=== PATIENT | female | born 1985 | race Caucasian/White ===

== ENCOUNTER 2022-01-09 19:43 | Emergency (ER) | payer BC, SELFPAY ==
[2022-01-09 19:49] VITALS: BP 102/48; PULSE 64; RESP 18; TEMP 36.2; O2SAT 98; BMI 24.9
--- OUTSIDE RECORDS SUMMARY | 2022-01-09 20:48 | XMS_ITS | Clinical Summary ---
:1985 Author Organization [employer] [place] [address] Care Team Providers Name Role Phone Malka Arizmendi DO Primary Care Provider Allergies Active Allergy Reactions Severity Noted Date Comments Lorazepam Mental Status Change 01/18/2014 Cephalexin Hives 03/14/2017 Clonazepam Mental Status Change 01/18/2014 Metoclopramide Agitation, Anxiety, Mental Status Change 03/31/2019 Medications Medication Sig Dispensed Refills Start End Status Date Date EPINEPHrine Inject 0.3 mg 2 Each 0 03/18/19 Acti ve (EPIPEN) 0.3 mg/0.3 intramuscular one 18 mL time if needed injectionIndication for Allergic s: Allergic Reaction for up reaction, to 1 dose. subsequent encounter multivitamin (MVI) Take 1 tablet by 90 tablet 3 07/27/19 Active tablet mouth once daily. 19 diazePAM (VALIUM) 2 1 tab oral twice 4 tablet 0 01/13/20 Active mg daily as needed 19 tabletIndications: agitation Restlessness and agitation methylphenidate HCl TK 1 T PO QAM 0 03/11/19 Active (RITALIN SR) 20 mg 20 Sustained-Release tablet Diaper,Brief, For home use. 1 box 06/06/19 Ac tive Adult,DisposableInd 20 ications: Mixed stress and urge urinary incontinence medication order Medical marijuana 0 07/25/19 Active composer 22 estradioL (ESTRACE) Take 1 Tablet 90 tablet. 3 07/25/19 Active 0.5 mg (0.5 mg) by mouth 22 tabletIndications: once daily. Surgical menopause fluticasone (50 mcg Inhale 2 Sprays 16 mL 3 08/29/19 Active per actuation) into affected 22 nasal solution nostril(s) once (FLONASE)Indication daily. s: Rhinitis, unspecified type diclofenac topical Apply 2-4 g 350 g 1 09/26/19 Active (VOLTAREN) 1 % topically to 22 gelIndications: affected area(s) Back pain, 4 times daily. unspecified back location, unspecified back pain laterality, unspecified chronicity, DDD (degenerative disc disease), thoracolumbar, Fibromyalgia methocarbamoL Take 1-2 Tablets 30 Tablet 0 12/17/19 Active (ROBAXIN) 500 mg (500-1,000 mg) by 22 tabletIndications: mouth three times Muscle spasm daily. As needed muscle spasm methocarbamoL Daily as needed 0 Discontinued (ROBAXIN) 500 mg 022 (Re order tablet (E-cancel not sent)) pregabalin (LYRICA) Take 1 Capsule 60 Capsule 1 09/03/1911/25 Discontinued 150 mg (150 mg) by mouth 22 022 (* Med capsuleIndications: in the morning complete/Regime Fibromyalgia and 1 Capsule n (150 mg) in the comp lete/Level evening. of care miguel) Active Problems Problem Noted Date Multiple lung nodules on CT 07/24/2021 Overview: 06/2021: Two stable 4mm noncalcified pulm onary nodules in RUL. IF high risk (patient smokes) <6mm, optional CT at 12months. 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, now when laying of left side she has heart contractions) 11/04/2021 Travel 10/31/2021 Travel 10/17/2021 Ancillary Procedure 10/17/2021 Ancillary Procedure 10/17/2021 Office Visit Malka Arizmendi Knee Pa in/problem (Right DO knee cap pain, 2 years getting worse); Derm Problem (Bump o n right hip, 1 year) 10/17/2021 Travel from Last 3 Months Immunizations Name Administration Dates Next Due Tdap 10/22/2017, 03/04/2014 Family History Medical History Relation Name Comments Diabetes Father 'not take insuli n right.' Heart Disease Father stents placed in 60's Hypertension Father Other Mother endometriosis Cancer Paternal Grandmother uterine Cancer-ovarian Paternal Grandmother Cancer-breast No Family History Relation Name Status Comments Brother 1 Alive Brother 2 Alive Brother 3 Alive Father Alive Mother Alive Paternal Grandmother Social History Tobacco Use Types Packs/Day Years Used Date Current Every Day Smoker 1 0 Smokeless Tobacco: Never Used Tobacco Cessation: Ready to Quit: Yes; C ounseling Given: Yes Alcohol Use Standard Drinks/Week Comments No 0 (1 standard drink = 0.6 oz pure alcoho l) Sex Assigned at Date Recorded Female 08/15/2019 11:26 AM CDT COVID-19 Exposure Response Date Recorded In the last 10 days, have you been in contact No / Unsure 12/21/2021 10:04 AM CDT with someone who was confirmed or suspected to have Coronavirus/COVID-19? Obstetrics History Para Term AB IAB SAB Ectopic Multiple Living Live Births 2 2 1 1 0 0 0 0 2 2 Date Outcome GA Total Labor/2nd/3rd Weight Sex Delivery Anes PTL Akua A 1 A5 Name Clin Labor Term Danyell ng Danyell ng Last Filed Vital Signs Vital Sign Reading Time Taken Comments Blood Pressure 110/68 11/04/2021 11:15 AM CDT Pulse 76 11/04/2021 11:15 AM CDT Temperature 36.9 ??C (98.5 ??F) 09/25/2021 8:16 AM CDT Respiratory Rate 18 12/27/2019 11:39 AM NEWS PRODUCER Oxygen Saturation 99% 10/17/2021 10:55 AM CDT Inhaled Oxygen Concentration - - Weight 83.3 kg (183 lb 11.2 11/04/2021 11:15 AM with sa ndals oz) CDT Height 180 cm (5' 10.87) 01/30/2020 10:32 AM NEWS PRODUCER Body Mass Index 25.72 01/30/2020 10:32 AM NEWS PRODUCER Plan of Treatment Upcoming Encounters Date Type Specialty Care Team Description 01/13/2022 Office Visit Malka Arizmendi, DO [address] [facility] [address] [place], [place] [address] (Wo rk) 01/27/2022 Office Visit [facility], [facility] [employer] Health Maintenance Due Date Last Done Comments COVID-19 vaccine series (#1) 1983 Pneumococcal series for age 19-64 1989 (1 - PCV) HIV for age 15-65 1998 Hepatitis C screening for age 0103/24/2001 18-79 BMI (ht and wt on same day) for 01/29/2021 01/30/2020, 02/0 07/2019, age 18+ 01/18/2019, Additional history exists Influenza for age 9-49 10/24/2021 Depression screening for age 12+ 08/28/2022 08/28/2021, 03/2021, 07/24/2021, Additional history exists Tetanus booster 10/23/2027 10/22/2017, 03/04/2014, 09/23/2009 (Completed outside of [facility]) Tdap Completed 10/22/2017, 03/04/2014 Medical Devices Implanted Type Area Biometrics Technician Device Shelf Model / Identifier Expiration Serial / Date Lot Guide Nerve [id number] Repair Device - [id number] Right: Int egra 01/22/2018 [id number] / Implanted: Qty: 1 on 01/19/2018 by Clint Montalvo MD at [facility] [place] Wendy / [id number] Procedures Procedure Name Priority Date/Time Associated Diagnosis Comme nts XR KNEE 3 VIEWS Routine 10/17/2021 12:16 PM Pain of right Resu lts for this RIGHT CDT patella procedure are i n the results section. XR SPINE STANDING Routine 10/17/2021 12:15 PM Scoliosis, Res ults for this SCOLIOSIS 1 VIEW CDT unspecified procedure a re in scoliosis type, the results unspecified spinal section. region PATH TISSUE EXAM Routine 10/17/2021 11:40 AM Skin lesion Resu lts for this CDT procedure are i n the results section. from Last 3 Months Results XR KNEE 3 VIEWS RIGHT (10/17/2021 12:16 PM CDT) Anatomical Region Laterality Modality KNEES, KNEE R Computed Radiography Specimen (Source) Anatomical Collection Method Collection Time Re ceived Time Location / / Volume Laterality 10/17/2021 4:27 PM CDT Narrative 10/17/2021 4:27 PM CDT For Patients: ??As a result of the Cures Act, medical imaging exams and procedure report s are released immediately into your ronan [employer] medical record. ??You may view this report before your referring provider. ??If you have questions, please contact your health care provider. Indication: Right patellar pain Technique: Right knee 3 views Comparison: None Findings: Bones: Slight lateral patellar tilt note d. No fractures or bone lesions. ?? Joint spaces: Joint spaces are well main tained. No degenerative changes. No sign of joint effusion. ?? Soft tissues: Unremarkable. ?? Impression: Mild lateral patellar tilt. Remainder no rmal. Dictated by Tyron Meyers MD @ Oct 17 2 022 ??4:27PM (Electronically Signed) ?? Procedure Note Tyron Meyers MD - 10/17/2021For matting of this note might be different from the original. For Patients: As a result of the Cures Act, medical imaging exams and procedure reports are released immediately into your electronic medical record. You may view this report before your referring provider. If you have questions, please contact [facility] health care provider. Indication: Right patellar pain Technique: Right knee 3 views Comparison: None Findings: Bones: Slight lateral patellar tilt note d. No fractures or bone lesions. Joint spaces: Joint spaces are well main tained. No degenerative changes. No sign of joint effusion. Soft tissues: Unremarkable. Impression: Mild lateral patellar tilt. Remainder no rmal. Dictated by Tyron Meyers MD @ Oct 17 4:27PM (Electronically Signed) Malka Arizmendi DO GENERAL IMAGING XR SPINE STANDING SCOLIOSIS 1 VIEW (10/17/2021 12:15 PM CDT) Anatomical Region Laterality Modality CERVICAL SPINE, THORACIC SPINE, LUMBAR SPINE, Spine Computed Radiography Specimen (Source) Anatomical Collection Method Collection Time Re ceived Time Location / / Volume Laterality 10/17/2021 4:42 PM CDT Impressions 10/17/2021 4:42 PM CDT Mild S shaped curvature of the thoracolumbar spine. Dictated by Tyron Meyers MD @ Oct 17 022 ??4:42PM (Electronically Signed) ?? Narrative 10/17/2021 4:42 PM CDT For Patients: ??As a result of the Cures Act, medical imaging exams and procedure report s are released immediately into your ronan [employer] medical record. ??You may view this report before your referring provider. ??If you have questions, please contact your health care provider. INDICATION: Scoliosis TECHNIQUE: Standing frontal films of the thoracolum bar spine COMPARISON: none FINDINGS: 8.7 degrees leftward curvature T12 throu gh L4. 5 degrees rightward curvature T3 through T9. No vertebral body deformity. Lungs clear. Procedure Note Tyron Meyers MD - 10/17/2021For matting of this note might be different from the original. For Patients: As a result of the Cures Act, medical imaging exams and procedure reports are released immediately into your electronic medical record. You may view this report before your referring provider. If you have questions, please contact yo health care provider. INDICATION: Scoliosis TECHNIQUE: Standing frontal films of the thoracolum bar spine COMPARISON: none FINDINGS: 8.7 degrees leftward curvature T12 throu gh L4. 5 degrees rightward curvature T3 through T9. No vertebral body deformity. Lungs clear. IMPRESSION: Mild S shaped curvature of the thoracolu mbar spine. Dictated by Tyron Meyers MD @ Oct 17 4:42PM (Electronically Signed) Malka Arizmendi DO GENERAL IMAGING PATH TISSUE EXAM (10/17/2021 11:40 AM CDT) Component Value Ref Test Analysis Performed At [facility] gist Range Method Time Signature Case Report Pathology Report ?Case: [id number] ? 10/21/2021 [facility] Authorizing Provider: ??Malka Prater, DO ?Collected: ? 10/17/2021 1140 ? 9:17 AM HEALTH Ordering Location: ? [facility] ?? Received: ?10/17/2021 1157 ? CDT LABOR ATORY-C ? Clinic ? ENTRAL Pathologist: ? David Beavers MD ? LABORATORY Specimen: ?Left Hip ? Final A) SKIN, LEFT HIP, BIOPSY: 10/21/2021 [facility] Electronically Diagnosis 1. Dermatofibroma 9:17 AM HEALTH si gned by Ruthann, 2. No evidence of malignancy CDT L ABORATORY-Lena Hernandez MD on ENTRAL 10/21/2021 at LABORATORY 9:17 AM Clinical left hip skin 10/21/2021 [facility] Information nodule, 9:17 AM [facility] CDT LABORATORY-C ENTRAL LABORATORY Gross A) Received in formalin, lab eled with the patient's name and date of , are two skin shave biopsies. The first, inked red and trisected, measures 0.7 x 0.7 cm and displays a 0.7 x 0.7 x 0.2 cm raise 0 10/21/2021 [facility] Description d gee-brown lesion. The seco nd, inked yellow and bisected, measures 0.5 x 0.3 cm and displays a 0.5 x 0.3 x 0.2 cm raised gee lesion. The specimen is entirely submitted in two cassettes. 9:17 AM [facility] CDT LABORATORY-C Torin Rich 10/17/2021 6:17 PM ENTRAL LABORATORY Microscopic The final diagnosis is based on microscopic examination of appropriate sections of all specimens. 10/21/2021 [facility] Description 9:[address] [facility] A) There is a dermal prolife ration of spindled cells growing in a somewhat storiform fashion with no significant mitotic activity or cytologic atypia. At the periphery of the lesion, the spindled cells ENTRAL encompass individual collage n bundles. The lesion is broadly transected at the base of the biopsy specimen. The presence of red and yellow ink is confirmed on tissue sections. LABORATORY Additional 10/21/2021 [facility] Information Interpreted at [facility], Central Laboratory - [address] [facility] [address], [place] [address] 9:[address] [facility]-C ENTRAL LABORATORY Specimen Anatomical Collection Method Collection Time Receive d Time (Source) Location / / Volume Laterality Other (Left Hip) Non-Blood / 10/17/2021 11:40 022 Unknown AM CDT 11:57 AM CDT Malka Arizmendi DO PATHOLOGY/CYTOLOGY Performing Organization Address City/State/ZIP Code Phon e Number [employer] [address] [place] [address] LABORATORY-CENTRAL 2000 LABORATORY from Last 3 Months Insurance Payer Benefit Plan / Subscriber ID Effective Dates Phone Addre ss Type Group [employer] [id number] 2018-Present [address] [address] [place] [address] Advance Directives Latest Code Status on File Code Status Date Activated Date Inactivated Comments Full Code 01/19/2018 9:37 AM 01/19/2018 7:08 PM Full Code 03/06/2007 3:12 AM 03/08/2007 4:52 PM Full Code 03/05/2007 8:57 AM 03/06/2007 1:54 AM Full Code 03/05/2007 7:41 AM 03/05/2007 8:57 AM Full Code 03/03/2007 1:56 AM 03/03/2007 6:24 AM Care Teams Homebirth Midwife Relationship Specialty Start Date End Date Malka Arizmendi DO PCP - General Family Practice 10/10/13 [address] [place] [address]
[2022-01-09 21:09] LABS: PCR FLU A Negative PCR FLU A (Negative); PCR FLU B Negative PCR FLU B (Negative); PCR RSV Negative PCR RSV (Negative)
[2022-01-09 21:10] LABS: SARS PCR* Negative SARS-CoV-2 (Negative)
--- NOTE | 2022-01-09 21:27 | ED.GENADULT ---
HPI - General Adult General Chief complaint: Unspecified Complaint, Adult Stated complaint: Breathing Difficulty Time Seen by Provider: 01/09/22 20:15 History of Present Illness HPI narrative: This 36-year-old female comes in reporting shortness of breath especially when laying down. She was seen yesterday at her pain clinic. She has fibromyalgia among other things and did receive an injection of Toradol and a steroid. She does not report any fevers. She does not have much of a cough. She states that she feels rather normal with regard to breathing when upright but is since she lays down she begins to be short of breath. She does not have any pedal edema and does not report any history of chest pain or congestive heart failure. Related Data Home Medications Medication Instructions Recorded Confirmed diazepam 5 mg tablet mg 01/09/22 estradiol 0.5 mg tablet mg 01/09/22 fluticasone propionate 50 intranasal 01/09/22 mcg/actuation nasal spray,suspension methocarbamol 500 mg tablet mg 01/09/22 Previous Rx's Medication Instructions Recorded methylprednisolone 4 mg tablets in See Rx Instructions PO .COMPLEX 01/09/22 a dose pack (Medrol (Mohit)) #21 ea Allergies Allergy/AdvReac Type Severity Reaction Status Date / Time clonazepam [From Klonopin] Allergy Mild Verified 01/09/22 19:56 lorazepam Allergy Mild Anxiety Verified 01/09/22 19:56 metoclopramide Allergy Mild Verified 01/09/22 19:56 keflex Allergy Mild Hives Uncoded 01/09/22 19:56 Review of Systems Status of ROS: Reports: 10 or more systems reviewed and unremarkable except as noted in History and below Narrative: Constitutional: No fevers, no weight gain or loss. Eyes: No discharge. No vision changes. HENT: No congestion, no sore throat, no ear pain. Cardiovascular: No chest pain, no palpitations. Respiratory: Shortness of breath when laying down. Gastrointestinal: No abdominal pain, no vomiting, no diarrhea. Genitourinary: No dysuria, no hematuria. Musculoskeletal: Normal range of motion. Skin: No rashes, no pruritis. Neurological: No dizziness, weakness, sensory change, speech change. Endo/Heme/Allergies: No bruising or bleeding. No polydipsia. Pysch: no suicidality, no anxiety, no insomnia. All other systems reviewed and are negative. Exam Narrative: Exam Narrative: Constitutional: Well-developed, well-nourished, no acute distress. HEENT: Normocephalic, atraumatic. Neck: Normal range of motion. Supple. She has chronic neck pain and reports a herniated disc. Heart: Regular. No murmurs. Normal rate. Intact distal pulses. Lungs: Clear to auscultation when upright. When laying down I hear wheezes left greater than right. No chest discomfort. Abdomen: Normal bowel sounds. Nontender. No rebound tenderness. Genitalia: Deferred. Back: No midline tenderness. Normal range of motion. Extremities: Normal range of motion. No injury. No pedal edema. Skin: Intact. No rash. Warm. No erythema or pallor. Neurologic: No altered sensation. No weakness. Alert and oriented. Psychiatric: No suicidality. No anxiety or depression. No insomnia. Nursing notes and vitals signs are reviewed. Const: Vital Signs, click to edit/add: Vital Signs - 24 hr 01/09/22 19:49 Temperature 97.1 F L Pulse Rate [Pulse Oximeter] 64 Respiratory Rate 18 Blood Pressure [[facility]] 102/48 L Pulse Oximetry 98 Oxygen Delivery Me thod Room Air Course Vital Signs Vital signs: Initial Vital Signs Temperature 97.1 F L 01/09/22 19:49 Temperature Source Temporal Artery Scan 01/09/22 19:49 Pulse Rate 64 01/09/22 19:49 Pulse Rhythm 01/09/22 19:49 Respiratory Rate 18 01/09/22 19:49 Blood Pressure 102/48 L 01/09/22 19:49 Blood Pressure Mean 66 01/09/22 19:49 Blood Pressure Position Sitting 01/09/22 19:49 Pulse Oximetry 98 01/09/22 19:49 Oxygen Delivery Method 01/09/22 19:49 Vital Signs Temperature 97.1 F L 01/09/22 19:49 Pulse Rate 64 01/09/22 19:49 Respiratory Rate 18 01/09/22 19:49 Blood Pressure 102/48 L 01/09/22 19:49 Pulse Oximetry 98 01/09/22 19:49 Oxygen Delivery Method 01/09/22 19:49 Temperature 97.1 F L 01/09/22 19:49 Pulse Rate 64 01/09/22 19:49 Respiratory Rate 18 01/09/22 19:49 Blood Pressure 102/48 L 01/09/22 19:49 Pulse Oximetry 98 01/09/22 19:49 Oxygen Delivery Method 01/09/22 19:49 Medical Decision Making MDM Narrative Medical decision making narrative: This patient comes in reporting symptoms of orthopnea. She does not have any chest pain or history of congestive heart failure. Nasal swab returns negative for COVID and influenza. She is not using any accessory muscles for breathing and has normal oximetry and pulse. She does not have any triggers that are suspicious for DVT or pulmonary embolism. Her revised Moriches score is reassuring in this regard. When she laid on her left side horizontally she immediately had wheezing is heard in the stethoscope. She did receive a steroid yesterday. She does not use an inhaler and declined any albuterol treatment now because she knows that it would make her jittery in keep her awake into the night. I did discuss other lab and imaging options which the patient declined in a process of shared decision making. She has had a many thorough workups for multiple complaints and has ongoing relationship with her primary physician and Pain Clinic. She did receive an IM dose of Toradol 30 mg. I did provide prescriptions for albuterol inhaler, Medrol Dosepak, and Toradol. Lab Data Labs: Lab Results 01/09/22 Range/Units 20:21 SARS-CoV-2 (PCR) Negative SARS-CoV-2 (Negative) Influenza Type A (PCR) Negative PCR FLU A (Negative) Influenza Type B (PCR) Negative PCR FLU B (Negative) RSV (PCR) Negative PCR RSV (Negative) Discharge Plan Discharge Clinical Impression: Orthopnea, Wheezes Patient Disposition: Home, Self-Care Condition: Stable Additional Instructions: Use medicines as needed and indicated. Follow up with MD or return if worsening. Prescriptions: New methylprednisolone [Medrol (Mohit)] 4 mg tablets,dose pack See Rx Instructions .ROUTE .COMPLEX Qty: 21 0RF Rx Instructions: orally per package directions No Action methocarbamol 500 mg tablet Label Comments: TAKE 1 TABLET BY MOUTH TWICE DAILY NEEDED estradiol 0.5 mg tablet fluticasone propionate 50 mcg/actuation spray,suspension INTRANASAL diazepam 5 mg tablet Follow Up/Referrals: Malka Arizmendi DO [Primary Care Provider] - Stand Alone Forms: [facility] Info Instructions
[2022-01-09] MEDS: KETOROLAC 30 MG/ML inj IM (21:39)
[2022-01-09 21:53] VITALS: BP 123/74
== END 2022-01-09 21:54 | disposition home or self-care (01) ==
PROVIDERS: Emergency Provider Emergency Medicine Emergency Medical Services; PCP Family Medicine
DX: R06.01 Orthopnea (principal)
CPT/HCPCS: 87502; 87634; 87635; 96372; 99284; 99285; J1885

== ENCOUNTER 2022-01-10 20:18 | Emergency (ER) | payer BC, SELFPAY ==
[2022-01-10] VITALS (16 sets, daily range): BP systolic 125–137; BP diastolic 67–81; PULSE 43–56; RESP 18; TEMP 36.7; O2SAT 96–99; BMI 25.3
--- NOTE | 2022-01-10 20:36 | CRLHL7_ITS ---
For Patients: As a result of the Cures Act, medical imaging exams and procedure reports are released immediately into your electronic medical record. You may view this report before your referring provider. If you have questions, please contact your health care provider. HISTORY: Shortness of breath. TECHNIQUE: Two views of the chest. COMPARISON: No prior. FINDINGS: There is no acute lung infiltrate or pulmonary edema. No pneumothorax or pleural effusion. Heart size and pulmonary vasculature within normal limits. No acute bony abnormality. IMPRESSION: No acute disease. Dictated by Ozzie Matthew MD @ 01/10/2022 9:37:22 PM Dictated by: Ozzie Matthew MD @ 01/10/2022 21:37:28 (Electronically Signed)
--- OUTSIDE RECORDS SUMMARY | 2022-01-10 20:46 | XMS_ITS | Clinical Summary ---
:1985 Author Organization [employer] [facility] [place] [address] Care Team Providers Name Role Phone Malka [...] CDT Respiratory Rate 18 12/27/2019 11:39 AM PACK OUT OPERATOR Oxygen Saturation 99% 10/17/2021 10:55 AM CDT Inhaled Oxygen Concentration - - Weight 83.3 kg (183 lb 11.2 11/04/2021 11:15 AM with sa ndals oz) CDT Height 180 cm (5' 10.87) 01/30/2020 10:32 AM PACK OUT OPERATOR Body Mass Index 25.72 01/30/2020 10:32 AM PACK OUT OPERATOR Plan of Treatment Upcoming Encounters Date Type Specialty Care Team Description 01/13/2022 Office Visit Malka Arizmendi, DO [address] [facility] [address] [place], [place] [address] (Wo rk) 01/27/2022 Office Visit [facility], Sharron Sympoz (dba Craft[employer]) Health Maintenance Due Date Last Done Comments [...] 10/23/2027 10/22/2017, 03/04/2014, 09/23/2009 (Completed outside of [facility]) Tdap Completed 10/22/2017, 03/04/2014 Medical Devices Implanted Type Area Legal Aide Device Shelf Model / Identifier Expiration Serial / Date Lot Guide Nerve [id number] Repair Device - [id number] Right: Int egra 01/22/2018 [id number] / Implanted: Qty: 1 on 01/19/2018 by Clint Montalvo MD at [facility] [employer] / [id number] Procedures Procedure Name Priority Date/Time Associated Diagnosis [...] s are released immediately into your [facility] medical record. ??You may view this report [...] provider. If you have questions, please contact [facility] health care provider. Indication: Right patellar pain [...] s are released immediately into your [facility] medical record. ??You may view this report [...] Component Value Ref Test Analysis Performed At [facility] gist Range Method Time Signature Case Report Pathology Report ?Case: [id number] ? 10/21/2021 [facility] Authorizing Provider: ??Malka Prater, DO ?Collected: ? 10/17/2021 1140 ? 9:17 AM HEALTH Ordering Location: ? [facility] ?? Received: ?10/17/2021 1157 ? CDT LABOR [...] [facility] Information nodule, 9:17 AM [facility] CDT LABORATORY-C ENTRAL LABORATORY Gross A) Received [...] entirely submitted in two cassettes. 9:17 AM [facility] CDT LABORATORY-C Torin Rich 10/17/2021 6:17 PM ENTRAL LABORATORY Microscopic The final diagnosis is based on microscopic examination of appropriate sections of all specimens. 10/21/2021 [facility] Description 9:[address] [facility] A) There is a dermal [...] LABORATORY Additional 10/21/2021 [facility] Information Interpreted at [facility] Laboratory, Central Laboratory - [address] [facility] [address], [place] [address] 9:[address] [facility] ENTRAL LABORATORY Specimen Anatomical Collection Method Collection Time Receive d Time (Source) Location / / Volume Laterality Other (Left Hip) Non-Blood / 10/17/2021 11:40 022 Unknown AM CDT 11:57 AM CDT Malka Arizmendi DO PATHOLOGY/CYTOLOGY Performing Organization Address City/State/ZIP Code Phon e Number [employer]™ [address] [place] [address] LABORATORY-CENTRAL 2000 LABORATORY from Last 3 Months Insurance Payer Benefit Plan / Subscriber ID Effective Dates Phone Addre ss Type Group [employer] [place] [employer] [id number] 2018-Present [address] [address] [place] [address] Advance Directives Latest Code Status on File Code Status Date Activated Date Inactivated Comments Full Code 01/19/2018 9:37 AM 01/19/2018 7:08 PM Full Code 03/06/2007 3:12 AM 03/08/2007 4:52 PM Full Code 03/05/2007 8:57 AM 03/06/2007 1:54 AM Full Code 03/05/2007 7:41 AM 03/05/2007 8:57 AM Full Code 03/03/2007 1:56 AM 03/03/2007 6:24 AM Care Teams Office Machine Embossograph Operator Relationship Specialty Start Date End Date Malka Arizmendi DO PCP - General Family Practice 10/10/13 [address] [place] [address]
--- NOTE | 2022-01-10 21:04 | ED.GENADULT ---
HPI - General Adult General Chief complaint: Unspecified Complaint, Adult Stated complaint: Weakness, Shortness of breath, Numb on right side Time Seen by Provider: 01/10/22 20:30 History of Present Illness HPI narrative: Pt is a 36 year old woman who was seen yesterday who presents with pain in the right side of her neck into her right shoulder. Pt was treated with toradol and prednisone yesterday after being found to be negative for COVID, Flu and RSV. Pt states the pain is moderate. She also has a nonproductive cough and is a smoker. Pt states that she is not feeling any better. Movement seems to make the pain worse. No radiculopathy. Pt has had no similar symptoms. No hemoptysis, fever or chills. No arm radicular symptoms. Related Data Home Medications Medication Instructions Recorded Confirmed diazepam 5 mg tablet mg 01/09/22 estradiol 0.5 mg tablet mg 01/09/22 fluticasone propionate 50 intranasal 01/09/22 mcg/actuation nasal spray,suspension methocarbamol 500 mg tablet mg 01/09/22 Previous Rx's Medication Instructions Recorded methylprednisolone 4 mg tablets in See Rx Instructions PO .COMPLEX 01/09/22 a dose pack (Medrol (Mohit)) #21 ea Allergies Allergy/AdvReac Type Severity Reaction Status Date / Time clonazepam [From Klonopin] Allergy Mild Verified 01/09/22 19:56 lorazepam Allergy Mild Anxiety Verified 01/09/22 19:56 metoclopramide Allergy Mild Verified 01/09/22 19:56 keflex Allergy Mild Hives Uncoded 01/09/22 19:56 Review of Systems Status of ROS: Reports: 10 or more systems reviewed and unremarkable except as noted in History and below [facility] Medical History (Updated 01/10/22 @ 22:35 by Juve Miguel MD) Anxiety Dental caries PAC (premature atrial contraction) Social History Smoking Status: Current some day smoker Do you use any of these nicotine containing products: None and Other How often do you have a drink containing alcohol: never How often do you have six or more drinks on one occasion: Never AUDIT-C Alcohol total score: 0 Non-prescribed substance use: marijuana (any form) Exam Narrative: Exam Narrative: EXAM GENERAL: Patient appears comfortable and well. EYES: No scleral icterus. ENT: Tympanic membranes and oropharynx normal. THYROID: no thyroid nodules or thyromegaly. LYMPH: No supraclavicular or cervical lymphadenopathy. SKIN: Visible skin seen during exam normal or with benign process only. EXT: No dependent lower extremity pedal edema. HEART: Regular rate and rhythm with no murmurs, rubs, or gallops. LUNGS: Clear to auscultation bilaterally with no crackles or wheezes. ABD: Soft, non tender, non distended. PSYCH: Good eye contact, speech is not pressured. Const: Vital Signs, click to edit/add: Vital Signs - 24 hr 01/10/22 20:23 01/10/22 20:49 01/10/22 20:50 Temperature 98.1 F Pulse Rate 44 L 48 L Pulse Rate [Left P ulse Oximeter] 46 L Blood Pressure 125/81 Blood Pressure [Ri ght Upper Arm] 133/78 Pulse Oximetry 98 99 98 Oxygen Delivery Me thod Room Air 01/10/22 20:51 01/10/22 21:00 01/10/22 21:15 Temperature Pulse Rate 48 L 46 L 50 L Pulse Rate [Left P ulse Oximeter] Blood Pressure Blood Pressure [Ri ght Upper Arm] Pulse Oximetry 98 98 97 Oxygen Delivery Me thod 01/10/22 21:30 01/10/22 21:32 01/10/22 21:48 Temperature Pulse Rate 43 L 44 L 56 L Pulse Rate [Left P ulse Oximeter] Blood Pressure 137/71 Blood Pressure [Ri ght Upper Arm] Pulse Oximetry 97 97 98 Oxygen Delivery Me thod 01/10/22 22:00 01/10/22 22:02 Temperature Pulse Rate 46 L 48 L Pulse Rate [Left P ulse Oximeter] Blood Pressure 130/67 Blood Pressure [Ri ght Upper Arm] Pulse Oximetry 97 96 Oxygen Delivery Me thod Course Course Hospital Course: Pt seen and examined. EKG, Chest X ray, Troponin, D dimer collected Reevaluation(s) Reevaluation #1: Pt now tells me that she had a number of injections in the area of shoulder pains this week. Troponin negative, D dimer boderline but certainly acceptable. EKG shows sinus bradycardia. Chart review shows that pt has been bradycardic in the past. CBC shows mild anemia with normal WBC. Time: 22:26 Vital Signs Vital signs: Initial Vital Signs Temperature 98.1 F 01/10/22 20:23 Temperature Source Temporal Artery Scan 01/10/22 20:23 Pulse Rate 46 L 01/10/22 20:23 Blood Pressure 133/78 01/10/22 20:23 Blood Pressure Mean 96 01/10/22 20:23 Blood Pressure Position Sitting 01/10/22 20:23 Pulse Oximetry 98 01/10/22 20:23 Oxygen Delivery Method 01/10/22 20:23 Vital Signs Temperature 98.1 F 01/10/22 20: Pulse Rate 46 L 01/10/22 20: Blood Pressure 133/78 01/10/22 20:23 Pulse Oximetry 98 01/10/22 20:23 Oxygen Delivery Method 01/10/22 20:23 Temperature 98.1 F 01/10/22 20: Pulse Rate 48 L 01/10/22 22:02 Blood Pressure 130/67 01/10/22 22:02 Pulse Oximetry 96 01/10/22 22:02 Oxygen Delivery Method 01/10/22 20:23 Medical Decision Making MDM Narrative Medical decision making narrative: Pt presents with a constilation of symptoms including body aches nonprodcutive cough and malaise. Pt EKG shows sinus bradycardia which doesn't seem to be causing any symptoms and is chronic. Work up otherwise largely unremarkable. Pt with recent musculoskeletal injections and symptoms of COPD exaserbation. Pt will finish prednisone and will have her start a z pack. Pt sees her PCP in two days and will discuss chronic bradycardia as well. Differential Diagnosis Differential Diagnosis: COPD, Bronchitis, Viral Syndrome, Pneumonia, Pneumothorax, Lab Data Labs: Lab Results 01/10/22 01/10/22 01/10/22 Range/Units 21:03 21:03 21:03 WBC 8.40 (4.50-11.00) K/uL RBC 3.93 L (4.00-5.20) m/uL Hgb 11.8 L (12.0-16.0) gm/dL Hct 35.9 (33.0-51.0) % MCV 91 (80-100) fL MCH 30 (26-34) pg MCHC 33 (32-36) gm/dL RDW Coeff of Darwin 12.7 (11.5-15.5) % Plt Count 165 (140-440) K/uL Neut % (Auto) 79.7 H (42.0-72.0) % Lymph % (Auto) 16.0 L (20-44) % [place] % (Auto) 3.9 (0.0-11.0) % Eos % (Auto) 0.2 (0.0-7.0) % Baso % (Auto) 0.1 (0.0-3.0) % Neut # (Auto) 6.70 (1.7-7.0) K/uL Lymph # (Auto) 1.30 (0.90-2.90) K/uL [place] # (Auto) 0.30 (0.00-0.90) K/UL Eos # (Auto) 0.02 (0.00-0.50) K/uL Baso # (Auto) 0.01 (0.00-0.30) K/uL Abs Immat Gran (auto) 0.01 (0.00-0.30) K/uL Imm/Tot Granulo (auto) 0.1 % D-Dimer Quant (PE/DVT) 0.69 H (0.00-0.50) ug/ml Troponin I < 0.01 L (0.01-0.04) ng/mL Discharge Plan Discharge Clinical Impression: Acute bronchitis Condition: Stable Instructions: Acute Bronchitis (ED) Additional Instructions: Stop Smoking Zithromax as directed Activity Level: No Restrictions Discharge Diet: Regular Prescriptions: No Action methocarbamol 500 mg tablet Label Comments: TAKE 1 TABLET BY MOUTH TWICE DAILY NEEDED estradiol 0.5 mg tablet fluticasone propionate 50 mcg/actuation spray,suspension INTRANASAL diazepam 5 mg tablet methylprednisolone [Medrol (Mohit)] 4 mg tablets,dose pack See Rx Instructions .ROUTE .COMPLEX Qty: 21 0RF Rx Instructions: orally per package directions Follow Up/Referrals: Malka Arizmendi DO [Primary Care Provider] - Stand Alone Forms: [facility] Info Instructions
[2022-01-10 21:23] LABS: Basophils Absolute Auto 0.01 K/uL (0.00-0.30); Basophils Percent Auto 0.1 % (0.0-3.0); Eosinophils Absolute Auto 0.02 K/uL (0.00-0.50); Eosinophils Percent Auto 0.2 % (0.0-7.0); Hematocrit 35.9 % (33.0-51.0); Hemoglobin* 11.8 gm/dL (12.0-16.0); Immature Granulocytes Abs Auto 0.01 K/uL (0.00-0.30); Immature Granulocytes Pct Auto 0.1 %; Mean Corpuscular HGB Conc 33 gm/dL (32-36); Mean Corpuscular Hemoglobin 30 pg (26-34); Mean Corpuscular Volume 91 fL (80-100); Monocytes Percent Auto 3.9 % (0.0-11.0); Neutrophils Percent Auto 79.7 % (42.0-72.0); Platelet Count* 165 K/uL (140-440); RDW Coefficient of Variation % 12.7 % (11.5-15.5); Red Blood Count 3.93 m/uL (4.00-5.20)
[2022-01-10 21:30] LABS: Slide Review Reflex No
[2022-01-10 21:43] LABS: Troponin I* < 0.01 ng/mL (0.01-0.04)
[2022-01-10 22:00] LABS: D Dimer Quantitative* 0.69 ug/ml (0.00-0.50)
--- NOTE | 2022-01-10 22:50 | ED.NURSE ---
Addendum entered by Juanis Sun RN 01/11/22 00:07: Pt's mother added, She [pt] has been smoking a lot of marijuana for medical uses, and I don't know if it has something to do with this. I don't know a lot about it. Original Note: Copy And Print Associate in room to discuss d/c instructions with pt and pt's mother. When going through MD d/c note, pt states The doctor didn't even tell me why I'm taking the antibiotic. MD informed of this information. MD at bedside and again goes through findings of tests and d/c instructions. Pt states Oh I guess you did say that. But I don't get why I'm going home if I still don't feel right! I've been having chest pain for two days and it's not going away. Pt asked by insurance writer what concerns pt has and if there is other testing that pt was looking for. Pt says No. This is my second day coming here and you can't tell me why my heartrate is in the 40s. I guess I just have a PE and am going home! Pt asked why she thinks she has a PE and insurance writer re-states that pt's SpO2 level is unremarkable and pt did not mention any SOB. Copy And Print Associate asks pt if she would like to speak with MD once again. Pt does not answer, signs d/c paperwork, and writes I still am having chest pain I am leaving with labs that are unnormal. Pt then gives clipboard to insurance writer. Copy And Print Associate asks pt if she wants to go over labs she feels are unnormal, but pt does not answer. Copy And Print Associate then asks pt if she would like to be given a grievance form or speak with roundhouse supervisor to discuss concerns. Pt does not answer and leaves room, slamming door. Pt's mother follows behind. supervisor television chassis repair follows insurance writer to speak with pt's mother in vestibule. Pt's mother states, It's her anxiety acting up. 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 Her friend from a PE and so that's why she thinks she might have one. supervisor television chassis repair asks pt's mother if there are other concerns pt's mother would like to be addressed. Pt's mother states pt received too many steroid shots on Thursday and that's probably why her heart rate is low. Pt's mother says, she's outside, I need to go. supervisor television chassis repair and insurance writer thank mother and mother exits ER.
== END 2022-01-10 22:50 | disposition home or self-care (01) ==
PROVIDERS: Emergency Provider Internal Medicine; PCP Family Medicine
DX: J20.9 Acute bronchitis, unspecified (principal)
CPT/HCPCS: 36415; 71046; 84484; 85025; 85379; 93005; 94761; 99283; 99284; 99285

== ENCOUNTER 2022-04-27 20:06 | Emergency (ER) | payer BC, SELFPAY ==
--- NOTE | 2022-04-27 20:14 | ED.GENADULT ---
HPI - General Adult General Time Seen by Provider: 20:14 Date Seen: 04/27/22 Chief complaint: Unspecified Complaint, Adult Stated complaint: Pain,Numbness Left Side-Swollen Ankles Time Seen by Provider: 04/27/22 20:13 Source: patient, RN notes reviewed and old records reviewed Mode of arrival: ambulatory Limitations: no limitations History of Present Illness HPI narrative: Grace is a very pleasant 37-year-old female with a history of chronic pain, recent cervical spine injections, who comes to the emergency room with concerns regarding neck numbness and swollen ankles. Patient states that 3 and half weeks ago she underwent which she describes as trigger point injections in her neck at [facility] in [place]. She states that usually they do the trigger point injections on her shoulders and her back at this time they did in her neck and she thinks that they were trying to target the nerves in her cervical spine. Thus, I am unsure if she needs trigger point or cervical spine injections. At any rate, patient states that she is usually numb around the area of the injection for the 1st day and and she was from her neck onto her shoulder. However, 4 days later when she went to a physical therapy appointment and they pushed down and both shoulders she had no pain on the right. She notes that she went to PT 7 days ago and there were areas on her back and behind her ear that she describes as feeling numb. She states she also has a headache on that side. Three days ago she started noticing swelling in her ankles and is worried that somehow a worsening cervical disc is causing the swelling in her ankles. She states that she has discomfort from her left neck around the left back under her ribcage and down her left leg. She does note that she had to do a special healed on her 15-year-old daughter. She did not fall but her daughter is the same size as her.. This was greater than 24 hours ago. Patient notes that she actually has had the pain on the left side with her rib wrapping around to the front. This has been ongoing and is intermittent. She notes no loss of bowel or bladder control or weakness in the lower extremities. She is using ibuprofen for discomfort and today actually used to Toradol. She states the Toradol helped and she was able to fall asleep but just has pain throughout. She states that this is not from anxiety or depression. She denies breathing difficulties or any chest pain. She is not worried about anything. She states that she did try to use compression stockings which worked to decrease her swelling but assumes she removed them it came back. She notes that she has tried elevate her legs but elevating her legs causes her some neck pain. Related Data Home Medications Medication Instructions Recorded Confirmed estradiol 0.5 mg tablet 0.5 mg PO DAILY 01/09/22 04/27/22 methocarbamol 500 mg tablet 500 mg PO DAILY 01/09/22 04/27/22 gabapentin 100 mg capsule 100 mg PO DAILY 04/27/22 04/27/22 prazosin 1 mg capsule 1 mg PO HS 04/27/22 04/27/22 Previous Rx's Medication Instructions Recorded furosemide 20 mg tablet 20 mg PO DAILY PRN edema #2 tabs 04/27/22 ibuprofen 800 mg tablet 800 mg PO Q8H PRN pain #30 tabs 04/27/22 Allergies Allergy/AdvReac Type Severity Reaction Status Date / Time cephalexin [From Keflex] Allergy Mild Hives Verified 04/27/22 20:29 lorazepam Allergy Mild Anxiety Verified 04/27/22 20:29 metoclopramide Allergy Mild Agitation, Verified 04/27/22 20:29 Anxiety clonazepam [From Klonopin] AdvReac Mild Mental Verified 04/27/22 20:29 Status Changes Review of Systems Status of ROS: Reports: 10 or more systems reviewed and unremarkable except as noted in History and below Const: Denies: fever or chills Eyes: Denies: change in vision ENMT: Reports: neck pain (Left-sided); Denies: throat swelling or hoarseness Cardio: Reports: chest pain (Chest wall discomfort lateral and under left breast.); Denies: shortness of breath with exertion Resp: Denies: shortness of breath or cough GI: Denies: abdominal pain, nausea, vomiting or diarrhea : Denies: painful urination or urinary frequency Musculo: Reports: back pain (Chronic) and neck pain (Left-sided) Integ/Breast: Denies: rash Neuro: Reports: headache Psych: Denies: anxiety Allergy/Immuno: Denies: throat swelling PFSH PFS Medical History Anxiety Bipolar 2 disorder Borderline personality disorder Controlled substance agreement signed De Quervain's disease (tenosynovitis) Dental caries Depression Disorder of right radial nerve Endometriosis Fibromyalgia PAC (premature atrial contraction) PTSD (post-traumatic stress disorder) Tobacco dependence Social History Smoking Status: Current some day smoker Do you use any of these nicotine containing products: None and Other How often do you have a drink containing alcohol: never How often do you have six or more drinks on one occasion: Never AUDIT-C Alcohol total score: 0 Non-prescribed substance use: marijuana (any form) Exam Narrative: Exam Narrative: Patient is alert and oriented. Her eyes are clear EOM is full. Head is atraumatic normocephalic. No pain with palpation in the midline cervical spine. In fact she says that area is numb to the touch although she can feel pressure. I do not see any unusual erythema or rash. No rash behind the right ear. TMs bilaterally without erythema or fluid. Oral cavity with moist mucous membranes no erythema exudate in the posterior oropharynx. Neck is supple without lymphadenopathy. Patient is noted to be lying in bed with flex neck she is able to extend I do not see any movement that increases her discomfort. Heart with regular rate and rhythm and lungs are clear in all lung sanders. Sitting up within normal limits. Upper extremity strength and motor is intact. Lower extremities show scant peripheral edema at the ankles and feet. Pedal pulses are intact. Calves are supple without discomfort. Negative Sarah sign Hip flexion extension, knee flexion extension, ankle dorsiflexion plantar flexion, great toe Chambers and ankle flexion all intact strength 5/5. Patient has subjected altered sensation on the left lateral calf. Sensation fully intact at the great toe and 2nd toe interspace. DTRs 2+ at the knees and 1+ at the ankles and are symmetrical.. Const: Vital Signs, click to edit/add: Vital Signs - 24 hr 04/27/22 20:17 Temperature 98.2 F Pulse Rate [Right Pulse Oximeter] 84 Respiratory Rate 18 Blood Pressure [Ri ght Upper Arm] 111/70 Pulse Oximetry 99 Oxygen Delivery Me thod Room Air Documenting provider has reviewed patient's vital signs: yes Course Course Hospital Course: Differential diagnosis includes but is not limited to chronic pain flare, cervical spine disc pathology. Lower extremity edema could possibly from for DVT, fluid overload, NSAID use, kidney failure. I do not think this is DVT as patient has normal O2 sats and pulse and this is bilateral ankles. Vital Signs Vital signs: Initial Vital Signs Temperature 98.2 F 04/27/22 20:17 Temperature Source Temporal Artery Scan 04/27/22 20:17 Pulse Rate 84 04/27/22 20:17 Respiratory Rate 18 04/27/22 20:17 Blood Pressure 111/70 04/27/22 20:17 Blood Pressure Mean 83 04/27/22 20:17 Blood Pressure Position Sitting 04/27/22 20:17 Pulse Oximetry 99 04/27/22 20:17 Oxygen Delivery Method 04/27/22 20:17 Vital Signs Temperature 98.2 F 04/27/22 20:17 Pulse Rate 84 04/27/22 20:17 Respiratory Rate 18 04/27/22 20:17 Blood Pressure 111/70 04/27/22 20:17 Pulse Oximetry 99 04/27/22 20:17 Oxygen Delivery Method 04/27/22 20:17 Temperature 98.2 F 04/27/22 20:17 Pulse Rate 84 04/27/22 20:17 Respiratory Rate 18 04/27/22 20:17 Blood Pressure 111/70 04/27/22 20:17 Pulse Oximetry 99 04/27/22 20:17 Oxygen Delivery Method 04/27/22 20:17 Medical Decision Making MDM Narrative Medical decision making narrative: 1. Chronic pain flare-at this time patient has been trying ibuprofen and Toradol at home. She is requesting ibuprofen 800 mg tablets. I do not note any problems with her creatinine as it is 0.9 this evening. Further her white count and CRP are also within normal limits. I do not have an explanation for her pain at this time. I would not want to treat this with narcotics and feel that her best option is to follow-up with her pain clinic tomorrow. Course if symptoms change I would have her come back to the emergency room. No red flag symptoms upon exam at this time. No unusual hyper reflexia. 2. Lower extremity edema-TSH within normal limits. This value not originally available and patient states that she will check on her portal. I believe patient's lower extremity edema is from increased ibuprofen use. I suggest use of the compression stockings +elevation of her legs. Further, I have sent furosemide 20 mg p.o. to be taken tomorrow morning if she would like. Would recommend pushing fluids however our as well. She may repeat the dosing on 04/29 if needed. No evidence of DVT with normal O2 sats pulse. 3. Disposition -home at this time. Follow-up with primary MD for ongoing complaints. Return to the emergency room for worsening symptoms and as needed. Patient was concerned regarding her eosinophils being at 7.6%. Normal value up to 7%. I did state I was not concerned about this as a result. Patient also concerned about potassium at 3.4. State I would not normally replace potassium but we talked about bananas and potatoes as being good sources of potassium. No evidence of UTI. Medical Records Medical records reviewed: Yes I reviewed the patient's medical records Lab Data Lab results reviewed: Yes I reviewed the patient's lab results Labs: Lab Results 04/27/22 04/27/22 04/27/22 Range/Units 21:00 21:05 21:05 WBC 7.07 (4.50-11.00) K/uL RBC 3.98 L (4.00-5.20) m/uL Hgb 12.3 (12.0-16.0) gm/dL Hct 35.6 (33.0-51.0) % MCV 89 (80-100) fL MCH 31 (26-34) pg MCHC 35 (32-36) gm/dL RDW Coeff of [place] 11.8 (11.5-15.5) % Plt Count 153 (140-440) K/uL Neut % (Auto) 51.7 (42.0-72.0) % Lymph % (Auto) 35.2 (20-44) % [place] % (Auto) 5.1 (0.0-11.0) % Eos % (Auto) 7.6 H (0.0-7.0) % Baso % (Auto) 0.3 (0.0-3.0) % Neut # (Auto) 3.65 (1.7-7.0) K/uL Lymph # (Auto) 2.49 (0.90-2.90) K/uL [place] # (Auto) 0.40 (0.00-0.90) K/UL Eos # (Auto) 0.50 (0.00-0.50) K/uL Baso # (Auto) 0.02 (0.00-0.30) K/uL Sodium 139 (135-149) mmol/L Potassium 3.4 L (3.6-5.1) mmol/L Chloride 111 (96-114) mmol/L Carbon Dioxide 26 (20-32) mmol/L BUN 10 (5-24) mg/dL Creatinine 0.9 (0.5-1.5) mg/dL Estimated Creat Clear 90.75 Estimated GFR 83 ml/min Glucose 102 (60-115) mg/dL Calcium 8.7 (8.4-10.6) mg/dL C-Reactive Protein 0.7 (0.5-1.0) mg/dL TSH (0.270-4.20) uIU/mL Urine Color Yellow (Yellow) Urine Appearance Slightly Cloudy A (Clear) Urine pH 6.0 (5.0-8.5) Ur Specific [place] 1.025 (1.000-1.030) Urine Protein 1+ A (Negative) Urine Glucose (UA) Negative (Negative) Urine Ketones Negative (Negative) Urine Blood Negative (Negative) Urine Nitrite Negative (Negative) Urine Bilirubin Negative (Negative) Urine Urobilinogen 4.0 A (0.2-1.0) Ur Leukocyte Esterase Negative (Negative) Urine RBC 0-2 (0-2) Urine WBC 0-2 (0-5) Ur Squamous Epith Cells Moderate A (None-Few) Urine Bacteria None (None) 04/27/22 Range/Units 21:05 WBC (4.50-11.00) K/uL RBC (4.00-5.20) m/uL Hgb (12.0-16.0) gm/dL Hct (33.0-51.0) % MCV (80-100) fL MCH (26-34) pg MCHC (32-36) gm/dL RDW Coeff of Darwin (11.5-15.5) % Plt Count (140-440) K/uL Neut % (Auto) (42.0-72.0) % Lymph % (Auto) (20-44) % [place] % (Auto) (0.0-11.0) % Eos % (Auto) (0.0-7.0) % Baso % (Auto) (0.0-3.0) % Neut # (Auto) (1.7-7.0) K/uL Lymph # (Auto) (0.90-2.90) K/uL [place] # (Auto) (0.00-0.90) K/UL Eos # (Auto) (0.00-0.50) K/uL Baso # (Auto) (0.00-0.30) K/uL Sodium (135-149) mmol/L Potassium (3.6-5.1) mmol/L Chloride (96-114) mmol/L Carbon Dioxide (20-32) mmol/L BUN (5-24) mg/dL Creatinine (0.5-1.5) mg/dL Estimated Creat Clear Estimated GFR ml/min Glucose (60-115) mg/dL Calcium (8.4-10.6) mg/dL C-Reactive Protein (0.5-1.0) mg/dL TSH 1.400 (0.270-4.20) uIU/mL Urine Color (Yellow) Urine Appearance (Clear) Urine pH (5.0-8.5) Ur Specific [place] (1.000-1.030) Urine Protein (Negative) Urine Glucose (UA) (Negative) Urine Ketones (Negative) Urine Blood (Negative) Urine Nitrite (Negative) Urine Bilirubin (Negative) Urine Urobilinogen (0.2-1.0) Ur Leukocyte Esterase (Negative) Urine RBC (0-2) Urine WBC (0-5) Ur Squamous Epith Cells (None-Few) Urine Bacteria (None) Discharge Plan Discharge Clinical Impression: Acute neck pain, Ankle edema Patient Disposition: Home, Self-Care Condition: Unchanged Additional Instructions: Recommend follow-up with your pain clinic tomorrow in regards to the unusual neck symptoms that you are describing. You may need an MRI. I will prescribe ibuprofen 800 mg. Consider wearing your compression stockings and elevating legs. You may use the diuretic Lasix as directed. Prescriptions: New furosemide 20 mg tablet 20 mg PO DAILY PRN (Reason: edema) Qty: 2 2RF ibuprofen 800 mg tablet 800 mg PO Q8H PRN (Reason: pain) Qty: 30 0RF No Action methocarbamol 500 mg tablet 500 mg PO DAILY Label Comments: TAKE 1 TABLET BY MOUTH TWICE DAILY NEEDED estradiol 0.5 mg tablet 0.5 mg PO DAILY gabapentin 100 mg capsule 100 mg PO DAILY prazosin 1 mg capsule 1 mg PO HS Label Comments: Take 1-2 capsule by mouth at bedtime Follow Up/Referrals: Malka Arizmendi DO [Primary Care Provider] - Stand Alone Forms: [employer] Info Instructions
[2022-04-27 20:17] VITALS: BP 111/70; PULSE 84; RESP 18; TEMP 36.8; O2SAT 99; BMI 25.0
[2022-04-27 21:12] LABS: Basophils Absolute Auto 0.02 K/uL (0.00-0.30); Basophils Percent Auto 0.3 % (0.0-3.0); Eosinophils Percent Auto 7.6 % (0.0-7.0); Hematocrit 35.6 % (33.0-51.0); Hemoglobin* 12.3 gm/dL (12.0-16.0); Immature Granulocytes Abs Auto 0.01 K/uL (0.00-0.30); Immature Granulocytes Pct Auto 0.1 %; Lymphocytes Absolute Auto 2.49 K/uL (0.90-2.90); Lymphocytes Percent Auto 35.2 % (20-44); Mean Corpuscular HGB Conc 35 gm/dL (32-36); Mean Corpuscular Hemoglobin 31 pg (26-34); Mean Corpuscular Volume 89 fL (80-100); Monocytes Percent Auto 5.1 % (0.0-11.0); Neutrophils Absolute Auto 3.65 K/uL (1.7-7.0); Neutrophils Percent Auto 51.7 % (42.0-72.0); Platelet Count* 153 K/uL (140-440); RDW Coefficient of Variation % 11.8 % (11.5-15.5); Red Blood Count 3.98 m/uL (4.00-5.20); White Blood Count* 7.07 K/uL (4.50-11.00)
[2022-04-27 21:16] LABS: Slide Review Reflex No
[2022-04-27 21:17] LABS: Appearance Urine Slightly Cloudy (Clear); Bilirubin Urine Negative (Negative); Blood Urine Negative (Negative); Color Urine Yellow (Yellow); Glucose Urine Negative (Negative); Ketones Urine Negative (Negative); Leukocyte Esterase Urine Negative (Negative); Nitrite Urine Negative (Negative); Protein Urine 1+ (Negative); Specific Gravity Urine 1.025 (1.000-1.030)
[2022-04-27 21:24] LABS: Chloride* 111 mmol/L (96-114); Potassium* 3.4 mmol/L (3.6-5.1); Sodium* 139 mmol/L (135-149)
[2022-04-27 21:26] LABS: RBC Urine 0-2 (0-2); Squamous Epithelial Cell Urine Moderate (None-Few); WBC Urine 0-2 (0-5)
[2022-04-27 21:27] LABS: Creatinine* 0.9 mg/dL (0.5-1.5); Est. Creatinine Clearance* 90.75; Estimated Glomerular Filt Rate 83 ml/min
[2022-04-27 21:28] LABS: Blood Urea Nitrogen* 10 mg/dL (5-24); Calcium* 8.7 mg/dL (8.4-10.6); Carbon Dioxide* 26 mmol/L (20-32); Glucose* 102 mg/dL (60-115)
[2022-04-27 21:30] LABS: C Reactive Protein* 0.7 mg/dL (0.5-1.0)
== END 2022-04-27 22:25 | disposition home or self-care (01) ==
PROVIDERS: Emergency Provider Family Medicine; PCP Family Medicine
DX: M54.2 Cervicalgia (principal); R60.9 Edema, unspecified
CPT/HCPCS: 36415; 80048; 81001; 84443; 85025; 86140; 99283; 99284

== ENCOUNTER 2022-12-11 11:00 | Outpatient (RCR) | payer BC, SELFPAY | END 2023-04-10 23:59 | disposition home or self-care (01) | PROVIDERS: PCP Family Medicine; Visit Provider Family Medicine | DX: M54.2 Cervicalgia (principal); Z51.89 Encounter for other specified aftercare | CPT/HCPCS: 97110; 97140; 97162 ==

== ENCOUNTER 2023-05-12 10:36 | Outpatient (CLI) | payer BC, SELFPAY | END 2023-05-12 10:37 | disposition home or self-care (01) | PROVIDERS: PCP Family Medicine; Visit Provider Family Medicine | DX: S61.215A Laceration without foreign body of left ring finger without damage to nail, initial encounter (principal); W45.8XXA Other foreign body or object entering through skin, initial encounter; Y93.E9 Activity, other interior property and clothing maintenance; Y92.009 Unspecified place in unspecified non-institutional (private) residence as the place of occurrence of the external cause | CPT/HCPCS: A0998 ==

== ENCOUNTER 2023-05-12 11:31 | Emergency (ER) | payer BC, SELFPAY ==
[2023-05-12 11:36] VITALS: BP 101/64; PULSE 60; RESP 18; TEMP 36.6; O2SAT 97; BMI 17.9
--- NOTE | 2023-05-12 11:55 | ED_ITS ---
HPI - Wound/Laceration General Time Seen by Provider: 11:55 Date Seen: 05/12/23 Chief Complaint: Laceration/Wound Stated Complaint: finger laceration Time Seen by Provider: 05/12/23 11:32 Source: patient and RN notes reviewed Mode of arrival: ambulatory Limitations: no limitations History of Present Illness HPI narrative: Patient is a 38-year-old female coming to the ER with finger laceration. She was cleaning and got a large piece of glass that cut the finger. Her finger was bleeding profusely but not spurting blood. She had her finger wrapped by a music box mechanic. She did drive independently to the ED. the bleeding has presumably stopped, has not blood through the bandaging. Was on the pad of the finger per report. This happened just prior to arrival. She states the music box mechanic did not see any retained glass. She does not feel any foreign body but there is pain in the finger. Patient tetanus UTD: Yes (10/22/17) Related Data Home Medications Medication Instructions Recorded Confirmed estradiol 0.5 mg tablet 0.5 mg PO DAILY 01/09/22 05/12/23 methocarbamol 500 mg tablet 500 mg PO DAILY 01/09/22 05/12/23 canabis 05/12/23 diazepam 5 mg tablet 7.5 mg PO QAM 05/12/23 05/12/23 Allergies Allergy/AdvReac Type Severity Reaction Status Date / Time cephalexin [From Keflex] Allergy Mild Hives Verified 05/12/23 11:42 lorazepam Allergy Mild Anxiety Verified 05/12/23 11:42 metoclopramide Allergy Mild Agitation, Verified 05/12/23 11:42 Anxiety clonazepam [From Klonopin] AdvReac Mild Mental Verified 05/12/23 11:42 Status Changes Review of Systems Narrative: As per HPI. PFSH PFS Medical History Anxiety Bipolar 2 disorder Borderline personality disorder Controlled substance agreement signed De Quervain's disease (tenosynovitis) Dental caries Depression Disorder of right radial nerve Endometriosis Fibromyalgia PAC (premature atrial contraction) PTSD (post-traumatic stress disorder) Tobacco dependence Social History Smoking Status: Current some day smoker Do you use any of these nicotine containing products: None and Other How often do you have a drink containing alcohol: never How often do you have six or more drinks on one occasion: Never AUDIT-C Alcohol total score: 0 Non-prescribed substance use: marijuana (any form) service: No Exam Const: Vital Signs, click to edit/add: Vital Signs - 24 hr 05/12/23 11:36 Temperature 97.8 F Pulse Rate [Pulse Oximeter] 60 Respiratory Rate 18 Blood Pressure [Ri ght Upper Arm] 101/64 Pulse Oximetry 97 Oxygen Delivery Me thod Room Air The right involved finger has a v flap shape wound, bandaging was removed. There is dry blood, no active bleeding. No palpable or visible retained foreign body. Wound edges are nicely seated down. She has full range of motion of the finger, seems to have normal distal sensation. This is well approximated. Documenting provider has reviewed patient's vital signs: yes Course Course ED Course: Will have nursing staff clean this wound, patient is requesting Dermabond. Went over glue on digits, my preference to not use glue on digits. She would still like to proceed with this, understands she will need to keep this finger dry. Reevaluation(s) Time of Reevaluation #1: 12:37 Reevaluation #1: Applied Dermabond as per patient request. Wound was reinspected prior to applying Dermabond, V flap without any identifiable retained foreign body, no active bleeding. The Dermabond was applied with out complication, patient tolerated this well. Vital Signs Vital signs: Initial Vital Signs Temperature 97.8 F 05/12/23 11:36 Temperature Source Temporal Artery Scan 05/12/23 11:36 Pulse Rate 60 05/12/23 11:36 Respiratory Rate 18 05/12/23 11:36 Blood Pressure 101/64 05/12/23 11:36 Blood Pressure Mean 76 05/12/23 11:36 Blood Pressure Position Sitting 05/12/23 11:36 Pulse Oximetry 97 05/12/23 11:36 Oxygen Delivery Method Room Air 05/12/23 11:36 Vital Signs Temperature 97.8 F 05/12/23 11:36 Pulse Rate 60 05/12/23 11:36 Respiratory Rate 18 05/12/23 11:36 Blood Pressure 101/64 05/12/23 11:36 Pulse Oximetry 97 05/12/23 11:36 Oxygen Delivery Method Room Air 05/12/23 11:36 Temperature 97.8 F 05/12/23 11:36 Pulse Rate 60 05/12/23 11:36 Respiratory Rate 18 05/12/23 11:36 Blood Pressure 101/64 05/12/23 11:36 Pulse Oximetry 97 05/12/23 11:36 Oxygen Delivery Method Room Air 05/12/23 11:36 Discharge Plan Discharge Clinical Impression: Finger laceration Qualifiers: Encounter type: initial encounter Patient Disposition: Home, Self-Care Condition: Stable Instructions: Finger Laceration (ED), Skin Adhesive Care (ED) Additional Instructions: Need to keep this finger clean and dry for the next 5 days. After that may start washing hand and showering as usual. Do not pull the glue off as this can open the wound. Allow the glue to fall off on its own. If there is any concern about this wound becoming infected, please seek re-evaluation. Prescriptions: No Action methocarbamol 500 mg tablet 500 mg PO DAILY Patient Comments: TAKE 1 TABLET BY MOUTH TWICE DAILY NEEDED estradiol 0.5 mg tablet 0.5 mg PO DAILY diazepam 5 mg tablet 7.5 mg PO QAM clarisse Follow Up/Referrals: Malka Arizmendi DO [Primary Care Provider] - Stand Alone Forms: [employer] Info Instructions
== END 2023-05-12 12:50 | disposition home or self-care (01) ==
PROVIDERS: Emergency Provider Family Medicine; PCP Family Medicine
DX: S61.214A Laceration without foreign body of right ring finger without damage to nail, initial encounter (principal); W25.XXXA Contact with sharp glass, initial encounter
CPT/HCPCS: 12001; 99282; 99283

== ENCOUNTER 2023-05-28 13:56 | Outpatient (CLI) | payer BC, SELFPAY ==
--- OUTSIDE RECORDS SUMMARY | 2023-06-03 13:51 | XMS_ITS | Continuity of Care Document ---
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 [address] [place] [address], [id number], . tel:[phone] Referring Provider: Ibis Jerry, [address] [facility], [address] . tel:[phone] Family History Family Member Type Diagnosis Age At Onset No Information Payers Payer name Insurance type Covered green party ID Authoriza tion(s) No Information Social History Type Description Quantity Date Captured Comments Sex Female Smoking Status No Information Chief Complaint And Reason For Visit No Information Reason For Referral Reason For Referral No Information History Of Present Illness Encounter Date Complaint History Of Prese nt Illness No Information Functional Status Date Functional Assessmen t No Information Instructions Date Instruction Additional Infor mation No Information Assessments Type Assessment Date No Information Patient Care Teams Name Effective Dates (start - stop) Status Members No Information
--- OUTSIDE RECORDS SUMMARY | 2023-06-03 13:51 | XMS_ITS | Continuity of Care Document ---
Author Name Unknown Organization [facility] Address [address] [place] [address] Care Team Providers Care Checkout Operator Name Role Phone Kaden Mckeon CRNA Unavailable Unavailable Procedures Procedure Date Percutaneous Image guided injection, dra nagy, or Advance Directives Directive Yes / No Effective Date File Name No Information Encounters Encounter Description Practice Location Reason(s) For Visit Diagnoses Date Provider Providers Copied on Encounter [facility], [address] [place], [place], [id number], [facility] No Information 3 Mike Alfonso. [address] [place], [place], [id number] , . tel:[phone] Referring Provider: Ibis Jerry, [address] [facility] [place], [address] . tel:[phone] Family History Family Member Type Diagnosis Age [...]
--- OUTSIDE RECORDS SUMMARY | 2023-06-03 13:51 | XMS_ITS | Continuity of Care Document ---
Author Name Unknown Organization [facility] Address [address] [place] [address] Phone Care Team Providers Care Flipping Machine Operator Name Role Phone Galen Zhang MD Unavailable Unavailable Allergies, Adverse Reactions, Alerts Substance Reaction Status Criticality clonazepam Mental Status Change Active No Info rmation CEPHALEXIN MONOHYDRATE Hives Active No In formation lorazepam Mental Status Change Active No Info rmation Medications Medication Instructions Dosage Effective Dates (start - stop) Status Comments SINUS RINSE (unknown strength) Not Available - Active VITAMIN B-6 (unknown strength) Not Available - Active RITALIN LA (unknown strength) Not Available - Active HYDROXYZINE HCL (unknown strength) Not Available - Active FLONASE ALLERGY RELIEF (unknown strength) Not Available - Active ESTRACE (unknown strength) Not Available - Active LEXAPRO (unknown strength) Not Available - Active EPIPEN (unknown strength) Not Available - Active VITAMIN B-12 (unknown strength) Not Available - Active VITAMIN D3 (unknown strength) Not Available - Active EPIDIOLEX (unknown strength) Not Available - Active IBUPROFEN PM (unknown strength) Not Available - Active NORTRIPTYLINE HCL (unknown strength) Not Available - Active LYRICA (unknown strength) Not Available - Active Procedures Procedure Date Office/Outpatient Visit,New, Mod 2018 X Ray Exam Entire SPI 6/> VW Advance Directives Directive Yes / No Effective Date File Name No Information Encounters Encounter Description Practice Location Reason(s) For Visit Diagnoses Date Provider Providers Copied on Encounter [facility], [address], [place], [id number] , tel:[phone] [facility] No Information 9 Leatha Aaron. [facility], [address], [address], [place], [place], [id number], [place]. tel:[phone] Office/Outpa tient Visit,Lacie Chaudhary [facility], [address], [place], [place], [id number] , [place] tel:[phone] [facility] Other cervical disc degeneration, cervicothorac ic region 9 Transfeldt Ensor. [facility], [address], [facility] [address], [place], [place], [id number], [place]. tel:[phone] Referring Provider: [facility] [address] [facility] [address], [place], [address]. tel:[phone] Family History Family Member Type Diagnosis Age At Onset No Information Payers Payer name Insurance type Covered republican ID Authoriza tion(s) No Information Social History Type Description Quantity Date Captured Comments Sex Female Smoking Status No Information Chief Complaint And Reason For Visit No Information Reason For Referral Reason For Referral No Information Plan Of Treatment Date Type Action Status Future Order: Radiology Order PA /Lateral Full Spine (PALatFS), Ordered on: Ordered Future Order: Radiology Order F/ E Cervical (F/Ecervical), Ordered on: Ordered Future Order: Radiology Order F/ E Lumbar (F/ELumb), Ordered on: Ordered History Of Present Illness Encounter Date Complaint History Of Prese nt Illness No Information Functional Status Date Functional Assessmen t No Information Instructions Date Instruction Additional Infor mation No Information Assessments Type Assessment Date No Information Patient Care Teams Name Effective Dates (start - stop) Status Members No Information
--- OUTSIDE RECORDS SUMMARY | 2023-06-03 13:51 | XMS_ITS | Continuity of Care Document ---
Author Name Unknown Organization [facility] Address [address] [place] [address] Phone Care Team Providers Care Pomologist Name Role Phone Timmy Severino Unavailable Unavailable Allergies, Adverse Reactions, Alerts Substance Reaction Status Criticality cephalexin HivesHivesHivesDifficulty breathing Activ e No Information clonazepam Altered mental status Active No Inf ormation lorazepam Altered mental status Active No Inf ormation Medications Medication Instructions Dosage Effective Dates (start - stop) Status Comments methocarbamol 500 mg tablet take 1 tablet by oral route 2 times every day as needed 500 MG - Active fluticasone propionate 50 mcg/actuation nasal spray,suspension Inhale 2 Sprays into affected nostril(s) once daily. - Active epinephrine 0.3 mg/0.3 mL injection, auto-injector Inject 0.3 mg intramuscular one time if needed for Allergic Reaction for up to 1 dose. - Active estradiol 1 mg/gram (0.1 %) transdermal gel packet apply 1 packet by transdermal route every day to upper right or left thigh (alternate thighs each day) 1 MG - Active diazepam 5 mg tablet take 1 tablet by OR AL route 2 times every day prn 5 MG - Active medical cannabis ORAL - Active methylphenidate 20 mg tablet take 1 tablet by oral route 2 times every day 20 MG - Active Procedures Procedure Date INJ TRIGGER POINT, 02/24 MUSCL OFFICE/OUTPATIENT VISIT, EST INTERLAMINAR CRV OR THRC PT EVAL MOD COMPLEX 30 MIN OFFICE/OUTPATIENT VISIT, EST OFFICE/OUTPATIENT VISIT, EST INJECT TRIGGER POINTS, =/> 3 OFFICE/OUTPATIENT VISIT, EST INJECT TRIGGER POINTS, =/> 3 Kenalog Triamcinolone acetonide inj Ketorolac tromethamine inj OFFICE/OUTPATIENT VISIT, EST OFFICE/OUTPATIENT VISIT, EST Drug Urine Toxology With Chromatography Drug test def 1-7 classes OFFICE/OUTPATIENT VISIT, EST OFFICE VISIT, EST TELEMEDICINE Drug test def 22+ classes Drug Urine Toxology With Chromatography Intramuscular Injection Ketorolac tromethamine inj INJECT TRIGGER POINTS, =/> 3 Kenalog Triamcinolone acetonide inj OFFICE/OUTPATIENT VISIT, EST OFFICE/OUTPATIENT VISIT, EST Drug test def 22+ classes Drug Urine Toxology With Chromatography INJECT TRIGGER POINTS, =/> 3 Kenalog Triamcinolone acetonide inj Injection, bupivicaine hydro OFFICE/OUTPATIENT VISIT, EST Advance Directives Directive Yes / No Effective Date File Name No Information Encounters Encounter Description Practice Location Reason(s) For Visit Diagnoses Date Provider Providers Copied on Encounter [facility], [address] [place], [id number] , [place] tel: [phone] [facility] No Information 3 Yasmeen Warner. [facility], [place], [id number] , [place]. tel:[phone] OFFICE/OUTPAT IENT VISIT, EST [facility], [address] [place], [id number] , [place] tel: [phone] [facility] [place] Cervicalgia (chief complaint) Other spondylosis with radiculopathy, cervical regionMyalgia, other siteFibromyalg iaHeadacheOthe r custodial (current) drug therapy 3 Marian Abbie. [address], [place], [id number] , [place]. tel:[phone] Referring Provider: Lyle Hyatt, [address] [place] [address], [id number]. tel:[phone] [facility], [address] [place] [address], [id number] , [place] tel:[phone] [facility] Other spondylosis with radiculopathy, cervical region 3 Claritza Baumann. [address] [place] [address], [id number] , [place]. tel:[phone] Referring Provider: Lyle Hyatt, [address] [place] [address], [id number]. tel:[phone] [facility], [address] [place] [address], [id number] , [place] tel:[phone] [facility] cervicalgia (chief complaint) Other spondylosis with radiculopathy, cervical region 3 Srege Rdz. [address] [place] [address], [id number] , [place]. tel:[phone] Referring Provider: Lyle Hyatt, [address] [place] [address], [id number]. tel:[phone] OFFICE/OUTPAT IENT VISIT, EST [facility], [address] [place] [address], [id number] , [place] tel:[phone] [facility] Fibromyalgia (chief complaint) Other spondylosis with radiculopathy, cervical regionMyalgia, other siteFibromyalg iaHeadacheOthe r sliver chopper (current) drug therapy 3 Marian Abbie. [address], [place], [id number] , [place]. tel:[phone] Referring Provider: Lyle Hyatt, [address] [place] [address], [id number]. [phone] OFFICE/OUTPAT IENT VISIT, [facility], [address] [place] [address], [id number] , [place] [phone] [facility] Fibromyalgia (chief complaint) Other spondylosis with radiculopathy, cervical regionCervical giaMyalgia, other siteFibromyalg iaOther custodial (current) drug therapyHeadach e [id number] [place] [address] [address], [place], [place], [id number] , [place]. tel:[phone] Referring Provider: Lyle Hyatt, [address] [place] [address], [id number]. [phone] OFFICE/OUTPAT IENT VISIT, [facility], [address] [place] [address], [id number] , [place] [phone] [facility] Fibromyalgia (chief complaint) CervicalgiaMya lgia, other siteFibromyalg iaOther custodial (current) drug therapyOther spondylosis with radiculopathy, cervical region [id number] [place] [address] [address], [place], [place], [id number] , [place]. tel:[phone] Referring Provider: Lyle Hyatt, [address] [place] [address], [id number]. [phone] OFFICE/OUTPAT IENT VISIT, [facility], [address] [place] [address], [id number] , [place] [phone] [facility] Fibromyalgia (chief complaint) CervicalgiaMya lgia, other siteFibromyalg iaOther custodial (current) drug therapy [id number] [place] [address] [address], [place], [place], [id number] , [place]. [phone] Referring Provider: Lyle Hyatt, [address] [place] [address], [id number]. tel:[phone] OFFICE/OUTPAT IENT VISIT, [facility], [address] [place] [address], [id number] , [place] tel:[phone] [facility] Fibromyalgia (chief complaint) Myalgia, other siteFibromyalg iaOther sliver chopper (current) drug therapyEncmayers [facility] er for therapeutic drug level monitoringCerv icalgia 2 Yasmeen Warner. [facility]5 [facility] [address], [place], [place], [id number] , [place]. tel:[phone] Referring Provider: Douglas Yip [facility] [address] [facility], [place], [address]. tel:[phone] [facility], [address] [place] [address], [id number] , [place] tel:[phone] [facility] No Information 2 Yasmeen Warner. [address] [place] [address] [address], [place], [place], [id number] , [place]. tel:[phone] [facility], [address] [place] [address], [id number] , [place] tel:[phone] [facility] [place] No Information 1 Yasmeen Warner. [address] [place] [address] [address], [place], [place], [id number] , [place]. tel: [phone] Referring Provider: Lyle Hyatt, [address] [place] [address], [id number]. tel:[phone] OFFICE/OUTPAT IENT VISIT, [facility], [address] [place] [address], [id number] , [place] tel:[phone] [facility] Fibromyalgia (chief complaint) FibromyalgiaMy algia, other siteOther sliver chopper (current) drug therapy 1 Yasmeen Warner. [address] [place] [address] [address], [place], [place], [id number] , [place]. tel:[phone] Referring Provider: Lyle Hyatt, [address] [place] [address], [id number]. tel:[phone] OFFICE VISIT, EST TELEMEDICINE [facility], [address] [place] [address], [id number] , [place] tel:[phone] [facility] Fibromyalgia (chief complaint) Myalgia, other siteOther sliver chopper (current) drug therapyFibromy algia 9-202 0 Jay Puga. [facility] [place] [facility], [address], [place], [address], [place]. [phone] Referring Provider: Lyle Hyatt, [address] [place] [address], [id number]. tel:[phone] [facility], [address] [place] [address], [id number] , [place] [phone] [facility] No Information 9 Yasmeen Warner. [address] [place] [address] [address], [place], [id number] , [place]. [phone] OFFICE/OUTPAT IENT VISIT, [facility], [address] [place] [address], [id number] , [place] [phone] [facility] Fibromyalgia (chief complaint) Other sliver chopper (current) drug therapyFibromy algiaChronic pain syndromeMyalgi a, other siteEncounter for therapeutic drug level monitoring 9 Yasmeen Warner. [address] [place] [address] [address], [place], [id number] , [place]. [phone] Referring Provider: Lyle Hyatt, [address] [place] [address], [id number]. tel:[phone] OFFICE/OUTPAT IENT VISIT, [facility], [address] [place] [address], [id number] , [place] tel:[phone] [facility] Fibromyalgia (chief complaint) Chronic pain syndromeFibrom yalgiaOther sliver chopper (current) drug therapy 9 Yasmeen Warner. [address] [place] [address] [address], [place], [id number] , [place]. tel:[phone] Referring Provider: Lyle Hyatt, [address] [place], [address]. tel:[phone] OFFICE/OUTPAT IENT VISIT, EST [facility], [address] [place], [place], [id number] , [place] [phone] [facility] Fibromyalgia (chief complaint) Chronic pain syndromeFibrom yalgiaEncounte r for therapeutic drug level monitoringOthe r custodial (current) drug therapyMyalgia , other siteCervicalgi aLow back pain 9 Yasmeen Warner. [address] [place] [address] [address], [place], [place], [id number] , [place]. [phone] Referring Provider: Douglas Yip [facility] [address], [place], [address]. tel:[phone] [facility], [address] [place] [address], [id number] , [place] [phone] [facility] Fibromyalgia (chief complaint) Chronic pain syndromeFibrom yalgiaPain in right hand 9 Arana Timmy. [address] [place] [address] [address], [place], [id number] , [place]. [phone] Family History Family Member Type Diagnosis Age At Onset Problem (finding) Family history of Endom etriosis Problem (finding) Family history of Scoli osis Payers Payer name Insurance type Covered republican ID Authoriza tion(s) No Information Social History Type Description Quantity Date Captured Comments Alcohol Use Details Unknown Caffeine Use Details Unknown Tobacco Use Status No Information Smoking Status No Information Sex Female Chief Complaint And Reason For Visit No Information Reason For Referral Reason For Referral No Information Plan Of Treatment Date Type Action Status Goal Height. Due on d ue Goal PHQ-9. Due on du e Goal Weight. Due on d ue Goal HPV. Due on due Goal Update Social Hi story. Due on due Goal Unhealthy drug u se screening. Due on due Goal Review Allergy L ist. Due on due Goal Medication Recon ciliation. Due on due Goal Hepatitis C scre ening. Due on due Goal Tobacco Use. Due on due Goal Hepatitis C scre ening. Due on due Goal Review Allergy L ist. Due on due Goal PHQ-9. Due on du e Goal Height. Due on d ue Goal Medication Recon ciliation. Due on due Goal HPV. Due on due Goal Unhealthy drug u se screening. Due on due Goal Weight. Due on d ue Goal Update Social Hi story. Due on due Goal Tobacco Use. Due on due Goal Hepatitis C scre ening. Due on due Goal Update Social Hi story. Due on due Goal Tobacco Use. Due on due Goal Review Allergy L ist. Due on due Goal Medication Recon ciliation. Due on due Goal PHQ-9. Due on du e Goal Weight. Due on d ue Goal HPV. Due on due Goal Height. Due on d ue Goal Unhealthy drug u se screening. Due on due Goal Review Allergy L ist. Due on due Goal Update Social Hi story. Due on due Goal PHQ-9. Due on du e Goal Height. Due on d ue Goal Tobacco Use. Due on 023 due Goal Medication Recon ciliation. Due on due Goal Weight. Due on d ue Goal Hepatitis C scre ening. Due on due Goal Unhealthy drug u se screening. Due on due Goal HPV. Due on due Goal Medication Recon ciliation. Due on due Goal Review Allergy L ist. Due on due Goal Update Social Hi story. Due on due Goal HPV. Due on due Goal Weight. Due on d ue Goal Height. Due on d ue Goal PHQ-9. Due on du e Goal Tobacco Use. Due on 023 due Goal Hepatitis C scre ening. Due on due Goal Unhealthy drug u se screening. Due on due Goal HPV. Due on due Goal Tobacco Use. Due on due Goal Hepatitis C scre ening. Due on due Goal Update Social Hi story. Due on due Goal Height. Due on d ue Goal Unhealthy drug u se screening. Due on due Goal Review Allergy L ist. Due on due Goal Medication Recon ciliation. Due on due Goal PHQ-9. Due on du e Goal Weight. Due on d ue Goal Review Allergy L ist. Due on due Goal Update Social Hi story. Due on due Goal Height. Due on d ue Goal Hepatitis C scre ening. Due on due Goal HPV. Due on due Goal PHQ-9. Due on du e Goal Medication Recon ciliation. Due on due Goal Tobacco Use. Due on due Goal Unhealthy drug u se screening. Due on due Goal Weight. Due on d ue Goal Height. Due on d ue Goal Medication Recon ciliation. Due on due Goal Weight. Due on d ue Goal PHQ-9. Due on du e Goal Update Social Hi story. Due on due Goal Tobacco Use. Due on 022 due Goal Review Allergy L ist. Due on due Goal Hepatitis C scre ening. Due on due Goal HPV. Due on due Goal Unhealthy drug u se screening. Due on due Goal Review Allergy L ist. Due on due Goal Update Social Hi story. Due on due Goal Weight. Due on d ue Goal Tobacco Use. Due on due Goal Height. Due on d ue Goal PHQ-9. Due on du e Goal Medication Recon ciliation. Due on due Goal Review Allergy L ist. Due on due Goal Update Social Hi story. Due on due Goal Weight. Due on d ue Goal Tobacco Use. Due on due Goal Height. Due on d ue Goal PHQ-9. Due on du e Goal Medication Recon ciliation. Due on due Future Order: Radiology Order EM G, 2 Limbs (EMG2), Ordered on: Ordered Future Order: Lab Order Drug Florina t Def 22+ Classes ([id number]), Ordered on: Ordered Future Order: Lab Order COMPLIAN CE DRUG ANALYSIS, URINE, WITH MED REPORT ([id number]), Ordered on: Ordered Future Order: Lab Order COMPLIAN CE DRUG ANALYSIS, URINE, WITH MED REPORT ([id number]), Ordered on: Ordered Future Order: Lab Order Drug Florina t Def 22+ Classes ([id number]), Ordered on: Ordered History Of Present Illness Encounter Date Complaint History Of Jeana nt Illness Comments: Grace is a 37 y/o woman here for follow up consult regarding fibromyalgia. Pain has been worse since LM and pain level averages 7/10. Patient is s/p Cervical C7-T1 ILESI on 09/12/2022. Patient reports 50-60% pain relief for at least 2 months, or more. The injection allowed her to use less medical cannabis, and take less medication for pain. She is interested in repeating procedure. She has some tightness in Left sided neck and limited ROM. Current medication regimen provides 60% pain relief for increased functionality. Continues to benefit with use of medical cannabis. Also continues Methocarbamol with benefit. Denies side effects from current regimen. No other concerns today. Cervicalgia The symptoms are reported as being mild. The symptoms occur constantly. The symptoms are described as ache, burn, sharp, tingle. Aggravating factors include bending, housework, rising from sitting, prolonged positioning, standing, twisting, stairs, walking. Relieving factors include heat, ice, massage, rx meds, physical therapy, TENS, stretching, changing positions. The client states the symptoms are chronic. cervicalgia Patient is a 37 year old female presenting with complaints of chronic neck pain that has been on going for around 4-5 years. Patient states her neck pain is getting progressively worse. She describes a recent flare while reaching and performing her exercises that brought on intense increased pain. she states this pain increase has lasted and limiting her mobility and daily activity. Patient also reports she has a goiter that is contributing and history of dental infections. Medication issues have contributed to these issues. She notes that she is currently experiencing severe pain located left sided neck pain and right sided neck tightness. Patient reports the right side has a numbness and her left side has a lot of pain. Her symptoms also include tightness, numbness, shooting pain, dull achy and annoying Her symptoms are increased with reaching lifting head movement, computer work reading, . Symptoms are somewhat relieved with home exercises, heat, baths, walks, She has tried multiple different interventions, including extensive PT, massage and home exercises. She is currently in physical therapy for her fibromyalgia and that is difficult due to her increased neck pain. She notes that her current level of discomfort limits showering, dressing, lifting, reaching for physical therapy resident and daily activity.. Patients goal is to perform her daily and occupational activities with less limitation. Fibromyalgia Duration: chroni c. Comments: Grace is a 37 y/o woman here for follow up consult regarding fibromyalgia. Patient has not been seen [facility] since 03/18/2022. She reports that last 07/12/2022, she was doing stretching which caused a pain flare through her back and tailbone. Since then, she has been having persistent migraines and numbness in her neck. Pain has been worse since LM and pain level averages 7/10. Since LM she reports that she has run out of TENs pads, has been reusing old pads. Reports that she did not pursue previously ordered BENIGNO in January 2022.Notes she has a Head, Neck, and Shoulder MRI scheduled for tomorrow, 07/18/2022. Current medication regimen provides 60% pain relief for increased functionality. Continues to benefit with use of medical cannabis. Also continues Methocarbamol with benefit. Denies side effects from current regimen. No other concerns today. Fibromyalgia Severity level i s 7. Duration: chronic. The client describes it as numbness. It occurs persistently. Symptom is aggravated by bending, lifting, housework and folding clothes. Relieving factors include stretching, massage, rest, heat, cold, Rx Meds, PT, changing positions and TENS. Pertinent negatives include diarrhea, fatigue, fever and incontinence (urinary). Comments: Grace is a 36 y/o woman here for follow up consult regarding fibromyalgia. Pain is exacerbated with increased activity. Continues to attend PT /massage at [facility]. primarily for her neck and BL hips. Pain has been relatively stable since LM and pain level averages 7/10. Continues to find benefit with TENS unit. Would like TPI administered today.Plans to schedule BENIGNO ordered LM soon.Current medication regimen provides 60% pain relief for increased functionality. Continues to benefit with use of medical cannabis. She typically utilizes lozenges and vape forms. Also continues Methocarbamol with benefit. Denies side effects from current regimen.No other concerns today. Comments: Grace is a 36 y/o woman here for follow up consult regarding fibromyalgia. Pain is exacerbated with increased activity. Continues to attend PT /massage, in [place], primarily for her neck and BL hips. Pain has been fluctuating since [facility] and pain level averages 8/10.Reports that she found good relief from her TENS unit. Upon inquiry, patient states that she is apprehensive about pursuing cervical surgery.Continues to benefit with use of medical cannabis. She typically utilizes lozenges and vape forms. Would like a refill of Methocarbamol. Denies side effects from current regimen.No other concerns today. Fibromyalgia Severity level i s 8. Duration: chronic. The client describes it as achy. It occurs persistently. The problem is fluctuating. Symptom is aggravated by bending, walking upstairs, walking downstairs, running, sitting, housework, lifting, lying down and movement. Relieving factors include stretching, massage, rest, heat, cold, Rx Meds, TENS, changing positions and PT. Pertinent negatives include diarrhea, fatigue, fever and incontinence (urinary). Comments: Grace is a 36 y/o woman here for follow up consult regarding fibromyalgia. This is my first evaluation of the patient who is routinely followed by my colleague, Timmy Arana PA-C. Reports worsened neck and back pain since [facility]. Reports that her pain is exacerbated with increased activity. Currently attends PT in [place], primarily for her neck and BL hips.S/p Botox (?) injection on 12/18/21 at [facility] with increased pain following the injection. Since [facility], patient obtained cervical MRI imaging Continues to benefit with use of medical cannabis. She typically utilizes lozenges and vape forms. Would like a refill of Methocarbamol. Inquires if she can have a Toradol injection. Denies side effects from current regimen.No other concerns today. Fibromyalgia Duration: chroni c. Pertinent negatives include diarrhea, fatigue, fever and incontinence (urinary). Comments: Grace presents for a follow up. She was last seen in office on 12/11/2020. Patient c/o chronic widespread pain d/t Fibromyalgia. Pain is most bothersome in her neck. Pain has been worse since last visit. Inquires about interventions. Continues to benefit with use of medical cannabis. She typically utilizes lozenges and vapor forms. Inquires about recertification today. No other concerns today. Fibromyalgia Duration: chroni c. Location of the pain is neck. The client describes it as sharp and achy. It occurs persistently. The problem is worsening. Symptom is aggravated by bending, walking upstairs, walking downstairs, running, sitting, walking and housework. Relieving factors include supine and rest. Pertinent negatives include diarrhea, fatigue, fever and incontinence (urinary). Fibromyalgia (comments) Grace riosents for follow-up regarding low back pain and fibromyalgia. She has not been seen by the clinic since last year with Dr. Matamoros. She reports her low back pain has continued to be very bothersome, especially in her tailbone. Inquires about SCS trial, information provided, and patient will consider. She is wanting to be recertified for medical cannabis. Currently utilizing the red formulation from [employer]. Details feeling high and dizzy, but notes that benefits outweigh the side effects. No other concerns today. Fibromyalgia Duration: chroni c. Location of the pain is lower back, neck, bilateral shoulder and widespread. It occurs persistently. The problem is stable. Pertinent negatives include diarrhea, fatigue, fever and incontinence (urinary). Fibromyalgia (comments) Ms. Schneider and is a pleasant 34 y/o who presents for virtual follow-up regarding low back pain and fibromyalgia. She has not been seen by the clinic since last year with [facility]. She reports her low back pain makes it difficult to sleep. She reports of new joint pain of the elbows and knees, which she describes as achy. She is wanting to be recertified for medical cannabis. She had not been on medical cannabis for a few months because of cost. She is also interested in pain medication for breakthrough pain. She had been on tramadol in the past that helped. No other concerns today. Fibromyalgia Severity level i s 7. Duration: chronic. Location of the pain is lower back. The patient describes it as achy, burning and numbness. It occurs persistently. The problem is worsening. Symptom is aggravated by bending, walking upstairs, walking downstairs, walking, housework, lifting, lying down and movement. Relieving factors include sitting, stretching, massage, rest, heat, cold, Rx Meds, changing positions and chiropractics. Pertinent negatives include diarrhea, fatigue, fever and incontinence (urinary). Fibromyalgia Severity level i s moderate. Duration: chronic. Location of the pain is lower back, mid back, upper back, neck, bilateral shoulder and left hip. The patient describes it as sharp, achy, burning and tingling. It occurs persistently. The problem is worsening. Symptom is aggravated by bending, walking upstairs, walking downstairs, running, sitting, standing, walking and daily activities. Relieving factors include walking, stretching, rest, changing positions, heat, massage, medications and PT. Pertinent negatives include diarrhea, fatigue, fever and incontinence (urinary). Fibromyalgia (comments) Grace is here today for a f/u and medical cannabis re-check. Reports increased widespread pain today, worst in neck and shoulders. Secondarily c/o low back pain and LLE pain. Attributes increased pain to colder weather. Expresses interest in repeat TPIs which were helpful for a couple days. Has been working with [employer] and is currently managed on yellow strain product with benefit. Topical products are also helpful.Patient is not accompanied today and has no further questions or other concerns. Fibromyalgia Severity level i s 5. Duration: chronic. Location of the pain is lower back, mid back, neck, left elbow, right hand and bilateral knee. The patient describes it as sharp, achy and tingling. It occurs persistently. The problem is fluctuating. Symptom is aggravated by bending, walking upstairs, walking downstairs, running, pushing, sitting, standing, walking and twisting. Relieving factors include stretching, rest, changing positions, chiropractic, heat and ice. Pertinent negatives include diarrhea, fatigue, fever and incontinence (urinary). Fibromyalgia (comments) Grace is here today for a f/u regarding fibromyalgia pain. TPIs last OV provided good relief, but did not last. Continues to express interest in medical cannabis certification today. Additional questions regarding this were addressed by provider in today's visit. Fibromyalgia (comments) Grace is here for an initial consult for widespread pain in the setting of fibromyalgia, referred by Dr. Camejo[facility]. Her pain began 5 years ago after total hysterectomy which onset endometriosis syxs. Secondarily c/o upper and lower back pain which she attributes to scoliosis Dx and difficultly with epidural placement while giving . Describes pain in chest that moves through to her back. Has some myofascial pain to neck and BL shoulders as well. Has plans to trial PT for her current symptoms--referred by PCP. Has also had Toradol injections in the past which were without benefit. She is currently managed on Lyrica 225mg BID.Grace is interested in medical marijuana, PT, biofeedback, and other recommended therapies. She would like [facility] to assume management of pain care. Does report recreational cannabis use a couple weeks ago while traveling with friends in [place] where it is legal. Fibromyalgia Onset occurred 5 years ago. Severity level is 7. Duration: chronic. Location of the pain is lower back, upper back, neck, bilateral shoulder, bilateral elbow, right wrist, bilateral hip, bilateral knee, bilateral ankle and bilateral forefoot. It occurs persistently. Symptom is aggravated by bending, walking upstairs, walking downstairs, running, sitting, standing, walking, changing positions and twisting. Relieving factors include massage, cold, Rx Meds, PT, rest and stretching. Pertinent negatives include diarrhea, dyspnea, fever and incontinence (urinary). Fibromyalgia Severity level i s 7. Duration: chronic. Symptom is aggravated by bending, walking upstairs, walking downstairs, running, standing, walking, lying down, changing positions, bending and twisting. Relieving factors include massage, cold, Rx Meds, PT, rest and stretching. Pertinent negatives include diarrhea, dyspnea, fever and incontinence (urinary). Fibromyalgia (comments) Grace is here for an initial consult for fibromyalgia, referred by Dr. Camejo[facility]. Her pain began 5 years ago. Has back pain which she attributes to scoliosis Dx. Has also been Dx with endometriosis s/p total hysterectomy. Additionally reports nerve damage to R hand. Has plans to trial PT for her current pain. Has had Toradol injections without benefit. Reports previous . Has taken for additional pain relief. Grace is interested in medical marijuana, PT, biofeedback, and other recommended therapies. She would like [facility] to assume management of pain care. Functional Status Date Functional Assessmen t No Information Instructions Date Instruction Additional Infor mation No Information Assessments Type Assessment Date No Information Patient Care Teams Name Effective Dates (start - stop) Status Members No Information
--- OUTSIDE RECORDS SUMMARY | 2023-06-03 13:52 | XMS_ITS | Clinical Summary ---
Author Name Unknown Organization [facility] Address [place], [place] [address] Care Team Providers Care Hardware Technician Name Role Phone Malka Arizmendi DO Primary Care Provider [phone] Allergies Active Allergy Reactions Criticality Noted Date Comments Lorazepam Mental Status Change 01/18/2014 Gabapentin Other - Describe In Comment Field Foggy Cephalexin Hives 03/14/2017 Clonazepam Mental Status Change 01/18/2014 Metoclopramide Agitation,Anxiety,Mental Status Change 03/31/2019 Medications Medication Sig Dispensed Refills Start Date End Date Status EPINEPHrine (EPIPEN) 0.3 mg/0.3 mL injectionIndication s:Allergic reaction, subsequent encounter Inject 0.3 mg intramuscular one time if needed for Allergic Reaction for up to 1 dose. 2 Each 03/18/2017 Active multivitamin (MVI) tablet Take 1 tablet by mouth once daily. 90 tablet 3 07/26/2018 Active diazePAM (VALIUM) 2 mg tabletIndications:R estlessness and agitation 1 tab oral twice daily as needed agitation 4 tablet 01/12/2019 Active methylphenidate HCl (RITALIN SR) 20 mg Sustained-Release tablet TK 1 T PO QAM 03/11/2019 Active Diaper,Brief, Adult,DisposableInd ications:Mixed stress and urge urinary incontinence For home use. 1 box 06/06/2019 Active medication order composer Medical marijuana 0 07/24/2021 Active fluticasone (50 mcg per actuation) nasal solution (FLONASE)Indication s:Rhinitis, unspecified type Inhale 2 Sprays into affected nostril(s) once daily. 16 mL 3 08/28/2021 Active methocarbamoL (ROBAXIN) 500 mg tabletIndications:M uscle spasm At bedtime 30 Tablet 01/13/2022 Active levalbuterol (XOPENEX HFA) 45 mcg/actuation inhalerIndications: Wheezing,Exacerbati on of asthma, unspecified asthma severity, unspecified whether persistent Inhale 1-2 Puffs by mouth every 4 hours if needed for Shortness Of Breath or Wheezing. 15 g 3 01/13/2022 Active estradioL (ESTRACE) 2 mg tabletIndications:S urgical menopause Take 1 Tablet (2 mg) by mouth once daily. 90 Tablet 03/12/2023 Active nicotine 21 mg/24 hr (NICODERM; HABITROL) 21 mg/24 hr patchIndications:To bacco dependence Apply 1 Patch on dry, clean, hairless skin once daily. 45 Patch 1 03/12/2023 Active fluticasone propion-salmeteroL (ADVAIR) 250-50 mcg/Dose diskus inhalerIndications: COPD, mild (HC) INHALE 1 PUFF BY MOUTH TWICE DAILY 180 Each 03/14/2023 Active Active Problems Problem Noted Date Diagnosed Date Elevated serum creatinine 03/17/2023 Overview: Creatinine range 0.95-1.13. Had US and further lab testing. Econsult with nephrology. Urine creatinine clearance normal. Plan monitor creatinine [id number], if worsening, nephrology consult Hyperparathyroidism 03/12/[address] 07/24/2021 Overview: 06/2021: Two stable 4mm noncalcified pulmonary nodules in RUL. IF high risk (patient smokes) <6mm, optional CT at 12months. 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 Krueger Psychiatry Posttraumatic stress disorder 02/08/2016 Tobacco dependence 11/17/2013 ADD (attention deficit disorder) 11/02/2013 Depression 11/02/2013 Anxiety 11/02/2013 Endometriosis 02/03/2013 Resolved Problems Problem Noted Date Diagnosed Date Resolved Date Paroxysmal tachycardia 07/16/202203/12 Lynsey's thyroiditis 06/06/201911/25 Placenta previa 02/03/2013 12/06/2014 Overview: 2009 Encounters Date Type Department Care Team Description 05/28/2023 Orders Only [facility] Scanner 1 scan: (1-Ord) [place], CHEST 2 VIEWS, 05/28/2023 03/14/2023 2:30 PM REFERENCE INVESTIGATOR Orders Only [facility] [address] [place] [address] Lab, [facility] 03/14/2023 Travel 03/12/2023 11:40 AM REFERENCE INVESTIGATOR Office Visit [facility] [address] [place] [address] Malka Arizmendi, Follow Up; Menopause (Hot flashes almost every night few weeks) 03/12/2023 Refill [facility] [address] [place] [address] Malka Arizmendi, Refill Request (Fluticasone Propion-salmeterol) 03/12/2023 Travel from Last 3 Months Immunizations Name Administration Dates Next Due Tdap 10/22/2017,03/04/2014 Family History Medical History Relation Name Comments Diabetes Father 'not take insul in right.' Heart Disease Father stents placed in 60's Hypertension Father Other Mother endometriosis Cancer Paternal Grandmother uterine Cancer-ovarian Paternal Grandmother Cancer-breast No Family History Relation Name Status Comments Brother 1 Alive Brother 2 Alive Brother 3 Alive Father Alive Mother Alive Paternal Grandmother Social History Tobacco Use Types Packs/Day Years Used Date Smoking Tobacco: Every Day Cigarettes 0 Smokeless Tobacco: Never Tobacco Cessation:Ready to Q uit: Yes; Counseling Given: No Alcohol Use Standard Drinks/Week Comments No 0 (1 standard drink = 0.6 oz pur e alcohol) PHQ-2 Answer Date Recorded PHQ-2 TOTAL SCORE 5 03/12/2023 Social Connections Answer Date Recorded Frequency of Communication with Friends and Fami ly Not on file 02/07/2023 Financial Resource Strain Answer Date R ecorded Difficulty of Paying Living Expenses 3 09/23/2021 Difficulty of Paying Living Expenses Not on file 09/23/2021 Food Insecurity Answer Date Recorded Worried About Running Out of Food in the Last Ye ar 1 09/23/2021 Transportation Needs Answer Date Record ed Lack of Transportation (Medical) 1 09/23/2021 Housing Stability Answer Date Recorded Unable to Pay for Housing in the Last Year 1 09/23/2021 Sex and Gender Information Value Date Recorded Sex Assigned at Female 08/15/2019 11:26 AM CDT Gender Identity Female 08/15/2019 11:26 AM CDT Sexual Orientation Straight 08/15/2019 11 :26 AM CDT Obstetrics History Para Term AB IAB SAB Ectopic Multiple Livin g Live Births 2 2 1 1 0 0 0 0 2 2 Date Outcome GA Total Labor Labor/2nd/3rd Weight Sex Delivery Anes PTL Akua A1 A5 Name Cl in Term Danyell ng Danyell ng Last Filed Vital Signs Vital Sign Reading Time Taken Comments Blood Pressure 92/54 03/12/2023 11:53 AM REFERENCE INVESTIGATOR Pulse 57 03/12/2023 11:53 AM REFERENCE INVESTIGATOR Temperature 36.9 ??C (98.5 ??F) 09/25/2021 8:16 AM CD T Respiratory Rate 18 12/27/2019 11:3 9 AM REFERENCE INVESTIGATOR Oxygen Saturation 99% 03/12/2023 11: 53 AM REFERENCE INVESTIGATOR Inhaled Oxygen Concentration - - Weight 58.9 kg (129 lb 12.8 oz) 024 11:53 AM REFERENCE INVESTIGATOR Height 180 cm (5' 10.87) 01/30/2020 10 :32 AM REFERENCE INVESTIGATOR Body Mass Index 18.17 01/30/2020 10:32 AM REFERENCE INVESTIGATOR Plan of Treatment Upcoming Encounters Date Type Department Care Team (Late st Contact Info) Description 06/09/2023 10:25 AM CDT Office Visit [facility] [address] [place] [address] Malka Arizmendi DO [address] [place] [address] 07/08/2023 3:10 PM CDT Office Visit [facility] [address] [facility] [place] [address] Malka Arizmendi, [address] [facility] [place] [address] 08/10/2023 3:10 PM CDT Office Visit [facility] [address] [facility] [place] [address] Malka Arizmendi, [address] [place] [address] Health Maintenance Due Date Last Done Comments Pneumococcal series for age 6-64 (1 of 2 - PCV) 1989 BMI (ht and wt on same day) for age 18+ 01/29/2021 01/30/2020, 03/31/2019, 01/18/2019, Additional history exists COVID-19 vaccine series (2022- season) 2022 Influenza for age 9-49 10/25/2023 Depression screening for age 12+ 03/14/2024 03/14/2023, 03/12/2023, 03/12/2023, Additional history exists Tetanus booster 10/23/2027 10/22/2017, 02/23, 09/23/2009 (Completed outside of [facility]) Tdap Completed 10/22/2017, 03/04/2014 HIV for age 15-65 Completed 03/14/2023 Hepatitis C screening for ag e 18-79 Completed 03/14/2023 Medical Devices Implanted Type Area Signal Intelligence Analyst Device Identifier Shelf Expiration Date Model / Serial / Lot Guide Nerve [id number] Repair Device - [id number] Implanted:Qty: 1 on 01/19/2018 by Clint Montalvo MD at [facility] Right: Wrist [employer] 01/22/2018 [id number] / / [id number] Procedures Procedure Name Priority Date/Time Associated Diagnosis Comments SCAN-RADIOLOGY REPORT 05/28/2023 12:00 AM CDT UA W/ SEDIMENT EXAM REFLEXED PER CRITERIA Routine 03/14/2023 11:11 AM REFERENCE INVESTIGATOR Elevated serum creatinine CREATININE CLEARANCE SERUM Routine 03/14/2023 11:07 AM REFERENCE INVESTIGATOR Elevated serum creatinine CREATININE CLEARANCE URINE Routine 03/14/2023 11:07 AM REFERENCE INVESTIGATOR Elevated serum creatinine CREATININE CLEARANCE URINE Routine 03/14/2023 11:07 AM REFERENCE INVESTIGATOR Elevated serum creatinine ANTI HCV Routine 03/14/2023 11:05 AM REFERENCE INVESTIGATOR Need for hepatitis C screening test ANTI HIV 1/2 Routine 03/14/2023 11:05 AM REFERENCE INVESTIGATOR Screening for HIV (human immunodeficiency virus) from Last 3 Months Results * SCAN-RADIOLOGY REPORT (05/28/2023 12:00 AM CDT) Anatomical Region Laterality Modality Other Scanner OTHER * UA W/ SEDIMENT EXAM REFLEXED PER CRITERIA (03/14/2023 11:11 AM REFERENCE INVESTIGATOR) COLOR Yellow Yellow Color 03/14/2023 11:34 AM [facility] CLARITY Clear Clear Clarity 03/14/2023 11:34 AM [facility] SPECIFIC GRAVITY,URINE 1.010 1.010, 1.015, 1.020, 1.025 03/14/2023 11:34 AM [facility] PH,URINE 6.5 6.0, 7.0, 8.0, 5.5, 6.5, 7.5, 8.5 03/14/2023 11:34 AM [facility] UROBILINOGEN, QUALITATIVE Normal Normal EU/dl 03/14/2023 11:34 AM [facility] PROTEIN, URINE Negative Negative mg/dL 03/14/2023 11:34 AM [facility] GLUCOSE, URINE Negative Negative mg/dL 03/14/2023 11:34 AM [facility] KETONES,URINE Negative Negative mg/dL 03/14/2023 11:34 AM REFERENCE INVESTIGATOR [facility] BILIRUBIN,URI NE Negative Negative 03/14/2023 11:34 AM REFERENCE INVESTIGATOR [facility] OCCULT BLOOD,URINE Negative Negative 03/14/2023 11:34 AM REFERENCE INVESTIGATOR [facility] NITRITE Negative Negative 03/14/2023 11:34 AM REFERENCE INVESTIGATOR [facility] LEUKOCYTE ESTERASE Negative Negative 03/14/2023 11:34 AM [facility] Urine URINE SPECIMEN / Unknown Non-Blood / Unknown 03/14/2023 11:11 AM REFERENCE INVESTIGATOR 03/14/2023 11:11 AM REFERENCE INVESTIGATOR Malka Arizmendi DO URINE [facility] [address] [place] [address] * (ABNORMAL) CREATININE CLEARANCE SERUM (03/14/2023 11:07 AM REFERENCE INVESTIGATOR) eGFR 78(L) >90 mL/min/1.7 3m2 03/14/2023 11:42 AM REFERENCE INVESTIGATOR [facility] Comment:As of 2021, eG FR is calculated by the CKD-EPI creatinine equation without race adjustment. ??eGFR can be influenced by muscle mass, exercise, and diet. ??The reported eGFR is an estimation only and is only applicable if the renal function is stable. CREATININE 0.95(H) 0.50 - 0.90 mg/dL 03/14/2023 11:42 AM REFERENCE INVESTIGATOR [facility] Blood BLOOD SPECIMEN / Unknown Venipuncture / Unknown 03/14/2023 11:07 AM REFERENCE INVESTIGATOR 03/14/2023 11:09 AM REFERENCE INVESTIGATOR Malka Arizmendi DO CHEMISTRY [facility] [address] [place] [address] * (ABNORMAL) CREATININE CLEARANCE URINE (03/14/2023 11:07 AM REFERENCE INVESTIGATOR) TOTAL VOLUME 1,700 mL 03/14/2023 12:10 PM [facility] COLLECTION HRS 24 hr 03/14/2023 12:10 PM [facility] WEIGHT,POUNDS 130.0 lb 03/14/2023 12:10 PM [facility] HEIGHT,INCHES 70.9 in 03/14/2023 12:10 PM [facility] SURFACE AREA 1.76 03/14/2023 12:10 PM [facility] CREATININE RAW URINE 77 mg/dL 03/14/2023 12:10 PM [facility] UNCORRECTED CREAT CLR 96 mL/min 03/14/2023 12:10 PM [facility] CREATININE CLEARANCE 94 66 - 165 ml/min/1.7 3m2 03/14/2023 12:10 PM [facility] CREATININE 0.95(H) 0.50 - 0.90 mg/dL 03/14/2023 12:10 PM [facility] Urine URINE SPECIMEN / Unknown Non-Blood / Unknown 03/14/2023 11:07 AM REFERENCE INVESTIGATOR 03/14/2023 11:09 AM REFERENCE INVESTIGATOR Malka Arizmendi DO URINE [facility] [address] [place] [address] * ANTI HCV (03/14/2023 11:05 AM REFERENCE INVESTIGATOR) HEPATITIS C ANTIBODY Non-Reacti ve Non-React ari 03/15/2023 2:57 PM [facility] Comment:Please note, per www .CDC.gov: If a patient is known to be at high risk of HCV infection, or is symptomatic, and the physician's suspicion of HCV infection is high, HCV RNA testing is often employed and is of diagnostic value, even after an initial negative anti-HCV test result. Blood BLOOD SPECIMEN / Unknown Butterfly / Unknown 03/14/2023 11:05 AM REFERENCE INVESTIGATOR 03/14/2023 11:07 AM REFERENCE INVESTIGATOR Malka Carmen Stortz DO SEND OUTS [facility] [address] [place] [address], [place] * ANTI HIV 1/2 [71313.0] (03/14/2023 11:05 AM REFERENCE INVESTIGATOR) HIV-1/HIV-2 SCREEN Non-Reacti ve Non-Reacti ve 03/15/2023 2:57 PM REFERENCE INVESTIGATOR [facility] Comment:HIV-1 p24 and HIV-1/ HIV-2 Ab Not Detected. Blood BLOOD SPECIMEN / Unknown Butterfly / Unknown 03/14/2023 11:05 AM REFERENCE INVESTIGATOR 03/14/2023 11:07 AM REFERENCE INVESTIGATOR Malka Arizmendi DO SEND OUTS [facility] [employer] [address] [place] [address], [place] from Last 3 Months Advance Directives * Full Code (Latest Code Status on File) Date Activated Date Inactivated Comments 01/19/2018 9:37 AM 01/19/2018 7:08 PM * Full Code Date Activated Date Inactivated Comments 03/06/2007 3:12 AM 03/08/2007 4:52 PM * Full Code Date Activated Date Inactivated Comments 03/05/2007 8:57 AM 03/06/2007 1:54 AM * Full Code Date Activated Date Inactivated Comments 03/05/2007 7:41 AM 03/05/2007 8:57 AM * Full Code Date Activated Date Inactivated Comments 03/03/2007 1:56 AM 03/03/2007 6:24 AM Care Teams Hardware Technician Relationship Specialty Start Date End Date Malk[place] [address] [address] PCP - General Family Practice 10/10/13
== END 2023-05-28 13:57 | disposition home or self-care (01) ==
PROVIDERS: PCP Family Medicine; Visit Provider Student in an Organized Health Care Education/Training Program
DX: R07.89 Other chest pain (principal)
CPT/HCPCS: A0425; A0427

== ENCOUNTER 2023-05-28 14:28 | Emergency (ER) | payer BC, SELFPAY ==
[2023-05-28 14:32] VITALS: BP 103/69; PULSE 72; RESP 20; TEMP 36.4; O2SAT 98; BMI 16.5
--- NOTE | 2023-05-28 14:51 | XR_ITS ---
Patient: CAROLINE PRAKASH Facility:?[facility] Patient ID:?[id number] Site Patient ID:?[id number]. Site :?[id number] Study:?XRay-Chest 2 VIEW-05/28/2023 3:19:33 PM Ordering Physician:JEOVANY Final Report: INDICATION: Chest pain. TECHNIQUE: Chest 2 views. COMPARISON: None. FINDINGS: Cardiovascular and mediastinum: Heart size and vasculature are normal in caliber and appearance. Lungs and pleural spaces: Lungs are clear. No sign of infiltrate or mass. No sign of pleural effusion. No pneumothorax. Bones and soft tissues: No significant findings. IMPRESSION: No acute or significant findings. Dictated by Diego Heard MD @ 05/28/2023 3:33:46 PM Signed by:?Diego Heard MD @05/28/2023 3:33:46 PM (Electronic Signature)
[2023-05-28] MEDS: MECLIZINE HCL 25 MG TABLET PO (15:13)
[2023-05-28 15:14] LABS: Basophils Absolute Auto 0.02 K/uL (0.00-0.30); Basophils Percent Auto 0.3 % (0.0-3.0); Eosinophils Absolute Auto 0.19 K/uL (0.00-0.50); Eosinophils Percent Auto 3.1 % (0.0-7.0); Hematocrit 41.9 % (33.0-51.0); Hemoglobin* 14.3 gm/dL (12.0-16.0); Immature Granulocytes Abs Auto 0.02 K/uL (0.00-0.30); Immature Granulocytes Pct Auto 0.3 %; Lymphocytes Percent Auto 47.4 % (20-44); Mean Corpuscular HGB Conc 34 gm/dL (32-36); Mean Corpuscular Hemoglobin 31 pg (26-34); Mean Corpuscular Volume 92 fL (80-100); Monocytes Percent Auto 5.3 % (0.0-11.0); Neutrophils Absolute Auto 2.63 K/uL (1.7-7.0); Neutrophils Percent Auto 43.6 % (42.0-72.0); Platelet Count* 180 K/uL (140-440); RDW Coefficient of Variation % 11.5 % (11.5-15.5); Red Blood Count 4.55 m/uL (4.00-5.20); White Blood Count* 6.04 K/uL (4.50-11.00)
--- NOTE | 2023-05-28 15:19 | ED_ITS ---
HPI - General Adult General Date Seen: 05/28/23 Chief complaint: Shortness of Breath/Dyspnea Stated complaint: Low bp Time Seen by Provider: 05/28/23 14:39 Source: patient Mode of arrival: EMS Limitations: no limitations History of Present Illness HPI narrative: Patient is a 38-year-old female presenting to the emergency department for dizziness. She states she was going to the bathroom because he is having constipation when she was having some low back pain. She went into her room to light down because she was not feeling well. States she was feeling sweaty and dizzy. She stood up and then noticed she was extremely dizzy so she had to sit down. Dizziness was not getting better so she called EMS. EMS gave her Zofran for her nausea. She is also having mild headache. States the headache has improved now. The nausea improved with the Zofran. She states now her main complaint is the dizziness. States she has had symptoms like this before when she had BPPV. States symptoms are worse when she turns her head to the right. Denies fevers, chills, abdominal pain, lightheadedness, numbness, weakness. Does have some left lower chest pain that wraps around to her back. Does states she has very mild short of breath that has improved after she used her inhaler. She does have a history of COPD. Does admit she has had a lot of stress in her life recently. Related Data Home Medications Medication Instructions Recorded Confirmed estradiol 0.5 mg tablet 0.5 mg PO DAILY 01/09/22 05/28/23 methocarbamol 500 mg tablet 500 mg PO DAILY 01/09/22 05/28/23 canabis 05/12/23 05/28/23 diazepam 5 mg tablet 7.5 mg PO QAM 05/12/23 05/28/23 Previous Rx's Medication Instructions Recorded meclizine 25 mg tablet 25 mg PO QID #20 tabs 05/28/23 Allergies Allergy/AdvReac Type Severity Reaction Status Date / Time cephalexin [From Keflex] Allergy Mild Hives Verified 05/28/23 14:36 lorazepam Allergy Mild Anxiety Verified 05/28/23 14:36 metoclopramide Allergy Mild Agitation, Verified 05/28/23 14:36 Anxiety clonazepam [From Klonopin] AdvReac Mild Mental Verified 05/28/23 14:36 Status Changes Review of Systems Status of ROS: Reports: 10 or more systems reviewed and unremarkable except as noted in History and below [facility] Medical History Endometriosis ?N80.9 - Endometriosis, unspecified (ICD-10) Depression ?F32.A - Depression, unspecified (ICD-10) Tobacco dependence ?F17.200 - Nicotine dependence, unspecified, uncomplicated (ICD-10) PTSD (post-traumatic stress disorder) ?F43.10 - Post-traumatic stress disorder, unspecified (ICD-10) Controlled substance agreement signed ?Z79.899 - Other [place] [facility] ([facility] drug therapy (ICD-10) De Quervain's disease (tenosynovitis) ?M65.4 - Radial styloid tenosynovitis [de Quervain] (ICD-10) Borderline personality disorder ?F60.3 - Borderline personality disorder (ICD-10) 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 - Lesion of radial nerve, right upper limb (ICD-10) Bipolar 2 disorder ?F31.81 - Bipolar II disorder (ICD-10) Fibromyalgia ?M79.7 - Fibromyalgia (ICD-10) PAC (premature atrial contraction) ?I49.1 - Atrial premature depolarization (ICD-10) Anxiety ?F41.9 - Anxiety disorder, unspecified (ICD-10) Dental caries ?K02.9 - Dental caries, unspecified (ICD-10) Social History Smoking Status: Current some day smoker Do you use any of these nicotine containing products: None and Other How often do you have a drink containing alcohol: never How often do you have six or more drinks on one occasion: Never AUDIT-C Alcohol total score: 0 Non-prescribed substance use: marijuana (any form) service: No Exam Narrative: Exam Narrative: Const: Well-nourished, Well-developed, in mild distress Eyes: PERRL, no conjunctival injection, and symmetrical lids HENT: Atraumatic external nose and ears. Moist mucous membranes. Neck: Symmetric, trachea midline, No thyromegaly. CVS: RRR, No murmurs or gallops. Peripheral pulses 2+ and equal in all extremities RESP: Unlabored respiratory effort. Clear to auscultation bilaterally. GI: Nontender/Nondistended, No rebound or guarding. MSK:Extremities w/o deformity, Normal Active ROM Skin: Warm, Dry. No rashes or lesions. Neuro: Normal Muscle tone, No focal neurological deficits. Psych: Awake, Alert, & Oriented x3. Appropriate mood and affect. Const: Vital Signs, click to edit/add: Vital Signs - 24 hr 05/28/23 14:32 Temperature 97.5 F L Pulse Rate [Pulse Oximeter] 72 Respiratory Rate 20 Blood Pressure [Ri t Upper Arm] 103/69 Pulse Oximetry 98 Oxygen Delivery Me thod Room Air Course Vital Signs Vital signs: Initial Vital Signs Temperature 97.5 F L 05/28/23 14:32 Temperature Source Temporal Artery Scan 05/28/23 14:32 Pulse Rate 72 05/28/23 14:32 Pulse Rhythm Regular 05/28/23 14:32 Pulse Strength 3+ Normal 05/28/23 14:32 Respiratory Rate 20 05/28/23 14:32 Blood Pressure 103/69 05/28/23 14:32 Blood Pressure Mean 80 05/28/23 14:32 Blood Pressure Position Sitting 05/28/23 14:32 Pulse Oximetry 98 05/28/23 14:32 Oxygen Delivery Method Room Air 05/28/23 14:32 Vital Signs Temperature 97.5 F L 05/28/23 14:32 Pulse Rate 72 05/28/23 14:32 Respiratory Rate 20 05/28/23 14:32 Blood Pressure 103/69 05/28/23 14:32 Pulse Oximetry 98 05/28/23 14:32 Oxygen Delivery Method Room Air 05/28/23 14:32 Temperature 97.5 F L 05/28/23 14:32 Pulse Rate 72 05/28/23 14:32 Respiratory Rate 20 05/28/23 14:32 Blood Pressure 103/69 05/28/23 14:32 Pulse Oximetry 98 05/28/23 14:32 Oxygen Delivery Method Room Air 05/28/23 14:32 Medications Administered Medications: Discontinued Medications Generic Name Dose Route Start Last Admin Trade Name Freq PRN Reason Stop Dose Admin Meclizine HCl 25 mg 05/28/23 14:50 05/28/23 15:13 Meclizine Hcl 25 Mg Tablet PO 05/28/23 14:51 25 mg ONCE ONE Administration Medical Decision Making MDM Narrative Medical decision making narrative: Patient is a 38-year-old female presenting for dizziness. The her shortness of breath and nausea are now resolved after use of inhaler and her Zofran. Main complaint is dizziness that is worse with head movement. Consider she has had vertigo before and this feels like her previous BPPV this is most likely again the same symptoms. They are unlikely to be a stroke. Do not think any head imaging at this time. With her brought symptoms though I will order CBC, CMP, COVID/flu/RSV and a chest x-ray. Meclizine given for her dizziness. States she does not feel dehydrated at all and does not think she needs any fluids. Lab work returned showing no concerning findings. Chest x-ray showed no concerning findings. EKG showed no concerning findings. She was given meclizine but was still feeling symptomatic. At that point I performed depth these maneuver and afterwards she is feeling much better. At this point I feel like she is safe for discharge and she is agreeable to this plan. Will give her prescription for meclizine and information on how to perform Apley's maneuver at home. Lab Data Labs: Lab Results 05/28/23 Range/Units 15:00 WBC 6.04 (4.50-11.00) K/uL RBC 4.55 (4.00-5.20) m/uL Hgb 14.3 (12.0-16.0) gm/dL Hct 41.9 (33.0-51.0) % MCV 92 (80-100) fL MCH 31 (26-34) pg MCHC 34 (32-36) gm/dL RDW Coeff of Darwin 11.5 (11.5-15.5) % Plt Count 180 (140-440) K/uL Neut % (Auto) 43.6 (42.0-72.0) % Lymph % (Auto) 47.4 H (20-44) % [place] % (Auto) 5.3 (0.0-11.0) % Eos % (Auto) 3.1 (0.0-7.0) % Baso % (Auto) 0.3 (0.0-3.0) % Neut # (Auto) 2.63 (1.7-7.0) K/uL Lymph # (Auto) 2.90 (0.90-2.90) K/uL [place] # (Auto) 0.30 (0.00-0.90) K/UL Eos # (Auto) 0.19 (0.00-0.50) K/uL Baso # (Auto) 0.02 (0.00-0.30) K/uL Abs Immat Gran (auto) 0.02 (0.00-0.30) K/uL Imm/Tot Granulo (auto) 0.3 % Sodium 138 (135-149) mmol/L Potassium 3.6 (3.6-5.1) mmol/L Chloride 107 (96-114) mmol/L Carbon Dioxide 27 (20-32) mmol/L Anion Gap 4 L (7-15) mEq/L BUN 14 (5-24) mg/dL Creatinine 0.8 (0.5-1.5) mg/dL Estimated Creat Clear 76.98 Estimated GFR 95 ml/min Glucose 113 (60-115) mg/dL Calcium 9.3 (8.4-10.6) mg/dL Total Bilirubin 0.6 (0.1-1.5) mg/dL AST 28 (12-35) U/L ALT 32 (4-35) U/L Alkaline Phosphatase 68 (40-150) U/L Total Protein 6.7 (6.0-8.3) g/dL Albumin 4.2 (3.3-5.0) g/dL SARS-CoV-2 (PCR) Negative SARS-CoV-2 (Negative) Influenza Type A (PCR) Negative PCR FLU A (Negative) Influenza Type B (PCR) Negative PCR FLU B (Negative) RSV (PCR) Negative PCR RSV (Negative) Imaging Data Chest x-ray: Radiologist's impression: No acute or significant findings. Dictated by Diego Heard MD @ 05/28/2023 3:33:46 PM ECG Data Attestation: I personally reviewed and interpreted this ECG as follows: Prior ECG tracings: available for review Interpretation: Normal sinus rhythm with a rate of 60 beats per minute, normal intervals, normal axis, no ST or T-wave abnormalities.. Similar to previous EKG on file Discharge Plan Discharge Clinical Impression: Benign paroxysmal positional vertigo Qualifiers: Laterality: right Qualified Code(s): H81.11 - Benign paroxysmal vertigo, right ear Patient Disposition: Home, Self-Care Condition: Improved Instructions: Benign Paroxysmal Positional Vertigo (DC) Additional Instructions: He can try using the meclizine every 6 hours for your dizziness of symptoms seem to persist. She can also perform Falguni's maneuver at home. Follow-up with the primary care provider if you continue to have symptoms. Return to emergency department for new or worsening symptoms Prescriptions: New meclizine 25 mg tablet 25 mg PO QID Qty: 20 0RF No Action methocarbamol 500 mg tablet 500 mg PO DAILY Patient Comments: TAKE 1 TABLET BY MOUTH TWICE DAILY NEEDED estradiol 0.5 mg tablet 0.5 mg PO DAILY diazepam 5 mg tablet 7.5 mg PO QAM (DME) canabis 0 .ROUTE .MEDSUPPLY Follow Up/Referrals: Malka Arizmendi DO [Primary Care Provider] - Stand Alone Forms: MyHealth Info Instructions
[2023-05-28 15:22] LABS: Slide Review Reflex No
[2023-05-28 15:35] LABS: Albumin* 4.2 g/dL (3.3-5.0); Chloride* 107 mmol/L (96-114)
[2023-05-28 15:36] LABS: Potassium* 3.6 mmol/L (3.6-5.1); Sodium* 138 mmol/L (135-149)
[2023-05-28 15:38] LABS: Anion Gap 4 mEq/L (7-15); Aspartate Amino Transferase* 28 U/L (12-35); Bilirubin Total* 0.6 mg/dL (0.1-1.5); Carbon Dioxide* 27 mmol/L (20-32); Creatinine* 0.8 mg/dL (0.5-1.5); Est. Creatinine Clearance* 76.98; Estimated Glomerular Filt Rate 95 ml/min; Total Protein* 6.7 g/dL (6.0-8.3)
[2023-05-28 15:39] LABS: Alanine Aminotransferase* 32 U/L (4-35); Alkaline Phosphatase* 68 U/L (40-150); Blood Urea Nitrogen* 14 mg/dL (5-24); Calcium* 9.3 mg/dL (8.4-10.6); Glucose* 113 mg/dL (60-115)
[2023-05-28 15:50] VITALS: O2SAT 98
[2023-05-28 15:52] LABS: PCR FLU A Negative PCR FLU A (Negative); PCR FLU B Negative PCR FLU B (Negative); PCR RSV Negative PCR RSV (Negative); SARS PCR* Negative SARS-CoV-2 (Negative)
== END 2023-05-28 16:18 | disposition home or self-care (01) ==
PROVIDERS: Emergency Provider Student in an Organized Health Care Education/Training Program; PCP Family Medicine
DX: H81.11 Benign paroxysmal vertigo, right ear (principal)
CPT/HCPCS: 36415; 71046; 80053; 85025; 87631; 93005; 99283; 99284; 99285; A9270

== ENCOUNTER 2023-07-22 06:28 | Emergency (ER) | payer BC, SELFPAY ==
[2023-07-22 06:36] VITALS: BP 105/71; PULSE 60; RESP 16; TEMP 36.6; O2SAT 98; BMI 17.9
[2023-07-22 06:47] LABS: Appearance Urine Clear (Clear); Bilirubin Urine Negative (Negative); Blood Urine 2+ (Negative); Color Urine Yellow (Yellow); Glucose Urine Negative (Negative); Ketones Urine Negative (Negative); Leukocyte Esterase Urine Negative (Negative); Nitrite Urine Negative (Negative); Protein Urine Negative (Negative); Urobilinogen Urine 0.2 (0.2-1.0); pH Urine 5.5 (5.0-8.5)
--- NOTE | 2023-07-22 06:58 | ED.GENADULT ---
HPI - General Adult General Chief complaint: Abdominal Pain <Amanda Mane MD - Last Filed: 07/28/23 00:12> Stated complaint: abdominal pain <Amanda Mane MD - Last Filed: 07/28/23 00:12> Time Seen by Provider: 07/22/23 06:42 <Amanda Mane MD - Last Filed: 07/28/23 00:12> Source: patient <Amanda Mane MD - Last Filed: 07/28/23 00:12> Mode of arrival: ambulatory <Amanda Mane MD - Last Filed: 07/28/23 00:12> Limitations: no limitations <Amanda Mane MD - Last Filed: 07/28/23 00:12> History of Present Illness HPI narrative: 38-year-old female with history of prior kidney stones presents to the emergency department with vague left flank achiness yesterday progressed into left lower back pain that radiates into the left inguinal region more constant and bothersome over the past 4 hours. No fever, injury or trauma. Has not noticed any dysuria or hematuria. Bowels have been moving well, no appetite changes. Pain this morning progressed to nausea but no vomiting. No bloody stools, no epigastric pain. No gynecological changes. Is status post complete hysterectomy. Did not try any home medications or other interventions prior to coming to ED today. Past medical history notable for depression, total hysterectomy and COPD. Home meds include medical cannabis, oral estradiol and does use 10 diazepam tablets every 6 months. She smokes cigarettes, no pertinent travel. Has had prior kidney stones as stated above. No history of chronic kidney disease. ROS notable for the musculoskeletal/urinary symptoms as described above, otherwise she denies acute changes times 12 systems. <Amanda Mane MD - Last Filed: 07/28/23 00:12> Related Data Home medications: Home Medications ?Medication ?Instructions ?Recorded ?Confirmed estradiol 0.5 mg tablet 0.5 mg PO DAILY 01/09/22 05/28/23 methocarbamol 500 mg tablet 500 mg PO DAILY 01/09/22 05/28/23 canabis 05/12/23 05/28/23 diazepam 5 mg tablet 7.5 mg PO QAM 05/12/23 05/28/23 Previous Rx's ?Medication ?Instructions ?Recorded meclizine 25 mg tablet 25 mg PO QID #20 tabs 05/28/23 oxycodone-acetaminophen 5 mg-325 1 tab PO Q4-6H PRN pain #10 tabs 07/22/23 mg tablet (Percocet) tamsulosin 0.4 mg capsule (Flomax) 0.4 mg PO DAILY #5 caps 07/22/23 <Amanda Mane MD - Last Filed: 07/28/23 00:12> Allergies/adverse reactions: Allergies Allergy/AdvReac Type Severity Reaction Status Date / Time cephalexin [From Keflex] Allergy Mild Hives Verified 05/28/23 14:36 lorazepam Allergy Mild Anxiety Verified 05/28/23 14:36 metoclopramide Allergy Mild Agitation, Verified 05/28/23 14:36 Anxiety clonazepam [From Klonopin] AdvReac Mild Mental Verified 05/28/23 14:36 Status Changes <Amanda Mane MD - Last Filed: 07/28/23 00:12> [facility] Medical History: Medical History Endometriosis ?N80.9 - Endometriosis, unspecified (ICD-10) Depression ?F32.A - Depression, unspecified (ICD-10) Tobacco dependence ?F17.200 - Nicotine dependence, unspecified, uncomplicated (ICD-10) PTSD (post-traumatic stress disorder) ?F43.10 - Post-traumatic stress disorder, unspecified (ICD-10) Controlled substance agreement signed ?Z79.899 - Other nursing home (current) drug therapy (ICD-10) De Quervain's disease (tenosynovitis) ?M65.4 - Radial styloid tenosynovitis [de Quervain] (ICD-10) Borderline personality disorder ?F60.3 - Borderline personality disorder (ICD-10) 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 - Lesion of radial nerve, right upper limb (ICD-10) Bipolar 2 disorder ?F31.81 - Bipolar II disorder (ICD-10) Fibromyalgia ?M79.7 - Fibromyalgia (ICD-10) PAC (premature atrial contraction) ?I49.1 - Atrial premature depolarization (ICD-10) Anxiety ?F41.9 - Anxiety disorder, unspecified (ICD-10) Dental caries ?K02.9 - Dental caries, unspecified (ICD-10) <Amanda Mane MD - Last Filed: 07/28/23 00:12> Social History: Social History Smoking Status: Current some day smoker Do you use any of these nicotine containing products: None and Other How often do you have a drink containing alcohol: never How often do you have six or more drinks on one occasion: Never AUDIT-C Alcohol total score: 0 Non-prescribed substance use: marijuana (any form) service: No <Amanda Mane MD - Last Filed: 07/28/23 00:12> Exam Const: Vital Signs, click to edit/add: Vital Signs - 24 hr 07/22/23 06:36 07/22/23 07:05 Temperature 97.8 F 97.8 F Pulse Rate [Pulse Oximeter] 60 Respiratory Rate 16 Blood Pressure [Ri ght Upper Arm] 105/71 Pulse Oximetry 98 Oxygen Delivery Me thod Room Air <Amanda Mane MD - Last Filed: 07/28/23 00:12> Vital Signs, click to edit/add: Vital Signs - 24 hr 07/22/23 06:36 07/22/23 07:05 Temperature 97.8 F 97.8 F Pulse Rate [Pulse Oximeter] 60 Respiratory Rate 16 Blood Pressure [Ri ght Upper Arm] 105/71 Pulse Oximetry 98 Oxygen Delivery Me thod Room Air <Diego Keane MD - Last Filed: 07/22/23 08:26> Documenting provider has reviewed patient's vital signs: yes <Amanda Mane MD - Last Filed: 07/28/23 00:12> General appearance: well kempt <Amanda Mane MD - Last Filed: 07/28/23 00:12> Other: Appears mildly uncomfortable but no significant distress. Polite and cooperative. <Amanda Mane MD - Last Filed: 07/28/23 00:12> HENMT: Common normals: normocephalic <MD Liam Varela Last Filed: 07/28/23 00:12> Head and scalp: normocephalic <MD Liam Varela Last Filed: 07/28/23 00:12> Face and sinus: normal facial exam <MD Liam Varela Last Filed: 07/28/23 00:12> Mouth: oral and palatal mucosa normal <MD Liam Varela Last Filed: 07/28/23 00:12> Eye: General eye: normal appearance of both eyes <MD Liam Varela Last Filed: 07/28/23 00:12> Neck & C-Spine: General: normal visual inspection <MD Liam Varela Last Filed: 07/28/23 00:12> Resp: Common normals: normal respiratory effort, no use of accessory muscles and clear to auscultation bilaterally <MD Liam Varela Last Filed: 07/28/23 00:12> Effort & inspection: able to speak in complete sentences <MD Liam Varela Last Filed: 07/28/23 00:12> Auscultation: clear to auscultation bilaterally <MD Liam Varela Last Filed: 07/28/23 00:12> Cardio: Common normals: regular rate, regular rhythm, S1 normal heart sound, S2 normal heart sound and no murmurs <MD Liam Varela Last Filed: 07/28/23 00:12> Rate: regular rate <MD Liam Varela Last Filed: 07/28/23 00:12> Rhythm: regular rhythm <MD Liam Varela Last Filed: 07/28/23 00:12> Heart sounds: S1 normal and S2 normal <MD Liam Varela Last Filed: 07/28/23 00:12> GI: Common normals: Normal to inspection, nondistended, normoactive bowel sounds present, soft to palpation, non-tender, no hepatosplenomegaly and no masses <MD Liam Varela Last Filed: 07/28/23 00:12> Palpation: soft and no hepatosplenomegaly <MD Liam Varela Last Filed: 07/28/23 00:12> : Common normals: no CVA tenderness <MD Liam Varela Last Filed: 07/28/23 00:12> Bladder/kidney exam: no CVA tenderness <MD Liam Varela Last Filed: 07/28/23 00:12> Back & Pelvis: Common normals: no CVA tenderness <MD Liam Varela Last Filed: 07/28/23 00:12> Extremity: Common normals: normal to inspection and normal capillary refill <MD Liam Varela Last Filed: 07/28/23 00:12> Neuro: Speech: speech normal <MD Liam Varela Last Filed: 07/28/23 00:12> Gait (neuro): normal gait <MD Liam Varela Last Filed: 07/28/23 00:12> Motor exam: no movement abnormalities noted <MD Liam Varela Last Filed: 07/28/23 00:12> Psych: Appearance: well kempt <MD Liam Varela Last Filed: 07/28/23 00:12> Attitude: engaged <MD iLam Varela Last Filed: 07/28/23 00:12> Insight: insight good <MD Liam Varela Last Filed: 07/28/23 00:12> Judgement: judgment good <MD Liam Varela Last Filed: 07/28/23 00:12> Skin: Common normals: no rashes or lesions noted <MD Liam Varela Last Filed: 07/28/23 00:12> General skin exam: no rashes or lesions noted <MD Liam Varela Last Filed: 07/28/23 00:12> Course Course ED Course: 38-year-old female with left inguinal and flank area pain suspicious for ureteral stone. Differential diagnosis also including bladder infection, colitis, gastroenteritis, nephritis, musculoskeletal etiology, intra-abdominal pathology, among others. Cook who start with 15 mg of IV Toradol, 4 mg Zofran, IV insertion. Basic labs. Awaiting urinalysis but anticipate that she will need a CT of the abdomen and pelvis without contrast. Will hand over care to my in coming day shift partner. <Amanda Mane MD - Last Filed: 07/28/23 00:12> Reevaluation(s) Time of Reevaluation #1: 07:46 <Diego Keane MD - Last Filed: 07/22/23 08:26> Reevaluation #1: Patient was updated on her imaging results: IMPRESSION: Left ureterovesicular junction stone measuring 1.1 x 0.5 cm, with mild left hydronephrosis. CBC showed no leukocytosis, metabolic panel showed normal renal function electrolytes, urinalysis showed no evidence of any infection, patient was given the above care and did well, pain was controlled, based on location kidney stone should pass, she will get additional Flomax 0.4 mg and 0.9 normal saline bolus. Patient is feeling better, plan would be to discharge, she will follow up with primary care provider over the next 7-10 days. Return precautions given. <Diego Keaen MD - Last Filed: 07/22/23 08:26> Vital Signs Vital signs: Initial Vital Signs Temperature 97.8 F 07/22/23 06:36 Temperature Source Temporal Artery Scan 07/22/23 06:36 Pulse Rate 60 07/22/23 06:36 Respiratory Rate 16 07/22/23 06:36 Blood Pressure 105/71 07/22/23 06:36 Blood Pressure Mean 82 07/22/23 06:36 Blood Pressure Position Sitting 07/22/23 06:36 Pulse Oximetry 98 07/22/23 06:36 Oxygen Delivery Method Room Air 07/22/23 06:36 Vital Signs Temperature 97.8 F 07/22/23 06:36 Pulse Rate 60 07/22/23 06:36 Respiratory Rate 16 07/22/23 06:36 Blood Pressure 105/71 07/22/23 06:36 Pulse Oximetry 98 07/22/23 06:36 Oxygen Delivery Method Room Air 07/22/23 06:36 Temperature 97.8 F 07/22/23 07:05 Pulse Rate 68 07/22/23 08:47 Respiratory Rate 18 07/22/23 08:47 Blood Pressure 110/68 07/22/23 08:47 Pulse Oximetry 99 07/22/23 08:47 Oxygen Delivery Method Room Air 07/22/23 08:47 <Amanda Mane MD - Last Filed: 07/28/23 00:12> Initial Vital Signs Temperature 97.8 F 07/22/23 06:36 Temperature Source Temporal Artery Scan 07/22/23 06:36 Pulse Rate 60 07/22/23 06:36 Respiratory Rate 16 07/22/23 06:36 Blood Pressure 105/71 07/22/23 06:36 Blood Pressure Mean 82 07/22/23 06:36 Blood Pressure Position Sitting 07/22/23 06:36 Pulse Oximetry 98 07/22/23 06:36 Oxygen Delivery Method Room Air 07/22/23 06:36 Vital Signs Temperature 97.8 F 07/22/23 06:36 Pulse Rate 60 07/22/23 06:36 Respiratory Rate 16 07/22/23 06:36 Blood Pressure 105/71 07/22/23 06:36 Pulse Oximetry 98 07/22/23 06:36 Oxygen Delivery Method Room Air 07/22/23 06:36 Temperature 97.8 F 07/22/23 07:05 Pulse Rate 68 07/22/23 08:47 Respiratory Rate 18 07/22/23 08:47 Blood Pressure 110/68 07/22/23 08:47 Pulse Oximetry 99 07/22/23 08:47 Oxygen Delivery Method Room Air 07/22/23 08:47 <Diego Keane MD - Last Filed: 07/22/23 08:26> Medications Administered Medications: Discontinued Medications Generic Name Dose Route Start Last Admin Trade Name Freq PRN Reason Stop Dose Admin Sodium Chloride 1,000 mls @ 1,000 mls/hr 07/22/23 07:48 07/22/23 08:46 0.9 % Sodium Chloride 1000 Ml IV 07/22/23 08:47 Infused .Q1H RICHIE Infusion Ketorolac Tromethamine 15 mg 07/22/23 06:56 07/22/23 07:05 Ketorolac 15 Mg/Ml Inj IVP 07/22/23 06:57 15 mg ONCE ONE Administration Ondansetron HCl 4 mg 07/22/23 06:56 07/22/23 07:01 Ondansetron 2 Mg/Ml Inj IVP 07/22/23 06:57 4 mg ONCE ONE Administration Tamsulosin HCl 0.4 mg 07/22/23 07:47 07/22/23 08:18 Tamsulosin Hcl 0.4 Mg Capsule PO 07/22/23 07:48 0.4 mg DAILY ONE Administration <Amanda Mane MD - Last Filed: 07/28/23 00:12> Discontinued Medications Generic Name Dose Route Start Last Admin Trade Name Gab PRN Reason Stop Dose Admin Sodium Chloride 1,000 mls @ 1,000 mls/hr 07/22/23 07:48 07/22/23 08:46 0.9 % Sodium Chloride 1000 Ml IV 07/22/23 08:47 Infused .Q1H RICHIE Infusion Ketorolac Tromethamine 15 mg 07/22/23 06:56 07/22/23 07:05 Ketorolac 15 Mg/Ml Inj IVP 07/22/23 06:57 15 mg ONCE ONE Administration Ondansetron HCl 4 mg 07/22/23 06:56 07/22/23 07:01 Ondansetron 2 Mg/Ml Inj IVP 07/22/23 06:57 4 mg ONCE ONE Administration Tamsulosin HCl 0.4 mg 07/22/23 07:47 07/22/23 08:18 Tamsulosin Hcl 0.4 Mg Capsule PO 07/22/23 07:48 0.4 mg DAILY ONE Administration <Diego Keane MD - Last Filed: 07/22/23 08:26> Medical Decision Making Lab Data Lab results reviewed: Yes I reviewed the patient's lab results <Amanda Mane MD - Last Filed: 07/28/23 00:12> Lab results narrative: Urinalysis positive for blood, CT ordered. <Amanda Mane MD - Last Filed: 07/28/23 00:12> Labs: Lab Results 07/22/23 07/22/23 Range/Units 06:35 07:00 WBC 5.01 (4.50-11.00) K/uL RBC 4.37 (4.00-5.20) m/uL Hgb 13.9 (12.0-16.0) gm/dL Hct 40.9 (33.0-51.0) % MCV 94 (80-100) fL MCH 32 (26-34) pg MCHC 34 (32-36) gm/dL RDW Coeff of Darwin 11.6 (11.5-15.5) % Plt Count 133 L (140-440) K/uL Neut % (Auto) 61.7 (42.0-72.0) % Lymph % (Auto) 26.5 (20-44) % Stephens % (Auto) 5.8 (0.0-11.0) % Eos % (Auto) 5.4 (0.0-7.0) % Baso % (Auto) 0.6 (0.0-3.0) % Neut # (Auto) 3.09 (1.7-7.0) K/uL Lymph # (Auto) 1.33 (0.90-2.90) K/uL Stephens # (Auto) 0.30 (0.00-0.90) K/UL Eos # (Auto) 0.27 (0.00-0.50) K/uL Baso # (Auto) 0.03 (0.00-0.30) K/uL Abs Immat Gran (auto) 0.00 (0.00-0.30) K/uL Imm/Tot Granulo (auto) 0.0 % Sodium 141 (135-149) mmol/L Potassium 4.1 (3.6-5.1) mmol/L Chloride 114 (96-114) mmol/L Carbon Dioxide 24 (20-32) mmol/L Anion Gap 3 L (7-15) mEq/L BUN 13 (5-24) mg/dL Creatinine 0.8 (0.5-1.5) mg/dL Estimated Creat Clear 83.67 Estimated GFR 95 ml/min Glucose 83 (60-115) mg/dL Calcium 8.9 (8.4-10.6) mg/dL C-Reactive Protein < 0.5 L (0.5-1.0) mg/dL Urine Color Yellow (Yellow) Urine Appearance Clear (Clear) Urine pH 5.5 (5.0-8.5) Ur Specific [place] 1.020 (1.000-1.030) Urine Protein Negative (Negative) Urine Glucose (UA) Negative (Negative) Urine Ketones Negative (Negative) Urine Blood 2+ A (Negative) Urine Nitrite Negative (Negative) Urine Bilirubin Negative (Negative) Urine Urobilinogen 0.2 (0.2-1.0) Ur Leukocyte Esterase Negative (Negative) Urine RBC 10-25 A (0-2) Urine WBC 0-2 (0-5) Ur Squamous Epith Cells None (None-Few) Calcium Oxalate Crystal Moderate A (None) Urine Bacteria None (None) <Amanda Mane MD - Last Filed: 07/28/23 00:12> Lab Results 07/22/23 07/22/23 Range/Units 06:35 07:00 WBC 5.01 (4.50-11.00) K/uL RBC 4.37 (4.00-5.20) m/uL Hgb 13.9 (12.0-16.0) gm/dL Hct 40.9 (33.0-51.0) % MCV 94 (80-100) fL MCH 32 (26-34) pg MCHC 34 (32-36) gm/dL RDW Coeff of Darwin 11.6 (11.5-15.5) % Plt Count 133 L (140-440) K/uL Neut % (Auto) 61.7 (42.0-72.0) % Lymph % (Auto) 26.5 (20-44) % Stephens % (Auto) 5.8 (0.0-11.0) % Eos % (Auto) 5.4 (0.0-7.0) % Baso % (Auto) 0.6 (0.0-3.0) % Neut # (Auto) 3.09 (1.7-7.0) K/uL Lymph # (Auto) 1.33 (0.90-2.90) K/uL Stephens # (Auto) 0.30 (0.00-0.90) K/UL Eos # (Auto) 0.27 (0.00-0.50) K/uL Baso # (Auto) 0.03 (0.00-0.30) K/uL Abs Immat Gran (auto) 0.00 (0.00-0.30) K/uL Imm/Tot Granulo (auto) 0.0 % Sodium 141 (135-149) mmol/L Potassium 4.1 (3.6-5.1) mmol/L Chloride 114 (96-114) mmol/L Carbon Dioxide 24 (20-32) mmol/L Anion Gap 3 L (7-15) mEq/L BUN 13 (5-24) mg/dL Creatinine 0.8 (0.5-1.5) mg/dL Estimated Creat Clear 83.67 Estimated GFR 95 ml/min Glucose 83 (60-115) mg/dL Calcium 8.9 (8.4-10.6) mg/dL C-Reactive Protein < 0.5 L (0.5-1.0) mg/dL Urine Color Yellow (Yellow) Urine Appearance Clear (Clear) Urine pH 5.5 (5.0-8.5) Ur Specific [place] 1.020 (1.000-1.030) Urine Protein Negative (Negative) Urine Glucose (UA) Negative (Negative) Urine Ketones Negative (Negative) Urine Blood 2+ A (Negative) Urine Nitrite Negative (Negative) Urine Bilirubin Negative (Negative) Urine Urobilinogen 0.2 (0.2-1.0) Ur Leukocyte Esterase Negative (Negative) Urine RBC 10-25 A (0-2) Urine WBC 0-2 (0-5) Ur Squamous Epith Cells None (None-Few) Calcium Oxalate Crystal Moderate A (None) Urine Bacteria None (None) <Diego Keane MD - Last Filed: 07/22/23 08:26> Discharge Plan Discharge Clinical Impression: Urolithiasis <Amanda Mane MD - Last Filed: 07/28/23 00:12> Patient Disposition: Home, Self-Care <Amanda Mane MD - Last Filed: 07/28/23 00:12> Condition: Improved <Amanda Mane MD - Last Filed: 07/28/23 00:12> Instructions: Renal Colic (ED), How to Strain Your Urine (ED) <Amanda Mane MD - Last Filed: 07/28/23 00:12> Additional Instructions: To take Flomax 0.4 mg daily over the next 5 days or until passing of the stone, Motrin 600 mg every 4-6 hours as needed for pain, additional Percocet 5-325 mg, 1-2 tablets every 4-6 hours for breakthrough pain, follow-up with primary care provider over the next 7-10 days, return if worsening symptoms. <Amanda Mane MD - Last Filed: 07/28/23 00:12> Activity Level: No Restrictions <Amanda Mane MD - Last Filed: 07/28/23 00:12> No Restrictions <Diego Keane MD - Last Filed: 07/22/23 08:26> Prescriptions: New tamsulosin [Flomax] 0.4 mg capsule 0.4 mg PO DAILY Qty: 5 0RF oxycodone-acetaminophen [Percocet] 5-325 mg tablet 1 tab PO Q4-6H PRN (Reason: pain) Qty: 10 0RF No Action methocarbamol 500 mg tablet 500 mg PO DAILY Patient Comments: TAKE 1 TABLET BY MOUTH TWICE DAILY NEEDED estradiol 0.5 mg tablet 0.5 mg PO DAILY diazepam 5 mg tablet 7.5 mg PO QAM (DME) canabis 0 .ROUTE .MEDSUPPLY meclizine 25 mg tablet 25 mg PO QID Qty: 20 0RF <Amanda Mane MD - Last Filed: 07/28/23 00:12> Follow Up/Referrals: Malka Arizmendi DO [Primary Care Provider] - <Amanda Mane MD - Last Filed: 07/28/23 00:12> Stand Alone Forms: MyHealth Info Instructions <Amanda Mane MD - Last Filed: 07/28/23 00:12>
[2023-07-22 06:59] LABS: WBC Urine 0-2 (0-5)
[2023-07-22 07:00] LABS: Calcium Oxalate Crystals Urine Moderate
[2023-07-22] MEDS: ONDANSETRON 2 MG/ML inj 4 MG IVP (07:01)
--- NOTE | 2023-07-22 07:03 | CRLHL7_ITS ---
For Patients: As a result of the Century Cures Act, medical imaging exams and procedure reports are released immediately into your electronic medical record. You may view this report before your referring provider. If you have questions, please contact your health care provider. INDICATION: Left flank pain, hx stones TECHNIQUE: CT abdomen and pelvis without contrast, stone protocol. COMPARISON: CT chest abdomen pelvis July 12, 2021. FINDINGS: Kidney/ureters: Left ureterovesicular junction stone measuring 1.1 x 0.5 cm, with mild left hydronephrosis. No additional intrarenal calculi are identified. No bladder wall thickening. Liver/gallbladder/bile ducts: The liver is normal in size, shape and attenuation. Gallbladder is normal without visualized stones or inflammation. No biliary dilatation. Spleen/pancreas/adrenal glands: The spleen, adrenal glands and pancreas are within normal limits. GI tract: No bowel obstruction. Moderate stool burden. Normal appendix. Abdominal wall/omentum/peritoneum: No free air or significant free fluid. No mass or inflammation. Lymph nodes: No lymphadenopathy. Pelvis: Unremarkable pelvis. Lower chest: Unremarkable. IMPRESSION: Left ureterovesicular junction stone measuring 1.1 x 0.5 cm, with mild left hydronephrosis. Please note that all CT scans at this facility use dose modulation, iterative reconstruction, and/or weight-based dosing when appropriate to reduce radiation dose to as low as reasonably achievable. Dictated by Ward Cuevas MD @ 07/22/2023 7:40:02 AM (Electronically Signed)
[2023-07-22 07:05] VITALS: TEMP 36.6
[2023-07-22] MEDS: KETOROLAC 15 MG/ML inj IVP (07:05)
[2023-07-22 07:10] LABS: Basophils Absolute Auto 0.03 K/uL (0.00-0.30); Basophils Percent Auto 0.6 % (0.0-3.0); Eosinophils Absolute Auto 0.27 K/uL (0.00-0.50); Eosinophils Percent Auto 5.4 % (0.0-7.0); Hematocrit 40.9 % (33.0-51.0); Hemoglobin* 13.9 gm/dL (12.0-16.0); Lymphocytes Absolute Auto 1.33 K/uL (0.90-2.90); Lymphocytes Percent Auto 26.5 % (20-44); Mean Corpuscular HGB Conc 34 gm/dL (32-36); Mean Corpuscular Hemoglobin 32 pg (26-34); Mean Corpuscular Volume 94 fL (80-100); Monocytes Percent Auto 5.8 % (0.0-11.0); Neutrophils Absolute Auto 3.09 K/uL (1.7-7.0); Neutrophils Percent Auto 61.7 % (42.0-72.0); Platelet Count* 133 K/uL (140-440); RDW Coefficient of Variation % 11.6 % (11.5-15.5); Red Blood Count 4.37 m/uL (4.00-5.20); White Blood Count* 5.01 K/uL (4.50-11.00)
[2023-07-22 07:11] LABS: Slide Review Reflex No
--- OUTSIDE RECORDS SUMMARY | 2023-07-22 07:14 | XMS_ITS | Continuity of Care Document ---
Author Organization [facility] Address [address] [place] [address] Phone Care Team Providers Care Material Handler Loader Name Role Phone Galen Zhang MD Unavailable Unavailable Allergies, Adverse Reactions, Alerts Substance Reaction Status Criticality clonazepam Mental Status Change Active No Info rmation CEPHALEXIN MONOHYDRATE Hives Active No In formation lorazepam Mental Status Change Active No Info rmation Medications Medication Instructions Dosage Effective Dates (start - stop) Status Comments LYRICA (unknown strength) Not Available - Active NORTRIPTYLINE HCL (unknown strength) Not Available - Active IBUPROFEN PM (unknown strength) Not Available - Active EPIDIOLEX (unknown strength) Not Available - Active VITAMIN D3 (unknown strength) Not Available - Active VITAMIN B-12 (unknown strength) Not Available - Active EPIPEN (unknown strength) Not Available - Active LEXAPRO (unknown strength) Not Available - Active ESTRACE (unknown strength) Not Available - Active FLONASE ALLERGY RELIEF (unknown strength) Not Available - Active HYDROXYZINE HCL (unknown strength) Not Available - Active RITALIN LA (unknown strength) Not Available - Active VITAMIN B-6 (unknown strength) Not Available - Active SINUS RINSE (unknown strength) Not Available - Active Procedures Procedure Date Office/Outpatient Visit,New, Mod 2018 X Ray Exam Entire SPI 6/> VW Advance Directives Directive Yes / No Effective Date File Name No Information Encounters Encounter Description Practice Location Reason(s) For Visit Diagnoses Date Provider Providers Copied on Encounter [facility], [address], [place], [place], [id number] , tel:[phone] [facility] No Information 9 Leatha Aaron. [facility], [address] [place] [address], [facility] [address], [place], [place], [id number], [place]. tel:[phone] Office/Outpa tient Visit,New, Mod [facility], [address], [place], [place], [id number] , [place] tel:[phone] [facility] Other cervical disc degeneration, cervicothorac ic region 9 Transfeldt Ensor. [facility], [address], [facility] [address], [place], [place], [id number], [place]. tel:[phone] Referring Provider: Alex Cam, [facility] [address] [facility] [address], [place], [address]. tel:[phone] Family History Family Member Type Diagnosis Age [...]
--- OUTSIDE RECORDS SUMMARY | 2023-07-22 07:14 | XMS_ITS | Continuity of Care Document ---
Author Organization [facility] enter Address [address] [place] [id number] Phone Care Team Providers Care Highway Landscape Architect Name Role Phone [facility] Unavailable Unava ilable Procedures Procedure Date INTERLAMINAR CRV OR THRC INTERLAMINAR CRV OR THRC Advance Directives Directive Yes / No Effective Date File Name No Information Encounters Encounter Description Practice Location Reason(s) For Visit Diagnoses Date Provider Providers Copied on Encounter [facility], [address] [place] [address], [id number], tel:[phone] [facility] No Information [facility]. [address] [place] [address], [id number], . tel:[phone] Referring Provider: Ibis Jerry, [address] [place], [address] . tel:[phone] Family History Family Member Type Diagnosis Age [...]
--- OUTSIDE RECORDS SUMMARY | 2023-07-22 07:14 | XMS_ITS | Continuity of Care Document ---
Author Organization [facility] Address [address] [place] [address] Care Team Providers Care Manager Store Name Role Phone Kaden Mckeon CRNA Unavailable Unavailable Procedures Procedure Date Percutaneous Image guided injection, dra nagy, or Advance Directives Directive Yes / No Effective Date File Name No Information Encounters Encounter Description Practice Location Reason(s) For Visit Diagnoses Date Provider Providers Copied on Encounter [facility], [address] [place], [place], [id number], [facility] No Information 3 Mike Alfonso. [address] [place], [place], [id number] , . tel:[phone] Referring Provider: Ibis Jerry, [address] [place], [address] . tel:[phone] Family History Family Member Type Diagnosis Age At Onset No Information Payers Payer name Insurance type Covered constitution party ID Authoriza tion(s) No Information Social [...]
--- OUTSIDE RECORDS SUMMARY | 2023-07-22 07:14 | XMS_ITS | Continuity of Care Document ---
Author Organization [facility] talita Address [address] [place] [address] Phone Care Team Providers Care Offset Platemaker Name Role Phone Timmy Severino Unavailable Unavailable [...] EST OFFICE/OUTPATIENT VISIT, EST Drug test def 1-7 classes Drug Urine Toxology With Chromatography OFFICE/OUTPATIENT VISIT, EST OFFICE VISIT, EST TELEMEDICINE [...] Date Provider Providers Copied on Encounter [facility], [address] Kate Cant[place], [id number] , [place] tel:[phone] [facility] No Information 3 Yasmeen Warner. [facility], [place], [id number] , [place]. tel:[phone] OFFICE/OUTPAT IENT VISIT, EST [facility], [address] [place], [id number] , [place] tel:[phone] [facility] [place] Cervicalgia (chief complaint) Other spondylosis with radiculopathy, cervical regionMyalgia, other siteFibromyalg iaHeadacheOthe r termite control service representative (current) drug therapy 3 Marian Abbie. [address], [place], [id number] , [place]. [phone] Referring Provider: Lyle Hyatt, [address] [place] [address], [address]. tel:[phone] [facility], [address] [place] [address], [id number] , [place] tel:[phone] [facility] Other spondylosis with radiculopathy, cervical region 3 Claritza Baumann. [address] [place] [address], [id number] , [place]. [phone] Referring Provider: Lyle Hyatt, [address] [place] [address], [address]. tel:[phone] [facility] Pain [facility], [address] [place] [address], [id number] , [place] tel:[phone] [facility] Pain [facility] cervicalgia (chief complaint) Other spondylosis with radiculopathy, cervical region 3 Serge Rdz. [address] [place] [address], [id number] , [place]. [phone] Referring Provider: Lyle Hyatt, [address] [place] [address], [address]. tel:[phone] OFFICE/OUTPAT IENT VISIT, [facility], [address] [place] [address], [id number] , [place] [phone] [facility] Pain [facility] Fibromyalgia (chief complaint) Other spondylosis with radiculopathy, cervical regionMyalgia, other siteFibromyalg iaHeadacheOthe r termite control service representative (current) drug therapy 3 Marian Abbie. [address], [place], [id number] , [place]. [phone] Referring Provider: Lyle Hyatt, [address] [place] [address], [id number]. [phone] OFFICE/OUTPAT IENT VISIT, [facility], [address] [place] [address], [id number] , [place] [phone] [facility] Pain [facility] Fibromyalgia (chief complaint) Other spondylosis with radiculopathy, cervical regionCervical giaMyalgia, other siteFibromyalg iaOther penitentiary (current) drug therapyHeadach e 3 Marian Abbie. [address] [place] [address] [address], [place], [place], [id number] , [place]. tel:[phone] Referring Provider: Lyle Hyatt, [address] [place] [address], [address]. [phone] OFFICE/OUTPAT IENT VISIT, [facility], [address] [place] [address], [id number] , [phone] [facility] Fibromyalgia (chief complaint) CervicalgiaMya lgia, other siteFibromyalg iaOther termite control service representative (current) drug therapyOther spondylosis with radiculopathy, cervical region 0 2 Marian Abbie. [address] [place] [address] [address], [place], [place], [id number] , [place]. tel:[phone] Referring Provider: Lyle Haytt, [address] [place] [address], [address]. [phone] OFFICE/OUTPAT IENT VISIT, [facility], [address] [place] [address], [id number] , [place] [phone] [facility] Pain [facility] Fibromyalgia (chief complaint) CervicalgiaMya lgia, other siteFibromyalg iaOther termite control service representative (current) drug therapy [address] [place] [address] [address], [place], [place], [id number] , [place]. [phone] Referring Provider: Lyle Hyatt, [address] [place] [address], [address]. [phone] OFFICE/OUTPAT IENT VISIT, [facility], [address] [place] [address], [id number] , [place] [phone] [facility] Pain [facility] Fibromyalgia (chief complaint) Myalgia, other siteFibromyalg iaOther termite control service representative (current) [facility] er for therapeutic drug level monitoringCerv icalgia 2 Yasmeen Warner. [facility], [place], [place], [id number] , [place]. tel:[phone] Referring Provider: Malka Arizmendi [facility] [address] [place], [address]. tel:[phone] [facility], [address] [place] [address], [id number] , [place] tel:[phone] [facility] Pain [facility] No Information 2 Yasmeen Warner. [address] [place] [address] [address], [place], [place], [id number] , [place]. tel:[phone] [facility] Pain [facility], [address] [place] [address], [id number] , [place] tel:[phone] [facility] [place] No Information 1 Yasmeen Warner. [facility] [address], [place], [place], [id number] , [place]. tel:[phone] Referring Provider: Lyle Hyatt, [address] [place] [address], [address]. tel:[phone] OFFICE/OUTPAT IENT VISIT, [facility], [address] [place] [address], [id number] , [place] tel:[phone] [facility] Pain [facility] Fibromyalgia (chief complaint) FibromyalgiaMy algia, other siteOther penitentiary (current) drug therapy 1 Yasmeen Warner. [address] [place] [address] [address], [place], [place], [id number] , [place]. tel:[phone] Referring Provider: Lyle Hyatt, [address] [place] [address], [address]. [phone] OFFICE VISIT, EST TELEMEDICINE [facility], [address] [place] [address], [id number] , [place] [phone] [facility] Pain [facility] Fibromyalgia (chief complaint) Myalgia, other siteOther termite control service representative (current) drug therapyFibromy algia [phone] [place]ro Puga. [facility], [address], [place], [address], [place]. tel:[phone] Referring Provider: Lyle Hyatt, [address] [place] [address], [id number]. [phone] [facility] Pain [facility], [address] [place] [address], [id number] , [place] [phone] [facility] Pain [facility] No Information 9 Yasmeen Warner. [address] [place] [address] [address], [place], [id number] , [place]. tel:[phone] OFFICE/OUTPAT IENT VISIT, [facility], [address] [place] [address], [id number] , [place] tel:[phone] [facility] Fibromyalgia (chief complaint) Other penitentiary (current) drug therapyFibromy algiaChronic pain syndromeMyalgi a, other siteEncounter for therapeutic drug level monitoring 9 Yasmeen Warner. [address] [place] [address] [address], [place], [id number] , [place]. [phone] Referring Provider: Lyle Hyatt, [address] [place] [address], [address]. [phone] OFFICE/OUTPAT IENT VISIT, [facility], [address] [place] [address], [id number] , [place] [phone] [facility] Fibromyalgia (chief complaint) Chronic pain syndromeFibrom yalgiaOther penitentiary (current) drug therapy 9 Yasmeen Warner. [address] [place] [address] [address], [place], [id number] , [place]. tel:[phone] Referring Provider: Lyle Hyatt, [address] [place], [address]. tel:[phone] OFFICE/OUTPAT IENT VISIT, EST [facility], [address] [place], [place], [id number] , [place] tel:[phone] [facility] Pain [facility] Fibromyalgia (chief complaint) Chronic pain syndromeFibrom yalgiaEncounte r for therapeutic drug level monitoringOthe r termite control service representative (current) drug therapyMyalgia , other siteCervicalgi aLow back pain 9 Yasmeen Warner. [facility] [address], [place], [id number] , [place]. [phone] Referring Provider: Malka Arizmendi [facility] [address], [place], [address]. tel:[phone] [facility] Pain [facility], [address] [place] [id number] , [place] [phone] [facility] Pain [facility] Fibromyalgia (chief complaint) Chronic pain syndromeFibrom yalgiaPain in right hand 9 Arana Timmy. [address] [place] [address] [address], [place], [id number] , [place]. [phone] Family History Family Member Type Diagnosis Age At Onset Problem (finding) Family history of Endom etriosis Problem (finding) Family history of Scoli osis Payers Payer name Insurance type Covered libertarian ID Authoriza tion(s) No Information Social History [...] u se screening. Due on due Goal Hepatitis C scre ening. Due on due Goal Weight. Due on d ue Goal Medication Recon ciliation. Due on due Goal Tobacco Use. Due on 023 due Goal Height. Due on d ue Goal PHQ-9. Due on du e Goal Update Social Hi story. Due on due Goal Review Allergy L ist. Due on due Goal Update Social Solarte Health story. Due on due Goal Unhealthy drug u se screening. Due on due Goal HPV. Due on due Goal Weight. Due on d ue Goal Height. Due on d ue Goal PHQ-9. Due on du e Goal Tobacco Use. Due on 023 due Goal Hepatitis C scre ening. Due on due Goal Medication Recon ciliation. Due on due Goal Review Allergy L ist. Due on due Goal HPV. Due on [...] Goal Weight. Due on d ue Goal Unhealthy drug u se screening. Due on due Goal HPV. Due on due Goal Hepatitis C scre ening. Due on due Goal Review Allergy L ist. Due on due Goal Tobacco Use. Due on due Goal Update Social Hi story. Due on due Goal PHQ-9. Due on du e Goal Weight. Due on d ue Goal Medication Recon ciliation. Due on due Goal Height. Due on d ue Goal Update Social [...] Review Allergy L ist. Due on due Future Order: Radiology Order EM G, 2 Limbs (EMG2), Ordered on: Ordered Future Order: Lab Order Drug Florina t Def 22+ Classes ([id number]), Ordered on: Ordered Future Order: Lab Order COMPLIAN CE DRUG ANALYSIS, URINE, WITH MED REPORT ([id number]), Ordered on: Ordered Future Order: Lab Order COMPLIAN CE DRUG ANALYSIS, URINE, WITH MED REPORT ([id number]), Ordered on: Ordered Future Order: Lab Order Drug Florina t Def 22+ Classes ([id number]), Ordered on: Ordered History Of Present Illness Encounter Date Complaint History Of Prese nt Illness Cervicalgia The symptoms are reported as being mild. The symptoms occur constantly. The symptoms are described as ache, burn, sharp, tingle. Aggravating factors include bending, housework, rising from sitting, prolonged positioning, standing, twisting, stairs, walking. Relieving factors include heat, ice, massage, rx meds, physical therapy, TENS, stretching, changing positions. The client states the symptoms are chronic. Comments: Grace is a 37 y/o woman [...] from current regimen. No other concerns today. 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 Patients goal is to perform her daily and occupational activities with less limitation. Comments: Grace is a 37 y/o woman [...] LM and pain level averages 7/10. Since [facility] she reports that she has run out [...] current regimen. No other concerns today. Fibromyalgia Duration: chroni c. Comments: Grace is a 36 y/o woman here for follow up consult regarding fibromyalgia. Pain is exacerbated with increased activity. Continues to attend PT /massage at [facility]. primarily for her neck and BL hips. Pain has been relatively stable since [facility] and pain level averages 7/10. Continues to [...] incontinence (urinary). Fibromyalgia Severity level i s 8. Duration: [...] activity. Continues to attend PT /massage, in [place], primarily for her neck and BL hips. Pain has been fluctuating since [facility] and pain level averages 8/10.Reports that she [...] Reports worsened neck and back pain since [facility]. Reports that her pain is exacerbated with increased activity. Currently attends PT in [place], primarily for her neck and BL hips.S/p Botox (?) injection on 12/18/21 at [facility] with increased pain following the injection. Since [facility], patient obtained cervical MRI imaging Continues to [...] fever and incontinence (urinary). Fibromyalgia (comments) Grace pr esents for follow-up regarding low back pain and fibromyalgia. She has not been seen by the clinic since last year with Dr. Matamoros. She reports her low back pain has continued to be very bothersome, especially in her tailbone. Inquires about SCS trial, information provided, and patient will consider. She is wanting to be recertified for medical cannabis. Currently utilizing the red formulation from [employer]. Details feeling high and dizzy, but notes that benefits outweigh the side effects. No other concerns today. Fibromyalgia (comments) Ms. Schneider and is a [...] a couple days. Has been working with [employer] and is currently managed on yellow strain product with benefit. Topical products are also helpful.Patient is not accompanied today and has no further questions or other concerns. Fibromyalgia Severity level i s moderate. Duration: [...] addressed by provider in today's visit. Fibromyalgia Severity level i s 5. Duration: [...] diarrhea, fatigue, fever and incontinence (urinary). Fibromyalgia Onset occurred 5 years ago. Severity [...] the setting of fibromyalgia, referred by Dr. [facility]. Her pain began 5 years ago after [...] and other recommended therapies. She would like [facility] to assume management of pain care. Does report recreational cannabis use a couple weeks ago while traveling with friends in [place] where it is legal. Fibromyalgia (comments) Grace is here for an initial consult for fibromyalgia, [facility] Her [facility] began 5 years [facility]. Has [...] and other recommended therapies. She would like [facility] to assume management of pain care. Fibromyalgia Severity level i s 7. Duration: chronic. Symptom is aggravated by bending, walking upstairs, walking downstairs, running, standing, walking, lying down, changing positions, bending and twisting. Relieving factors include massage, cold, Rx Meds, PT, rest and stretching. Pertinent negatives include diarrhea, dyspnea, fever and incontinence (urinary). Functional Status Date Functional Assessmen t No Information Instructions Date Instruction Additional Infor mation No Information Assessments Type Assessment Date No Information Patient Care Teams Name Effective Dates (start - stop) Status Members No Information
--- OUTSIDE RECORDS SUMMARY | 2023-07-22 07:14 | XMS_ITS | Clinical Summary ---
Author Organization [email or web address] [facility] s [facility] Address [place], [place] [address] Care Team Providers Care Legal Financial Specialist Name Role Phone Malka Arizmendi DO Primary Care Provider [phone] Allergies Active Allergy Reactions Criticality Noted Date Comments Lorazepam Mental Status Change 01/18/2014 Gabapentin Other - Describe In Comment Field Foggy Cephalexin Hives 03/14/2017 Clonazepam Mental Status Change 01/18/2014 Metoclopramide Agitation,Anxiety,Mental Status Change 03/31/2019 Medications Medication Sig Dispensed Refills Start Date End Date Status EPINEPHrine (EPIPEN) 0.3 mg/0.3 mL injectionIndicati ons:Allergic reaction, subsequent encounter Inject 0.3 mg intramuscular one time if needed for Allergic Reaction for up to 1 dose. 2 Each 03/18/2017 Active multivitamin (MVI) tablet Take 1 tablet by mouth once daily. 90 tablet 3 07/26/2018 Active diazePAM (VALIUM) 2 mg tabletIndications :Restlessness and agitation 1 tab oral twice daily as needed agitation 4 tablet 01/12/2019 Active methylphenidate HCl (RITALIN SR) 20 mg Sustained-Release tablet TK 1 T PO QAM 03/11/2019 Active Diaper,Brief, Adult,DisposableI ndications:Mixed stress and urge urinary incontinence For home use. 1 box 06/06/2019 Active medication order composer Medical marijuana 0 07/24/2021 Active fluticasone (50 mcg per actuation) nasal solution (FLONASE)Indicati ons:Rhinitis, unspecified type Inhale 2 Sprays into affected nostril(s) once daily. 16 mL 3 08/28/2021 Active methocarbamoL (ROBAXIN) 500 mg tabletIndications :Muscle spasm At bedtime 30 Tablet 01/13/2022 Active levalbuterol (XOPENEX HFA) 45 mcg/actuation inhalerIndication s:Wheezing,Exacer bation of asthma, unspecified asthma severity, unspecified whether persistent Inhale 1-2 Puffs by mouth every 4 hours if needed for Shortness Of Breath or Wheezing. 15 g 3 01/13/2022 Active nicotine 21 mg/24 hr (NICODERM; HABITROL) 21 mg/24 hr patchIndications: Tobacco dependence Apply 1 Patch on dry, clean, hairless skin once daily. 45 Patch 1 03/12/2023 Active fluticasone propion-salmetero L (ADVAIR) 250-50 mcg/Dose diskus inhalerIndication s:COPD, mild (HC) INHALE 1 PUFF BY MOUTH TWICE DAILY 180 Each 03/14/2023 Active estradioL (ESTRACE) 1 mg tabletIndications :Surgical menopause Take 1 Tablet (1 mg) by mouth once daily. 90 Tablet 3 07/08/2023 Active estradioL (ESTRACE) 2 mg tabletIndications :Surgical menopause TAKE 1 TABLET(2 MG) BY MOUTH EVERY DAY 90 Tablet 06/07/2023 4 Discontinue d(*Medicati on adjustment) Active Problems Problem Noted Date Diagnosed Date Elevated serum creatinine 03/17/2023 Overview: Creatinine range 0.95-1.13. Had US and further lab testing. Econsult with nephrology. Urine creatinine clearance normal. Plan monitor creatinine [id number], if worsening, nephrology consult Hyperparathyroidism 03/12/2023 Multiple [...] Encounters Date Type Department Care Team Description 07/08/2023 3:10 PM CDT Office Visit [facility] [address] [place] [address] Malka Arizmendi, Follow Up; Pain (Rib pain) 07/08/2023 Travel 06/09/2023 10:25 AM CDT Office Visit [facility] [address] [place] [address] Malka Arizmendi, Follow Up 06/09/2023 Travel 06/07/2023 Refill [facility] [address] [place] [address] Malka Arizmendi DO Refill Request (Estradiol) 05/28/2023 Orders Only [facility] Scanner 1 scan: (1-Ord) [place], CHEST 2 VIEWS, 05/28/2023 from Last 3 Months Immunizations Name Administration [...] PHQ-2 Answer Date Recorded PHQ-2 TOTAL SCORE 3 06/09/2023 Social Connections Answer Date Recorded Frequency of [...] Sign Reading Time Taken Comments Blood Pressure 104/63 07/08/2023 3:18 PM CDT Pulse 56 07/08/2023 3:18 PM CDT Temperature 36.9 ??C (98.5 ??F) 09/25/2021 8:16 AM CD T Respiratory Rate 18 12/27/2019 11:39 AM MEDICAL INTERN Oxygen Saturation 99% 07/08/2023 3:18 PM CDT Inhaled Oxygen Concentration - - Weight 54.4 kg (120 lb) 07/08/2023 3:18 PM CDT Height 180 cm (5' 10.87) 01/30/2020 10:32 AM CS T Body Mass Index 16.8 01/30/2020 10:32 AM MEDICAL INTERN Plan of Treatment Upcoming Encounters Date Type Department Care Team (Late st Contact Info) Description 09/17/2023 2:45 PM CDT Office Visit [facility] [address] [place] [address] Ugo Malka Carmen, [address] [place] [address] Health Maintenance Due Date Last Done Comments Pneumococcal series for age 6-64 (1 of 2 - PCV) 1989 BMI (ht and wt on same day) for age 18+ 01/29/2021 01/30/2020, 03/31/2019, 01/18/2019, Additional history exists COVID-19 vaccine series (2022- season) 2022 Influenza for age 9-49 10/25/2023 Depression screening for age 12+ 06/08/2024 06/09/2023, 03/14/2023, 03/12/2023, Additional history exists Tetanus booster 10/23/2027 10/22/2017, 02/23, 09/23/2009 (Completed outside of [facility]) Tdap Completed 10/22/2017, 03/04/2014 HIV for age 15-65 Completed 03/14/2023 Hepatitis C screening for ag e 18-79 Completed 03/14/2023 Medical Devices Implanted Type Area Motion Graphics Designer Device Identifier Shelf Expiration Date Model / Serial / Lot Guide Nerve [id number] Repair Device - [id number] Implanted:Qty: 1 on 01/19/2018 by Clint Montalvo MD at [facility] Right: Wrist [employer] Wendy 01/22/2018 [id number] / / [id number] Procedures Procedure Name Priority Date/Time Associated Diagnosis Comments SCAN-RADIOLOGY REPORT 05/28/2023 12:00 AM CDT ANTI HIV 1/2 Routine 03/14/2023 11:05 AM MEDICAL INTERN Screening for HIV (human immunodeficiency virus) ANTI HCV Routine 03/14/2023 11:05 AM MEDICAL INTERN Need for hepatitis C screening test from Last 3 Months or Most Recently Relevant to Health Maintenance Results * SCAN-RADIOLOGY REPORT (05/28/2023 12:00 AM CDT) Anatomical Region Laterality Modality Other Scanner OTHER * ANTI HCV (03/14/2023 11:05 AM MEDICAL INTERN) HEPATITIS C ANTIBODY Non-Reacti ve Non-React ari 03/15/2023 2:57 PM MEDICAL INTERN [facility] Comment:Please note, per www .CDC.gov: If a patient is known to be at high risk of HCV infection, or is symptomatic, and the physician's suspicion of HCV infection is high, HCV RNA testing is often employed and is of diagnostic value, even after an initial negative anti-HCV test result. Blood BLOOD SPECIMEN / Unknown Butterfly / Unknown 03/14/2023 11:05 AM MEDICAL INTERN 03/14/2023 11:07 AM MEDICAL INTERN Malka Arizmendi DO SEND OUTS Performing Organization Address [facility]/ZIP Co de Phone Number [facility] [address] [place] [address], * ANTI HIV 1/2 [06046.0] (03/14/2023 11:05 AM MEDICAL INTERN) HIV-1/HIV-2 SCREEN Non-Reacti ve Non-Reacti ve 03/15/2023 2:57 PM MEDICAL INTERN [facility] Comment:HIV-1 p24 and HIV-1/ HIV-2 Ab Not Detected. Blood BLOOD SPECIMEN / Unknown Butterfly / Unknown 03/14/2023 11:05 AM MEDICAL INTERN 03/14/2023 11:07 AM MEDICAL INTERN Malka Arizmendi DO S[facility] OUTS [facility] [address] [place] [address], from Last 3 Months or Most Recently Relevant to Health Maintenance Advance Directives * Full Code (Latest Code [...] 1:56 AM 03/03/2007 6:24 AM Care Teams Legal Financial Specialist Relationship Specialty Start Date End Date [place]alk[place] [address] PCP - General Family Practice 10/10/13
--- OUTSIDE RECORDS SUMMARY | 2023-07-22 07:14 | XMS_ITS | Continuity of Care Document ---
Author Organization [facility] Address [address] [place] [address] Phone Care Team Providers Care Mini Lab Operator Name Role Phone Galen Zhang MD [...] Copied on Encounter [facility], [address], [place], [place], [id number] , tel:[phone] [facility] No Information 9 Leatha Aaron. [facility], [address] [place] [address], [facility] [address], [place], [place], [id number], [place]. tel:[phone] Office/Outpa tient Visit,New, Mod [facility], [address], [place], [place], [id number] , [place] tel:[phone] [facility] Other cervical disc degeneration, cervicothorac ic region 9 Transfeldt Ensor. [facility], [address], [facility] [address], [place], [place], [id number], [place]. tel:[phone] Referring Provider: Alex Cam, [facility] [address], [place], [address]. tel:[phone] Family History Family Member Type Diagnosis Age [...]
--- OUTSIDE RECORDS SUMMARY | 2023-07-22 07:14 | XMS_ITS | Continuity of Care Document ---
Author Organization [facility] Address [address] [facility] [place] [address] Phone Care Team Providers Care [employer] Consultant Name Role Phone Timmy Severino Unavailable Unavailable [...] Diagnoses Date Provider Providers Copied on Encounter [facility], [address] [facility] [place], [id number] , [place] tel:[phone] [facility] No Information 3 Yasmeen Warner. [facility], [place], [id number] , [place]. tel:[phone] OFFICE/OUTPAT IENT VISIT, EST [facility], [address] [facility] [place], [id number] , [place] tel:[phone] [facility] [place] Cervicalgia (chief complaint) Other spondylosis with radiculopathy, cervical regionMyalgia, other siteFibromyalg iaHeadacheOthe r adjunct faculty for medical terminology (current) drug therapy 3 Marian Abbie. [address], [place], [id number] , [place]. [phone] Referring Provider: Lyle Hyatt, [address] [place] [address], [id number]. tel:[phone] [facility], [address] [place] [address], [id number] , [place] tel:[phone] [facility] Other spondylosis with radiculopathy, cervical region 3 Claritza Baumann. [address] [place] [address], [id number] , [place]. [phone] Referring Provider: Lyle Hyatt, [address] [place] [address], [address]. tel:[phone] [facility], [address] [place] [address], [id number] , [place] tel:[phone] [facility] cervicalgia (chief complaint) Other spondylosis with radiculopathy, cervical region 3 Serge Rdz. [address] [place] [address], [id number] , [place]. [phone] Referring Provider: Lyle Hyatt, [address] [place] [address], [address]. tel:[phone] OFFICE/OUTPAT IENT VISIT, [facility], [address] [place] [address], [id number] , [place] [phone] [facility] Fibromyalgia (chief complaint) Other spondylosis with radiculopathy, cervical regionMyalgia, other siteFibromyalg iaHeadacheOthe r adjunct faculty for medical terminology (current) drug therapy 3 Marian Abbie. [address], [place], [id number] , [place]. [phone] Referring Provider: Lyle Hyatt, [address] [place] [address], [id number]. [phone] OFFICE/OUTPAT IENT VISIT, [facility], [address] [place] [address], [id number] , [place] [phone] [facility] Fibromyalgia (chief complaint) Other spondylosis with radiculopathy, cervical regionCervical giaMyalgia, other siteFibromyalg iaOther intermediate (current) drug therapyHeadach e 3 Marian Abbie. [address] [place] [address] [address], [place], [place], [id number] , [place]. tel:[phone] Referring Provider: Lyle Hyatt, [address] [place] [address], [address]. [phone] OFFICE/OUTPAT IENT VISIT, [facility], [address] [place] [address], [id number] , [phone] [facility] Fibromyalgia (chief complaint) CervicalgiaMya lgia, other siteFibromyalg iaOther adjunct faculty for medical terminology (current) drug therapyOther spondylosis with radiculopathy, cervical region 0 [address] [place] [address] [address], [place], [place], [id number] , [place]. tel:[phone] Referring Provider: Lyle Hyatt, [address] [place] [address], [address]. [phone] OFFICE/OUTPAT IENT VISIT, [facility], [address] [place] [address], [id number] , [place] [phone] [facility] Fibromyalgia (chief complaint) CervicalgiaMya lgia, other siteFibromyalg iaOther adjunct faculty for medical terminology (current) drug therapy [address] [place] [address] [address], [place], [place], [id number] , [place]. [phone] Referring Provider: Lyle Hyatt, [address] [place] [address], [id number]. [phone] OFFICE/OUTPAT IENT VISIT, [facility], [address] [place] [address], [id number] , [place] [phone] [facility] Fibromyalgia (chief complaint) Myalgia, other siteFibromyalg iaOther adjunct faculty for medical terminology (current) [facility] er for therapeutic drug level monitoringCerv icalgia 2 Yasmeen Warner. [facility], [place], [place], [id number] , [place]. tel:[phone] Referring Provider: Malka Arizmendi [facility] [address] [place], [address]. tel:[phone] [facility], [address] [place] [address], [id number] , [place] tel:[phone] [facility] No Information 2 Yasmeen Warner. [address] [place] [address] [address], [place], [place], [id number] , [place]. tel:[phone] [facility], [address] [place] [address], [id number] , [place] tel:[phone] [facility] [place] No Information 1 Yasmeen Warner. [facility]5 [facility] [address], [place], [place], [id number] , [place]. tel:[phone] Referring Provider: Lyle Hyatt, [address] [place] [address], [address]. tel:[phone] OFFICE/OUTPAT IENT VISIT, [facility], [address] [place] [address], [id number] , [place] tel:[phone] [facility] Fibromyalgia (chief complaint) FibromyalgiaMy algia, other siteOther intermediate (current) drug therapy 1 Yasmeen Warner. [address] [place] [address] [address], [place], [place], [id number] , [place]. tel:[phone] Referring Provider: Lyle Hyatt, [address] [place] [address], [address]. [phone] OFFICE VISIT, EST TELEMEDICINE [facility], [address] [place] [address], [id number] , [place] [phone] [facility] Fibromyalgia (chief complaint) Myalgia, other siteOther adjunct faculty for medical terminology (current) drug therapyFibromy algia [phone] Thompsoncastro Puga. [facility], [address], [place], [address], [place]. tel:[phone] Referring Provider: Lyle Hyatt, [address] [place] [address], [address]. [phone] [facility], [address] [place] [address], [id number] , [place] [phone] [facility] No Information 9 Yasmeen Warner. [address] [place] [address] [address], [place], [id number] , [place]. tel:[phone] OFFICE/OUTPAT IENT VISIT, [facility], [address] [place] [address], [id number] , [place] tel:[phone] [facility] Fibromyalgia (chief complaint) Other intermediate (current) drug therapyFibromy algiaChronic pain syndromeMyalgi a, other siteEncounter for therapeutic drug level monitoring 9 Yasmeen Warner. [address] [place] [address] [address], [place], [id number] , [place]. [phone] Referring Provider: Lyle Hyatt, [address] [place] [address], [address]. [phone] OFFICE/OUTPAT IENT VISIT, [facility], [address] [place] [address], [id number] , [place] [phone] [facility] Fibromyalgia (chief complaint) Chronic pain syndromeFibrom yalgiaOther intermediate (current) drug therapy 9 Yasmeen Warner. [address] [place] [address] [address], [place], [id number] , [place]. tel:[phone] Referring Provider: Lyle Hyatt, [address] [place], [address]. tel:[phone] OFFICE/OUTPAT IENT VISIT, EST [facility], [address] [employer], [place], [id number] , [place] tel:[phone] [facility] Fibromyalgia (chief complaint) Chronic pain syndromeFibrom yalgiaEncounte r for therapeutic drug level monitoringOthe r adjunct faculty for medical terminology (current) drug therapyMyalgia , other siteCervicalgi aLow back pain 9 Yasmeen Warner. [facility]5 [facility] [address], [place], [id number] , [place]. [phone] Referring Provider: Malka Arizmendi [facility] [address], [place], [address]. tel:[phone] [facility], [address] [place] [address], [id number] , [place] [phone] [facility] Fibromyalgia (chief complaint) Chronic pain syndromeFibrom yalgiaPain in right hand 9 Arana Timmy. [address] [place] [address] [address], [place], [id number] , [place]. [phone] Family History Family Member Type Diagnosis Age [...] CE DRUG ANALYSIS, URINE, WITH MED REPORT ([id number]), Ordered on: Ordered Future Order: Lab Order COMPLIAN CE DRUG ANALYSIS, URINE, WITH MED REPORT ([id number]), Ordered on: Ordered Future Order: Lab Order Drug Florina t Def 22+ Classes (G0483), Ordered on: Ordered History Of Present Illness Encounter Date Complaint History Of Prese nt Illness Comments: Grace is a 37 y/o woman here for follow up consult regarding fibromyalgia. Pain has been worse since LM and pain level averages /10. 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 Patients goal is to [...] activity. Continues to attend PT /massage at [facility]. primarily for her neck and [...] activity. Continues to attend PT /massage, in [place], primarily for her neck and [place] hips. Pain has been fluctuating since [facility] and pain level averages 8/10.Reports that she [...] Reports worsened neck and back pain since [facility]. Reports that her pain is exacerbated with increased activity. Currently attends PT in [place], primarily for her neck and [place] hips.S/p Botox (?) injection on 12/18/21 at [facility] with increased pain following the injection. Since [facility], patient obtained cervical MRI imaging Continues to [...] cannabis. Currently utilizing the red formulation from [employer]. Details feeling high and dizzy, but notes [...] a couple days. Has been working with [employer] and is currently managed on yellow strain [...] and other recommended therapies. She would like [facility] to assume management of pain care. Does report recreational cannabis use a couple weeks ago while traveling with friends in [place] where it is legal. Fibromyalgia Onset occurred [...] consult for fibromyalgia, referred by Dr. Camejo--[facility]. Her pain began 5 years ago. Has [...] and other recommended therapies. She would like [facility] to assume management of pain care. Functional Status Date Functional Assessmen t No Information Instructions Date Instruction Additional Infor mation No Information Assessments Type Assessment Date No Information Patient Care Teams Name Effective Dates (start - stop) Status Members No Information
--- OUTSIDE RECORDS SUMMARY | 2023-07-22 07:14 | XMS_ITS | Continuity of Care Document ---
Author Organization [facility] Address [address] [place] [address] Care Team Providers Care Records Management Analyst Name Role Phone Kaden Mckeon CRNA Unavailable Unavailable Procedures Procedure Date Percutaneous Image guided injection, dra nagy, or Advance Directives Directive Yes / No Effective Date File Name No Information Encounters Encounter Description Practice Location Reason(s) For Visit Diagnoses Date Provider Providers Copied on Encounter [facility], [address] [place], [place], [id number], [facility] No Information 3 Mike Alfonso. [address] [place], [place], [id number] , . tel:[phone] Referring Provider: Ibis Jerry, [address] [place], [address] . tel:[phone] Family History Family Member Type Diagnosis Age At Onset No Information Payers Payer name Insurance type Covered democrat ID Authoriza tion(s) No Information Social History [...]
--- OUTSIDE RECORDS SUMMARY | 2023-07-22 07:14 | XMS_ITS | Continuity of Care Document ---
Author Organization [facility] Address [address] [place] [address] Phone Care Team Providers Care Ferryboat Operator Cable Name Role Phone [facility] Unavailable Unava ilable Procedures Procedure Date INTERLAMINAR CRV OR THRC INTERLAMINAR CRV OR THRC Advance Directives Directive Yes / No Effective Date File Name No Information Encounters Encounter Description Practice Location Reason(s) For Visit Diagnoses Date Provider Providers Copied on Encounter [facility], [address] [place] [address], [id number], tel:[phone] [facility] No Information [facility]. [address] [place] [address], [id number], . tel:[phone] Referring Provider: Ibis Jerry, [address] [place], [address] . tel:[phone] Family History Family Member Type Diagnosis Age At Onset No Information Payers Payer name Insurance type Covered alliance party ID Authoriza tion(s) No Information Social [...]
[2023-07-22 07:45] LABS: Chloride* 114 mmol/L (96-114); Potassium* 4.1 mmol/L (3.6-5.1); Sodium* 141 mmol/L (135-149)
[2023-07-22 07:48] LABS: Creatinine* 0.8 mg/dL (0.5-1.5); Est. Creatinine Clearance* 83.67; Estimated Glomerular Filt Rate 95 ml/min
[2023-07-22 07:49] LABS: Anion Gap 3 mEq/L (7-15); Blood Urea Nitrogen* 13 mg/dL (5-24); Calcium* 8.9 mg/dL (8.4-10.6); Carbon Dioxide* 24 mmol/L (20-32); Glucose* 83 mg/dL (60-115)
[2023-07-22 07:52] LABS: C Reactive Protein* < 0.5 mg/dL (0.5-1.0)
[2023-07-22] MEDS: 0.9 % SODIUM CHLORIDE 1000 ml 1,000 ML IV (07:53)
[2023-07-22] MEDS: TAMSULOSIN HCL 0.4 MG CAPSULE PO (08:18)
[2023-07-22 08:47] VITALS: BP 110/68; PULSE 68; RESP 18; O2SAT 99
== END 2023-07-22 08:48 | disposition home or self-care (01) ==
PROVIDERS: Emergency Provider Family Medicine; PCP Family Medicine
DX: N20.9 Urinary calculus, unspecified (principal)
CPT/HCPCS: 36415; 74176; 80048; 81001; 85025; 86140; 96374; 96375; 99284; A9270; J1885; J2405; J7030

== ENCOUNTER 2023-09-04 13:23 | Emergency (ER) | payer BC, SELFPAY ==
[2023-09-04 13:42] VITALS: BP 112/70; PULSE 68; RESP 18; TEMP 36.3; O2SAT 99; BMI 18.7
--- NOTE | 2023-09-04 13:46 | CRLHL7_ITS ---
For Patients: As a result of the Cures Act, medical imaging exams and procedure reports are released immediately into your electronic medical record. You may view this report before your referring provider. If you have questions, please contact your health care provider. Indication: fall with swelling, pain Technique: Three views of the left ankle. Comparison: None. Findings: Moderate soft tissue swelling along the lateral aspect of the ankle. No acute displaced fracture or malalignment. Small tibiotalar joint effusion. Impression: No acute displaced fracture or malalignment. Small tibiotalar joint effusion. Dictated by Gonzalez Mcfarlane MD @ 09/04/2023 3:36:47 PM (Electronically Signed)
--- NOTE | 2023-09-04 16:18 | ED_ITS ---
HPI - General Adult General Date Seen: 09/04/23 Chief complaint: Extremity Pain/Injury, Lower Stated complaint: hurt left ankle Time Seen by Provider: 09/04/23 16:17 History of Present Illness HPI narrative: 38-year-old female presenting to the ER today with left calf and ankle pain. She had a door collapse and fall onto her left lower leg two days ago. She has had some scabbed skin on the back of her ankle that is becoming red. She says that she had a solid wood door and door frame leaned against the wall. Her dog bumped and knocked it over and the door frame fell and hit a glancing blow off the posterolateral left ankle and posterior right Achilles. Most of the force of the impact came onto her left ankle. She suffered a deep skin tear type abrasion on the left ankle and a small abrasion to the posterior right Achilles. She has been trying to manage her pain at home but is developing increasing swelling and new redness around the left lateral ankle. It is hurting more. She is having pain with weight-bearing so she came to the ER today. No fevers or chills. She has a past medical history depression, PTSD, bipolar disorder, fibromyalgia, anxiety, endometriosis. No history of diabetes or immunosuppression or cancer. Related Data Home Medications ?Medication ?Instructions ?Recorded ?Confirmed estradiol 0.5 mg tablet 0.5 mg PO DAILY 01/09/22 05/28/23 methocarbamol 500 mg tablet 500 mg PO DAILY 01/09/22 05/28/23 canabis 05/12/23 05/28/23 diazepam 5 mg tablet 7.5 mg PO QAM 05/12/23 05/28/23 Previous Rx's ?Medication ?Instructions ?Recorded meclizine 25 mg tablet 25 mg PO QID #20 tabs 05/28/23 oxycodone-acetaminophen 5 mg-325 1 tab PO Q4-6H PRN pain #10 tabs 07/22/23 mg tablet (Percocet) tamsulosin 0.4 mg capsule (Flomax) 0.4 mg PO DAILY #5 caps 07/22/23 amoxicillin 500 mg capsule 1,000 mg (2 x 500 mg) PO Q12H #28 09/04/23 caps doxycycline monohydrate 100 mg 100 mg PO BID #14 caps 09/04/23 capsule tramadol 50 mg tablet 50 mg PO Q6-8H PRN pain #10 tabs 09/04/23 Allergies Allergy/AdvReac Type Severity Reaction Status Date / Time cephalexin [From Keflex] Allergy Mild Hives Verified 05/28/23 14:36 lorazepam Allergy Mild Anxiety Verified 05/28/23 14:36 metoclopramide Allergy Mild Agitation, Verified 05/28/23 14:36 Anxiety clonazepam [From Klonopin] AdvReac Mild Mental Verified 05/28/23 14:36 Status Changes [facility] Medical History Endometriosis ?N80.9 - Endometriosis, unspecified (ICD-10) Depression ?F32.A - Depression, unspecified (ICD-10) Tobacco dependence ?F17.200 - Nicotine dependence, unspecified, uncomplicated (ICD-10) PTSD (post-traumatic stress disorder) ?F43.10 - Post-traumatic stress disorder, unspecified (ICD-10) Controlled substance agreement signed ?Z79.899 - 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) drug therapy (ICD-10) De Quervain's disease (tenosynovitis) ?M65.4 - Radial styloid tenosynovitis [de Quervain] (ICD-10) Borderline personality disorder ?F60.3 - Borderline personality disorder (ICD-10) 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 - Lesion of radial nerve, right upper limb (ICD-10) Bipolar 2 disorder ?F31.81 - Bipolar II disorder (ICD-10) Fibromyalgia ?M79.7 - Fibromyalgia (ICD-10) PAC (premature atrial contraction) ?I49.1 - Atrial premature depolarization (ICD-10) Anxiety ?F41.9 - Anxiety disorder, unspecified (ICD-10) Dental caries ?K02.9 - Dental caries, unspecified (ICD-10) Social History Smoking Status: Current some day smoker Do you use any of these nicotine containing products: None and Other How often do you have a drink containing alcohol: never How often do you have six or more drinks on one occasion: Never AUDIT-C Alcohol total score: 0 Non-prescribed substance use: marijuana (any form) service: No Exam Narrative: Exam Narrative: Constitutional: Appears well-developed and well-nourished. Polite. Non-toxic appearing. HENT: Head: Atraumatic. No signs of injury. Nose: No nasal discharge. Mouth/Throat: Mucous membranes are moist. Pharynx is normal. Tonsils symmetric. Uvula midline. Airway patent. Eyes: Conjunctivae normal and EOM are normal. Pupils are equal, round, and reactive to light. Right eye exhibits no discharge. Left eye exhibits no discharge. No icterus. Neck: Normal range of motion. Neck supple. No adenopathy. No stridor. Cardiovascular: Normal rate and regular rhythm. No murmur heard. No murmurs, rubs, or gallops. Brisk capillary refill Pulmonary/Chest: Effort normal. No stridor. No respiratory distress. No wheezes.No rhonchi. No rales. No retractions. Abdominal: Soft. Bowel sounds are normal. No distension. No mass. There is no tenderness. There is no rebound and no guarding. Musculoskeletal: Right lower extremity- Normal range of motion. No edema. No tenderness. No deformity. Superficial abrasions on posterior right Achilles skin. No evidence for Achilles tendon injury or ankle or calcaneus injury. Left lower extremity: Hip, thigh, knee are nontender. Patella and proximal fibula nontender. Proximal tibia nontender. Gastrocnemius nontender. She does have mild tenderness over the Achilles tendon but no palpable tendon deficit. Normal Chavira test. She has a 1 x 3 cm irregularly shaped scab over the skin posterior and superior to the left lateral malleolus. This would correlate with the skin tear caused by the abrasion from edge of the following door. There is a 4-5 mm rim of bright red erythema around the scab and a larger area of subtle erythema ranging out to about 3 or 4 cm suspicious for an infection. No purulent drainage. No palpable fluctuance or abscess. No palpable crepitus or gas in the soft tissue. Medial malleolus nontender. Posterior calcaneus, off midfoot and forefoot are nontender. Proximal 5th metatarsal nontender. Neurological: Alert. Normal strength. No cranial nerve deficit or sensory deficit. Coordination normal. GCS eye subscore is 4. GCS verbal subscore is 5. GCS motor subscore is 6. Skin: Skin is warm. No rash noted. Const: Vital Signs, click to edit/add: Vital Signs - 24 hr 09/04/23 13:42 Temperature 97.4 F L Pulse Rate [Pulse Oximeter] 68 Respiratory Rate 18 Blood Pressure [Ri ght Upper Arm] 112/70 Pulse Oximetry 99 Oxygen Delivery Me thod Room Air Course Vital Signs Vital signs: Initial Vital Signs Temperature 97.4 F L 09/04/23 13:42 Temperature Source Temporal Artery Scan 09/04/23 13:42 Pulse Rate 68 09/04/23 13:42 Respiratory Rate 18 09/04/23 13:42 Blood Pressure 112/70 09/04/23 13:42 Blood Pressure Mean 84 09/04/23 13:42 Pulse Oximetry 99 09/04/23 13:42 Oxygen Delivery Method Room Air 09/04/23 13:42 Vital Signs Temperature 97.4 F L 09/04/23 13:42 Pulse Rate 68 09/04/23 13:42 Respiratory Rate 18 09/04/23 13:42 Blood Pressure 112/70 09/04/23 13:42 Pulse Oximetry 99 09/04/23 13:42 Oxygen Delivery Method Room Air 09/04/23 13:42 Temperature 97.4 F L 09/04/23 13:42 Pulse Rate 68 09/04/23 13:42 Respiratory Rate 18 09/04/23 13:42 Blood Pressure 112/70 09/04/23 13:42 Pulse Oximetry 99 09/04/23 13:42 Oxygen Delivery Method Room Air 09/04/23 13:42 Medical Decision Making MDM Narrative Medical decision making narrative: This patient presents for evaluation of left posterolateral ankle pain. She was struck by the edge of a falling heavy wooden door on that left posterolateral ankle 2 days ago. There are no signs of fracture on radiograph. The patients neurovascular status is normal. Knee exam is normal. I don't think this is a Maisonneuve injury or a intraosseous ligament injury based on the location of tenderness. No evidence for Achilles tendon or gastrocnemius rupture. No tenderness in the midfoot or forefoot. A head to toe trauma exam is otherwise negative; the likelihood of other serious sequelae of trauma (spine, head, chest, abdomen, other extremities, pelvis) is low. She did suffer a skin tear/abrasion to the skin on her left lateral malleolus. She is now developing redness around that abrasion which is suspicious for probable evolving infection. She is up-to-date with tetanus. We will start the patient on antibiotics for cellulitis. Wound care and antibiotic ointment and dressing were applied by nurses here in the ER. Will put the patient into a cam walker and crutches for comfort. She is allergic to cephalosporins. We will s tart amoxicillin and doxycycline to cover for strep and MRSA. At this point low suspicion for any imbedded foreign body or sliver. No evidence for any open fracture or open ankle joint dislocation. There is no anterior or medial tenderness to suggest a septic ankle joint. She is neurovascularly intact. No evidence for compartment syndrome. Plan is for protected weightbearing with crutches, cam boot, RICE treatment with ice 15-20 minutes every 3 hours, and an bracing. Patient will advance weightbearing and follow-up in 3-5 days days. She will begin gentle ROM exercises. Precautions for return reviewed and questions answered. Imaging Data XR ankle L: Attestation: I have reviewed the pertinent imaging results. My impression: no acute fracture Radiologist's impression: Impression: No acute displaced fracture or malalignment. Small tibiotalar joint effusion. Discharge Plan Discharge Clinical Impression: Ankle cellulitis Patient Disposition: Home, Self-Care Condition: Stable Instructions: Cellulitis (ED) Additional Instructions: As we discussed, please monitor your ankle carefully. If you have worsening symptoms such as increasing pain, redness, high fevers, weakness, or any other problems, come back to the ER right away to be rechecked. It will probably take 2-3 days for your ankle redness and swelling to improve on the antibiotics. If you are not completely improved within the next 3-5 days, please come back to the ER or see your doctor for a recheck. Prescriptions: New doxycycline monohydrate 100 mg capsule 100 mg PO BID Qty: 14 0RF amoxicillin 500 mg capsule 1,000 mg PO Q12H Qty: 28 0RF tramadol 50 mg tablet 50 mg PO Q6-8H PRN (Reason: pain) Qty: 10 0RF No Action methocarbamol 500 mg tablet 500 mg PO DAILY Patient Comments: TAKE 1 TABLET BY MOUTH TWICE DAILY NEEDED estradiol 0.5 mg tablet 0.5 mg PO DAILY diazepam 5 mg tablet 7.5 mg PO QAM (DME) canabis 0 .ROUTE .MEDSUPPLY tamsulosin [Flomax] 0.4 mg capsule 0.4 mg PO DAILY Qty: 5 0RF oxycodone-acetaminophen [Percocet] 5-325 mg tablet 1 tab PO Q4-6H PRN (Reason: pain) Qty: 10 0RF meclizine 25 mg tablet 25 mg PO QID Qty: 20 0RF Follow Up/Referrals: Malka Arizmendi DO [Primary Care Provider] - Stand Alone [facility] Inst[facility]
--- OUTSIDE RECORDS SUMMARY | 2023-09-04 16:51 | XMS_ITS | Continuity of Care Document ---
Author Organization [facility] enter Address [address] [place] [address] [address] Phone Care Team Providers Care Weatherization Field Technician Name Role Phone [facility] Unavailable Unava ilable Procedures Procedure Date INTERLAMINAR CRV OR THRC INTERLAMINAR CRV OR THRC Advance Directives Directive Yes / No Effective Date File Name No Information Encounters Encounter Description Practice Location Reason(s) For Visit Diagnoses Date Provider Providers Copied on Encounter [facility], [address] [place] [address], [id number], tel:[phone] [facility] No Information [facility]. [address] [place] [address], [id number], . tel:[phone] Referring Provider: Ibis Jerry, [address] [place], [address] . tel:[phone] Family History Family Member Type Diagnosis Age [...]
--- OUTSIDE RECORDS SUMMARY | 2023-09-04 16:51 | XMS_ITS | Continuity of Care Document ---
Author Organization [facility] Address [address] [place] [address] Phone Care Team Providers Care Manager Custom Name Role Phone Galen Zhang MD Unavailable [...] Diagnoses Date Provider Providers Copied on Encounter [facility], [address], [place], [place], [id number] , tel:[phone] [facility] No Information 9 Leatha Aaron. [facility], [address] [place] [address], [facility] [address], [place], [place], [id number], [place]. tel:[phone] Office/Outpa tient Visit,New, [facility], [address], [place], [place], [id number] , [place] tel:[phone] [facility] Other cervical disc degeneration, cervicothorac ic region 9 Transfel[facility] Ensor. [facility], [address], [facility] [address], [place], [place], [id number], [place]. tel:[phone] Referring Provider: Alex Cam, [facility] [address] [facility] [address], [place], [address]. tel:[phone] Family History Family Member Type Diagnosis Age [...]
--- OUTSIDE RECORDS SUMMARY | 2023-09-04 16:51 | XMS_ITS | Continuity of Care Document ---
Author Organization [facility] Address [address] [place] [address] Phone Care Team Providers Care Insurance Rater Name Role Phone Timmy Severino Unavailable Unavailable [...] Diagnoses Date Provider Providers Copied on Encounter [facility], [address] [place], [id number] , [place] tel:[phone] [facility] No Information 3 Yasmeen Warner. [facility], [place], [id number] , [place]. tel:[phone] OFFICE/OUTPAT IENT VISIT, EST [facility], [address] Kate Cantu [place], [id number] , [place] tel:[phone] [facility] [place] Cervicalgia (chief complaint) Other spondylosis with radiculopathy, cervical regionMyalgia, other siteFibromyalg iaHeadacheOthe r skilled nursing (current) drug therapy 3 Marian Abbie. [address], [place], [id number] , [place]. [phone] Referring Provider: Lyle Hyatt, [address] [place] [address], [address]. tel:[phone] [facility], [address] [place] [address], [id number] , [place] tel:[phone] [facility] Other spondylosis with radiculopathy, cervical region 3 Claritza Baumann. [address] [place] [address], [id number] , [place]. [phone] Referring Provider: Lyle Hyatt, [address] [place] [address], [address]. tel:[phone] [facility], [address] [place] [address], [id number] , [place] tel:[phone] [facility] cervicalgia (chief complaint) Other spondylosis with radiculopathy, cervical region 3 Serge Rdz. [address] [place] [address], [id number] , [place]. [phone] Referring Provider: Lyle Hyatt, [address] [place] [address], [id number]. tel:[phone] OFFICE/OUTPAT IENT VISIT, [facility], [address] [place] [address], [id number] , [place] [phone] [facility] Fibromyalgia (chief complaint) Other spondylosis with radiculopathy, cervical regionMyalgia, other siteFibromyalg iaHeadacheOthe r project management intern (current) drug therapy 3 Marian Abbie. [address], [place], [id number] , [place]. [phone] Referring Provider: Lyle Hyatt, [address] [place] [address], [address]. [phone] OFFICE/OUTPAT IENT VISIT, [facility], [address] [place] [address], [id number] , [place] [phone] [facility] Fibromyalgia (chief complaint) Other spondylosis with radiculopathy, cervical regionCervical giaMyalgia, other siteFibromyalg iaOther skilled nursing (current) drug therapyHeadach e [address] Marian [address]bie[address] [place] [address] [address], [place], [place], [id number] , [place]. tel:[phone] Referring Provider: Lyle Hyatt, [address] [place] [address], [id number]. [phone] OFFICE/OUTPAT IENT VISIT, [facility], [address] [place] [address], [id number] , [phone] [facility] Fibromyalgia (chief complaint) CervicalgiaMya lgia, other siteFibromyalg iaOther project management intern (current) drug therapyOther spondylosis with radiculopathy, cervical region 0 [address] [place] [address] [address], [place], [place], [id number] , [place]. tel:[phone] Referring Provider: Lyle Hyatt, [address] [place] [address], [address]. [phone] OFFICE/OUTPAT IENT VISIT, [facility], [address] [place] [address], [id number] , [place] [phone] [facility] Fibromyalgia (chief complaint) CervicalgiaMya lgia, other siteFibromyalg iaOther project management intern (current) drug therapy [address] [place] [address] [address], [place], [place], [id number] , [place]. [phone] Referring Provider: Lyle Hyatt, [address] [place] [address], [id number]. [phone] OFFICE/OUTPAT IENT VISIT, [facility], [address] [place] [address], [id number] , [place] [phone] [facility] Fibromyalgia (chief complaint) Myalgia, other siteFibromyalg iaOther skilled nursing (current) drug therapyOhio[facility] er for therapeutic drug level monitoringCerv icalgia 2 Yasmeen Warner. [facility], [place], [place], [id number] , [place]. tel:[phone] Referring Provider: Malka Arizmendi [facility] [address] [place], [address]. tel:[phone] [facility], [address] [place] [address], [id number] , [place] tel:[phone] [facility] No Information 2 Yasmeen Warner. [address] [place] [address] [address], [place], [place], [id number] , [place]. tel:[phone] [facility], [address] [place] [address], [id number] , [place] tel:[phone] [facility] [place] No Information 1 Yasmeen aWrner. [facility]5 [facility] [address], [place], [place], [id number] , [place]. tel:[phone] Referring Provider: Lyle Hyatt, [address] [place] [address], [address]. tel:[phone] OFFICE/OUTPAT IENT VISIT, [facility], [address] [place] [address], [id number] , [place] tel:[phone] [facility] Fibromyalgia (chief complaint) FibromyalgiaMy algia, other siteOther skilled nursing (current) drug therapy 1 Yasmeen Warner. [address] [place] [address] [address], [place], [place], [id number] , [place]. tel:[phone] Referring Provider: Lyle Hyatt, [address] [place] [address], [address]. [phone] OFFICE VISIT, EST TELEMEDICINE [facility], [address] [place] [address], [id number] , [place] [phone] [facility] Fibromyalgia (chief complaint) Myalgia, other siteOther project management intern (current) drug therapyFibromy algia [phone] Thompsoncastro Puga. [facility], [address], [place], [address], [place]. tel:[phone] Referring Provider: Lyle Hyatt, [address] [place] [address], [address]. [phone] [facility], [address] [place] [address], [id number] , [place] [phone] [facility] No Information 9 Yasmeen Warner. [address] [place] [address] [address], [place], [id number] , [place]. tel:[phone] OFFICE/OUTPAT IENT VISIT, [facility], [address] [place] [address], [id number] , [place] tel:[phone] [facility] Fibromyalgia (chief complaint) Other project management intern (current) drug therapyFibromy algiaChronic pain syndromeMyalgi a, other siteEncounter for therapeutic drug level monitoring 9 Yasmeen Warner. [address] [place] [address] [address], [place], [id number] , [place]. [phone] Referring Provider: Lyle Hyatt, [address] [place] [address], [address]. [phone] OFFICE/OUTPAT IENT VISIT, [facility], [address] [place] [address], [id number] , [place] [phone] [facility] Fibromyalgia (chief complaint) Chronic pain syndromeFibrom yalgiaOther project management intern (current) drug therapy 9 Yasmeen Warner. [address] [place] [address] [address], [place], [id number] , [place]. tel:[phone] Referring Provider: Lyle Hyatt, [address] [place], [address]. tel:[phone] OFFICE/OUTPAT IENT VISIT, EST [facility], [address] [place], [place], [id number] , [place] tel:[phone] [facility] Fibromyalgia (chief complaint) Chronic pain syndromeFibrom yalgiaEncounte r for therapeutic drug level monitoringOthe r skilled nursing (current) drug therapyMyalgia , other siteCervicalgi aLow back pain 9 Yasmeen Warner. [facility] [address], [place], [id number] , [place]. [phone] Referring Provider: Malka Arizmendi [facility] [address], [place], [address]. tel:[phone] [facility], [address] [place] [address], [id number] , [place] [phone] [facility] Fibromyalgia (chief complaint) Chronic pain syndromeFibrom yalgiaPain in right hand 9 Arana Timmy. [address] [place] [address] [address], [place], [id number] , [place]. [phone] Family History Family Member Type Diagnosis Age At Onset Problem (finding) Family history of Endom etriosis Problem (finding) Family history of Scoli osis Payers Payer name Insurance type Covered green [...] Goal Tobacco Use. Due on due Goal Tobacco Use. Due [...] Allergy L ist. Due on due Goal Review Allergy L ist. Due on due Goal Unhealthy drug u se screening. Due on due Goal Update Social Hi [...] ue Goal HPV. Due on due Goal Review Allergy L [...] Allergy L ist. Due on due Goal Weight. Due on [...] CE DRUG ANALYSIS, URINE, WITH MED REPORT ([id number]), Ordered on: Ordered Future Order: Lab Order COMPLIAN CE DRUG ANALYSIS, URINE, WITH MED REPORT ([id number]), Ordered on: Ordered Future Order: Lab Order [...] discomfort limits showering, dressing, lifting, reaching for credit collections analyst and daily activity.. Patients goal is to [...] other concerns today. Fibromyalgia Duration: chroni c. Fibromyalgia Severity level i s 7. Duration: [...] activity. Continues to attend PT /massage at [facility]. primarily for her [...] activity. Continues to attend PT /massage, in [place], primarily for her neck and BL hips. Pain has been fluctuating since [facility] and pain level averages 8/10.Reports that [...] Reports worsened neck and back pain since [facility]. Reports that her pain is exacerbated with increased activity. Currently attends PT in [place], primarily for her neck and BL hips.S/p Botox (?) injection on 12/18/21 at [facility] with increased pain following the injection. Since [facility], patient obtained cervical MRI imaging Continues [...] fever and incontinence (urinary). Fibromyalgia (comments) Grace fernando esents for follow-up regarding low back pain [...] Currently utilizing the red formulation from [employer]. Details feeling high and dizzy, but notes [...] fever and incontinence (urinary). Fibromyalgia (comments) Ms. Serrano is a pleasant 34 y/o who presents [...] that helped. No other concerns today. Fibromyalgia (comments) Grace is here today for a f/u and medical cannabis re-check. Reports increased widespread pain today, worst in neck and shoulders. Secondarily c/o low back pain and LLE pain. Attributes increased pain to colder weather. Expresses interest in repeat TPIs which were helpful for a couple days. Has been working with [employer] and is currently managed on yellow [employer] product with benefit. Topical products are also [...] incontinence (urinary). Fibromyalgia Severity level i s 5. Duration: [...] the setting of fibromyalgia, referred by Dr. Camejo-Riaz [facility]. Her pain began 5 years ago [...] and other recommended therapies. She would like [facility] to assume management of pain care. Does report recreational cannabis use a couple weeks ago while traveling with friends in [place] where it is legal. Fibromyalgia Onset occurred [...] consult for fibromyalgia, referred by Dr. Camejo--[facility]. Her pain began 5 years ago. [...] and other recommended therapies. She would like [facility] to assume management of [...]
--- OUTSIDE RECORDS SUMMARY | 2023-09-04 16:51 | XMS_ITS | Continuity of Care Document ---
Author Organization [facility] Address [address] [place] [address] Care Team Providers Care Child Care Centre Director Name Role Phone Kaden Mckeon CRNA Unavailable Unavailable Procedures Procedure Date Percutaneous Image guided injection, dra nagy, or Advance Directives Directive Yes / No Effective Date File Name No Information Encounters Encounter Description Practice Location Reason(s) For Visit Diagnoses Date Provider Providers Copied on Encounter [facility], [address] [place], [place], [id number], [facility] No Information 3 Mike Alfonso. [address] [place], [place], [id number] , . tel:[phone] Referring Provider: Ibis Jerry, [address] [place], [address] . tel:[phone] Family History Family Member Type Diagnosis Age [...]
--- OUTSIDE RECORDS SUMMARY | 2023-09-04 16:51 | XMS_ITS | Clinical Summary ---
Author Organization [facility] Address [place], [place] [address] Care Team Providers Care Flight Service Agent Name Role Phone Malka Arizmendi DO Primary Care Provider [phone] Allergies Active Allergy Reactions Criticality Noted Date [...] Each 03/14/2023 Active estradioL (ESTRACE) 1 mg tabletIndications:S urgical menopause Take 1 Tablet (1 mg) by mouth once daily. 90 Tablet 3 07/08/2023 Active Active Problems Problem Noted Date Diagnosed Date Elevated serum creatinine 03/17/2023 Overview: Creatinine range 0.95-1.13. Had US and further lab testing. Econsult with nephrology. Urine creatinine clearance normal. Plan monitor creatinine [id number], if worsening, nephrology consult Hyperparathyroidism 03/12/2023 Multiple [...] Encounters Date Type Department Care Team Description 07/22/2023 Orders Only [facility] Scanner 1 scan: (1-Ord) [facility], CT ABDOMEN PELVIS WO CON, 07/22/2023 07/08/2023 3:10 PM CDT Office Visit [facility] [address] [place] [address] Malka Arizmendi, Follow Up; Pain (Rib pain) 07/08/2023 Travel 06/09/2023 10:25 AM CDT Office Visit [facility] [address] [place] [address] Malka Arizmendi, Follow Up 06/09/2023 Travel 06/07/2023 Refill [facility] [address] [place] [address] Malka Arizmendi DO Refill Request (Estradiol) from Last 3 Months Immunizations Name Administration [...] Outcome GA Total Labor Labor/2nd/3rd Weight Sex Type Anes PTL Akua A1 A5 Name Clin Term Living Living Last Filed Vital Signs Vital Sign Reading Time Taken Comments Blood Pressure 104/63 07/08/2023 3:18 PM CDT Pulse 56 07/08/2023 3:18 PM CDT Temperature 36.9 ??C (98.5 ??F) 09/25/2021 8:16 AM CD T Respiratory Rate 18 12/27/2019 11:39 AM PHOTO EDITOR Oxygen Saturation 99% 07/08/2023 3:18 PM CDT Inhaled Oxygen Concentration - - Weight 54.4 kg (120 lb) 07/08/2023 3:18 PM CDT Height 180 cm (5' 10.87) 01/30/2020 10:32 AM CS T Body Mass Index 16.8 01/30/2020 10:32 AM PHOTO EDITOR Plan of Treatment Upcoming Encounters Date Type Department Care Team (Late st Contact Info) Description 09/17/2023 2:45 PM CDT Office Visit [facility] [address] [place] [address] Malka Arizmendi, [address] [place] [address] Health Maintenance Due Date Last Done Comments Pneumococcal series for age 6-64 (1 of 2 - PCV) 1989 BMI (ht and wt on same day) for age 18+ 01/29/2021 01/30/2020, 03/31/2019, 01/18/2019, Additional history exists COVID-19 vaccine series (1 - 2022-24 season) 2022 Influenza for age 9-49 10/25/2023 Depression screening for age 12+ 06/08/2024 06/09/2023, 03/14/2023, 03/12/2023, Additional history exists Tetanus booster 10/23/2027 10/22/2017, 02/23, 09/23/2009 (Completed outside of [facility]) Tdap Completed 10/22/2017, 03/04/2014 HIV for age 15-65 Completed 03/14/2023 Hepatitis C screening for ag e 18-79 Completed 03/14/2023 Medical Devices Implanted Type Area Windows Security Engineer Device Identifier Shelf Expiration Date Model / Serial / Lot Guide Nerve [id number] Repair Device - [id number] Implanted:Qty: 1 on 01/19/2018 by Clint Montalvo MD at [facility] Right: Wrist [employer] 01/22/2018 [id number] / / [id number] Procedures Procedure Name Priority Date/Time Associated Diagnosis Comments SCAN-CT INTERPRETATION 07/22/2023 12:00 AM CDT ANTI HIV 1/2 Routine 03/14/2023 11:05 AM PHOTO EDITOR Screening for HIV (human immunodeficiency virus) ANTI HCV Routine 03/14/2023 11:05 AM PHOTO EDITOR Need for hepatitis C screening test from Last 3 Months or Most Recently Relevant to Health Maintenance Results * SCAN-CT INTERPRETATION (07/22/2023 12:00 AM CDT) Anatomical Region Laterality Modality Other Scanner OTHER * ANTI HCV (03/14/2023 11:05 AM PHOTO EDITOR) HEPATITIS C ANTIBODY Non-Reacti ve Non-React ari 03/15/2023 2:57 PM PHOTO EDITOR [facility] Comment:Please note, per www .CDC.gov: If a patient is known to be at high risk of HCV infection, or is symptomatic, and the physician's suspicion of HCV infection is high, HCV RNA testing is often employed and is of diagnostic value, even after an initial negative anti-HCV test result. Blood BLOOD SPECIMEN / Unknown Butterfly / Unknown 03/14/2023 11:05 AM PHOTO EDITOR 03/14/2023 11:07 AM PHOTO EDITOR Malka Arizmendi DO SEND OUTS Performing Organization Address City/[facility] Co de Phone Number [facility] [address] [place] [address], * ANTI HIV 1/2 [93147.0] (03/14/2023 11:05 AM PHOTO EDITOR) HIV-1/HIV-2 SCREEN Non-Reacti ve Non-Reacti ve 03/15/2023 2:57 PM PHOTO EDITOR [facility] Comment:HIV-1 p24 and HIV-1/ HIV-2 Ab Not Detected. Blood BLOOD SPECIMEN / Unknown Butterfly / Unknown 03/14/2023 11:05 AM PHOTO EDITOR 03/14/2023 11:07 AM PHOTO EDITOR Malka Arizmendi SEND OUTS Performing Organization Address City/[facility] Co de Phone Number [facility] [address] [place] [address], from Last 3 Months or Most Recently [...] 1:56 AM 03/03/2007 6:24 AM Care Teams Flight Service Agent Relationship Specialty Start Date End Date Malka Arizmendi [address] [place] [address] PCP - General Family Practice 10/10/13
--- OUTSIDE RECORDS SUMMARY | 2023-09-04 16:52 | XMS_ITS | Continuity of Care Document ---
Author Organization [facility] Address [address] [place] [address] Care Team Providers Care Telecommunicator Supervisor Name Role Phone Kaden Mckeon CRNA Unavailable Unavailable Procedures Procedure Date Percutaneous Image guided injection, dra nagy, or Advance Directives Directive Yes / No Effective Date File Name No Information Encounters Encounter Description Practice Location Reason(s) For Visit Diagnoses Date Provider Providers Copied on Encounter [facility], [address] [place], [place], [id number], [facility] No Information 3 Mike Alfonso. [address] [place], [place], [id number] , . tel:[phone] Referring Provider: Ibis Jerry, [address] [place], [address] . tel:[phone] Family History Family Member Type Diagnosis Age [...]
--- OUTSIDE RECORDS SUMMARY | 2023-09-04 16:52 | XMS_ITS | Continuity of Care Document ---
Author Organization [facility] Address [address] [place] [address] Phone Care Team Providers Care Project Asst Name Role Phone Galen Zhang MD Unavailable [...] Copied on Encounter [facility], [address], [place], [place], [id number] , tel:[phone] [facility] No Information 9 Leatha Aaron. [facility], [address] [place] [address], [facility] [address], [place], [place], [id number], [place]. tel:[phone] Office/Outpa tient Visit,New, [facility], [address], [place], [place], [id number] , [place] tel:[phone] [facility] Other cervical disc degeneration, cervicothorac ic region 9 Transfeldt Ensor. [facility], [address], [facility] [address], [place], [place], [id number], [place]. tel:[phone] Referring Provider: Alex Cam, [facility] [address] [facility] [address], [place], [address]. tel:[phone] Family History Family Member Type Diagnosis Age [...]
--- OUTSIDE RECORDS SUMMARY | 2023-09-04 16:52 | XMS_ITS | Continuity of Care Document ---
Author Organization [facility] Address [address] [place] [address] Phone Care Team Providers Care Atm Mechanic Name Role Phone Timmy Severino Unavailable Unavailable [...] Diagnoses Date Provider Providers Copied on Encounter [facility], [address] [place], [id number] , [place] tel:[phone] [facility] No Information 3 Yasmeen Warner. [facility] [facility] [address], [place], [id number] , [place]. tel:[phone] OFFICE/OUTPAT IENT VISIT, EST [facility], [address] [place]e [place], [id number] , [place] tel:[phone] [facility] [place] Cervicalgia (chief complaint) Other spondylosis with radiculopathy, cervical regionMyalgia, other siteFibromyalg iaHeadacheOthe r mcfp (current) drug therapy 3 Marian Abbie. [address] [facility] [facility] [facility] [address], [place], [id number] , [place]. [phone] Referring Provider: Lyle Hyatt, [address] [place] [address], [id number]. tel:[phone] [facility], [address] [place] [address], [id number] , [place] tel:[phone] [facility] Other spondylosis with radiculopathy, cervical region 3 Claritza Baumann. [address] [place] [address], [id number] , [place]. [phone] Referring Provider: Lyle Hyatt, [address] [place] [address], [address]. tel:[phone] [facility], [address] [place] [address], [id number] , [place] tel:[phone] [facility] cervicalgia (chief complaint) Other spondylosis with radiculopathy, cervical region 3 Serge Rdz. [address] [place] [address], [id number] , [place]. [phone] Referring Provider: Lyle Hyatt, [address] [place] [address], [address]. tel:[phone] OFFICE/OUTPAT IENT VISIT, [facility], [address] [place] [address], [id number] , [place] [phone] [facility] Fibromyalgia (chief complaint) Other spondylosis with radiculopathy, cervical regionMyalgia, other siteFibromyalg iaHeadacheOthe r watermelon inspector (current) drug therapy 3 Marian Abbie. [address] [facility] [address], [place], [id number] , [place]. [phone] Referring Provider: Lyle Hyatt, [address] [place] [address], [id number]. [phone] OFFICE/OUTPAT IENT VISIT, [facility], [address] [place] [address], [id number] , [place] [phone] [facility] Fibromyalgia (chief complaint) Other spondylosis with radiculopathy, cervical regionCervical giaMyalgia, other siteFibromyalg iaOther mcfp (current) drug therapyHeadach e 3 Marian [address]bie[address] [place] [address] [address], [place], [place], [id number] , [place]. tel:[phone] Referring Provider: Lyle Hyatt, [address] [place] [address], [id number]. [phone] OFFICE/OUTPAT IENT VISIT, [facility], [address] [place] [address], [id number] , [phone] [facility] Fibromyalgia (chief complaint) CervicalgiaMya lgia, other siteFibromyalg iaOther watermelon inspector (current) drug therapyOther spondylosis with radiculopathy, cervical region 0 [address] [place] [address], [place], [place], [id number] , [place]. tel:[phone] Referring Provider: Lyle Hyatt, [address] [place] [address], [id number]. [phone] OFFICE/OUTPAT IENT VISIT, [facility], [address] [place] [address], [id number] , [place] [phone] [facility] Fibromyalgia (chief complaint) CervicalgiaMya lgia, other siteFibromyalg iaOther watermelon inspector (current) drug therapy [address] [place] [address] [address], [place], [place], [id number] , [place]. [phone] Referring Provider: Lyle Hyatt, [address] [place] [address], [id number]. [phone] OFFICE/OUTPAT IENT VISIT, [facility], [address] [place] [address], [id number] , [place] [phone] [facility] Fibromyalgia (chief complaint) Myalgia, other siteFibromyalg iaOther mcfp (current) [facility] for therapeutic drug level monitoringCerv icalgia 2 Yasmeen Warner. [facility] [facility] [address], [place], [place], [id number] , [place]. tel:[phone] Referring Provider: Malka Arizmendi [facility] [address] [place], [address]. tel:[phone] [facility], [address] [place] [address], [id number] , [place] tel:[phone] [facility] No Information 2 Yasmeen Warner. [address] [place] [address] [address], [place], [place], [id number] , [place]. tel:[phone] [facility], [address] [place] [address], [id number] , [place] tel:[phone] [facility] [place] No Information 1 Yasmeen Warner. [facility]5 [facility] [address], [place], [place], [id number] , [place]. tel:[phone] Referring Provider: Lyle Hyatt, [address] [place] [address], [address]. tel:[phone] OFFICE/OUTPAT IENT VISIT, [facility], [address] [place] [address], [id number] , [place] tel:[phone] [facility] Fibromyalgia (chief complaint) FibromyalgiaMy algia, other siteOther mcfp (current) drug therapy 1 Yasmeen Warner. [address] [place] [address] [address], [place], [place], [id number] , [place]. tel:[phone] Referring Provider: Lyle Hyatt, [address] [place] [address], [id number]. [phone] OFFICE VISIT, EST TELEMEDICINE [facility], [address] [place] [address], [id number] , [place] [phone] [facility] Fibromyalgia (chief complaint) Myalgia, other siteOther watermelon inspector (current) drug therapyFibromy algia [phone] [place] P[place]. [facility], [address], [place], [address], [place]. tel:[phone] Referring Provider: Lyle Hyatt, [address] [place] [address], [address]. [phone] [facility], [address] [place] [address], [id number] , [place] [phone] [facility] No Information 9 Yasmeen Warner. [address] [place] [address] [address], [place], [id number] , [place]. tel:[phone] OFFICE/OUTPAT IENT VISIT, [facility], [address] [place] [address], [id number] , [place] tel:[phone] [facility] Fibromyalgia (chief complaint) Other watermelon inspector (current) drug therapyFibromy algiaChronic pain syndromeMyalgi a, other siteEncounter for therapeutic drug level monitoring 9 Yasmeen Warner. [address] [place] [address] [address], [place], [id number] , [place]. [phone] Referring Provider: Lyle Hyatt, [address] [place] [address], [address]. [phone] OFFICE/OUTPAT IENT VISIT, [facility], [address] [place] [address], [id number] , [place] [phone] [facility] Fibromyalgia (chief complaint) Chronic pain syndromeFibrom yalgiaOther watermelon inspector (current) drug therapy 9 Yasmeen Warner. [address] [place] [address] [address], [place], [id number] , [place]. tel:[phone] Referring Provider: Lyle Hyatt, [address] [place], [address]. tel:[phone] OFFICE/OUTPAT IENT VISIT, EST [facility], [address] [place], [place], [id number] , [place] tel:[phone] [facility] Fibromyalgia (chief complaint) Chronic pain syndromeFibrom yalgiaEncounte r for therapeutic drug level monitoringOthe r mcfp (current) drug therapyMyalgia , other siteCervicalgi aLow back pain 9 Yasmeen Warner. [facility]5 [facility] [address], [place], [id number] , [place]. [phone] Referring Provider: Malka Arizmendi [facility] [address], [place], [address]. tel:[phone] [facility], [address] [place] [address], [id number] , [place] [phone] [facility] Fibromyalgia (chief complaint) Chronic pain syndromeFibrom yalgiaPain in right hand 9 Arana Timmy. [address] [place] [address] [address], [place], [id number] , [place]. [phone] Family History Family Member Type Diagnosis Age At Onset Problem (finding) Family history of Endom etriosis Problem (finding) Family history of Scoli osis Payers Payer name Insurance type Covered alliance [...] CE DRUG ANALYSIS, URINE, WITH MED REPORT ([id number]), Ordered on: Ordered Future Order: Lab Order COMPLIAN CE DRUG ANALYSIS, URINE, WITH MED REPORT ([id number]), Ordered on: Ordered Future Order: Lab Order [...] discomfort limits showering, dressing, lifting, reaching for foot doctor and daily activity.. Patients goal is to [...] activity. Continues to attend PT /massage at [facility]. primarily for her [...] activity. Continues to attend PT /massage, in [place], primarily for her neck and [place] hips. Pain has been fluctuating since [facility] and pain level averages 8/10.Reports that [...] Reports worsened neck and back pain since [facility]. Reports that her pain is exacerbated with increased activity. Currently attends PT in [place], primarily for her neck and [place] hips.S/p Botox (?) injection on 12/18/21 at [facility] with increased pain following the injection. Since [facility], patient obtained cervical MRI imaging Continues [...] cannabis. Currently utilizing the red formulation from [employer]. Details feeling high and dizzy, but notes [...] a couple days. Has been working with [facility] and is currently managed on yellow strain [...] and other recommended therapies. She would like [facility] to assume management of pain care. Does report recreational cannabis use a couple weeks ago while traveling with friends in [place] where it is legal. Fibromyalgia Onset occurred [...] consult for fibromyalgia, referred by Dr. Camejo--[facility]. Her pain began 5 years [...] and other recommended therapies. She would like [facility] to assume management of pain care. Functional Status Date Functional Assessmen t No Information Instructions Date Instruction Additional Infor mation No Information Assessments Type Assessment Date No Information Patient Care Teams Name Effective Dates (start - stop) Status Members No Information
--- OUTSIDE RECORDS SUMMARY | 2023-09-04 16:52 | XMS_ITS | Continuity of Care Document ---
Author Organization [facility] enter Address [address] [place] [address] [address] Phone Care Team Providers Care Wire Spring Relay Adjuster Name Role Phone [facility] Unavailable Unava ilable Procedures Procedure Date INTERLAMINAR CRV OR THRC INTERLAMINAR CRV OR THRC Advance Directives Directive Yes / No Effective Date File Name No Information Encounters Encounter Description Practice Location Reason(s) For Visit Diagnoses Date Provider Providers Copied on Encounter [facility], [address] [place] [address], [id number], tel:[phone] [facility] No Information [facility]. [address] [place] [address], [id number], . tel:[phone] Referring Provider: Ibis Jerry, [address] [place], [address] . tel:[phone] Family History Family Member Type Diagnosis Age [...]
== END 2023-09-04 16:52 | disposition home or self-care (01) ==
LOC: ED 16:50
PROVIDERS: Emergency Provider Emergency Medicine; PCP Family Medicine
DX: L03.116 Cellulitis of left lower limb (principal); W22.8XXA Striking against or struck by other objects, initial encounter
CPT/HCPCS: 73610; 99282; 99283

== ENCOUNTER 2023-12-15 09:29 | Emergency (ER) | payer OTHER, SELFPAY ==
--- OUTSIDE RECORDS SUMMARY | 2023-12-15 09:32 | XMS_ITS | Continuity of Care Document ---
Author Organization [facility] Address [address] [place] [address] Phone Care Team Providers Care Wash Worker Name Role Phone Galen Zhang MD Unavailable [...] Copied on Encounter [facility], [address], [place], [place], [id number] , tel:[phone] [facility] No Information 9 Leatha Aaron. [facility], [address] [place] [address], [facility] [address], [place], [place], [id number], [place]. tel:[phone] Office/Outpa tient Visit,New, [facility], [address], [place], [place], [id number] , [place] tel:[phone] [facility] Other cervical disc degeneration, cervicothorac ic region 9 Transfeldt Ensor. [facility], [address], [facility] [address], [place], [place], [id number], [place]. tel:[phone] Referring Provider: Alex Cam, [facility] [address], [place], [address]. tel:[phone] Family History Family Member Type Diagnosis Age [...]
--- OUTSIDE RECORDS SUMMARY | 2023-12-15 09:32 | XMS_ITS | Clinical Summary ---
Author Organization [facility] Address [place], [place] [address] Care Team Providers Care Senior Sales Operations Analyst Name Role Phone Malka Arizmendi DO Primary Care Provider [phone] Allergies Active Allergy Reactions Criticality Noted Date [...] order composer Medical marijuana 0 07/24/2021 Active methocarbamoL (ROBAXIN) 500 mg tabletIndications:M uscle [...] once daily. 90 Tablet 3 07/08/2023 Active fluticasone (50 mcg per actuation) nasal solution (FLONASE)Indication s:Rhinitis, unspecified type Inhale 2 Sprays into affected nostril(s) once daily. 16 mL 3 09/17/2023 Active Active Problems Problem Noted Date Diagnosed Date Elevated serum creatinine 03/17/2023 Overview (03/17/2023): Creatinine range 0.95-1.13. Had US and further lab testing. Econsult with nephrology. Urine creatinine clearance normal. Plan monitor creatinine [id number], if worsening, nephrology consult Hyperparathyroidism 03/12/[address] 07/24/2021 Overview (07/24/2021): 06/2021: Two stable 4mm noncalcified pulmonary nodules in [place]UL. IF high risk (patient smokes) <6mm, optional CT at 12months. 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 Krueger [facility] Posttraumatic stress disorder 02/08/2016 Tobacco dependence 11/17/2013 ADD (attention deficit disorder) 11/02/2013 Depression 11/02/2013 Anxiety 11/02/2013 Endometriosis 02/03/2013 Resolved Problems Problem Noted Date Diagnosed Date Resolved Date Paroxysmal tachycardia 07/16/202203/12 Lynsey's thyroiditis 06/06/201911/25 Placenta previa 02/03/2013 12/06/2014 Overview (02/03/2013): 2009 Encounters Date Type Department Care Team Description 09/18/2023 Refill [facility] [address] [place] [address] Malka Arizmendi, Refill Request (Fluticasone (50 Mcg Per Actuation) Nasal) 09/17/2023 2:45 PM CDT Office Visit [facility] [address] [place] [address] Malka Arizmendi DO Follow Up; Pain (Right sided rib pain) 09/17/2023 Travel from Last 3 Months Immunizations Name [...] Sign Reading Time Taken Comments Blood Pressure 97/58 09/17/2023 2:55 PM CDT Pulse 76 09/17/2023 2:55 PM CDT Temperature 36.9 ??C (98.5 ??F) 09/25/2021 8:16 AM CD T Respiratory Rate 18 12/27/2019 11:39 AM COUNSEL Oxygen Saturation 99% 09/17/2023 2:55 PM CDT Inhaled Oxygen Concentration - - Weight 57.2 kg (126 lb) 09/17/2023 2:55 PM CDT Height 178 cm (5' 10.08) 09/17/2023 2:55 PM CDT Body Mass Index 18.04 09/17/2023 2:55 PM CDT Plan of Treatment Health Maintenance Due Date Last Done Comments Pneumococcal series for age 6-64 (1 of 2 - PCV) 1989 COVID-19 vaccine series ( - season) 2023 Influenza for age 9-49 10/25/2023 Depression screening for age 12+ 06/08/2024 06/09/2023, 03/14/2023, 03/12/2023, Additional history exists BMI (ht and wt on same day) for age 18+ 09/16/2024 09/17/2023, 01/30/2020, 03/31/2019, Additional history exists Tetanus booster 10/23/2027 10/22/2017, 02/23, 09/23/2009 (Completed outside of [facility]) Tdap Completed 10/22/2017, 03/04/2014 HIV for age 15-65 Completed 03/14/2023 Hepatitis C screening for ag e 18-79 Completed 03/14/2023 Medical Devices Implanted Type Area Structural Steel Fitter Device Identifier Shelf Expiration Date Model / Serial / Lot Guide Nerve [id number] Repair Device - [id number] Implanted:Qty: 1 on 01/19/2018 by Clint Montalvo MD at [facility] Right: Wrist Integra [id number] Wendy 01/22/2018 [id number] / / [id number] Procedures Procedure Name Priority Date/Time Associated Diagnosis Comments URINALYSIS MICROSCOPIC Routine 09/17/2023 3:57 PM CDT Dysuria UA W/ SEDIMENT EXAM REFLEXED PER CRITERIA Routine 09/17/2023 3:57 PM CDT Dysuria ANTI HIV 1/2 Routine 03/14/2023 11:05 AM COUNSEL Screening for HIV (human immunodeficiency virus) ANTI HCV Routine 03/14/2023 11:05 AM COUNSEL Need for hepatitis C screening test from Last 3 Months or Most Recently Relevant to Health Maintenance Results * URINALYSIS MICROSCOPIC (09/17/2023 3:57 PM CDT) RBC 0-2 0-2, None Seen /HPF 09/17/2023 4:24 PM CDT [facility] WBC 3-5 0-2, 3-5, None Seen /HPF 09/17/2023 4:24 PM CDT [facility] BACTERIA None Seen None Seen, Rare, Few Bacteria/ HPF 09/17/2023 4:24 PM CDT [facility] EPITHELIAL CELLS Few None Seen, Few Epi/HPF 09/17/2023 4:24 PM CDT [facility] Urine URINE SPECIMEN / Unknown Non-Blood / Unknown 09/17/2023 3:57 PM CDT 09/17/2023 3:57 PM CDT Malka Arizmendi DO URINE [facility] [address] [place] [address], * (ABNORMAL) UA W/ SEDIMENT EXAM REFLEXED PER CRITERIA (09/17/2023 3:57 PM CDT) COLOR Yellow Yellow Color 09/17/2023 4:07 PM CDT [facility] CLARITY Clear Clear Clarity 09/17/2023 4:07 PM CDT [facility] SPECIFIC GRAVITY,URINE 1.025 1.010, 1.015, 1.020, 1.025 09/17/2023 4:07 PM CDT [facility] PH,URINE 6.0 6.0, 7.0, 8.0, 5.5, 6.5, 7.5, 8.5 09/17/2023 4:07 PM CDT [facility] UROBILINOGEN, QUALITATIVE Normal Normal EU/dl 09/17/2023 4:07 PM CDT [facility] PROTEIN, URINE Negative Negative mg/dL 09/17/2023 4:07 PM CDT [facility] GLUCOSE, URINE Negative Negative mg/dL 09/17/2023 4:07 PM CDT [facility] KETONES,URINE Negative Negative mg/dL 09/17/2023 4:07 PM CDT [facility] BILIRUBIN,URI NE Negative Negative 09/17/2023 4:07 PM CDT [facility] OCCULT BLOOD,URINE Negative Negative 09/17/2023 4:07 PM CDT [facility] NITRITE Negative Negative 09/17/2023 4:07 PM CDT [facility] LEUKOCYTE ESTERASE Trace(A) Negative 09/17/2023 4:07 PM CDT [facility] Urine URINE SPECIMEN / Unknown Non-Blood / Unknown 09/17/2023 3:57 PM CDT 09/17/2023 3:57 PM CDT Malka Arizmendi DO URINE [facility] [address] [place] [address], * ANTI HCV (03/14/2023 11:05 AM COUNSEL) HEPATITIS C ANTIBODY Non-Reacti ve Non-React ari 03/15/2023 2:57 PM COUNSEL [facility] Comment:Please note, per www .CDC.gov: If a patient is known to be at high risk of HCV infection, or is symptomatic, and the physician's suspicion of HCV infection is high, HCV RNA testing is often employed and is of diagnostic value, even after an initial negative anti-HCV test result. Blood BLOOD SPECIMEN / Unknown Butterfly / Unknown 03/14/2023 11:05 AM COUNSEL 03/14/2023 11:07 AM COUNSEL Malka Arizmendi DO SEND OUTS Performing Organization Address City/[facility]/ZIP Co de Phone Number [facility] [employer] [facility] [address] [place] [address], * ANTI HIV 1/2 [34237.0] (03/14/2023 11:05 AM COUNSEL) Pathologist [facility] HIV-1/HIV-2 SCREEN Non-Reacti ve Non-Reacti ve 03/15/2023 2:57 PM COUNSEL [facility] Comment:HIV-1 p24 and HIV-1/ HIV-2 Ab Not Detected. Blood BLOOD SPECIMEN / Unknown Butterfly / Unknown 03/14/2023 11:05 AM COUNSEL 03/14/2023 11:07 AM COUNSEL Malka Arizmendi DO SEND OUTS [facility] [employer] [facility] [address] [place] [address], [place] from Last 3 Months or Most Recently [...] 1:56 AM 03/03/2007 6:24 AM Care Teams Senior Sales Operations Analyst Relationship Specialty Start Date End Date [place]alk[place] [place] [address] PCP - General Family Practice 10/10/13
--- OUTSIDE RECORDS SUMMARY | 2023-12-15 09:32 | XMS_ITS | Continuity of Care Document ---
Author Organization [facility] Address [address] [place] [address] Phone Care Team Providers Care Ready To Wear Department Manager Name Role Phone Timmy Severino Unavailable Unavailable [...] for up to 1 dose. - Active diazepam 5 mg tablet take 1 tablet by OR AL route 2 times every day prn 5 MG - Active estradiol 1 mg/gram (0.1 %) transdermal gel packet apply 1 packet by transdermal route every day to upper right or left thigh (alternate thighs each day) 1 MG - Active medical cannabis ORAL - [...] Diagnoses Date Provider Providers Copied on Encounter [facility], [address] [place], [id number] , [place] tel:[phone] [facility] No Information 3 Yasmeen Warner. [facility], [place], [id number] , [place]. tel:[phone] OFFICE/OUTPAT IENT VISIT, EST [facility], [address] [place]u [place], [id number] , [place] tel:[phone] [facility] [place] Cervicalgia (chief complaint) Other spondylosis with radiculopathy, cervical regionMyalgia, other siteFibromyalg iaHeadacheOthe r termite treater (current) drug therapy 3 Marian Abbie. [address], [place], [id number] , [place]. [phone] Referring Provider: Lyle Hyatt, [address] [place] [address], [address]. tel:[phone] [facility], [address] [place] [address], [id number] , [place] tel:[phone] [facility] Other spondylosis with radiculopathy, cervical region 3 Claritza Baumann. [address] [place] [address], [id number] , [place]. [phone] Referring Provider: Lyle Hyatt, [address] [place] [address], [address]. tel:[phone] [facility], [address] [place] [address], [id number] , [place] tel:[phone] [facility] cervicalgia (chief complaint) Other spondylosis with radiculopathy, cervical region 3 Serge Rdz. [address] [place] [address], [id number] , [place]. [phone] Referring Provider: Lyle Hyatt, [address] [place] [address], [address]. tel:[phone] OFFICE/OUTPAT IENT VISIT, [facility], [address] [place] [address], [id number] , [place] [phone] [facility] Fibromyalgia (chief complaint) Other spondylosis with radiculopathy, cervical regionMyalgia, other siteFibromyalg iaHeadacheOthe r fpc (current) drug therapy 3 Marian Abbie. [address], [place], [id number] , [place]. [phone] Referring Provider: Lyle Hyatt, [address] [place] [address], [address]. [phone] OFFICE/OUTPAT IENT VISIT, [facility], [address] [place] [address], [id number] , [place] [phone] [facility] Fibromyalgia (chief complaint) Other spondylosis with radiculopathy, cervical regionCervical giaMyalgia, other siteFibromyalg iaOther fpc (current) drug therapyHeadach e 3 Marian [address]bie[address] [place] [address] [address], [place], [place], [id number] , [place]. tel:[phone] Referring Provider: Lyle Hyatt, [address] [place] [address], [address]. [phone] OFFICE/OUTPAT IENT VISIT, [facility], [address] [place] [address], [id number] , [phone] [facility] Fibromyalgia (chief complaint) CervicalgiaMya lgia, other siteFibromyalg iaOther fpc (current) drug therapyOther spondylosis with radiculopathy, cervical region 0 [id number] [place] [address] [address], [place], [place], [id number] , [place]. tel:[phone] Referring Provider: Lyle Hyatt, [address] [place] [address], [address]. [phone] OFFICE/OUTPAT IENT VISIT, [facility], [address] [place] [address], [id number] , [place] [phone] [facility] Fibromyalgia (chief complaint) CervicalgiaMya lgia, other siteFibromyalg iaOther fpc (current) drug therapy [address] [place] [address] [address], [place], [place], [id number] , [place]. [phone] Referring Provider: Lyle Hyatt, [address] [place] [address], [address]. [phone] OFFICE/OUTPAT IENT VISIT, [facility], [address] [place] [address], [id number] , [place] [phone] [facility] Fibromyalgia (chief complaint) Myalgia, other siteFibromyalg iaOther fpc (current) [facility] for therapeutic drug level monitoringCerv icalgia 2 Yasmeen Warner. [facility], [place], [place], [id number] , [place]. tel:[phone] Referring Provider: Malka Arizmendi [facility] [address] [place], [address]. tel:[phone] [facility], [address] [place] [address], [id number] , [place] tel:[phone] [facility] No Information 2 Yasmeen Warner. [address] [place] [address] [address], [place], [place], [id number] , [place]. tel:[phone] [facility], [address] [place] [address], [id number] , [place] tel:[phone] [facility] [place] No Information 1 Yasmeen Warner. [facility]5 [facility] [address], [place], [place], [id number] , [place]. tel:[phone] Referring Provider: Lyle Hyatt, [address] [place] [address], [address]. tel:[phone] OFFICE/OUTPAT IENT VISIT, [facility], [address] [place] [address], [id number] , [place] tel:[phone] [facility] Fibromyalgia (chief complaint) FibromyalgiaMy algia, other siteOther termite treater (current) drug therapy 1 Yasmeen Warner. [address] [place] [address] [address], [place], [place], [id number] , [place]. tel:[phone] Referring Provider: Lyle Hyatt, [address] [place] [address], [address]. [phone] OFFICE VISIT, EST TELEMEDICINE [facility], [address] [place] [address], [id number] , [place] [phone] [facility] Fibromyalgia (chief complaint) Myalgia, other siteOther termite treater (current) drug therapyFibromy algia [phone] Thompsoncastro Puga. [facility], [address], [place], [address], [place]. tel:[phone] Referring Provider: Lyle Hyatt, [address] [place] [address], [id number]. [phone] [facility], [address] [place] [address], [id number] , [place] [phone] [facility] No Information 9 Yasmeen Warner. [address] [place] [address] [address], [place], [id number] , [place]. tel:[phone] OFFICE/OUTPAT IENT VISIT, [facility], [address] [place] [address], [id number] , [place] tel:[phone] [facility] Fibromyalgia (chief complaint) Other termite treater (current) drug therapyFibromy algiaChronic pain syndromeMyalgi a, other siteEncounter for therapeutic drug level monitoring 9 Yasmeen Warner. [address] [place] [address] [address], [place], [id number] , [place]. [phone] Referring Provider: Lyle Hyatt, [address] [place] [address], [address]. [phone] OFFICE/OUTPAT IENT VISIT, [facility], [address] [place] [address], [id number] , [place] [phone] [facility] Fibromyalgia (chief complaint) Chronic pain syndromeFibrom yalgiaOther fpc (current) drug therapy 9 Yasmeen Warner. [address] [place] [address] [address], [place], [id number] , [place]. tel:[phone] Referring Provider: Lyle Hyatt, [address] [place], [address]. tel:[phone] OFFICE/OUTPAT IENT VISIT, EST [facility], [address] [place], [place], [id number] , [place] tel:[phone] [facility] Fibromyalgia (chief complaint) Chronic pain syndromeFibrom yalgiaEncounte r for therapeutic drug level monitoringOthe r fpc (current) drug therapyMyalgia , other siteCervicalgi aLow back pain 9 Yasmeen Warner. [facility]5 [facility] [address], [place], [id number] , [place]. [phone] Referring Provider: Malka Arizmendi [facility] [address], [place], [address]. tel:[phone] [facility], [address] [place] [address], [id number] , [place] [phone] [facility] Fibromyalgia (chief complaint) Chronic pain syndromeFibrom yalgiaPain in right hand 9 Arana Timmy. [address] [place] [address] [address], [place], [id number] , [place]. [phone] Family History Family Member Type Diagnosis Age [...] Goal PHQ-9. Due on du e Goal Review Allergy L ist. Due on due Goal Medication Recon ciliation. Due on due Goal Update Social Hi story. Due on due Goal Weight. Due on d ue Goal Tobacco Use. Due on due Goal Height. Due on d ue Goal PHQ-9. Due on du e Goal Review Allergy L ist. Due on due Goal Medication Recon ciliation. Due on due Future Order: Radiology Order EM G, 2 Limbs (EMG2), Ordered on: Ordered Future Order: Lab Order Drug Florina t Def 22+ Classes ([id number]), Ordered on: Ordered Future Order: Lab Order COMPLIAN CE DRUG ANALYSIS, URINE, WITH MED REPORT ([id number]), Ordered on: Ordered Future Order: Lab Order COMPLIAN CE DRUG ANALYSIS, URINE, WITH MED REPORT ([id number]), Ordered on: Ordered Future Order: Lab Order [...] discomfort limits showering, dressing, lifting, reaching for data entry clerk and daily activity.. Patients goal is to [...] activity. Continues to attend PT /massage at [facility]. primarily for her neck [...] activity. Continues to attend PT /massage, in [place], primarily for her neck and BL hips. Pain has been fluctuating since [facility] and pain level averages 8/10.Reports that [...] Reports worsened neck and back pain since [facility]. Reports that her pain is exacerbated with increased activity. Currently attends PT in [place], primarily for her neck and BL hips.S/p Botox (?) injection on 12/18/21 at [facility] with increased pain following the injection. Since [facility], patient obtained cervical MRI imaging Continues [...] side effects. No other concerns today. Fibromyalgia Severity level [...] a couple days. Has been working with [employer] and is currently managed on yellow strain [...] setting of fibromyalgia, referred by Dr. [facility]. Her pain began 5 years ago [...] and other recommended therapies. She would like [facility] to assume management of pain care. Does report recreational cannabis use a couple weeks ago while traveling with friends in [place] where it is legal. Fibromyalgia Onset occurred [...] consult for fibromyalgia, referred by Dr. [facility]jo[facility]. Her pain began 5 years ago. [...] and other recommended therapies. She would like [facility] to assume management of pain care. Fibromyalgia [...]
--- OUTSIDE RECORDS SUMMARY | 2023-12-15 09:32 | XMS_ITS | Continuity of Care Document ---
Author Organization [facility] Address [address] [place] [address] Care Team Providers Care Mortgage Consultant Name Role Phone Kaden Mckeon CRNA Unavailable Unavailable Procedures Procedure Date Percutaneous Image guided injection, dra nagy, or Advance Directives Directive Yes / No Effective Date File Name No Information Encounters Encounter Description Practice Location Reason(s) For Visit Diagnoses Date Provider Providers Copied on Encounter [facility], [address] [place], [place], [id number], [facility] No Information 3 Mike Alfonso. [address] [place], [place], [id number] , . tel:[phone] Referring Provider: Ibis Jerry, [address] [place], [address] . tel:[phone] Family History Family Member Type Diagnosis Age [...]
--- OUTSIDE RECORDS SUMMARY | 2023-12-15 09:32 | XMS_ITS | Continuity of Care Document ---
Author Organization [facility] Address [address] [place] [address] [address] Phone Care Team Providers Care Material Stockkeeper Yard Name Role Phone [facility] Unavailable Unava ilable Procedures Procedure Date INTERLAMINAR CRV OR THRC INTERLAMINAR CRV OR THRC Advance Directives Directive Yes / No Effective Date File Name No Information Encounters Encounter Description Practice Location Reason(s) For Visit Diagnoses Date Provider Providers Copied on Encounter [facility], [address] [place] [address], [id number], tel:[phone] [facility] No Information [facility]. [address] [place] [address], [id number], . tel:[phone] Referring Provider: Ibis Jerry, [address] [place], [address] . tel:[phone] Family History Family Member Type Diagnosis Age [...]
[2023-12-15 09:53] VITALS: BP 151/81; PULSE 94; RESP 18; TEMP 36.7; O2SAT 99; BMI 17.2
[2023-12-15 10:12] LABS: Ur HCG Qualitative* Negative (Negative)
[2023-12-15 10:14] LABS: Appearance Urine Clear (Clear); Bilirubin Urine 1+ (Negative); Blood Urine 2+ (Negative); Color Urine Yellow (Yellow); Glucose Urine Negative (Negative); Ketones Urine 3+ (Negative); Leukocyte Esterase Urine Negative (Negative); Nitrite Urine Negative (Negative); Protein Urine 1+ (Negative); Specific Gravity Urine 1.025 (1.000-1.030); Urobilinogen Urine 0.2 (0.2-1.0); pH Urine 5.5 (5.0-8.5)
[2023-12-15 10:19] LABS: Bacteria Urine Few; Mucus Urine Few; Other Sediment Urine FEW; Squamous Epithelial Cell Urine Few (None-Few); WBC Urine 0-2 (0-5)
--- NOTE | 2023-12-15 11:05 | CRLHL7_ITS ---
For Patients: As a result of the Century Cures Act, medical imaging exams and procedure reports are released immediately into your electronic medical record. You may view this report before your referring provider. If you have questions, please contact your health care provider. Indication: LT ABD PAIN HEMATURIA Technique: CT abdomen/pelvis without IV contrast Comparison: CT abdomen/pelvis on September 16, 2017 Findings: Lower thorax: Trace pericardial effusion, unchanged. The lungs are clear. Abdomen/pelvis: Small region of decreased attenuation seen in the liver along the falciform ligament, likely focal steatosis; otherwise, no suspicious hepatic lesions. The gallbladder and biliary system are unremarkable. The spleen, pancreas, and adrenal glands are unremarkable in appearance. There is a large 1.4 centimeter stone seen in the bladder near the left ureterovesicular junction causing moderate left-sided hydroureteronephrosis. There is a relatively well-circumscribed hyperattenuating, round lesion seen at the upper pole of the left kidney measuring approximately 1.1 centimeters, incompletely assessed on this exam, but favored to represent a hemorrhagic cyst. The right kidney and ureter are unremarkable in appearance. Postsurgical changes of hysterectomy. No suspicious adnexal lesions. No evidence of bowel obstruction or inflammation. The appendix is normal. No free fluid or free air. No abdominopelvic lymphadenopathy. Vasculature is unremarkable. Soft tissue/musculoskeletal: Tiny fat containing umbilical hernia. The osseous structures are unremarkable. Impression: 1. Large 1.4 centimeter stone seen in the bladder near the left ureterovesicular junction causing moderate left-sided hydroureteronephrosis. 2. Relatively well-circumscribed hyperattenuating, round lesion seen at the upper pole of the left kidney measuring approximately 1.1 centimeters, incompletely assessed on this exam, but favored to represent a hemorrhagic cyst. Please note that all CT scans at this facility use dose modulation, iterative reconstruction, and/or weight-based dosing when appropriate to reduce radiation dose to as low as reasonably achievable. Dictated by Bishnu Mireles MD @ 12/15/2023 11:47:32 AM (Electronically Signed)
--- OUTSIDE RECORDS SUMMARY | 2023-12-15 11:14 | XMS_ITS | Clinical Summary ---
Author Organization [employer] [facility] Address [place], [place] [address] Care Team Providers Care Human Resources Team Member Name Role Phone Malka Arizmendi DO Primary Care Provider [phone] Allergies Active Allergy Reactions Criticality Noted Date [...] Urine creatinine clearance normal. Plan monitor creatinine [id number], if worsening, nephrology consult Hyperparathyroidism 03/12/2023 Multiple [...] Type Department Care Team Description 09/18/2023 Refill [facility] [address] [place] [address] Malka Arizmendi, Refill Request (Fluticasone (50 Mcg Per Actuation) Nasal) 09/17/2023 2:45 PM CDT Office Visit [facility] [address] [place] [address] Malka Arizmendi DO Follow Up; Pain (Right [...] T Respiratory Rate 18 12/27/2019 11:39 AM SURGICAL CODER Oxygen Saturation 99% 09/17/2023 2:55 PM CDT [...] 10/23/2027 10/22/2017, 02/23, 09/23/2009 (Completed outside of [facility]) Tdap Completed 10/22/2017, 03/04/2014 HIV for age 15-65 Completed 03/14/2023 Hepatitis C screening for ag e 18-79 Completed 03/14/2023 Medical Devices Implanted Type Area Yellow Pages Space Salesperson Device Identifier Shelf Expiration Date Model / Serial / Lot Guide Nerve [id number] Repair Device - [id number] Implanted:Qty: 1 on 01/19/2018 by Clint Montalvo MD at [facility] Right: Wrist Integra [employer] App Wendy 01/22/2018 [id number] / / [id number] Procedures Procedure Name Priority Date/Time Associated Diagnosis Comments URINALYSIS MICROSCOPIC Routine 09/17/2023 3:57 PM CDT Dysuria UA W/ SEDIMENT EXAM REFLEXED PER CRITERIA Routine 09/17/2023 3:57 PM CDT Dysuria ANTI HIV 1/2 Routine 03/14/2023 11:05 AM SURGICAL CODER Screening for HIV (human immunodeficiency virus) ANTI HCV Routine 03/14/2023 11:05 AM SURGICAL CODER Need for hepatitis C screening test from Last 3 Months or Most Recently Relevant to Health Maintenance Results * URINALYSIS MICROSCOPIC (09/17/2023 3:57 PM CDT) RBC 0-2 0-2, None Seen /HPF 09/17/2023 4:24 PM CDT [facility] WBC 3-5 0-2, 3-5, None Seen /HPF 09/17/2023 4:24 PM CDT [facility] BACTERIA None Seen None Seen, Rare, Few Bacteria/ HPF 09/17/2023 4:24 PM CDT [facility] EPITHELIAL CELLS Few None Seen, Few Epi/HPF 09/17/2023 4:24 PM CDT [facility] Urine URINE SPECIMEN / Unknown Non-Blood / Unknown 09/17/2023 3:57 PM CDT 09/17/2023 3:57 PM CDT Malka Arizmendi DO URINE [facility] [address] [place] [address], * (ABNORMAL) UA W/ SEDIMENT EXAM REFLEXED PER CRITERIA (09/17/2023 3:57 PM CDT) COLOR Yellow Yellow Color 09/17/2023 4:07 PM CDT [facility] CLARITY Clear Clear Clarity 09/17/2023 4:07 PM CDT [facility] SPECIFIC GRAVITY,URINE 1.025 1.010, 1.015, 1.020, 1.025 09/17/2023 4:07 PM CDT [facility] PH,URINE 6.0 6.0, 7.0, 8.0, 5.5, 6.5, 7.5, 8.5 09/17/2023 4:07 PM CDT [facility] UROBILINOGEN, QUALITATIVE Normal Normal EU/dl 09/17/2023 4:07 PM CDT [facility] PROTEIN, URINE Negative Negative mg/dL 09/17/2023 4:07 PM CDT [facility] GLUCOSE, URINE Negative Negative mg/dL 09/17/2023 4:07 PM CDT [facility] KETONES,URINE Negative Negative mg/dL 09/17/2023 4:07 PM CDT [facility] BILIRUBIN,URI NE Negative Negative 09/17/2023 4:07 PM CDT [facility] OCCULT BLOOD,URINE Negative Negative 09/17/2023 4:07 PM CDT [facility] NITRITE Negative Negative 09/17/2023 4:07 PM CDT [facility] LEUKOCYTE ESTERASE Trace(A) Negative 09/17/2023 4:07 PM CDT [facility] Urine URINE SPECIMEN / Unknown Non-Blood / Unknown 09/17/2023 3:57 PM CDT 09/17/2023 3:57 PM CDT Malka Arizmendi DO URINE [facility] [address] [place] [address], * ANTI HCV (03/14/2023 11:05 AM SURGICAL CODER) HEPATITIS C ANTIBODY Non-Reacti ve Non-React ari 03/15/2023 2:57 PM SURGICAL CODER [facility] Comment:Please note, per www .CDC.gov: If a patient is known to be at high risk of HCV infection, or is symptomatic, and the physician's suspicion of HCV infection is high, HCV RNA testing is often employed and is of diagnostic value, even after an initial negative anti-HCV test result. Blood BLOOD SPECIMEN / Unknown Butterfly / Unknown 03/14/2023 11:05 AM SURGICAL CODER 03/14/2023 11:07 AM SURGICAL CODER Malka Arizmendi DO SEND OUTS Performing Organization Address City/[facility]/ZIP Co de Phone Number [facility] [address] [place] [address], * ANTI HIV 1/2 [11057.0] (03/14/2023 11:05 AM SURGICAL CODER) Pathologist [facility] HIV-1/HIV-2 SCREEN Non-Reacti ve Non-Reacti ve 03/15/2023 2:57 PM SURGICAL CODER [facility] Comment:HIV-1 p24 and HIV-1/ HIV-2 Ab Not Detected. Blood BLOOD SPECIMEN / Unknown Butterfly / Unknown 03/14/2023 11:05 AM SURGICAL CODER 03/14/2023 11:07 AM SURGICAL CODER Malka Arizmendi DO SEND OUTS [facility] [address] [place] [address], [place] from Last 3 Months or Most [...] 1:56 AM 03/03/2007 6:24 AM Care Teams Human Resources Team Member Relationship Specialty Start Date End Date Malka [place] [address] [address] PCP - General Family Practice 10/10/13
--- OUTSIDE RECORDS SUMMARY | 2023-12-15 11:14 | XMS_ITS | Continuity of Care Document ---
Author Organization [facility] Address [address] [place] [address] Care Team Providers Care Hydroelectric Plant Structural Engineer Name Role Phone Kaden Mckeon CRNA Unavailable Unavailable Procedures Procedure Date Percutaneous Image guided injection, dra nagy, or Advance Directives Directive Yes / No Effective Date File Name No Information Encounters Encounter Description Practice Location Reason(s) For Visit Diagnoses Date Provider Providers Copied on Encounter [facility], [address] [place], [place], [id number], [facility] No Information 3 Mike Alfonso. [address] [place], [place], [id number] , . tel:[phone] Referring Provider: Ibis Jerry, [address] [place], [address] . tel:[phone] Family History Family Member Type Diagnosis Age At Onset No Information Payers Payer name Insurance type Covered libertarian [...]
--- OUTSIDE RECORDS SUMMARY | 2023-12-15 11:14 | XMS_ITS | Continuity of Care Document ---
Author Organization [facility] Address [address] [facility] [place] [address] Phone Care Team Providers Care Form Press Operator Name Role Phone Timmy Severino Unavailable Unavailable [...] Diagnoses Date Provider Providers Copied on Encounter [facility], [address] [facility] [place], [id number] , [place] tel:[phone] [facility] No Information 3 Yasmeen Warner. [facility], [place], [id number] , [place]. tel:[phone] OFFICE/OUTPAT IENT VISIT, EST [facility], [address] [facility] [place], [id number] , [place] tel:[phone] [facility] [place] Cervicalgia (chief complaint) Other spondylosis with radiculopathy, cervical regionMyalgia, other siteFibromyalg iaHeadacheOthe r intermediate accountant (current) drug therapy 3 Marian Abbie. [address], [place], [id number] , [place]. [phone] Referring Provider: Lyle Hyatt, [address] [place] [address], [address]. tel:[phone] [facility], [address] [place] [address], [id number] , [place] tel:[phone] [facility] Other spondylosis with radiculopathy, cervical region 3 Claritza Baumann. [address] [place] [address], [id number] , [place]. [phone] Referring Provider: Lyle Hyatt, [address] [place] [address], [address]. tel:[phone] [facility], [address] [place] [address], [id number] , [place] tel:[phone] [facility] Pain [facility] cervicalgia (chief complaint) Other spondylosis with radiculopathy, cervical region 3 Serge Rdz. [address] [place] [address], [id number] , [place]. [phone] Referring Provider: Lyle Hyatt, [address] [place] [address], [address]. tel:[phone] OFFICE/OUTPAT IENT VISIT, [facility], [address] [place] [address], [id number] , [place] [phone] [facility] Fibromyalgia (chief complaint) Other spondylosis with radiculopathy, cervical regionMyalgia, other siteFibromyalg iaHeadacheOthe r halfway (current) drug therapy 3 Marian Abbie. [address], [place], [id number] , [place]. [phone] Referring Provider: Lyle Hyatt, [address] [place] [address], [address]. [phone] OFFICE/OUTPAT IENT VISIT, [facility], [address] [place] [address], [id number] , [place] [phone] [facility] Fibromyalgia (chief complaint) Other spondylosis with radiculopathy, cervical regionCervical giaMyalgia, other siteFibromyalg iaOther halfway (current) drug therapyHeadach e [address] [place] [address] [address], [place], [place], [id number] , [place]. tel:[phone] Referring Provider: Lyle Hyatt, [address] [place] [address], [address]. [phone] OFFICE/OUTPAT IENT VISIT, [facility], [address] [place] [address], [id number] , [phone] [facility] Fibromyalgia (chief complaint) CervicalgiaMya lgia, other siteFibromyalg iaOther halfway (current) drug therapyOther spondylosis with radiculopathy, cervical region 0 [address] [place] [address], [place], [place], [id number] , [place]. tel:[phone] Referring Provider: Lyle Hyatt, [address] [place] [address], [address]. [phone] OFFICE/OUTPAT IENT VISIT, [facility], [address] [place] [address], [id number] , [place] [phone] [facility] Fibromyalgia (chief complaint) CervicalgiaMya lgia, other siteFibromyalg iaOther halfway (current) drug therapy [address] [place] [address] [address], [place], [place], [id number] , [place]. [phone] Referring Provider: Lyle Hyatt, [address] [place] [address], [address]. [phone] OFFICE/OUTPAT IENT VISIT, [facility], [address] [place] [address], [id number] , [place] [phone] [facility] Fibromyalgia (chief complaint) Myalgia, other siteFibromyalg iaOther halfway (current) [facility] er for therapeutic drug level monitoringCerv icalgia 2 Yasmeen Warner. [facility], [place], [place], [id number] , [place]. tel:[phone] Referring Provider: Malka Arizmendi [facility] [address] [place], [address]. tel:[phone] [facility], [address] [place] [address], [id number] , [place] tel:[phone] [facility] No Information 2 Yasmeen Warner. [address] [place] [address] [address], [place], [place], [id number] , [place]. tel:[phone] [facility], [address] [place] [address], [id number] , [place] tel:[phone] [facility] [place] No Information 1 Yasmeen Warner. [facility]5 [facility] [address], [place], [place], [id number] , [place]. tel:[phone] Referring Provider: Lyle Hyatt, [address] [place] [address], [address]. tel:[phone] OFFICE/OUTPAT IENT VISIT, [facility], [address] [place] [address], [id number] , [place] tel:[phone] [facility] Fibromyalgia (chief complaint) FibromyalgiaMy algia, other siteOther intermediate accountant (current) drug therapy 1 Yasmeen Warner. [address] [place] [address] [address], [place], [place], [id number] , [place]. tel:[phone] Referring Provider: Lyle Hyatt, [address] [place] [address], [address]. [phone] OFFICE VISIT, EST TELEMEDICINE [facility], [address] [place] [address], [id number] , [place] [phone] [facility] Fibromyalgia (chief complaint) Myalgia, other siteOther intermediate accountant (current) drug therapyFibromy algia [phone] Thompsoncastro Puga. [facility], [address], [place], [address], [place]. tel:[phone] Referring Provider: Lyle Hyatt, [address] [place] [address], [address]. [phone] [facility], [address] [place] [address], [id number] , [place] [phone] [facility] No Information 9 Yasmeen Warner. [address] [place] [address] [address], [place], [id number] , [place]. tel:[phone] OFFICE/OUTPAT IENT VISIT, [facility], [address] [place] [address], [id number] , [place] tel:[phone] [facility] Fibromyalgia (chief complaint) Other intermediate accountant (current) drug therapyFibromy algiaChronic pain syndromeMyalgi a, other siteEncounter for therapeutic drug level monitoring 9 Yasmeen Warner. [address] [place] [address] [address], [place], [id number] , [place]. [phone] Referring Provider: Lyle Hyatt, [address] [place] [address], [address]. [phone] OFFICE/OUTPAT IENT VISIT, [facility], [address] [place] [address], [id number] , [place] [phone] [facility] Fibromyalgia (chief complaint) Chronic pain syndromeFibrom yalgiaOther halfway (current) drug therapy 9 Yasmeen Warner. [address] [place] [address] [address], [place], [id number] , [place]. tel:[phone] Referring Provider: Lyle Hyatt, [address] [place], [address]. tel:[phone] OFFICE/OUTPAT IENT VISIT, EST [facility], [address] [place], [place], [id number] , [place] tel:[phone] [facility] Fibromyalgia (chief complaint) Chronic pain syndromeFibrom yalgiaEncounte r for therapeutic drug level monitoringOthe r halfway (current) drug therapyMyalgia , other siteCervicalgi aLow back pain 9 Yasmeen Warner. [facility]5 [facility] [address], [place], [id number] , [place]. [phone] Referring Provider: Malka Arizmendi [facility] [address], [place], [address]. tel:[phone] [facility], [address] [place] [address], [id number] , [place] [phone] [facility] Fibromyalgia (chief complaint) Chronic pain syndromeFibrom yalgiaPain in right hand 9 Arana Timmy. [address] [place] [address] [address], [place], [id number] , [place]. [phone] Family History Family Member Type Diagnosis Age [...] CE DRUG ANALYSIS, URINE, WITH MED REPORT ([id number]), Ordered on: Ordered Future Order: Lab Order COMPLIAN CE DRUG ANALYSIS, URINE, WITH MED REPORT ([id number]), Ordered on: Ordered Future Order: Lab Order [...] discomfort limits showering, dressing, lifting, reaching for press tender short goods and daily activity.. Patients goal is to [...] activity. Continues to attend PT /massage at [facility]. primarily for her neck and [...] activity. Continues to attend PT /massage, in [place], primarily for her neck and [place] hips. Pain has been fluctuating since [facility] and pain level averages 8/10.Reports that [...] Reports worsened neck and back pain since [facility]. Reports that her pain is exacerbated with increased activity. Currently attends PT in [place], primarily for her neck and [place] hips.S/p Botox (?) injection on 12/18/21 at [facility] with increased pain following the injection. Since [facility], patient obtained cervical MRI imaging Continues [...] cannabis. Currently utilizing the red formulation from [employer]. Details feeling high and dizzy, but notes [...] a couple days. Has been working with [employer] and is currently managed on yellow strain [...] and other recommended therapies. She would like [facility] to assume management of pain care. Does report recreational cannabis use a couple weeks ago while traveling with friends in [place] where it is legal. Fibromyalgia Onset occurred [...] consult for fibromyalgia, referred by Dr. Camejo[facility]. Her pain began 5 years ago. [...] and other recommended therapies. She would like [facility] to assume management of pain care. Functional Status Date Functional Assessmen t No Information Instructions Date Instruction Additional Infor mation No Information Assessments Type Assessment Date No Information Patient Care Teams Name Effective Dates (start - stop) Status Members No Information
--- OUTSIDE RECORDS SUMMARY | 2023-12-15 11:14 | XMS_ITS | Continuity of Care Document ---
Author Organization [facility] enter Address [address] [place] [address] [address] Phone Care Team Providers Care Field Artillery Crewmember Name Role Phone [facility] Unavailable Unava ilable Procedures Procedure Date INTERLAMINAR CRV OR THRC INTERLAMINAR CRV OR THRC Advance Directives Directive Yes / No Effective Date File Name No Information Encounters Encounter Description Practice Location Reason(s) For Visit Diagnoses Date Provider Providers Copied on Encounter [facility], [address] [place] [address], [id number], tel:[phone] [facility] No Information [facility]. [address] [place] [address], [id number], . tel:[phone] Referring Provider: Ibis Jerry, [address] [place], [address] . tel:[phone] Family History Family Member Type Diagnosis Age [...]
--- OUTSIDE RECORDS SUMMARY | 2023-12-15 11:14 | XMS_ITS | Continuity of Care Document ---
Author Organization [facility] Address [address] [place] [address] Care Team Providers Care Field Evidence Technician Name Role Phone Kaden Mckeon CRNA Unavailable Unavailable Procedures Procedure Date Percutaneous Image guided injection, dra nagy, or Advance Directives Directive Yes / No Effective Date File Name No Information Encounters Encounter Description Practice Location Reason(s) For Visit Diagnoses Date Provider Providers Copied on Encounter [facility], [address] [place], [place], [id number], [facility] No Information 3 Mike Alfonso. [address] [place], [place], [id number] , . tel:[phone] Referring Provider: Ibis Jerry, [address] [place], [address] . tel:[phone] Family History Family Member Type Diagnosis Age [...]
--- OUTSIDE RECORDS SUMMARY | 2023-12-15 11:14 | XMS_ITS | Continuity of Care Document ---
Author Organization [facility] Address [address] [place] [address] Phone Care Team Providers Care Solar Field Installation Crew Member Name Role Phone Galen Zhang MD Unavailable [...] Copied on Encounter [facility], [address], [place], [place], [id number] , tel:[phone] [facility] No Information 9 Leatha Aaron. [facility], [address] [place] [address], [facility] [address], [place], [place], [id number], [place]. tel:[phone] Office/Outpa tient Visit,[place], [facility], [address], [place], [place], [id number] , [place] tel:[phone] [facility] Other cervical disc degeneration, cervicothorac ic region 9 Transfeldt Ensor. [facility], [address], [facility] [address], [place], [place], [id number], [place]. tel:[phone] Referring Provider: Alex Cam, [facility] [address] [facility] [facility] [address], [place], [address]. tel:[phone] Family History Family Member Type Diagnosis Age [...]
--- OUTSIDE RECORDS SUMMARY | 2023-12-15 11:14 | XMS_ITS | Continuity of Care Document ---
Author Organization [facility] Address [address] [place] [address] Phone Care Team Providers Care Assistant Professor Of Criminal Justice Name Role Phone Galen Zhang MD Unavailable [...] Copied on Encounter [facility], [address], [place], [place], [id number] , tel:[phone] [facility] No Information 9 Leatha Aaron. [facility], [address] [place] [address], [facility] [address], [place], [place], [id number], [place]. tel:[phone] Office/Outpa tient Visit,[place], [facility], [address], [place], [place], [id number] , [place] tel:[phone] [facility] Other cervical disc degeneration, cervicothorac ic region 9 Transfeldt Ensor. [facility], [address], [facility] [address], [place], [place], [id number], [place]. tel:[phone] Referring Provider: Alex Cam, [facility] [address] [facility] [address], [place], [address]. tel:[phone] Family History Family Member Type Diagnosis Age [...]
--- OUTSIDE RECORDS SUMMARY | 2023-12-15 11:14 | XMS_ITS | Continuity of Care Document ---
Author Organization [facility] enter Address [address] [place] [address] [address] Phone Care Team Providers Care Cuff Setter Lockstitch Name Role Phone [facility] Unavailable Unava ilable Procedures Procedure Date INTERLAMINAR CRV OR THRC INTERLAMINAR CRV OR THRC Advance Directives Directive Yes / No Effective Date File Name No Information Encounters Encounter Description Practice Location Reason(s) For Visit Diagnoses Date Provider Providers Copied on Encounter [facility], [address] [place] [address], [id number], tel:[phone] [facility] No Information [facility]. [address] [place] [address], [id number], . tel:[phone] Referring Provider: Ibis Jerry, [address] [place], [address] . tel:[phone] Family History Family Member Type Diagnosis Age [...]
--- OUTSIDE RECORDS SUMMARY | 2023-12-15 11:14 | XMS_ITS | Continuity of Care Document ---
Author Organization [facility] Address [address] [place] [address] Phone Care Team Providers Care Product Manager Name Role Phone Timmy Severino Unavailable [...] Diagnoses Date Provider Providers Copied on Encounter [facility], [address] [facility] [place], [id number] , [place] tel:[phone] [facility] No Information 3 Yasmeen Warner. [facility], [place], [id number] , [place]. tel:[phone] OFFICE/OUTPAT IENT VISIT, EST [facility], [address] [facility] [facility] [place], [id number] , [place] tel:[phone] [facility] [place] Cervicalgia (chief complaint) Other spondylosis with radiculopathy, cervical regionMyalgia, other siteFibromyalg iaHeadacheOthe r technician terminal and repeater (current) drug therapy 3 Marian Abbie. [address], [place], [id number] , [place]. [phone] Referring Provider: Lyle Hyatt, [address] [place] [address], [id number]. tel:[phone] [facility], [address] [place] [address], [id number] , [place] tel:[phone] [facility] Other spondylosis with radiculopathy, cervical region 3 Claritza Baumann. [address] [place] [address], [id number] , [place]. [phone] Referring Provider: Lyle Hyatt, [address] [place] [address], [id number]. tel:[phone] [facility], [address] [place] [address], [id number] , [place] tel:[phone] [facility] cervicalgia (chief complaint) Other spondylosis with radiculopathy, cervical region 3 Serge Rdz. [address] [place] [address], [id number] , [place]. [phone] Referring Provider: Lyle Hyatt, [address] [place] [address], [id number]. tel:[phone] OFFICE/OUTPAT IENT VISIT, [facility], [address] [place] [address], [id number] , [place] [phone] [facility] Fibromyalgia (chief complaint) Other spondylosis with radiculopathy, cervical regionMyalgia, other siteFibromyalg iaHeadacheOthe r fdc (current) drug therapy 3 Marian Abbie. [address], [place], [id number] , [place]. [phone] Referring Provider: Lyle Hyatt, [address] [place] [address], [id number]. [phone] OFFICE/OUTPAT IENT VISIT, [facility], [address] [place] [address], [id number] , [place] [phone] [facility] Fibromyalgia (chief complaint) Other spondylosis with radiculopathy, cervical regionCervical giaMyalgia, other siteFibromyalg iaOther fdc (current) drug therapyHeadach e 3 Marian Abbie. [id number] [place] [address] [address], [place], [place], [id number] , [place]. tel:[phone] Referring Provider: Lyle Hyatt, [address] [place] [address], [id number]. [phone] OFFICE/OUTPAT IENT VISIT, [facility], [address] [place] [address], [id number] , [phone] [facility] Fibromyalgia (chief complaint) CervicalgiaMya lgia, other siteFibromyalg iaOther fdc (current) drug therapyOther spondylosis with radiculopathy, cervical region 0 [address] [place] [address] [address], [place], [place], [id number] , [place]. tel:[phone] Referring Provider: Lyle Hyatt, [address] [place] [address], [id number]. [phone] OFFICE/OUTPAT IENT VISIT, [facility], [address] [place] [address], [id number] , [place] [phone] [facility] Fibromyalgia (chief complaint) CervicalgiaMya lgia, other siteFibromyalg iaOther fdc (current) drug therapy [address] Marian Abbie. [address] [place] [address] [address], [place], [place], [id number] , [place]. [phone] Referring Provider: Lyle Hyatt, [address] [place] [address], [id number]. [phone] OFFICE/OUTPAT IENT VISIT, [facility], [address] [place] [address], [id number] , [place] [phone] [facility] Fibromyalgia (chief complaint) Myalgia, other siteFibromyalg iaOther fdc (current) [facility] therapyMer[facility] er for therapeutic drug level monitoringCerv icalgia 2 Yasmeen Warner. [facility], [place], [place], [id number] , [place]. tel:[phone] Referring Provider: Malka Arizmendi [facility] [address] [place], [address]. tel:[phone] [facility], [address] [place] [address], [id number] , [place] tel:[phone] [facility] No Information 2 Yasmeen Warner. [address] [place] [address] [address], [place], [place], [id number] , [place]. tel:[phone] [facility], [address] [place] [address], [id number] , [place] tel:[phone] [facility] [place] No Information 1 Yasmeen Warner. [facility] [address], [place], [place], [id number] , [place]. tel:[phone] Referring Provider: Lyle Hyatt, [address] [place] [address], [address]. tel:[phone] OFFICE/OUTPAT IENT VISIT, [facility], [address] [place] [address], [id number] , [place] tel:[phone] [facility] Fibromyalgia (chief complaint) FibromyalgiaMy algia, other siteOther technician terminal and repeater (current) drug therapy 1 Yasmeen Warner. [address] [place] [address] [address], [place], [place], [id number] , [place]. tel:[phone] Referring Provider: Lyle Hyatt, [address] [place] [address], [address]. [phone] OFFICE VISIT, EST TELEMEDICINE [facility], [address] [place] [address], [id number] , [place] [phone] [facility] Fibromyalgia (chief complaint) Myalgia, other siteOther technician terminal and repeater (current) drug therapyFibromy algia [phone] Thompsoncastro Puga. [facility], [address], [place], [address], [place]. tel:[phone] Referring Provider: Lyle Hyatt, [address] [place] [address], [address]. [phone] [facility], [address] [place] [address], [id number] , [place] [phone] [facility] No Information 9 Yasmeen Warner. [address] [place] [address] [address], [place], [id number] , [place]. tel:[phone] OFFICE/OUTPAT IENT VISIT, [facility], [address] [place] [address], [id number] , [place] tel:[phone] [facility] Fibromyalgia (chief complaint) Other technician terminal and repeater (current) drug therapyFibromy algiaChronic pain syndromeMyalgi a, other siteEncounter for therapeutic drug level monitoring 9 Yasmeen Warner. [address] [place] [address] [address], [place], [id number] , [place]. [phone] Referring Provider: Lyle Hyatt, [address] [place] [address], [id number]. [phone] OFFICE/OUTPAT IENT VISIT, [facility], [address] [place] [address], [id number] , [place] [phone] [facility] Fibromyalgia (chief complaint) Chronic pain syndromeFibrom yalgiaOther fdc (current) drug therapy 9 Yasmeen Warner. [address] [place] [address] [address], [place], [id number] , [place]. tel:[phone] Referring Provider: Lyle Hyatt, [address] [place], [address]. tel:[phone] OFFICE/OUTPAT IENT VISIT, EST [facility], [address] [place], [place], [id number] , [place] tel:[phone] [facility] Fibromyalgia (chief complaint) Chronic pain syndromeFibrom yalgiaEncounte r for therapeutic drug level monitoringOthe r fdc (current) drug therapyMyalgia , other siteCervicalgi aLow back pain 9 Yasmeen Warner. [facility] [address], [place], [id number] , [place]. [phone] Referring Provider: [facility]endi [facility] [address], [place], [address]. tel:[phone] [facility], [address] [place] [address], [id number] , [place] [phone] [facility] Fibromyalgia (chief complaint) Chronic pain syndromeFibrom yalgiaPain in right hand 9 Arana Timmy. [address] [place] [address] [address], [place], [id number] , [place]. [phone] Family History Family Member Type Diagnosis Age [...] CE DRUG ANALYSIS, URINE, WITH MED REPORT ([id number]), Ordered on: Ordered Future Order: Lab Order COMPLIAN CE DRUG ANALYSIS, URINE, WITH MED REPORT ([id number]), Ordered on: Ordered Future Order: Lab Order Drug Florina t Def 22+ Classes (G0483), Ordered on: Ordered History Of Present Illness Encounter Date Complaint History Of Prese nt Illness Comments: Grace is a 37 y/o woman here for follow up consult regarding fibromyalgia. Pain has been worse since [place] and pain level averages /10. Patient is [...] discomfort limits showering, dressing, lifting, reaching for systems accountant and daily activity.. Patients goal is to [...] activity. Continues to attend PT /massage at [facility] Clinic. primarily for her neck and [...] activity. Continues to attend PT /massage, in [place], primarily for her neck and [place] hips. Pain has been fluctuating since [facility] and pain level averages 8/10.Reports that [...] Reports worsened neck and back pain since [facility]. Reports that her pain is exacerbated with increased activity. Currently attends PT in [place], primarily for her neck and [place] hips.S/p Botox (?) injection on 12/18/21 at [facility] with increased pain following the injection. Since [facility], patient obtained cervical MRI imaging Continues [...] cannabis. Currently utilizing the red formulation from [employer]. Details feeling high and dizzy, but notes [...] a couple days. Has been working with [facility] and is currently managed on yellow strain [...] and other recommended therapies. She would like [facility] to assume management of pain care. Does report recreational cannabis use a couple weeks ago while traveling with friends in [place] where it is legal. Fibromyalgia Onset occurred [...] consult for fibromyalgia, referred by Dr. Camejo--Douglas [facility]. Her pain began 5 years ago. [...] and other recommended therapies. She would like [facility] to assume management of pain care. Functional Status Date Functional Assessmen t No Information Instructions Date Instruction Additional Infor mation No Information Assessments Type Assessment Date No Information Patient Care Teams Name Effective Dates (start - stop) Status Members No Information
[2023-12-15] MEDS: ONDANSETRON 2 MG/ML inj 4 MG IVP (11:19)
[2023-12-15] MEDS: 0.9 % SODIUM CHLORIDE 500 ML 500 ML IV (11:19)
[2023-12-15] MEDS: KETOROLAC 15 MG/ML inj IVP (11:19)
[2023-12-15 11:28] LABS: Chloride* 104 mmol/L (96-114); Potassium* 3.9 mmol/L (3.6-5.1); Sodium* 138 mmol/L (135-149)
[2023-12-15 11:29] LABS: Basophils Absolute Auto 0.02 K/uL (0.00-0.30); Basophils Percent Auto 0.2 % (0.0-3.0); Eosinophils Absolute Auto 0.14 K/uL (0.00-0.50); Eosinophils Percent Auto 1.7 % (0.0-7.0); Hematocrit 42.5 % (33.0-51.0); Hemoglobin* 14.6 gm/dL (12.0-16.0); Lymphocytes Percent Auto 17.3 % (20-44); Mean Corpuscular HGB Conc 34 gm/dL (32-36); Mean Corpuscular Hemoglobin 31 pg (26-34); Mean Corpuscular Volume 91 fL (80-100); Monocytes Percent Auto 4.1 % (0.0-11.0); Neutrophils Percent Auto 76.7 % (42.0-72.0); Platelet Count* 167 K/uL (140-440); RDW Coefficient of Variation % 11.7 % (11.5-15.5); Red Blood Count 4.65 m/uL (4.00-5.20); White Blood Count* 8.27 K/uL (4.50-11.00)
[2023-12-15 11:31] LABS: Est. Creatinine Clearance* 64.26; Estimated Glomerular Filt Rate 73 ml/min
[2023-12-15 11:32] LABS: Anion Gap 13 mEq/L (7-15); Blood Urea Nitrogen* 16 mg/dL (5-24); Calcium* 9.7 mg/dL (8.4-10.6); Carbon Dioxide* 21 mmol/L (20-32); Glucose* 80 mg/dL (60-115)
[2023-12-15 11:33] LABS: Slide Review Reflex No
[2023-12-15 11:36] LABS: C Reactive Protein* < 0.5 mg/dL (0.5-1.0)
--- NOTE | 2023-12-15 11:59 | ED.GENADULT ---
HPI - General Adult General Date Seen: 12/15/23 Chief complaint: Abdominal Pain Stated complaint: Severe pain LT flank lower abdominal Time Seen by Provider: 12/15/23 10:56 Source: patient, RN notes reviewed and old records reviewed Mode of arrival: ambulatory Limitations: no limitations History of Present Illness HPI narrative: Patient is a 38-year-old woman who comes in for evaluation of left abdominal pain which she says has been there for few weeks kind of on and off but became severe today. She does tell me she has a history of a kidney stone, was seen here previously and had a stone by CT scan. She says that she saw her primary doctor, maybe a referral was placed to Urology but she was under the impression that the stone would pass without needing intervention so she did not ever follow up beyond that. She was prescribed Flomax but she said it gave her migraines so she discontinued that. She has had some frequency and urgency but no dysuria. She has not noticed hematuria. She has not had fevers or chills, she has had some nausea no vomiting. No constipation. History of TAHBSO, denies other abdominal surgeries. She did lose 75 lb over the past year which apparently was related to having previously gained 100 lb being on lithium and undiagnosed hypothyroidism which has now been resolved and the lithium discontinued. No unexpected weight loss. She smokes cigarettes, she uses medical marijuana for chronic pain. She tells me she is no longer on any chronic opioids. Allergies reviewed. Denies other substances aside from prescribed diazepam. Related Data Home Medications ?Medication ?Instructions ?Recorded ?Confirmed estradiol 0.5 mg tablet 0.5 mg PO DAILY 01/09/22 05/28/23 methocarbamol 500 mg tablet 500 mg PO DAILY 01/09/22 05/28/23 canabis 05/12/23 05/28/23 diazepam 5 mg tablet 7.5 mg PO QAM 05/12/23 05/28/23 Previous Rx's ?Medication ?Instructions ?Recorded meclizine 25 mg tablet 25 mg PO QID #20 tabs 05/28/23 oxycodone-acetaminophen 5 mg-325 1 tab PO Q4-6H PRN pain #10 tabs 07/22/23 mg tablet (Percocet) tamsulosin 0.4 mg capsule (Flomax) 0.4 mg PO DAILY #5 caps 05/29/24 amoxicillin 500 mg capsule 1,000 mg (2 x 500 mg) PO Q12H #28 09/04/23 caps doxycycline monohydrate 100 mg 100 mg PO BID #14 caps 09/04/23 capsule tramadol 50 mg tablet 50 mg PO Q6-8H PRN pain #10 tabs 09/04/23 Allergies Allergy/AdvReac Type Severity Reaction Status Date / Time cephalexin [From Keflex] Allergy Mild Hives Verified 05/28/23 14:36 lorazepam Allergy Mild Anxiety Verified 05/28/23 14:36 metoclopramide Allergy Mild Agitation, Verified 05/28/23 14:36 Anxiety clonazepam [From Klonopin] AdvReac Mild Mental Verified 05/28/23 14:36 Status Changes Review of Systems Status of ROS: Reports: 10 or more systems reviewed and unremarkable except as noted in History and below PFSH [facility] Medical History Endometriosis ?N80.9 - Endometriosis, unspecified (ICD-10) Depression ?F32.A - Depression, unspecified (ICD-10) Tobacco dependence ?F17.200 - Nicotine dependence, unspecified, uncomplicated (ICD-10) PTSD (post-traumatic stress disorder) ?F43.10 - Post-traumatic stress disorder, unspecified (ICD-10) Controlled substance agreement signed ?Z79.899 - Other manager long term care (current) drug therapy (ICD-10) De Quervain's disease (tenosynovitis) ?M65.4 - Radial styloid tenosynovitis [de Quervain] (ICD-10) Borderline personality disorder ?F60.3 - Borderline personality disorder (ICD-10) 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 - Lesion of radial nerve, right upper limb (ICD-10) Bipolar 2 disorder ?F31.81 - Bipolar II disorder (ICD-10) Fibromyalgia ?M79.7 - Fibromyalgia (ICD-10) PAC (premature atrial contraction) ?I49.1 - Atrial premature depolarization (ICD-10) Anxiety ?F41.9 - Anxiety disorder, unspecified (ICD-10) Dental caries ?K02.9 - Dental caries, unspecified (ICD-10) Social History Smoking Status: Current some day smoker Do you use any of these nicotine containing products: None and Other How often do you have a drink containing alcohol: never How often do you have six or more drinks on one occasion: Never AUDIT-C Alcohol total score: 0 Non-prescribed substance use: marijuana (any form) service: No Exam Narrative: Exam Narrative: Vital signs as noted above. In general, an alert, well-appearing patient. She looks a little uncomfortable. She is thin, dark circles under her eyes. Head: Normocephalic, atraumatic. Eyes: Pupils are equal reactive. Extraocular movements are full. Conjunctivae are normal. ENT: Mucous membranes are moist. Throat is normal. Neck: Supple without lymphadenopathy. Heart: Regular rate and rhythm. No murmur or rub. Lungs: Clear bilaterally. No increased work of breathing, crackles or wheezes. No CVA tenderness. Abdomen: Soft and nontender. No organomegaly. Extremities: Well perfused. No edema. No calf tenderness. Pulses intact. Neurologic: Patient is alert and oriented to person and place. Speech is fluent. Face is symmetric. Moves all extremities equally. Affect: Normal. Skin: Warm and dry. Well perfused. Const: Vital Signs, click to edit/add: Vital Signs - 24 hr 12/15/23 09:53 Temperature 98.1 F Pulse Rate [Right Pulse Oximeter] 94 Respiratory Rate 18 Blood Pressure [Ri ght Upper Arm] 151/81 H Pulse Oximetry 99 Oxygen Delivery Me thod Room Air Documenting provider has reviewed patient's vital signs: yes Course Course ED Course: An IV was placed, she had Toradol and Zofran as well as 500 mL of normal saline. I ordered labs including a CBC, metabolic panel, CRP, UA. I also ordered a CT scan of the abdomen. Records were reviewed and they looked at her scan from june, at which time she had a 1.1 by 0.5 cm stone at the left UVJ. It is unclear to me what happened here in terms of why she did not have follow-up for removal of that stone, but scan today shows a 1.4 cm stone at the left UVJ which I suspect is the same stone. She has moderate hydronephrosis today. Formal radiology read below. Urinalysis shows 5-10 red cells, no white cells. Her white blood cell count in the serum is normal at 8.3, normal hemoglobin, normal creatinine of 1, GFR 73. CRP is less than 0.5. I do not think she has urinary tract infection. Clearly this stone is going to need instrumentation and she will need urology follow-up I think this can happen safely as an out patient. Symptoms are improved with Toradol and Zofran here. Discussed outpatient follow-up, she is comfortable with that plan. Will prescribe Toradol and Zofran for her, she can continue to use her medical marijuana. She would prefer not to add any other pain medications which I think is reasonable. Discussed reasons to return including severe uncontrolled pain, uncontrolled vomiting, fevers, chills etcetera. Vital Signs Vital signs: Initial Vital Signs Temperature 98.1 F 12/15/23 09:53 Temperature Source Temporal Artery Scan 12/15/23 09:53 Pulse Rate 94 12/15/23 09:53 Respiratory Rate 18 12/15/23 09:53 Blood Pressure 151/81 H 12/15/23 09:53 Blood Pressure Mean 104 12/15/23 09:53 Blood Pressure Position Sitting 12/15/23 09:53 Pulse Oximetry 99 12/15/23 09:53 Oxygen Delivery Method Room Air 12/15/23 09:53 Vital Signs Temperature 98.1 F 12/15/23 09:53 Pulse Rate 94 12/15/23 09:53 Respiratory Rate 18 12/15/23 09:53 Blood Pressure 151/81 H 12/15/23 09:53 Pulse Oximetry 99 12/15/23 09:53 Oxygen Delivery Method Room Air 12/15/23 09:53 Temperature 98.1 F 12/15/23 09:53 Pulse Rate 94 12/15/23 09:53 Respiratory Rate 18 12/15/23 09:53 Blood Pressure 151/81 H 12/15/23 09:53 Pulse Oximetry 99 12/15/23 09:53 Oxygen Delivery Method Room Air 12/15/23 09:53 Medications Administered Medications: Discontinued Medications Generic Name Dose Route Start Last Admin Trade Name Freq PRN Reason Stop Dose Admin Sodium Chloride 500 mls @ 500 mls/hr 12/15/23 11:05 12/15/23 11:53 0.9 % Sodium Chloride 500 Ml IV 12/15/23 12:04 Infused .Q1H ONE Infusion Ketorolac Tromethamine 15 mg 12/15/23 11:05 12/15/23 11:19 Ketorolac 15 Mg/Ml Inj IVP 12/15/23 11:06 15 mg ONCE ONE Administration Ondansetron HCl 4 mg 12/15/23 11:05 12/15/23 11:19 Ondansetron 2 Mg/Ml Inj IVP 12/15/23 11:06 4 mg ONCE ONE Administration Medical Decision Making Lab Data Labs: Lab Results 12/15/23 12/15/23 Range/Units 10:02 11:08 WBC 8.27 (4.50-11.00) K/uL RBC 4.65 (4.00-5.20) m/uL Hgb 14.6 (12.0-16.0) gm/dL Hct 42.5 (33.0-51.0) % MCV 91 (80-100) fL MCH 31 (26-34) pg MCHC 34 (32-36) gm/dL RDW Coeff of [place] 11.7 (11.5-15.5) % Plt Count 167 (140-440) K/uL Neut % (Auto) 76.7 H (42.0-72.0) % Lymph % (Auto) 17.3 L (20-44) % [place] % (Auto) 4.1 (0.0-11.0) % Eos % (Auto) 1.7 (0.0-7.0) % Baso % (Auto) 0.2 (0.0-3.0) % Neut # (Auto) 6.30 (1.7-7.0) K/uL Lymph # (Auto) 1.40 (0.90-2.90) K/uL [place] # (Auto) 0.30 (0.00-0.90) K/UL Eos # (Auto) 0.14 (0.00-0.50) K/uL Baso # (Auto) 0.02 (0.00-0.30) K/uL Abs Immat Gran (auto) 0.00 (0.00-0.30) K/uL Imm/Tot Granulo (auto) 0.0 % Sodium 138 (135-149) mmol/L Potassium 3.9 (3.6-5.1) mmol/L Chloride 104 (96-114) mmol/L Carbon Dioxide 21 (20-32) mmol/L Anion Gap 13 (7-15) mEq/L BUN 16 (5-24) mg/dL Creatinine 1.0 (0.5-1.5) mg/dL Estimated Creat Clear 64.26 Estimated GFR 73 ml/min Glucose 80 (60-115) mg/dL Calcium 9.7 (8.4-10.6) mg/dL C-Reactive Protein < 0.5 L (0.5-1.0) mg/dL Urine Color Yellow (Yellow) Urine Appearance Clear (Clear) Urine pH 5.5 (5.0-8.5) Ur Specific [place] 1.025 (1.000-1.030) Urine Protein 1+ A (Negative) Urine Glucose (UA) Negative (Negative) Urine Ketones 3+ A (Negative) Urine Blood 2+ A (Negative) Urine Nitrite Negative (Negative) Urine Bilirubin 1+ A (Negative) Urine Urobilinogen 0.2 (0.2-1.0) Ur Leukocyte Esterase Negative (Negative) Urine RBC 5-10 A (0-2) Urine WBC 0-2 (0-5) Ur Squamous Epith Cells Few (None-Few) Other Sediment FEW (None) Urine Bacteria Few A (None) Urine Mucus Few A (None) Urine HCG, Qual Negative (Negative) Imaging Data CT scan - abdomen: Radiologist's impression: Patient: Grace Felix MR#: [id number] : 1985 Acct:[id number] Loc: ED Service Date: 12/15/[address]: Ordering Physician: Gisel Maldonado M.D. Date of Service: 12/15/23 Procedure(s): CT abdomen pelvis wo [facility] Accession Number(s): [id number] cc: Gisel Maldonado M.D.; Malka Arizmendi D.O.~ For Patients: As a result of the Century Cures Act, medical imaging exams and procedure reports are released immediately into your electronic medical record. You may view this report before your referring provider. If you have questions, please contact your health care provider. Indication: LT ABD PAIN HEMATURIA Technique: CT abdomen/pelvis without IV contrast Comparison: CT abdomen/pelvis on September 16, 2017 Findings: Lower thorax: Trace pericardial effusion, unchanged. The lungs are clear. Abdomen/pelvis: Small region of decreased attenuation seen in the liver along the falciform ligament, likely focal steatosis; otherwise, no suspicious hepatic lesions. The gallbladder and biliary system are unremarkable. The spleen, pancreas, and adrenal glands are unremarkable in appearance. There is a large 1.4 centimeter stone seen in the bladder near the left ureterovesicular junction causing moderate left-sided hydroureteronephrosis. There is a relatively well-circumscribed hyperattenuating, round lesion seen at the upper pole of the left kidney measuring approximately 1.1 centimeters, incompletely assessed on this exam, but favored to represent a hemorrhagic cyst. The right kidney and ureter are unremarkable in appearance. Postsurgical changes of hysterectomy. No suspicious adnexal lesions. No evidence of bowel obstruction or inflammation. The appendix is normal. No free fluid or free air. No abdominopelvic lymphadenopathy. Vasculature is unremarkable. Soft tissue/musculoskeletal: Tiny fat containing umbilical hernia. The osseous structures are unremarkable. Impression: 1. Large 1.4 centimeter stone seen in the bladder near the left ureterovesicular junction causing moderate left-sided hydroureteronephrosis. 2. Relatively well-circumscribed hyperattenuating, round lesion seen at the upper pole of the left kidney measuring approximately 1.1 centimeters, incompletely assessed on this exam, but favored to represent a hemorrhagic cyst. Please note that all CT scans at this facility use dose modulation, iterative reconstruction, and/or weight-based dosing when appropriate to reduce radiation dose to as low as reasonably achievable. Dictated by Bishnu Mireles MD @ 12/15/2023 11:47:32 AM Discharge Plan Discharge Clinical Impression: Left ureteral calculus, Hydronephrosis Patient Disposition: Home, Self-Care Condition: Improved Instructions: Hydronephrosis (ED), Ureteral Stones (ED) Additional Instructions: Toradol as prescribed. Zofran if needed for nausea. You can also use or medical marijuana as needed for pain. You will need urology follow-up as an outpatient for treatment of this stone as it is too large to pass on its own. If at any time you have severe uncontrolled pain, uncontrolled vomiting, fevers, chills, or other worsening, return to the emergency department. Your kidney function today is normal, your creatinine is 1.0 and your GFR is 73. Prescriptions: No Action methocarbamol 500 mg tablet 500 mg PO DAILY Patient Comments: TAKE 1 TABLET BY MOUTH TWICE DAILY NEEDED estradiol 0.5 mg tablet 0.5 mg PO DAILY diazepam 5 mg tablet 7.5 mg PO QAM (DME) canabis 0 .ROUTE .MEDSUPPLY tamsulosin [Flomax] 0.4 mg capsule 0.4 mg PO DAILY Qty: 5 0RF oxycodone-acetaminophen [Percocet] 5-325 mg tablet 1 tab PO Q4-6H PRN (Reason: pain) Qty: 10 0RF doxycycline monohydrate 100 mg capsule 100 mg PO BID Qty: 14 0RF amoxicillin 500 mg capsule 1,000 mg PO Q12H Qty: 28 0RF tramadol 50 mg tablet 50 mg PO Q6-8H PRN (Reason: pain) Qty: 10 0RF meclizine 25 mg tablet 25 mg PO QID Qty: 20 0RF Follow Up/Referrals: Malka Arizmendi DO [Primary Care Provider] - Stand Alone Forms: MyHealth Info Instructions
== END 2023-12-15 12:40 | disposition home or self-care (01) ==
PROVIDERS: Emergency Provider Emergency Medicine; PCP Family Medicine
DX: N20.1 Calculus of ureter (principal); N13.30 Unspecified hydronephrosis
CPT/HCPCS: 36415; 74176; 80048; 81001; 81025; 85025; 86140; 87086; 96374; 96375; 99284; J1885; J2405; J7030

== ENCOUNTER 2023-12-21 11:04 | Outpatient (CLI) | payer OTHER, SELFPAY ==
--- OUTSIDE RECORDS SUMMARY | 2023-12-24 14:26 | XMS_ITS | Continuity of Care Document ---
Author Organization [facility] Address [address] [place] [address] Care Team Providers Care Analytical Lead Name Role Phone Kaden Mckeon CRNA Unavailable Unavailable Procedures Procedure Date Percutaneous Image guided injection, dra nagy, or Advance Directives Directive Yes / No Effective Date File Name No Information Encounters Encounter Description Practice Location Reason(s) For Visit Diagnoses Date Provider Providers Copied on Encounter [facility], [address] [place], [place], [id number], [facility] No Information 3 Mike Alfonso. [address] [place], [place], [id number] , . tel:[phone] Referring Provider: Ibis Jerry, [address] [place], [address] . tel:[phone] Family History Family Member Type Diagnosis Age [...]
--- OUTSIDE RECORDS SUMMARY | 2023-12-24 14:26 | XMS_ITS | Clinical Summary ---
Author Organization [facility] Address [place], [place] [address] Care Team Providers Care Enrollment Nurse Name Role Phone Malka Arizmendi DO Primary Care Provider [phone] Allergies Active Allergy Reactions Criticality Noted Date [...] Urine creatinine clearance normal. 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 103 02/2021 Placenta previa 02/03/2013 12/06/2014 Overview (02/03/2013): 2009 Encounters Date Type Department Care Team Description 12/23/2023 Travel 12/21/2023 Orders Only [facility] Scanner 1 scan: (1-Ord) [facility], CHEST 1V, 12/21/2023 12/21/2023 Patient Outreach [facility] [address] [place] [address] Gertrudis Chavira, RN Primary RN Care Management; Hospital F/U (LACE 43) 12/19/2023 10:39 AM CDT Anesthesia Event [facility] [address] [place] [address] Alvaro Red MD 12/19/2023 9:15 AM CDT - 12/19/2023 10:41 AM CDT Surgery [facility] [address] [place] [address] Srikanth Parks MD CYSTOSCOPY LEFT URETEROSCOPY HOLMIUM LASER LITHOTRIPSY, LASER INCISION OF A URETEROCELE. 12/18/2023 11:27 AM CDT - 12/19/2023 4:50 PM CDT Emergency [facility] [address] [place] [address] Saskia Steen MD [facility] Alexa Perez NP Rosonke, Brooke Renae, MD Ureterolithiasis (Primary Dx); Hydronephrosis, unspecified hydronephrosis type; Constipation, unspecified constipation type; COPD, mild (HC); Tobacco dependence Discharge Disposition: Home Self Care 12/18/2023 Travel 12/15/2023 Orders Only [facility] Scanner 1 scan: (1-Ord) [facility], CT ABDOMEN PELVIS WO CON, [...] st Contact Info) Description 12/29/2023 1:05 PM LOBBY CONCIERGE Telemedicine [facility] [address] [place] [address] Malka Arizmendi DO [address] [place] [address] Health Maintenance Due Date Last Done Comments [...] 10/23/2027 10/22/2017, 02/23, 09/23/2009 (Completed outside of [facility]) Tdap Completed 10/22/2017, 03/04/2014 HIV for age 15-65 Completed 03/14/2023 Hepatitis C screening for ag e 18-79 Completed 03/14/2023 Medical Devices Implanted Type Area Awning Hanger Device Identifier Shelf Expiration Date Model / Serial / Lot Guide Nerve [id number] Repair Device - [id number] Implanted:Qty: 1 on 01/19/2018 by Clint Montalvo MD at [facility] Right: Wrist [employer] Wendy 01/22/2018 [id number] / / [id number] Stent Uret [id number] Contour - [id number] Implanted:Qty: 1 on 12/19/2023 by Srikanth Parks MD at [facility] Left: Ureter [facility] 06/25/2026 [id number] / / [id number] Procedures Procedure Name Priority Date/Time Associated Diagnosis Comments SCAN-RADIOLOGY REPORT 12/21/2023 12:00 AM CDT EKG 12 LEAD Routine 12/19/2023 1:22 PM [...] PER CRITERIA STAT 12/18/2023 11:59 AM CDT SCAN-CARDIAC STRIP 12/18/2023 12:00 AM CDT SCAN-CT INTERPRETATION 12/15/2023 12:00 AM CDT ANTI HIV 1/2 Routine 03/14/2023 11:05 AM LOBBY CONCIERGE Screening for HIV (human immunodeficiency virus) ANTI HCV Routine 03/14/2023 11:05 AM LOBBY CONCIERGE Need for hepatitis C screening test from Last 3 Months or Most Recently Relevant to Health Maintenance Results * SCAN-RADIOLOGY REPORT (12/21/2023 12:00 AM CDT) Anatomical Region Laterality Modality Other Scanner OTHER * XR RETROGRADE PYELOGRAM W/WO KUB (12/19/2023 11:59 AM CDT) Anatomical Region Laterality Modality KIDNEYS, Abdomen Digital Radiogr aphy Narrative 12/19/2023 12:01 PM CDT 18 seconds fluoroscopy time was provided. ??See operative/procedure report for further information. Srikanth Parks MD GENERAL IM AGING * HCHG TUBE PR1, HCHG STYLET PR1 (12/19/2023 10:57 AM CDT) Narrative Nimesh Zuñiga MONOLOGIST - 12/19/2023 10:57 AM CDT Nimesh Zuñiga [...] >90 mL/min/1.7 3m2 12/19/2023 5:36 AM CDT [facility] Comment:As of 2021, eG FR is calculated by the CKD-EPI creatinine equation without race adjustment. ??eGFR can be influenced by muscle mass, exercise, and diet. ??The reported eGFR is an estimation only and is only applicable if the renal function is stable. CREATININE 1.43(H) 0.50 - 0.90 mg/dL 12/19/2023 5:36 AM CDT [facility] Blood BLOOD SPECIMEN / Unknown Venipuncture / Unknown 12/19/2023 4:45 AM CDT 12/19/2023 5:03 AM CDT Alexa Perez BLENDER LABORER CHEMISTRY [facility] [address] [place] [address], [place] * SCAN CORRESP-IMAGING (12/18/2023 2:54 PM [...] For Patients: ??As a result of the 21st Century Cures Act, medical imaging exams and [...] 11.0 thou/cu mm 12/18/2023 12:29 PM CDT [facility] RED BLOOD COUNT 4.32 4.00 - 5.20 mil/cu mm 12/18/2023 12:29 PM CDT [facility] HEMOGLOBIN 13.9 12.0 - 16.0 g/dL 12/18/2023 12:29 PM CDT [facility] HEMATOCRIT 39.3 33.0 - 51.0 % 12/18/2023 12:29 PM CDT [facility] MCV 91 80 - 100 fL 12/18/2023 12:29 PM CDT [facility] MCH 32.2 26.0 - 34.0 pg 12/18/2023 12:29 PM CDT [facility] MCHC 35.4 32.0 - 36.0 g/dL 12/18/2023 12:29 PM CDT [facility] RDW 11.6 11.5 - 15.5 % 12/18/2023 12:29 PM CDT [facility] PLATELET COUNT 157 140 - 440 thou/cu mm 12/18/2023 12:29 PM CDT [facility] MPV 10.2 6.5 - 11.0 fL 12/18/2023 12:29 PM CDT [facility] NRBC 0.0 % 12/18/2023 12:29 PM CDT [facility] ABS NRBC 0.0 thou /cu mm 12/18/2023 12:29 PM CDT [facility] Blood BLOOD SPECIMEN / Unknown Venipuncture / Unknown 12/18/2023 12:10 PM CDT 12/18/2023 12:19 PM CDT Saskia Steen MD HEMATOLOGY [facility] [address] [place] [address], * (ABNORMAL) BASIC METABOLIC PANEL (12/18/2023 12:10 PM CDT) SODIUM 141 136 - 145 mmol/L 12/18/2023 12:48 PM CDT [facility] POTASSIUM 4.0 3.5 - 5.1 mmol/L 12/18/2023 12:48 PM CDT [facility] CHLORIDE 106 98 - 107 mmol/L 12/18/2023 12:48 PM CDT [facility] CO2,TOTAL 23 22 - 29 mmol/L 12/18/2023 12:48 PM CDT [facility] ANION GAP 12 5 - 18 12/18/2023 12:48 PM CDT [facility] GLUCOSE 92 70 - 99 mg/dL 12/18/2023 12:48 PM CDT [facility] CALCIUM 9.3 8.6 - 10.0 mg/dL 12/18/2023 12:48 PM CDT [facility] BUN 9 6 - 20 mg/dL 12/18/2023 12:48 PM CDT [facility] CREATININE 1.40(H) 0.50 - 0.90 mg/dL 12/18/2023 12:48 PM CDT [facility] BUN/CREAT RATIO 6(L) 10 - 20 12:48 PM CDT [facility] eGFR 49(L) >90 mL/min/1.7 3m2 12/18/2023 12:48 PM CDT [facility] Comment:As of 2021, [...] 12:19 PM CDT Saskia Steen MD CHEMISTRY [facility] [address] [place] [address], * (ABNORMAL) URINALYSIS MICROSCOPIC (12/18/2023 11:59 AM CDT) RBC 3-5(A) 0-2, None Seen /HPF 12/18/2023 12:27 PM CDT [facility] WBC 3-5 0-2, 3-5, None Seen /HPF 12/18/2023 12:27 PM CDT [facility] BACTERIA Few None Seen, Rare, Few Bacteria/H PF 12/18/2023 12:27 PM CDT [facility] EPITHELIAL CELLS Few None Seen, Few Epi/HPF 12/18/2023 12:27 PM CDT [facility] HYALINE CASTS 0-2 0-2, 3-5 /LPF 12/18/2023 12:27 PM CDT [facility] Urine URINE SPECIMEN / Unknown Non-Blood / Unknown 12/18/2023 11:59 AM CDT 12/18/2023 12:08 PM CDT Saskia Steen MD URINE [facility] [address] [place] [address], * (ABNORMAL) UA W/ SEDIMENT EXAM REFLEXED PER CRITERIA (12/18/2023 11:59 AM CDT) COLOR Yellow Yellow Color 12/18/2023 12:27 PM CDT [facility] CLARITY Clear Clear Clarity 12/18/2023 12:27 PM CDT [facility] SPECIFIC GRAVITY,URINE 1.020 1.010, 1.015, 1.020, 1.025 12/18/2023 12:27 PM CDT [facility] PH,URINE 5.5 6.0, 7.0, 8.0, 5.5, 6.5, 7.5, 8.5 12/18/2023 12:27 PM CDT [facility] UROBILINOGEN, QUALITATIVE Normal Normal EU/dl 12/18/2023 12:27 PM CDT [facility] PROTEIN, URINE 30(A) Negative mg/dL 12/18/2023 12:27 PM CDT [facility] GLUCOSE, URINE Negative Negative mg/dL 12/18/2023 12:27 PM CDT [facility] KETONES,URINE Trace(A) Negative mg/dL 12/18/2023 12:27 PM CDT [facility] BILIRUBIN,URI NE Negative Negative 12/18/2023 12:27 PM CDT [facility] OCCULT BLOOD,URINE Negative Negative 12/18/2023 12:27 PM CDT [facility] NITRITE Negative Negative 12/18/2023 12:27 PM CDT [facility] LEUKOCYTE ESTERASE Trace(A) Negative 12/18/2023 12:27 PM CDT [facility] Urine URINE SPECIMEN / Unknown Non-Blood / Unknown 12/18/2023 11:59 AM CDT 12/18/2023 12:08 PM CDT Saskia Steen MD URINE Performing Organization Address [facility] Co de Phone Number [facility] [address] [place] [address], * SCAN-CARDIAC STRIP (12/18/2023 12:00 AM CDT) Narrative 12/18/2023 12:00 AM CDT Ordered by an unspecified provider. Other Clinical Staff OTHER * SCAN-CT INTERPRETATION (12/15/2023 12:00 AM CDT) Anatomical Region Laterality Modality Other Scanner OTHER * ANTI HCV (03/14/2023 11:05 AM LOBBY CONCIERGE) HEPATITIS C ANTIBODY Non-Reacti ve Non-React ari 03/15/2023 2:57 PM LOBBY CONCIERGE [facility] Comment:Please note, per [...] Unknown Butterfly / Unknown 03/14/2023 11:05 AM LOBBY CONCIERGE 03/14/2023 11:07 AM LOBBY CONCIERGE Malka Arizmendi DO SEND OUTS Performing Organization Address City/[facility]/ZIP Co de Phone Number [facility] [address] [place] [address], * ANTI HIV 1/2 [88341.0] (03/14/2023 11:05 AM LOBBY CONCIERGE) HIV-1/HIV-2 SCREEN Non-Reacti ve Non-Reacti ve 03/15/2023 2:57 PM LOBBY CONCIERGE [facility] Comment:HIV-1 p24 and HIV-1/ HIV-2 Ab Not Detected. Blood BLOOD SPECIMEN / Unknown Butterfly / Unknown 03/14/2023 11:05 AM LOBBY CONCIERGE 03/14/2023 11:07 AM LOBBY CONCIERGE Malka Arizmendi DO SEND OUTS [facility] [address] [place] [address], from Last 3 Months or Most Recently [...] 8:57 AM 03/06/2007 1:54 AM Care Teams Enrollment Nurse Relationship Specialty Start Date End Date Malka Arizmendi DO [address] [place] [address] PCP - General Family Practice 10/10/13
--- OUTSIDE RECORDS SUMMARY | 2023-12-24 14:26 | XMS_ITS | Continuity of Care Document ---
Author Organization [facility] enter Address [address] [place] [address] [address] Phone Care Team Providers Care Early Childhood Director Name Role Phone [facility] Unavailable Unava ilable Procedures Procedure Date INTERLAMINAR CRV OR THRC INTERLAMINAR CRV OR THRC Advance Directives Directive Yes / No Effective Date File Name No Information Encounters Encounter Description Practice Location Reason(s) For Visit Diagnoses Date Provider Providers Copied on Encounter [facility], [address] [place] [address], [id number], tel:[phone] [facility] No Information [facility]. [address] [place] [address], [id number], . tel:[phone] Referring Provider: Ibis Jerry, [address] [place], [address] . tel:[phone] Family History Family Member Type Diagnosis Age [...]
--- OUTSIDE RECORDS SUMMARY | 2023-12-24 14:26 | XMS_ITS | Continuity of Care Document ---
Author Organization 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, [address] [place], [id number] , [place] tel:[phone] [facility] No Information 3 Yasmeen Warner. [employer], [place], [id number] , [place]. tel:[phone] OFFICE/OUTPAT IENT VISIT, EST [facility], [address] [facility] [address] [place]u [place], [id number] , [place] tel:[phone] [facility] [place] Cervicalgia (chief complaint) Other spondylosis with radiculopathy, cervical regionMyalgia, other siteFibromyalg iaHeadacheOthe r rodent exterminator (current) drug therapy 3 Marian Abbie. [address], [place], [id number] , [place]. [phone] Referring Provider: Lyle Hyatt, [address] [place] [address], [id number]. tel:[phone] [facility], [address] [place] [address], [id number] , [place] tel:[phone] [facility] Other spondylosis with radiculopathy, cervical region 3 Claritza Baumann. [address] [place] [address], [id number] , [place]. [phone] Referring Provider: Lyle Hyatt, [address] [place] [address], [address]. tel:[phone] [facility], [address] [place] [address], [id number] , [place] tel:[phone] [facility] cervicalgia (chief complaint) Other spondylosis with radiculopathy, cervical region 3 Serge Rdz. [address] [place] [address], [id number] , [place]. [phone] Referring Provider: Lyle Hyatt, [address] [place] [address], [address]. tel:[phone] OFFICE/OUTPAT IENT VISIT, [facility], [address] [place] [address], [id number] , [place] [phone] [facility] Fibromyalgia (chief complaint) Other spondylosis with radiculopathy, cervical regionMyalgia, other siteFibromyalg iaHeadacheOthe r group home (current) drug therapy 3 Marian Abbie. [address], [place], [id number] , [place]. [phone] Referring Provider: Lyle Hyatt, [address] [place] [address], [address]. [phone] OFFICE/OUTPAT IENT VISIT, [facility], [address] [place] [address], [id number] , [place] [phone] [facility] Fibromyalgia (chief complaint) Other spondylosis with radiculopathy, cervical regionCervical giaMyalgia, other siteFibromyalg iaOther group home (current) drug therapyHeadach e 3 Marian Abbie. [address] [place] [address] [address], [place], [place], [id number] , [place]. tel:[phone] Referring Provider: Lyle Hyatt, [address] [place] [address], [address]. [phone] OFFICE/OUTPAT IENT VISIT, [facility], [address] [place] [address], [id number] , [phone] [facility] Fibromyalgia (chief complaint) CervicalgiaMya lgia, other siteFibromyalg iaOther group home (current) drug therapyOther spondylosis with radiculopathy, cervical region 0 [id number] [place] [address] [address], [place], [place], [id number] , [place]. tel:[phone] Referring Provider: Lyle Hyatt, [address] [place] [address], [address]. [phone] OFFICE/OUTPAT IENT VISIT, [facility], [address] [place] [address], [id number] , [place] [phone] [facility] Fibromyalgia (chief complaint) CervicalgiaMya lgia, other siteFibromyalg iaOther group home (current) drug therapy [address] [place] [address] [address], [place], [place], [id number] , [place]. [phone] Referring Provider: Lyle Hyatt, [address] [place] [address], [address]. [phone] OFFICE/OUTPAT IENT VISIT, [facility], [address] [place] [address], [id number] , [place] [phone] [facility] Fibromyalgia (chief complaint) Myalgia, other siteFibromyalg iaOther group home (current) [facility] er for therapeutic drug level monitoringCerv icalgia 2 Yasmeen Warner. [employer], [place], [place], [id number] , [place]. tel:[phone] Referring Provider: Malka Arizmendi [facility] [address] [place], [address]. tel:[phone] [facility], [address] [place] [address], [id number] , [place] tel:[phone] [facility] No Information 2 Yasmeen Warner. [address] [place] [address] [address], [place], [place], [id number] , [place]. tel:[phone] [facility], [address] [place] [address], [id number] , [place] tel:[phone] [facility] [place] No Information 1 Yasmeen Warner. [employer] [address], [place], [place], [id number] , [place]. tel:[phone] Referring Provider: Lyle Hyatt, [address] [place] [address], [address]. tel:[phone] OFFICE/OUTPAT IENT VISIT, [facility], [address] [place] [address], [id number] , [place] tel:[phone] [facility] Fibromyalgia (chief complaint) FibromyalgiaMy algia, other siteOther rodent exterminator (current) drug therapy 1 Yasmeen Warner. [address] [place] [address] [address], [place], [place], [id number] , [place]. tel:[phone] Referring Provider: Lyle Hyatt, [address] [place] [address], [address]. [phone] OFFICE VISIT, EST TELEMEDICINE [facility], [address] [place] [address], [id number] , [place] [phone] [facility] Fibromyalgia (chief complaint) Myalgia, other siteOther rodent exterminator (current) drug therapyFibromy algia [phone] [place]. [facility], [address], [place], [address], [place]. tel:[phone] Referring Provider: Lyle Hyatt, [address] [place] [address], [address]. [phone] [facility], [address] [place] [address], [id number] , [place] [phone] [facility] No Information 9 Yasmeen Warner. [address] [place] [address] [address], [place], [id number] , [place]. tel:[phone] OFFICE/OUTPAT IENT VISIT, [facility], [address] [place] [address], [id number] , [place] tel:[phone] [facility] Fibromyalgia (chief complaint) Other rodent exterminator (current) drug therapyFibromy algiaChronic pain syndromeMyalgi a, other siteEncounter for therapeutic drug level monitoring 9 Yasmeen Warner. [address] [place] [address] [address], [place], [id number] , [place]. [phone] Referring Provider: Lyle Hyatt, [address] [place] [address], [address]. [phone] OFFICE/OUTPAT IENT VISIT, [facility], [address] [place] [address], [id number] , [place] [phone] [facility] Fibromyalgia (chief complaint) Chronic pain syndromeFibrom yalgiaOther group home (current) drug therapy 9 Yasmeen Warner. [address] [place] [address] [address], [place], [id number] , [place]. tel:[phone] Referring Provider: Lyle Hyatt, [address] [place], [address]. tel:[phone] OFFICE/OUTPAT IENT VISIT, EST [facility], [address] [place], [place], [id number] , [place] tel:[phone] [facility] Fibromyalgia (chief complaint) Chronic pain syndromeFibrom yalgiaEncounte r for therapeutic drug level monitoringOthe r group home (current) drug therapyMyalgia , other siteCervicalgi aLow back pain 9 Yasmeen Warner. [employer] [facility] [address], [place], [id number] , [place]. [phone] Referring Provider: Malka Arizmendi [facility] [address], [place], [address]. tel:[phone] [facility], [address] [place] [address], [id number] , [place] [phone] [facility] Fibromyalgia (chief complaint) Chronic pain syndromeFibrom yalgiaPain in right hand 9 Arana Timmy. [address] [place] [address] [address], [place], [id number] , [place]. 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 Patients goal is to [...] activity. Continues to attend PT /massage at [facility]. primarily for her neck [...] activity. Continues to attend PT /massage, in [place], primarily for her neck and [place] hips. Pain has been fluctuating since [facility] and pain level averages 8/10.Reports that she [...] Reports worsened neck and back pain since [facility]. Reports that her pain is exacerbated with increased activity. Currently attends PT in [place], primarily for her neck and [place] hips.S/p Botox (?) injection on 12/18/21 at [facility] with increased pain following the injection. Since [facility], patient obtained cervical MRI imaging Continues to [...] cannabis. Currently utilizing the red formulation from [employer]. Details feeling high and dizzy, but notes [...] a couple days. Has been working with [facility] and is currently managed on yellow strain [...] and other recommended therapies. She would like [facility] to assume management of pain care. [...] consult for fibromyalgia, referred by Dr. Camejo[facility]. Her pain began 5 years ago. Has [...] and other recommended therapies. She would like [facility] to assume management of pain care. Functional Status Date Functional Assessmen t No Information Instructions Date Instruction Additional Infor mation No Information Assessments Type Assessment Date No Information Patient Care Teams Name Effective Dates (start - stop) Status Members No Information
--- OUTSIDE RECORDS SUMMARY | 2023-12-24 14:26 | XMS_ITS | Continuity of Care Document ---
Author Organization [facility] Address [address] [place] [address] Phone Care Team Providers Care Sharemilker Name Role Phone Galen Zhang MD Unavailable [...] Copied on Encounter [facility], [address], [place], [place], [id number] , tel:[phone] [facility] No Information 9 Leatha Aaron. [facility], [address] [place] [address], [facility] [address], [place], [place], [id number], [place]. tel:[phone] Office/Outpa tient Visit,New, [facility], [address], [place], [place], [id number] , [place] tel:[phone] [facility] Other cervical disc degeneration, cervicothorac ic region 9 Transfeldt Ensor. [facility], [address], [facility] [address], [place], [place], [id number], [place]. tel:[phone] Referring Provider: Alex Cam, [facility] [address], [place], [address]. tel:[phone] Family History Family Member Type Diagnosis Age [...]
== END 2023-12-21 11:05 | disposition home or self-care (01) ==
LOC: AMB 12-24 14:25
PROVIDERS: PCP Family Medicine; Visit Provider Family Medicine
DX: R07.9 Chest pain, unspecified (principal)
CPT/HCPCS: A0425; A0427

== ENCOUNTER 2023-12-21 11:29 | Emergency (ER) | payer OTHER, SELFPAY ==
[2023-12-21] VITALS (19 sets, daily range): BP systolic 96–118; BP diastolic 53–67; PULSE 49–64; RESP 18; TEMP 36.6; O2SAT 97–100; BMI 17.8
--- OUTSIDE RECORDS SUMMARY | 2023-12-21 11:31 | XMS_ITS | Continuity of Care Document ---
Author Organization [facility] enter Address [address] [place] [address] [address] Phone Care Team Providers Care Project Inspector Name Role Phone [facility] Unavailable Unava ilable Procedures Procedure Date INTERLAMINAR CRV OR THRC INTERLAMINAR CRV OR THRC Advance Directives Directive Yes / No Effective Date File Name No Information Encounters Encounter Description Practice Location Reason(s) For Visit Diagnoses Date Provider Providers Copied on Encounter [facility], [address] [place] [address], [id number], tel:[phone] [facility] No Information [facility]. [address] [place] [address], [id number], . tel:[phone] Referring Provider: Ibis Jerry, [address] [place], [address] . tel:[phone] Family History Family Member Type Diagnosis Age [...]
--- OUTSIDE RECORDS SUMMARY | 2023-12-21 11:31 | XMS_ITS | Continuity of Care Document ---
Author Organization [facility] Address [address] [place] [address] Care Team Providers Care Professor Of Psychiatry Name Role Phone Kaden Mckeon CRNA Unavailable Unavailable Procedures Procedure Date Percutaneous Image guided injection, dra nagy, or Advance Directives Directive Yes / No Effective Date File Name No Information Encounters Encounter Description Practice Location Reason(s) For Visit Diagnoses Date Provider Providers Copied on Encounter [facility], [address] [place], [place], [id number], [facility] No Information 3 Mike Alfonso. [address] [place], [place], [id number] , . tel:[phone] Referring Provider: Ibis Jerry, [address] [place], [address] . tel:[phone] Family History Family Member Type Diagnosis Age [...]
--- OUTSIDE RECORDS SUMMARY | 2023-12-21 11:31 | XMS_ITS | Clinical Summary ---
Author Organization [employer] [facility] & [facility] Address [place], [place] [address] Care Team Providers Care Manager Configuration Name Role Phone Malka Arizmendi DO Primary Care Provider [phone] Allergies Active Allergy Reactions Criticality Noted Date Comments Lorazepam Mental Status Change 01/18/2014 Gabapentin Other - Describe In Comment Field Foggy Cephalexin Hives 03/14/2017 Clonazepam Mental Status Change 01/18/2014 Metoclopramide Agitation,Anxiety,Mental Status Change 03/31/2019 Medications Medication Sig Dispensed Refills Start Date End Date Status EPINEPHrine (EPIPEN) 0.3 mg/0.3 mL injectionIndicat ions:Allergic reaction, subsequent encounter Inject 0.3 mg intramuscular one time if needed for Allergic Reaction for up to 1 dose. 2 Each 8 Active multivitamin (MVI) tablet Take 1 tablet by mouth once daily. 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 15 g 3 2 Active ketorolac (TORADOL) 10 mg tablet Take 10 mg by mouth every 6 hours if needed for Pain. Maximum of 40 mg in 24 hours. Active ibuprofen (ADVIL; MOTRIN) 200 mg tablet Take 400 mg by mouth every 6 hours if needed. Active Patients Unique Medication From Home Take 1 Tablet by mouth once daily. [employer] Beauty. Contains Biotic 2500 mcg, ascorbic acid 15 mg, Vitamin E 7.5 mg, Keratin 50 mg. Active Patients Unique Medication From Home Take 1 Tablet by mouth once daily. Onel Stress. Contains: REGINE (gamma-aminobutyr ic acid) 100 mg, lemon balm extract 75 mg, L-Theanine 50 mg. Active Patients Unique Medication From Home Take 1 Tablet by mouth once daily. Onel Happy. Contains: Vitamin D 2,000 IU, saffron extract 30 mg. Active fluticasone propion-salmeter oL (ADVAIR) 250-50 mcg/Dose diskus inhaler Inhale 1 Puff by mouth once daily. Active tamsulosin (FLOMAX) 0.4 mg capsuleIndicatio ns:Ureterolithia sis Take 1 Capsule (0.4 mg) by mouth once daily after a meal. 30 Capsule 4 Active HYDROcodone-acet aminophen (VICODIN) (5-300 mg/tablet)Indica tions:Ureterolit hiasis Take 1 Tablet by mouth every 4 hours if needed for Pain. Max acetaminophen dose: 4000mg in 24 hrs. 16 Tablet 4 Active phenazopyridine (PYRIDIUM) 200 mg tabletIndication s:Ureterolithias is Take 1 Tablet (200 mg) by mouth three times daily after meals for 5 days. 15 Tablet 4 12/24/19 24 Active acetaminophen (TYLENOL) 325 mg tabletIndication s:Ureterolithias is Take 2 Tablets (650 mg) by mouth every 6 hours. Max acetaminophen dose: 4000mg in 24 hrs. 4 Active polyethylene glycol (MIRALAX; GLYCOLAX) 17 g per packet packetIndication s:Constipation, unspecified constipation type Take 17 g by mouth or nasogastric tube once daily if needed for Constipation. 4 Active sennosides (SENNA) 8.6 mg tabletIndication s:Constipation, unspecified constipation type Take 1-2 Tablets (8.6-17.2 mg) by mouth 2 times daily if needed for Constipation. 4 Active fluticasone propion-salmeter oL (ADVAIR) 250-50 mcg/Dose diskus inhalerIndicatio ns:COPD, mild (HC) Inhale 1 Puff by mouth two times daily. 4 Active lidocaine 4 % topical patchIndications :Ureterolithiasi s Apply to intact skin to cover most painful area for max 12hr per 24hr period. 6 Patch 4 Active nicotine 21 mg/24 hr (NICODERM; HABITROL) 21 mg/24 hr patchIndications :Tobacco dependence Apply 1 Patch on dry, clean, hairless skin once daily. 15 Patch 4 Active methylphenidate HCl (RITALIN SR) 20 mg Sustained-Releas e tablet TK 1 T PO QAM 0 12/18/19 24 Discontinued(P harmacist change per medication history (E-cancel not sent)) Diaper,Brief, Adult,Disposable Indications:Mixe d stress and urge urinary incontinence For home use. 1 box 0 12/18/19 Discontinued(* Patient states no longer taking) methocarbamoL (ROBAXIN) 500 mg tabletIndication s:Muscle spasm At bedtime 30 Tablet 2 12/18/19 24 Discontinued(P harmacist change per medication history (E-cancel not sent)) nicotine 21 mg/24 hr (NICODERM; HABITROL) 21 mg/24 hr patchIndications :Tobacco dependence Apply 1 Patch on dry, clean, hairless skin once daily. 45 Patch 1 4 12/18/19 24 Discontinued(P harmacist change per medication history (E-cancel not sent)) fluticasone propion-salmeter oL (ADVAIR) 250-50 mcg/Dose diskus inhalerIndicatio ns:COPD, mild (HC) INHALE 1 PUFF BY MOUTH TWICE DAILY 180 Each 4 12/18/19 24 Discontinued(P harmacist change per medication history (E-cancel not sent)) estradioL (ESTRACE) 1 mg tabletIndication s:Surgical menopause Take 1 Tablet (1 mg) by mouth once daily. 90 Tablet 3 4 12/18/19 24 Discontinued(P harmacist change per medication history (E-cancel not sent)) fluticasone (50 mcg per actuation) nasal solution (FLONASE)Indicat ions:Rhinitis, unspecified type Inhale 2 Sprays into affected nostril(s) once daily. 16 mL 3 4 12/18/19 24 Discontinued(P harmacist change per medication history (E-cancel not sent)) Active Problems Problem Noted Date Diagnosed Date Kidney stone 12/18/2023 Elevated serum creatinine 03/17/2023 Overview (03/17/2023): Creatinine range 0.95-1.13. Had US and further lab testing. Econsult with nephrology. Urine creatinine clearance normal. Plan monitor creatinine [id number], if worsening, nephrology consult Hyperparathyroidism 03/12/2023 Multiple [...] Encounters Date Type Department Care Team Description 12/21/2023 Patient Outreach [facility] [address] [place] [address] Gertrudis Chavira, RN Primary RN Care Management; Hospital F/U (LACE 43) 12/19/2023 10:39 AM CDT Anesthesia Event [facility] [address] [place] [id number] Alvaro Red MD 12/19/2023 9:15 AM CDT - 12/19/2023 10:41 AM CDT Surgery [facility] [address] [place] [id number] Srikanth Parks MD CYSTOSCOPY LEFT URETEROSCOPY HOLMIUM LASER LITHOTRIPSY, LASER INCISION OF A URETEROCELE. 12/18/2023 11:27 AM CDT - 12/19/2023 4:50 PM CDT Emergency [facility] [address] [place] [phone] Saskia Steen MD [facility], [facility] Hospitalists Of Alexa Perez NP Rosonke, Brooke Renae, MD Ureterolithiasis (Primary Dx); Hydronephrosis, unspecified hydronephrosis type; Constipation, unspecified constipation type; COPD, mild (HC); Tobacco dependence Discharge Disposition: Home Self Care 12/18/2023 Travel 12/15/2023 Orders Only [facility] Scanner 1 scan: (1-Ord) [facility], CT ABDOMEN PELVIS WO CON, 12/15/2023 from Last 3 Months Immunizations Name Administration [...] Sign Reading Time Taken Comments Blood Pressure 101/50 12/19/2023 3:33 PM CDT Pulse 70 12/19/2023 3:33 PM CDT Temperature 36.5 ??C (97.7 ??F) 12/19/2023 3:33 PM CD T Respiratory Rate 16 12/19/2023 3:33 PM CDT Oxygen Saturation 99% 12/19/2023 3:33 PM CDT Inhaled Oxygen Concentration - - Weight 57 kg (125 lb 11.2 oz) 12/18/2023 11:10 A M CDT Height 177.8 cm (5' 10) 12/18/2023 11:10 AM CDT Body Mass Index 18.04 12/18/2023 11:10 AM CDT Plan of Treatment Upcoming Encounters Date Type Department Care Team (Late st Contact Info) Description 12/29/2023 1:05 PM RN NURSERY Telemedicine [facility] [address] [place] [address] Malka Arizmendi Carmen, DO [address] [place] [address] Health Maintenance Due Date Last Done Comments Pneumococcal series for age 6-64 (1 of 2 - PCV) 1989 COVID-19 vaccine series (1 - 2023- season) 2023 Influenza for age 9-49 10/25/2023 [...] Completed 03/14/2023 Medical Devices Implanted Type Area Switch Box Installer Device Identifier Shelf Expiration Date Model / Serial / Lot Guide Nerve [id number] Repair Device - [id number] Implanted:Qty: 1 on 01/19/2018 by Clint Montalvo MD at [facility] Right: Wrist [employer] Wendy 01/22/2018 [id number] / / [id number] Stent Uret [id number] Contour - [id number] Implanted:Qty: 1 on 12/19/2023 by Srikanth Parks MD at [facility] Left: Ureter [facility] 06/25/2026 [id number] / / [id number] Procedures Procedure Name Priority Date/Time Associated Diagnosis Comments EKG 12 LEAD Routine 12/19/2023 1:22 PM CDT XR RETROGRADE PYELOGRAM W/WO KUB Routine 12/19/2023 11:59 AM CDT ENDOTRACHEAL TUBE Routine 12/19/2023 10:57 AM CDT ENDOTRACHEAL TUBE Routine 12/19/2023 10:57 AM CDT CYSTOSCOPY PLACEMENT URETERAL STENT Class E Urgent 12/19/2023 10:21 AM CDT LEFT URETERAL STONE Case Notes holmium LITHOTRIPSY URETEROSCOPY WITH LASER Class E Urgent 12/19/2023 10:21 AM CDT LEFT URETERAL STONE Case Notes holmium CREATININE Early AM 12/19/2023 4:45 AM CDT SCAN CORRESP-IMAGING 12/18/2023 2:[address] ABDOMEN PELVIS STONE PROTOCOL WO STAT 12/18/2023 12:41 PM CDT BASIC METABOLIC PANEL STAT 12/18/2023 12:10 PM CDT CBC W PLT NO DIFF STAT 12/18/2023 12:10 PM CDT URINALYSIS MICROSCOPIC STAT 12/18/2023 11:59 AM CDT UA W/ SEDIMENT EXAM REFLEXED PER CRITERIA STAT 12/18/2023 11:59 AM CDT SCAN-CT INTERPRETATION 12/15/2023 12:00 AM CDT ANTI HIV 1/2 Routine 03/14/2023 11:05 AM RN NURSERY Screening for HIV (human immunodeficiency virus) ANTI HCV Routine 03/14/2023 11:05 AM RN NURSERY Need for hepatitis C screening test from Last 3 Months or Most Recently Relevant to Health Maintenance Results * XR RETROGRADE PYELOGRAM W/WO KUB (12/19/2023 11:59 AM CDT) Anatomical Region Laterality Modality KIDNEYS, Abdomen Digital Radiogr aphy Narrative 12/19/2023 12:01 PM CDT 18 seconds fluoroscopy time was provided. ??See operative/procedure report for further information. Srikanth Parks MD GENERAL IM AGING * HCHG TUBE PR1, HCHG STYLET PR1 (12/19/2023 10:57 AM CDT) Narrative Nimesh Zuñiga CRNA - 12/19/2023 10:57 AM CDT Nimesh Zuñiga CRNA ? 12/19/2023 10:58 AM Procedure: ETT Patient location during procedure: OR ETT Properties Mask Ventilation: easy Final Technique: direct laryngoscopy Type: straight Location: oral Cuffed: yes Tube Size: 7.0 mm Stylet: yes Laryngoscope Blade: Negrete Blade Size: 2 Cormack-Lehane Grade View: 1 Insertion Attempts: 1 Placement Verification: auscultation, end tidal CO2 and symmetrical chest wall movement Assessment: pharynx clear, atraumatic and dentition unchanged Secured at: 22 Measured From: gums Bite Block: oral airway Difficulty: 0 (not difficult) Alvaro Red MD ANESTHESIA P X NOTE ORDERABLES * (ABNORMAL) Creatinine AM (12/19/2023 4:45 AM CDT) eGFR 48(L) >90 mL/min/1.7 3m2 12/19/2023 5:36 AM CDT [facility] Comment:As of 2021, eG FR is calculated by the CKD-EPI creatinine equation without race adjustment. ??eGFR can be influenced by muscle mass, exercise, and diet. ??The reported eGFR is an estimation only and is only applicable if the renal function is stable. CREATININE 1.43(H) 0.50 - 0.90 mg/dL 12/19/2023 5:36 AM CDT [facility] Blood BLOOD SPECIMEN / Unknown Venipuncture / Unknown 12/19/2023 4:45 AM CDT 12/19/2023 5:03 AM CDT Alexa Perez NP CHEMISTRY [facility] [employer] [facility] [address] [place] [address], [place] * SCAN CORRESP-IMAGING (12/18/2023 2:54 PM CDT) Anatomical Region Laterality Modality Other Narrative 12/18/2023 2:54 PM CDT Ordered by an unspecified provider. Other Clinical Staff OTHER * CT ABDOMEN PELVIS STONE PROTOCOL WO (12/18/2023 12:41 PM CDT) Anatomical Region Laterality Modality Abdomen, Pelvis, AORTA, LIVER, SPLEEN Computed Tomography 12/18/2023 1:02 PM CDT Impressions 12/18/2023 1:02 PM CDT 1. Ovoid 1.2 x 0.8 cm calculus in the posterior aspect of the urinary bladder, with possible small component at the left ureterovesicular junction, resulting in moderate left hydronephrosis and hydroureter. 2. Additional punctate calculus in the lower pole of the left kidney, and too small to characterize hyperdense lesion in the upper pole. Please note that all CT scans at this facility use dose modulation, iterative reconstruction, and/or weight-based dosing when appropriate to reduce radiation dose to as low as reasonably achievable. Dictated by Carolynn Ricci MD @ 12/18/2023 1:02:11 PM (Electronically Signed) Narrative 12/18/2023 1:02 PM CDT For Patients: ??As a result of the Century Cures Act, medical imaging exams and procedure reports are released immediately into your electronic medical record. ??You may view this report before your referring provider. ??If you have questions, please contact your health care provider. INDICATION: Abdominal/flank pain. TECHNIQUE: CT abdomen and pelvis without contrast. COMPARISON: CT abdomen/pelvis dated 12/27/2019. FINDINGS: Lower chest: No focal consolidation. Evaluation of solid organs is limited secondary to lack of IV contrast administration. Liver: No suspicious focal hepatic lesion. Gallbladder and bile ducts: Subtle layering hyperdense gallbladder sludge. No calcified gallstones. Pancreas: Unremarkable. Spleen: Unremarkable. Splenule is noted. Adrenal glands: Unremarkable. Kidneys: Ovoid 1.2 x 0.7 cm calculus in the posterior aspect of the urinary bladder, with possible small component at the left ureterovesicular junction. There is moderate left hydronephrosis and hydroureter. Additional punctate calculus in the lower pole of the left kidney. Too small to characterize hyperdense lesion in the upper pole of the left kidney is noted. No right-sided renal calculi or hydronephrosis. Retroperitoneum: No lymphadenopathy. Bowel and mesentery: Bowel is not obstructed. No significant ascites, no pneumoperitoneum. Normal appendix. Bladder: Bladder calculus as above. Reproductive organs: Post hysterectomy. Pelvic lymph nodes: No lymphadenopathy. Vessels: Few scattered atherosclerotic calcifications. Abdominal wall: No acute abdominal wall abnormality. Bones: Multilevel degenerative changes of the spine. No suspicious/aggressive focal osseous lesion. Procedure Note Carolynn Ricci MD - 12/18/2023 For Patients: As a result of the Cures Act, medical imagingexams and procedure reports are released immediately into your electronicmedical record. You may view this report before your referring provider.If you have questions, please contact your health care provider. INDICATION: Abdominal/flank pain. TECHNIQUE: CT abdomen and pelvis without contrast. COMPARISON: CT abdomen/pelvis dated 12/27/2019. FINDINGS: Lower chest: No focal consolidation. Evaluation of solid organs is limited secondary to lack of IV contrastadministration. Liver: No suspicious focal hepatic lesion. Gallbladder and bile ducts: Subtle layering hyperdense gallbladder sludge.No calcified gallstones. Pancreas: Unremarkable. Spleen: Unremarkable. Splenule is noted. Adrenal glands: Unremarkable. Kidneys: Ovoid 1.2 x 0.7 cm calculus in the posterior aspect of theurinary bladder, with possible small component at the leftureterovesicular junction. There is moderate left hydronephrosis andhydroureter. Additional punctate calculus in the lower pole of the leftkidney. Too small to characterize hyperdense lesion in the upper pole ofthe left kidney is noted. No right-sided renal calculi orhydronephrosis. Retroperitoneum: No lymphadenopathy. Bowel and mesentery: Bowel is not obstructed. No significant ascites, nopneumoperitoneum. Normal appendix. Bladder: Bladder calculus as above. Reproductive organs: Post hysterectomy. Pelvic lymph nodes: No lymphadenopathy. Vessels: Few scattered atherosclerotic calcifications. Abdominal wall: No acute abdominal wall abnormality. Bones: Multilevel degenerative changes of the spine. Nosuspicious/aggressive focal osseous lesion. IMPRESSION: 1. Ovoid 1.2 x 0.8 cm calculus in the posterior aspect of the urinarybladder, with possible small component at the left ureterovesicularjunction, resulting in moderate left hydronephrosis and hydroureter. 2. Additional punctate calculus in the lower pole of the left kidney, andtoo small to characterize hyperdense lesion in the upper pole. Please note that all CT scans at this facility use dose modulation,iterative reconstruction, and/or weight-based dosing when appropriate toreduce radiation dose to as low as reasonably achievable. Dictated by Carolynn Ricci MD @ 12/18/2023 1:02:11 PM (Electronically Signed) Saskia Steen MD CT * CBC W PLT NO DIFF (12/18/2023 12:10 PM CDT) WHITE BLOOD COUNT 7.7 4.5 - 11.0 thou/cu mm 12/18/2023 12:29 PM CDT [facility] RED BLOOD COUNT 4.32 4.00 - 5.20 mil/cu mm 12/18/2023 12:29 PM CDT [facility] HEMOGLOBIN 13.9 12.0 - 16.0 g/dL 12/18/2023 12:29 PM CDT [facility] HEMATOCRIT 39.3 33.0 - 51.0 % 12/18/2023 12:29 PM CDT [facility] MCV 91 80 - 100 fL 12/18/2023 12:29 PM CDT [facility] MCH 32.2 26.0 - 34.0 pg 12/18/2023 12:29 PM CDT [facility] MCHC 35.4 32.0 - 36.0 g/dL 12/18/2023 12:29 PM CDT [facility] RDW 11.6 11.5 - 15.5 % 12/18/2023 12:29 PM CDT [facility] PLATELET COUNT 157 140 - 440 thou/cu mm 12/18/2023 12:29 PM CDT [facility] MPV 10.2 6.5 - 11.0 fL 12/18/2023 12:29 PM CDT [facility] NRBC 0.0 % 12/18/2023 12:29 PM CDT [facility] ABS NRBC 0.0 thou /cu mm 12/18/2023 12:29 PM CDT [facility] Blood BLOOD SPECIMEN / Unknown Venipuncture / Unknown 12/18/2023 12:10 PM CDT 12/18/2023 12:19 PM CDT Saskia Steen MD HEMATOLOGY [facility] [address] [place] [address], * (ABNORMAL) BASIC METABOLIC PANEL (12/18/2023 12:10 PM CDT) SODIUM 141 136 - 145 mmol/L 12/18/2023 12:48 PM CDT [facility] POTASSIUM 4.0 3.5 - 5.1 mmol/L 12/18/2023 12:48 PM CDT [facility] CHLORIDE 106 98 - 107 mmol/L 12/18/2023 12:48 PM CDT [facility] CO2,TOTAL 23 22 - 29 mmol/L 12/18/2023 12:48 PM CDT [facility] ANION GAP 12 5 - 18 12/18/2023 12:48 PM CDT [facility] GLUCOSE 92 70 - 99 mg/dL 12/18/2023 12:48 PM CDT [facility] CALCIUM 9.3 8.6 - 10.0 mg/dL 12/18/2023 12:48 PM CDT [facility] BUN 9 6 - 20 mg/dL 12/18/2023 12:48 PM CDT [facility] CREATININE 1.40(H) 0.50 - 0.90 mg/dL 12/18/2023 12:48 PM CDT [facility] BUN/CREAT RATIO 6(L) 10 - 20 12:48 PM CDT [facility] eGFR 49(L) >90 mL/min/1.7 3m2 12/18/2023 12:48 PM CDT [facility] Comment:As of 2021, eG FR is calculated by the CKD-EPI creatinine equation without race adjustment. ??eGFR can be influenced by muscle mass, exercise, and diet. ??The reported eGFR is an estimation only and is only applicable if the renal function is stable. Blood BLOOD SPECIMEN / Unknown Venipuncture / Unknown 12/18/2023 12:10 PM CDT 12/18/2023 12:19 PM CDT Saskia Steen MD CHEMISTRY Performing Organization Address [facility]/ZIP Co de Phone Number [facility] [address] [place] [id number], [place] * (ABNORMAL) URINALYSIS MICROSCOPIC (12/18/2023 11:59 AM CDT) RBC 3-5(A) 0-2, None Seen /HPF 12/18/2023 12:27 PM CDT [facility] WBC 3-5 0-2, 3-5, None Seen /HPF 12/18/2023 12:27 PM CDT [facility] BACTERIA Few None Seen, Rare, Few Bacteria/H PF 12/18/2023 12:27 PM CDT [facility] EPITHELIAL CELLS Few None Seen, Few Epi/HPF 12/18/2023 12:27 PM CDT [facility] HYALINE CASTS 0-2 0-2, 3-5 /LPF 12/18/2023 12:27 PM CDT [facility] Urine URINE SPECIMEN / Unknown Non-Blood / Unknown 12/18/2023 11:59 AM CDT 12/18/2023 12:08 PM CDT Saskia Steen MD URINE Performing Organization Address City/[facility]/ZIP Co de Phone Number [facility] [address] [place] [address], [place] * (ABNORMAL) UA W/ SEDIMENT EXAM REFLEXED PER CRITERIA (12/18/2023 11:59 AM CDT) COLOR Yellow Yellow Color 12/18/2023 12:27 PM CDT [facility] CLARITY Clear Clear Clarity 12/18/2023 12:27 PM CDT [facility] SPECIFIC GRAVITY,URINE 1.020 1.010, 1.015, 1.020, 1.025 12/18/2023 12:27 PM CDT [facility] PH,URINE 5.5 6.0, 7.0, 8.0, 5.5, 6.5, 7.5, 8.5 12/18/2023 12:27 PM CDT [facility] UROBILINOGEN, QUALITATIVE Normal Normal EU/dl 12/18/2023 12:27 PM CDT [facility] PROTEIN, URINE 30(A) Negative mg/dL 12/18/2023 12:27 PM CDT [facility] GLUCOSE, URINE Negative Negative mg/dL 12/18/2023 12:27 PM CDT [facility] KETONES,URINE Trace(A) Negative mg/dL 12/18/2023 12:27 PM CDT [facility] BILIRUBIN,URI NE Negative Negative 12/18/2023 12:27 PM CDT [facility] OCCULT BLOOD,URINE Negative Negative 12/18/2023 12:27 PM CDT [facility] NITRITE Negative Negative 12/18/2023 12:27 PM CDT [facility] LEUKOCYTE ESTERASE Trace(A) Negative 12/18/2023 12:27 PM CDT [facility] Urine URINE SPECIMEN / Unknown Non-Blood / Unknown 12/18/2023 11:59 AM CDT 12/18/2023 12:08 PM CDT Saskia Steen MD URINE [facility] [address] [place] [address], [place] * SCAN-CT INTERPRETATION (12/15/2023 12:00 AM CDT) Anatomical Region Laterality Modality Other Scanner OTHER * ANTI HCV (03/14/2023 11:05 AM RN NURSERY) HEPATITIS C ANTIBODY Non-Reacti ve Non-React ari 03/15/2023 2:57 PM RN NURSERY [facility] [employer] [facility] Comment:Please note, per www .CDC.gov: If a patient is known to be at high risk of HCV infection, or is symptomatic, and the physician's suspicion of HCV infection is high, HCV RNA testing is often employed and is of diagnostic value, even after an initial negative anti-HCV test result. Blood BLOOD SPECIMEN / Unknown Butterfly / Unknown 03/14/2023 11:05 AM RN NURSERY 03/14/2023 11:07 AM RN NURSERY Malka Arizmendi DO SEND OUTS Performing Organization Address City/[facility]/ZIP Co de Phone Number [facility] [address] [place] [address], * ANTI HIV 1/2 [58482.0] (03/14/2023 11:05 AM RN NURSERY) Pathologist [facility] [place] HIV-1/HIV-2 SCREEN Non-Reacti ve Non-Reacti ve 03/15/2023 2:57 PM RN NURSERY [facility] [employer] [facility] Comment:HIV-1 p24 and HIV-1/ HIV-2 Ab Not Detected. Blood BLOOD SPECIMEN / Unknown Butterfly / Unknown 03/14/2023 11:05 AM RN NURSERY 03/14/2023 11:07 AM RN NURSERY Malka Arizmendi DO SEND OUTS Performing Organization Address City/[facility]/ZIP Co de Phone Number [employer] [facility] [address] [place] [phone], from Last 3 Months or Most Recently Relevant to Health Maintenance Advance Directives * Full Code (Latest Code Status on File) Date Activated Date Inactivated Comments 12/19/2023 8:43 AM 12/19/2023 7:05 PM Question Answer Comments Code Status Discussion: Unable to Assess Preferences, Provider to review later * Full Code Date Activated Date Inactivated Comments 12/18/2023 4:00 PM 12/19/2023 8:43 AM Question Answer Comments Code Status Discussion: Reviewed Preferences * Full Code Date Activated Date Inactivated Comments 01/19/2018 9:37 AM 01/19/2018 7:08 PM * Full Code Date Activated Date Inactivated Comments 03/06/2007 3:12 AM 03/08/2007 4:52 PM * Full Code Date Activated Date Inactivated Comments 03/05/2007 8:57 AM 03/06/2007 1:54 AM Care Teams Manager Configuration Relationship Specialty Start Date End Date Malk[place] [address] [address] PCP - General Family Practice 10/10/13
--- OUTSIDE RECORDS SUMMARY | 2023-12-21 11:31 | XMS_ITS | Continuity of Care Document ---
Author Organization [facility] Address [address] [place] [address] Phone Care Team Providers Care Behavioral Psychologist Name Role Phone Galen Zhang MD Unavailable [...] Copied on Encounter [facility], [address], [place], [place], [id number] , tel:[phone] [facility] No Information 9 Leatha Aaron. [facility], [address] [place] [address], [facility] [address], [place], [place], [id number], [place]. tel:[phone] Office/Outpa tient Visit,New, Mod [facility], [address], [place], [place], [id number] , [place] tel:[phone] [facility] Other cervical disc degeneration, cervicothorac ic region 9 Transfeldt Ensor. [facility], [address], [facility] [address], [place], [place], [id number], [place]. tel:[phone] Referring Provider: Alex Cam, [facility] [address] [facility] [address], [place], [address]. tel:[phone] Family History Family Member Type Diagnosis Age [...]
--- OUTSIDE RECORDS SUMMARY | 2023-12-21 11:31 | XMS_ITS | Continuity of Care Document ---
Author Organization [facility] Address [address] [facility] [place] [address] Phone Care Team Providers Care Obiee Obia Solution Architect Name Role Phone Timmy Severino Unavailable Unavailable [...] Diagnoses Date Provider Providers Copied on Encounter [facility], [address] [facility] Kate Cantu [place], [id number] , [place] tel:[phone] [facility] No Information 3 Yasmeen Warner. [facility], [place], [id number] , [place]. tel:[phone] OFFICE/OUTPAT IENT VISIT, EST [facility], [address] [facility] Kate Cantu [place], [id number] , [place] tel:[phone] [facility] [place] Cervicalgia (chief complaint) Other spondylosis with radiculopathy, cervical regionMyalgia, other siteFibromyalg iaHeadacheOthe r manager terminal (current) drug therapy 3 Marian Abbie. [address], [place], [id number] , [place]. [phone] Referring Provider: Lyle Hyatt, [address] [place] [address], [id number]. tel:[phone] [facility], [address] [place] [address], [id number] , [place] tel:[phone] [facility] Other spondylosis with radiculopathy, cervical region 3 Claritza Baumann. [address] [place] [address], [id number] , [place]. [phone] Referring Provider: Lyle Hyatt, [address] [place] [address], [address]. tel:[phone] [facility], [address] [place] [address], [id number] , [place] tel:[phone] [facility] cervicalgia (chief complaint) Other spondylosis with radiculopathy, cervical region 3 Serge Rdz. [address] [place] [address], [id number] , [place]. [phone] Referring Provider: Lyle Hyatt, [address] [place] [address], [address]. tel:[phone] OFFICE/OUTPAT IENT VISIT, [facility], [address] [place] [address], [id number] , [place] [phone] [facility] Fibromyalgia (chief complaint) Other spondylosis with radiculopathy, cervical regionMyalgia, other siteFibromyalg iaHeadacheOthe r retirement (current) drug therapy 3 Marian Abbie. [address], [place], [id number] , [place]. [phone] Referring Provider: Lyle Hyatt, [address] [place] [address], [address]. [phone] OFFICE/OUTPAT IENT VISIT, [facility], [address] [place] [address], [id number] , [place] [phone] [facility] Fibromyalgia (chief complaint) Other spondylosis with radiculopathy, cervical regionCervical giaMyalgia, other siteFibromyalg iaOther retirement (current) drug therapyHeadach e 3 Marian [address] [place] [address] [address], [place], [place], [id number] , [place]. tel:[phone] Referring Provider: Lyle Hyatt, [address] [place] [address], [address]. [phone] OFFICE/OUTPAT IENT VISIT, [facility], [address] [place] [address], [id number] , [phone] [facility] Fibromyalgia (chief complaint) CervicalgiaMya lgia, other siteFibromyalg iaOther retirement (current) drug therapyOther spondylosis with radiculopathy, cervical region 0 [id number] [place] [address] [address], [place], [place], [id number] , [place]. tel:[phone] Referring Provider: Lyle Hyatt, [address] [place] [address], [address]. [phone] OFFICE/OUTPAT IENT VISIT, [facility], [address] [place] [address], [id number] , [place] [phone] [facility] Fibromyalgia (chief complaint) CervicalgiaMya lgia, other siteFibromyalg iaOther retirement (current) drug therapy [address] [place] [address] [address], [place], [place], [id number] , [place]. [phone] Referring Provider: Lyle Hyatt, [address] [place] [address], [address]. [phone] OFFICE/OUTPAT IENT VISIT, [facility], [address] [place] [address], [id number] , [place] [phone] [facility] Fibromyalgia (chief complaint) Myalgia, other siteFibromyalg iaOther retirement (current) drug therapyTri[facility] er for therapeutic drug level monitoringCerv icalgia 2 Yasmeen Warner. [facility], [place], [place], [id number] , [place]. tel:[phone] Referring Provider: Malka Arizmendi [facility] [address] [place], [address]. tel:[phone] [facility], [address] [place] [address], [id number] , [place] tel:[phone] [facility] No Information 2 Yasmeen Warner. [address] [place] [address] [address], [place], [place], [id number] , [place]. tel:[phone] [facility], [address] [place] [address], [id number] , [place] tel:[phone] [facility] [place] No Information 1 Yasmeen Warner. [facility] [facility] [address], [place], [place], [id number] , [place]. tel:[phone] Referring Provider: Lyle Hyatt, [address] [place] [address], [address]. tel:[phone] OFFICE/OUTPAT IENT VISIT, [facility], [address] [place] [address], [id number] , [place] tel:[phone] [facility] Fibromyalgia (chief complaint) FibromyalgiaMy algia, other siteOther manager terminal (current) drug therapy 1 Yasmeen Warner. [address] [place] [address] [address], [place], [place], [id number] , [place]. tel:[phone] Referring Provider: Lyle Hyatt, [address] [place] [address], [address]. [phone] OFFICE VISIT, EST TELEMEDICINE [facility], [address] [place] [address], [id number] , [place] [phone] [facility] Fibromyalgia (chief complaint) Myalgia, other siteOther manager terminal (current) drug therapyFibromy algia [phone] [place] Puga. [facility], [address], [place], [address], [place]. tel:[phone] Referring Provider: Lyle Hyatt, [address] [place] [address], [address]. [phone] [facility], [address] [place] [address], [id number] , [place] [phone] [facility] No Information 9 Yasmeen Warner. [address] [place] [address] [address], [place], [id number] , [place]. tel:[phone] OFFICE/OUTPAT IENT VISIT, [facility], [address] [place] [address], [id number] , [place] tel:[phone] [facility] Fibromyalgia (chief complaint) Other manager terminal (current) drug therapyFibromy algiaChronic pain syndromeMyalgi a, other siteEncounter for therapeutic drug level monitoring 9 Yasmeen Warner. [address] [place] [address] [address], [place], [id number] , [place]. [phone] Referring Provider: Lyle Hyatt, [address] [place] [address], [address]. [phone] OFFICE/OUTPAT IENT VISIT, [facility], [address] [place] [address], [id number] , [place] [phone] [facility] Fibromyalgia (chief complaint) Chronic pain syndromeFibrom yalgiaOther retirement (current) drug therapy 9 Yasmeen Warner. [address] [place] [address] [address], [place], [id number] , [place]. tel:[phone] Referring Provider: Lyle Hyatt, [address] [place], [address]. tel:[phone] OFFICE/OUTPAT IENT VISIT, EST [facility], [address] [place], [place], [id number] , [place] tel:[phone] [facility] Fibromyalgia (chief complaint) Chronic pain syndromeFibrom yalgiaEncounte r for therapeutic drug level monitoringOthe r retirement (current) drug therapyMyalgia , other siteCervicalgi aLow back pain 9 Yasmeen Warner. [facility] [facility] [address], [place], [id number] , [place]. [phone] Referring Provider: [facility]alka Arizmendi [facility] [address], [place], [address]. tel:[phone] [facility], [address] [place] [address], [id number] , [place] [phone] [facility] Fibromyalgia (chief complaint) Chronic pain syndromeFibrom yalgiaPain in right hand 9 Arana Timmy. [address] [place] [address] [address], [place], [id number] , [place]. [phone] Family History Family Member Type Diagnosis Age [...] ciliation. Due on due Goal Update [employer] story. Due on due Goal HPV. Due [...] CE DRUG ANALYSIS, URINE, WITH MED REPORT ([id number]), Ordered on: Ordered Future Order: Lab Order COMPLIAN CE DRUG ANALYSIS, URINE, WITH MED REPORT ([id number]), Ordered on: Ordered Future Order: Lab Order [...] discomfort limits showering, dressing, lifting, reaching for tank cleaner and daily activity.. Patients goal is to [...] from current regimen. No other concerns today. Comments: Grace is a 36 y/o woman here for follow up consult regarding fibromyalgia. Pain is exacerbated with increased activity. Continues to attend PT /massage at [facility]. primarily for her neck [...] activity. Continues to attend PT /massage, in [place], primarily for her neck and BL hips. Pain has been fluctuating since [facility] and pain level averages 8/10.Reports that [...] Reports worsened neck and back pain since [facility]. Reports that her pain is exacerbated with increased activity. Currently attends PT in [place], primarily for her neck and BL hips.S/p Botox (?) injection on 12/18/[address] [facility] with increased pain following the injection. Since [facility], patient obtained cervical MRI imaging Continues [...] a couple days. Has been working with [employer] and is currently managed on yellow [employer] product with benefit. Topical products are also [...] setting of fibromyalgia, referred by Dr. Camejo-Riaz [facility]. Her pain began 5 years ago [...] and other recommended therapies. She would like [facility] to assume management of [...] consult for fibromyalgia, referred by Dr. Camejo--Douglas [facility]. Her pain began 5 years ago. [...] and other recommended therapies. She would like [facility] to assume management of [...]
--- NOTE | 2023-12-21 11:35 | ED_ITS ---
HPI - General Adult General Chief complaint: Abdominal Pain Stated complaint: Abdominal pain, back pain Time Seen by Provider: 12/21/23 11:35 History of Present Illness HPI narrative: Pt had a surgery yesterday to remove kidney stone, stent was also put in place. Today is complaining of abdominal pain, had some back pain and brief chest pain. When urinating pt noticed bright red blood, multiple times today. No issues with dysuria. Took Toradol for pain, & medical cannabis, which has helped some. Denies fever/ chills. Surgery at [facility]. 38-year-old woman presenting to the emergency department following removal of ureteral stone yesterday as well as placement of ureteral stent. Concern is of low anterior chest/upper abdominal pain or pressure this been present since her surgery, since waking after surgery. Was actually in a group chat with some friends when just sleepy could of check out. Daughter into the room and apparently she snapped out of it. Also though had a sense of chest pressure at the time. First thing Ms. Felix says to me is ?I think I just had a panic attack?. She is however worried of the amount of blood that is been in her urine since surgery. Feeling the bowl she says. Has been using ketorolac and medical cannabis for pain. Still 6/10 or so pain. No fever. The chest discomfort that she felt at the onset of this this morning, chest pressure has essentially resolved. Related Data Home Medications ?Medication ?Instructions ?Recorded ?Confirmed methocarbamol 500 mg tablet 500 mg PO DAILY 01/09/22 05/28/23 canabis 05/12/23 12/21/23 diazepam 5 mg tablet 7.5 mg PO QAM 05/12/23 12/21/23 estradiol 1 mg tablet 1 mg PO DAILY 12/21/23 12/21/23 fluticasone 250 mcg-salmeterol 50 1 ea inhalation BID 12/21/23 12/21/23 mcg/dose blistr powdr for inhalation (Advair Diskus) Previous Rx's ?Medication ?Instructions ?Recorded amoxicillin 500 mg capsule 1,000 mg (2 x 500 mg) PO Q12H #28 09/04/23 caps tramadol 50 mg tablet 50 mg PO Q6-8H PRN pain #10 tabs 09/04/23 hyoscyamine sulfate 0.125 mg tablet 0.25 mg (2 x 0.125 mg) PO QID PRN 12/21/23 cramping/spasm #30 tabs Allergies Allergy/AdvReac Type Severity Reaction Status Date / Time cephalexin (From Keflex) Allergy Mild Hives Verified 12/21/23 11:39 lorazepam Allergy Mild Anxiety Verified 12/21/23 11:39 metoclopramide Allergy Mild Agitation, Verified 12/21/23 11:39 Anxiety clonazepam (From Klonopin) AdvReac Mild Mental Verified 12/21/23 11:39 Status Changes Review of Systems Status of ROS: Reports: 6 or more systems reviewed and unremarkable except as noted in History and below [facility] Medical History Endometriosis ?N80.9 - Endometriosis, unspecified (ICD-10) Depression ?F32.A - Depression, unspecified (ICD-10) Tobacco dependence ?F17.200 - Nicotine dependence, unspecified, uncomplicated (ICD-10) PTSD (post-traumatic stress disorder) ?F43.10 - Post-traumatic stress disorder, unspecified (ICD-10) Controlled substance agreement signed ?Z79.899 - Other fdc (current) drug therapy (ICD-10) De Quervain's disease (tenosynovitis) ?M65.4 - Radial styloid tenosynovitis [de Quervain] (ICD-10) Borderline personality disorder ?F60.3 - Borderline personality disorder (ICD-10) 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 - Lesion of radial nerve, right upper limb (ICD-10) Bipolar 2 disorder ?F31.81 - Bipolar II disorder (ICD-10) Fibromyalgia ?M79.7 - Fibromyalgia (ICD-10) PAC (premature atrial contraction) ?I49.1 - Atrial premature depolarization (ICD-10) Anxiety ?F41.9 - Anxiety disorder, unspecified (ICD-10) Dental caries ?K02.9 - Dental caries, unspecified (ICD-10) Social History Smoking Status: Current some day smoker Do you use any of these nicotine containing products: None and Other How often do you have a drink containing alcohol: never How often do you have six or more drinks on one occasion: Never AUDIT-C Alcohol total score: 0 Non-prescribed substance use: marijuana (any form) service: No Exam Narrative: Exam Narrative: Breathing easily and lungs are clear. Conversing easily. Sore to palpation across the upper abdomen but with repeated exam relaxes a bit more and less tender. No masses appreciated. Lower extremities are without edema. Heart in slower but regular rhythm Const: Vital Signs, click to edit/add: Vital Signs - 24 hr 12/21/23 11:33 12/21/23 12:43 12/21/23 12:44 Temperature 97.9 F Pulse Rate 50 L 51 L Pulse Rate [Right Pulse Oximeter] 54 L Respiratory Rate 18 Blood Pressure 101/67 Blood Pressure [Le ft Forearm] 118/54 L Pulse Oximetry 98 100 100 Oxygen Delivery Me od Room Air 12/21/23 12:45 12/21/23 13:00 12/21/23 13:01 Temperature Pulse Rate 52 L 54 L 64 Pulse Rate [Right Pulse Oximeter] Respiratory Rate Blood Pressure 106/61 Blood Pressure [Le ft Forearm] Pulse Oximetry 100 98 98 Oxygen Delivery Me thod 12/21/23 13:02 12/21/23 13:15 12/21/23 13:17 Temperature Pulse Rate 56 L 54 L 52 L Pulse Rate [Right Pulse Oximeter] Respiratory Rate Blood Pressure 109/62 Blood Pressure [Le ft Forearm] Pulse Oximetry 98 98 98 Oxygen Delivery Me thod 12/21/23 13:30 12/21/23 13:31 12/21/23 13:45 Temperature Pulse Rate 53 L 50 L 49 L Pulse Rate [Right Pulse Oximeter] Respiratory Rate Blood Pressure 96/53 L Blood Pressure [Le ft Forearm] Pulse Oximetry 99 98 98 Oxygen Delivery Me thod 12/21/23 13:47 12/21/23 13:48 12/21/23 14:00 Temperature Pulse Rate 49 L 50 L 54 L Pulse Rate [Right Pulse Oximeter] Respiratory Rate Blood Pressure 110/67 Blood Pressure [Le ft Forearm] Pulse Oximetry 98 97 100 Oxygen Delivery Me thod 12/21/23 14:02 12/21/23 14:03 12/21/23 14:15 Temperature Pulse Rate 51 L 50 L 57 L Pulse Rate [Right Pulse Oximeter] Respiratory Rate Blood Pressure 106/63 Blood Pressure [Le ft Forearm] Pulse Oximetry 98 99 99 Oxygen Delivery Me od 12/21/23 14:17 Temperature Pulse Rate 55 L Pulse Rate [Right Pulse Oximeter] Respiratory Rate Blood Pressure 99/55 L Blood Pressure [Le ft Forearm] Pulse Oximetry 98 Oxygen Delivery Wv thod Documenting provider has reviewed patient's vital signs: yes Course Vital Signs Vital signs: Initial Vital Signs Temperature 97.9 F 12/21/23 11:33 Temperature Source Temporal Artery Scan 12/21/23 11:33 Pulse Rate 54 L 12/21/23 11:33 Pulse Rhythm Regular 12/21/23 11:33 Respiratory Rate 18 12/21/23 11:33 Blood Pressure 118/54 L 12/21/23 11:33 Blood Pressure Mean 75 12/21/23 11:33 Blood Pressure Position Supine 12/21/23 11:33 Pulse Oximetry 98 12/21/23 11:33 Oxygen Delivery Method Room Air 12/21/23 11:33 Vital Signs Temperature 97.9 F 12/21/23 11:33 Pulse Rate 54 L 12/21/23 11:33 Respiratory Rate 18 12/21/23 11:33 Blood Pressure 118/54 L 12/21/23 11:33 Pulse Oximetry 98 12/21/23 11:33 Oxygen Delivery Method Room Air 12/21/23 11:33 Temperature 97.9 F 12/21/23 11:33 Pulse Rate 55 L 12/21/23 14:17 Respiratory Rate 18 12/21/23 11:33 Blood Pressure 99/55 L 12/21/23 14:17 Pulse Oximetry 98 12/21/23 14:17 Oxygen Delivery Method Room Air 12/21/23 11:33 Medications Administered Medications: Discontinued Medications Generic Name Dose Route Start Last Admin Trade Name Freq PRN Reason Stop Dose Admin Hydrocodone Bitart/Acetaminophen 2 tab 12/21/23 12:05 12/21/23 12:08 Hydrocodone-Acetamin 5-325 Mg 1 Tab PO 12/21/23 12:06 2 tab ONCE ONE Administration Medical Decision Making MDM Narrative Medical decision making narrative: Would look for evidence of infection though I think it not likely 1 day postop. I do not think this is an ischemic cardiovascular event. Would monitor for arrhythmia. I suppose could be some pneumothorax or pneumomediastinum. Procedural-related pain. Migrated stent? Hematuria otherwise I think is not necessarily surprising. EKG other than bradycardic is noted below. Chest x-ray viewed by me looks to be WNL. Radiology noting ureteral stent. Did receive a couple tabs of [place] for pain management here in the emergency department. Urinalysis I think most notable for nitrate. I did discuss all findings with Alix escobedo. No further interventions at this time. Would wait for urine culture and continued symptoms. Overall markedly improved during time in the ER. Feels more comfortable. I do think this was likely some sort of a panic attack unlikely some stent related pain. See patient discharge plan for further discussion Lab Data Lab results reviewed: Yes I reviewed the patient's lab results Labs: Lab Results 12/21/23 12/21/23 Range/Units 12:15 12:39 WBC 5.29 (4.50-11.00) K/uL RBC 3.99 L (4.00-5.20) m/uL Hgb 12.5 (12.0-16.0) gm/dL Hct 37.0 (33.0-51.0) % MCV 93 (80-100) fL MCH 31 (26-34) pg MCHC 34 (32-36) gm/dL RDW Coeff of [place] 11.8 (11.5-15.5) % Plt Count 154 (140-440) K/uL Neut % (Auto) 50.6 (42.0-72.0) % Lymph % (Auto) 38.6 (20-44) % [place] % (Auto) 6.4 (0.0-11.0) % Eos % (Auto) 4.0 (0.0-7.0) % Baso % (Auto) 0.2 (0.0-3.0) % Neut # (Auto) 2.68 (1.7-7.0) K/uL Lymph # (Auto) 2.04 (0.90-2.90) K/uL [place] # (Auto) 0.30 (0.00-0.90) K/UL Eos # (Auto) 0.21 (0.00-0.50) K/uL Baso # (Auto) 0.01 (0.00-0.30) K/uL Abs Immat Gran (auto) 0.01 (0.00-0.30) K/uL Imm/Tot Granulo (auto) 0.2 % Sodium 140 (135-149) mmol/L Potassium 4.0 (3.6-5.1) mmol/L Chloride 104 (96-114) mmol/L Carbon Dioxide 28 (20-32) mmol/L Anion Gap 8 (7-15) mEq/L BUN 11 (5-24) mg/dL Creatinine 1.2 (0.5-1.5) mg/dL Estimated Creat Clear 55.33 Estimated GFR 59 ml/min Glucose 101 (60-115) mg/dL Calcium 9.6 (8.4-10.6) mg/dL C-Reactive Protein 1.3 H (0.5-1.0) mg/dL Urine Color Red A (Yellow) Urine Appearance Turbid A (Clear) Urine pH 5.5 (5.0-8.5) Ur Specific [place] 1.020 (1.000-1.030) Urine Protein 3+ A (Negative) Urine Glucose (UA) Negative (Negative) Urine Ketones Trace A (Negative) Urine Blood 3+ A (Negative) Urine Nitrite Positive A (Negative) Urine Bilirubin 2+ A (Negative) Urine Urobilinogen 1.0 (0.2-1.0) Ur Leukocyte Esterase Trace A (Negative) Urine RBC >100 A (0-2) Urine WBC 5-10 A (0-5) Ur Squamous Epith Cells None (None-Few) Urine Bacteria Moderate A (None) ECG Data Attestation: I personally reviewed and interpreted this ECG as follows: (Sinus bradycardia at a rate of 51. A little baseline irritability. No apparent ischemic changes ) Discharge Plan Discharge Clinical Impression: Post-op pain, Anxiety, Hematuria Additional Instructions: We will be culturing your urine here and call you if it might require medication. I understand you have follow-up in 6 or 7 days. Return for marked increase in persistent pain, associated fever. Sending in hyoscyamine for spasming/cramping. Prescriptions: New hyoscyamine sulfate 0.125 mg tablet 0.25 mg PO QID PRN (Reason: cramping/spasm) Qty: 30 1RF No Action methocarbamol 500 mg tablet 500 mg PO DAILY Patient Comments: TAKE 1 TABLET BY MOUTH TWICE DAILY NEEDED diazepam 5 mg tablet 7.5 mg PO QAM (DME) canabis 0 .ROUTE .MEDSUPPLY amoxicillin 500 mg capsule 1,000 mg PO Q12H Qty: 28 0RF tramadol 50 mg tablet 50 mg PO Q6-8H PRN (Reason: pain) Qty: 10 0RF fluticasone propion-salmeterol [Advair Diskus] 250-50 mcg/dose blister with device 1 ea INHALATION BID estradiol 1 mg tablet 1 mg PO DAILY Follow Up/Referrals: Malka Arizmendi DO [Primary Care Provider] - Stand Alone Forms: [facility] Info Instructions
--- NOTE | 2023-12-21 12:04 | CRLHL7_ITS ---
For Patients: As a result of the Century Cures Act, medical imaging exams and procedure reports are released immediately into your electronic medical record. You may view this report before your referring provider. If you have questions, please contact your health care provider. Indication: Lower chest discomfort since stent placed Technique: Chest 1 view Comparison: None Findings/Impression: Cardiovascular and mediastinum: Heart size and vasculature are normal in caliber and appearance. Lungs and pleural space: Lungs are clear. No sign of infiltrate or mass. No sign of pleural effusion. No pneumothorax. Bones and soft tissues: Ureteral stent at the left upper quadrant. Dictated by Blu Kurtz MD @ 12/21/2023 12:44:02 PM (Electronically Signed)
[2023-12-21] MEDS: HYDROCODONE-ACETAMIN 5-325 MG 1 TAB 2 TAB PO (12:08)
--- OUTSIDE RECORDS SUMMARY | 2023-12-21 12:15 | XMS_ITS | Clinical Summary ---
Author Organization [facility] Address [place], [place] [address] Care Team Providers Care Wood Barrel Reconditioner Name Role Phone Malka Arizmendi DO Primary Care Provider [phone] Allergies Active Allergy Reactions Criticality Noted Date [...] Urine creatinine clearance normal. Plan monitor creatinine [id number], if worsening, nephrology consult Hyperparathyroidism 03/12/2023 Multiple [...] Department Care Team Description 12/21/2023 Patient Outreach [facility] [address] [place] [address] Gertrudis Chavira, RN Primary RN Care Management; Hospital F/U (LACE 43) 12/19/2023 10:39 AM CDT Anesthesia Event [facility] [address] [place] [id number] Alvaro Red MD 12/19/2023 9:15 AM CDT - 12/19/2023 10:41 AM CDT Surgery [facility] [address] [place] [address] Srikanth Parks MD CYSTOSCOPY LEFT URETEROSCOPY HOLMIUM LASER LITHOTRIPSY, LASER INCISION OF A URETEROCELE. 12/18/2023 11:27 AM CDT - 12/19/2023 4:50 PM CDT Emergency [facility] [address] [place] [address] Saskia Steen MD [facility] Alexa Perez NP Rosonke, Brooke Renae, MD Ureterolithiasis (Primary Dx); Hydronephrosis, unspecified hydronephrosis type; Constipation, unspecified constipation type; COPD, mild (HC); Tobacco dependence Discharge Disposition: Home Self Care 12/18/2023 Travel 12/15/2023 Orders Only [facility] Scanner 1 scan: (1-Ord) [facility], CT ABDOMEN PELVIS WO CON, 12/15/2023 from [...] st Contact Info) Description 12/29/2023 1:05 PM ELECTRICAL ASSEMBLY TECHNICIAN Telemedicine [facility] [address] [place] [address] Malka Arizmendi Carmen, DO [address] [place] [address] Health Maintenance Due Date Last Done Comments [...] Completed 03/14/2023 Medical Devices Implanted Type Area Nutritionist Device Identifier Shelf Expiration Date Model / Serial / Lot Guide Nerve [id number] Repair Device - [id number] Implanted:Qty: 1 on 01/19/2018 by Clint Montalvo MD at [facility] Right: Wrist Integra [employer] Wendy 01/22/2018 [id number] / / [id number] Stent Uret [id number] Contour - [id number] Implanted:Qty: 1 on 12/19/2023 by Srikanth Parks MD at [facility] Left: Ureter [facility] Urology 06/25/2026 [id number] / / [id number] Procedures Procedure Name Priority Date/Time Associated Diagnosis [...] ANTI HIV 1/2 Routine 03/14/2023 11:05 AM ELECTRICAL ASSEMBLY TECHNICIAN Screening for HIV (human immunodeficiency virus) ANTI HCV Routine 03/14/2023 11:05 AM ELECTRICAL ASSEMBLY TECHNICIAN Need for hepatitis C screening test from [...] >90 mL/min/1.7 3m2 12/19/2023 5:36 AM CDT [facility] Comment:As of 2021, eG FR is calculated by the CKD-EPI creatinine equation without race adjustment. ??eGFR can be influenced by muscle mass, exercise, and diet. ??The reported eGFR is an estimation only and is only applicable if the renal function is stable. CREATININE 1.43(H) 0.50 - 0.90 mg/dL 12/19/2023 5:36 AM CDT [facility] Blood BLOOD SPECIMEN / Unknown Venipuncture / Unknown 12/19/2023 4:45 AM CDT 12/19/2023 5:03 AM CDT Alexa Perez NP CHEMISTRY [facility] [employer] [facility] [address] [place] [address], [place] * SCAN CORRESP-IMAGING (12/18/2023 2:54 PM [...] 11.0 thou/cu mm 12/18/2023 12:29 PM CDT [facility] RED BLOOD COUNT 4.32 4.00 - 5.20 mil/cu mm 12/18/2023 12:29 PM CDT [facility] HEMOGLOBIN 13.9 12.0 - 16.0 g/dL 12/18/2023 12:29 PM CDT [facility] HEMATOCRIT 39.3 33.0 - 51.0 % 12/18/2023 12:29 PM CDT [facility] MCV 91 80 - 100 fL 12/18/2023 12:29 PM CDT [facility] MCH 32.2 26.0 - 34.0 pg 12/18/2023 12:29 PM CDT [facility] MCHC 35.4 32.0 - 36.0 g/dL 12/18/2023 12:29 PM CDT [facility] RDW 11.6 11.5 - 15.5 % 12/18/2023 12:29 PM CDT [facility] PLATELET COUNT 157 140 - 440 thou/cu mm 12/18/2023 12:29 PM CDT [facility] MPV 10.2 6.5 - 11.0 fL 12/18/2023 12:29 PM CDT [facility] NRBC 0.0 % 12/18/2023 12:29 PM CDT [facility] ABS NRBC 0.0 thou /cu mm 12/18/2023 12:29 PM CDT [facility] Blood BLOOD SPECIMEN / Unknown Venipuncture / Unknown 12/18/2023 12:10 PM CDT 12/18/2023 12:19 PM CDT Saskia Steen MD HEMATOLOGY [facility] [address] [place] [address], * (ABNORMAL) BASIC METABOLIC PANEL (12/18/2023 12:10 PM CDT) SODIUM 141 136 - 145 mmol/L 12/18/2023 12:48 PM CDT [facility] POTASSIUM 4.0 3.5 - 5.1 mmol/L 12/18/2023 12:48 PM CDT [facility] CHLORIDE 106 98 - 107 mmol/L 12/18/2023 12:48 PM CDT [facility] CO2,TOTAL 23 22 - 29 mmol/L 12/18/2023 12:48 PM CDT [facility] ANION GAP 12 5 - 18 12/18/2023 12:48 PM CDT [facility] GLUCOSE 92 70 - 99 mg/dL 12/18/2023 12:48 PM CDT [facility] CALCIUM 9.3 8.6 - 10.0 mg/dL 12/18/2023 12:48 PM CDT [facility] BUN 9 6 - 20 mg/dL 12/18/2023 12:48 PM CDT [facility] CREATININE 1.40(H) 0.50 - 0.90 mg/dL 12/18/2023 12:48 PM CDT [facility] BUN/CREAT RATIO 6(L) 10 - 20 12:48 PM CDT [facility] eGFR 49(L) >90 mL/min/1.7 3m2 12/18/2023 12:48 PM CDT [facility] Comment:As of 2021, eG [...] Saskia Steen MD CHEMISTRY Performing Organization Address [facility]/ZIP Co de Phone Number [facility] [address] [place] [address], [place] * (ABNORMAL) URINALYSIS MICROSCOPIC (12/18/2023 11:59 AM CDT) RBC 3-5(A) 0-2, None Seen /HPF 12/18/2023 12:27 PM CDT [facility] WBC 3-5 0-2, 3-5, None Seen /HPF 12/18/2023 12:27 PM CDT [facility] BACTERIA Few None Seen, Rare, Few Bacteria/H PF 12/18/2023 12:27 PM CDT [facility] EPITHELIAL CELLS Few None Seen, Few Epi/HPF 12/18/2023 12:27 PM CDT [facility] HYALINE CASTS 0-2 0-2, 3-5 /LPF 12/18/2023 12:27 PM CDT [facility] Urine URINE SPECIMEN / Unknown Non-Blood / Unknown 12/18/2023 11:59 AM CDT 12/18/2023 12:08 PM CDT Saskia Steen MD URINE Performing Organization Address City/[facility]/ZIP Co de Phone Number [facility] [address] [place] [address], [place] * (ABNORMAL) UA W/ SEDIMENT EXAM REFLEXED PER CRITERIA (12/18/2023 11:59 AM CDT) COLOR Yellow Yellow Color 12/18/2023 12:27 PM CDT [facility] CLARITY Clear Clear Clarity 12/18/2023 12:27 PM CDT [facility] SPECIFIC GRAVITY,URINE 1.020 1.010, 1.015, 1.020, 1.025 12/18/2023 12:27 PM CDT [facility] PH,URINE 5.5 6.0, 7.0, 8.0, 5.5, 6.5, 7.5, 8.5 12/18/2023 12:27 PM CDT [facility] UROBILINOGEN, QUALITATIVE Normal Normal EU/dl 12/18/2023 12:27 PM CDT [facility] PROTEIN, URINE 30(A) Negative mg/dL 12/18/2023 12:27 PM CDT [facility] GLUCOSE, URINE Negative Negative mg/dL 12/18/2023 12:27 PM CDT [facility] KETONES,URINE Trace(A) Negative mg/dL 12/18/2023 12:27 PM CDT [facility] BILIRUBIN,URI NE Negative Negative 12/18/2023 12:27 PM CDT [facility] OCCULT BLOOD,URINE Negative Negative 12/18/2023 12:27 PM CDT [facility] NITRITE Negative Negative 12/18/2023 12:27 PM CDT [facility] LEUKOCYTE ESTERASE Trace(A) Negative 12/18/2023 12:27 PM CDT [facility] Urine URINE SPECIMEN / Unknown Non-Blood / Unknown 12/18/2023 11:59 AM CDT 12/18/2023 12:08 PM CDT Saskia Steen MD URINE [facility] [address] [place] [address], [place] * SCAN-CT INTERPRETATION (12/15/2023 12:00 AM CDT) Anatomical Region Laterality Modality Other Scanner OTHER * ANTI HCV (03/14/2023 11:05 AM ELECTRICAL ASSEMBLY TECHNICIAN) HEPATITIS C ANTIBODY Non-Reacti ve Non-React ari 03/15/2023 2:57 PM ELECTRICAL ASSEMBLY TECHNICIAN [facility] flux - [facility] Comment:Please note, per www .CDC.gov: If a patient is known to be at high risk of HCV infection, or is symptomatic, and the physician's suspicion of HCV infection is high, HCV RNA testing is often employed and is of diagnostic value, even after an initial negative anti-HCV test result. Blood BLOOD SPECIMEN / Unknown Butterfly / Unknown 03/14/2023 11:05 AM ELECTRICAL ASSEMBLY TECHNICIAN 03/14/2023 11:07 AM ELECTRICAL ASSEMBLY TECHNICIAN Malka Arizmendi DO SEND OUTS Performing Organization Address City/[facility]/ZIP Co de Phone Number [facility] [address] [place] [address], * ANTI HIV 1/2 [11295.0] (03/14/2023 11:05 AM ELECTRICAL ASSEMBLY TECHNICIAN) Pathologist [facility] HIV-1/HIV-2 SCREEN Non-Reacti ve Non-Reacti ve 03/15/2023 2:57 PM ELECTRICAL ASSEMBLY TECHNICIAN [facility] [employer] [facility] Comment:HIV-1 p24 and HIV-1/ HIV-2 Ab Not Detected. Blood BLOOD SPECIMEN / Unknown Butterfly / Unknown 03/14/2023 11:05 AM ELECTRICAL ASSEMBLY TECHNICIAN 03/14/2023 11:07 AM ELECTRICAL ASSEMBLY TECHNICIAN Malka Arizmendi DO SEND OUTS Performing Organization Address City/[facility]/ZIP Co de Phone Number [employer] [facility] [address] [place] [phone], from Last 3 Months or Most Recently [...] 8:57 AM 03/06/2007 1:54 AM Care Teams Wood Barrel Reconditioner Relationship Specialty Start Date End Date Malka [place] [address] [address] PCP - General Family Practice 10/10/13
--- OUTSIDE RECORDS SUMMARY | 2023-12-21 12:15 | XMS_ITS | Continuity of Care Document ---
Author Organization [facility] enter Address [address] [place] [address] [address] Phone Care Team Providers Care Aquatic Ecologist Name Role Phone [facility] Unavailable Unava ilable Procedures Procedure Date INTERLAMINAR CRV OR THRC INTERLAMINAR CRV OR THRC Advance Directives Directive Yes / No Effective Date File Name No Information Encounters Encounter Description Practice Location Reason(s) For Visit Diagnoses Date Provider Providers Copied on Encounter [facility], [address] [place] [address], [id number], tel:[phone] [facility] No Information [facility]. [address] [place] [address], [id number], . tel:[phone] Referring Provider: Ibis Jerry, [address] [place], [address] . tel:[phone] Family History Family Member Type Diagnosis Age [...]
--- OUTSIDE RECORDS SUMMARY | 2023-12-21 12:15 | XMS_ITS | Continuity of Care Document ---
Author Organization [facility] Address [address] [place] [address] Phone Care Team Providers Care Circuits Engineer Name Role Phone Timmy Severino Unavailable Unavailable [...] Diagnoses Date Provider Providers Copied on Encounter [facility], [address] Kate [place], [id number] , [place] tel:[phone] [facility] No Information 3 Yasmeen Warner. [facility], [place], [id number] , [place]. tel:[phone] OFFICE/OUTPAT IENT VISIT, EST [facility], [address] [place], [id number] , [place] tel:[phone] [facility] [place] Cervicalgia (chief complaint) Other spondylosis with radiculopathy, cervical regionMyalgia, other siteFibromyalg iaHeadacheOthe r terminal operations supervisor (current) drug therapy 3 Marian Abbie. [address], [place], [id number] , [place]. [phone] Referring Provider: Lyle Hyatt, [address] [place] [address], [address]. tel:[phone] [facility], [address] [place] [address], [id number] , [place] tel:[phone] [facility] Other spondylosis with radiculopathy, cervical region 3 Claritza Baumann. [address] [place] [address], [id number] , [place]. [phone] Referring Provider: Lyle Hyatt, [address] [place] [address], [address]. tel:[phone] [facility], [address] [place] [address], [id number] , [place] tel:[phone] [facility] cervicalgia (chief complaint) Other spondylosis with radiculopathy, cervical region 3 Serge Rdz. [address] [place] [address], [id number] , [place]. [phone] Referring Provider: Lyle Hyatt, [address] [place] [address], [address]. tel:[phone] OFFICE/OUTPAT IENT VISIT, [facility], [address] [place] [address], [id number] , [place] [phone] [facility] Fibromyalgia (chief complaint) Other spondylosis with radiculopathy, cervical regionMyalgia, other siteFibromyalg iaHeadacheOthe r long-term (current) drug therapy 3 Marian Abbie. [address] [facility] [address], [place], [id number] , [place]. [phone] Referring Provider: Lyle Hyatt, [address] [place] [address], [address]. [phone] OFFICE/OUTPAT IENT VISIT, [facility], [address] [place] [address], [id number] , [place] [phone] [facility] Fibromyalgia (chief complaint) Other spondylosis with radiculopathy, cervical regionCervical giaMyalgia, other siteFibromyalg iaOther long-term (current) drug therapyHeadach e [address] Marian [id number] [place] [address] [address], [place], [place], [id number] , [place]. tel:[phone] Referring Provider: Lyle Hyatt, [address] [place] [address], [address]. [phone] OFFICE/OUTPAT IENT VISIT, [facility], [address] [place] [address], [id number] , [phone] [facility] Fibromyalgia (chief complaint) CervicalgiaMya lgia, other siteFibromyalg iaOther long-term (current) drug therapyOther spondylosis with radiculopathy, cervical region 0 [address] [place] [address] [address], [place], [place], [id number] , [place]. tel:[phone] Referring Provider: Lyle Hyatt, [address] [place] [address], [address]. [phone] OFFICE/OUTPAT IENT VISIT, [facility], [address] [place] [address], [id number] , [place] [phone] [facility] Fibromyalgia (chief complaint) CervicalgiaMya lgia, other siteFibromyalg iaOther long-term (current) drug therapy [address] [place] [address] [address], [place], [place], [id number] , [place]. [phone] Referring Provider: Lyle Hyatt, [address] [place] [address], [address]. [phone] OFFICE/OUTPAT IENT VISIT, [facility], [address] [place] [address], [id number] , [place] [phone] [facility] Fibromyalgia (chief complaint) Myalgia, other siteFibromyalg iaOther long-term (current) drug therapyOhiohealth [facility] er for therapeutic drug level monitoringCerv icalgia 2 Yasmeen Warner. [facility] [facility] [address], [place], [place], [id number] , [place]. tel:[phone] Referring Provider: Malka Arizmendi [facility] [address] [place], [address]. tel:[phone] [facility], [address] [place] [address], [id number] , [place] tel:[phone] [facility] No Information 2 Yasmeen Warner. [address] [place] [address] [address], [place], [place], [id number] , [place]. tel:[phone] [facility], [address] [place] [address], [id number] , [place] tel:[phone] [facility] [place] No Information 1 Yasmeen Warner. [facility]5 [facility] [address], [place], [place], [id number] , [place]. tel:[phone] Referring Provider: Lyle Hyatt, [address] [place] [address], [address]. tel:[phone] OFFICE/OUTPAT IENT VISIT, [facility], [address] [place] [address], [id number] , [place] tel:[phone] [facility] Fibromyalgia (chief complaint) FibromyalgiaMy algia, other siteOther terminal operations supervisor (current) drug therapy 1 Yasmeen Warner. [address] [place] [address] [address], [place], [place], [id number] , [place]. tel:[phone] Referring Provider: Lyle Hyatt, [address] [place] [address], [address]. [phone] OFFICE VISIT, EST TELEMEDICINE [facility], [address] [place] [address], [id number] , [place] [phone] [facility] Fibromyalgia (chief complaint) Myalgia, other siteOther terminal operations supervisor (current) drug therapyFibromy algia [phone] [place] Puga. [facility], [address], [place], [address], [place]. tel:[phone] Referring Provider: Lyle Hyatt, [address] [place] [address], [address]. [phone] [facility], [address] [place] [address], [id number] , [place] [phone] [facility] No Information 9 Yasmeen Warner. [address] [place] [address] [address], [place], [id number] , [place]. tel:[phone] OFFICE/OUTPAT IENT VISIT, [facility], [address] [place] [address], [id number] , [place] tel:[phone] [facility] Fibromyalgia (chief complaint) Other terminal operations supervisor (current) drug therapyFibromy algiaChronic pain syndromeMyalgi a, other siteEncounter for therapeutic drug level monitoring 9 Yasmeen Warenr. [address] [place] [address] [address], [place], [id number] , [place]. [phone] Referring Provider: Lyle Hyatt, [address] [place] [address], [address]. [phone] OFFICE/OUTPAT IENT VISIT, [facility], [address] [place] [address], [id number] , [place] [phone] [facility] Fibromyalgia (chief complaint) Chronic pain syndromeFibrom yalgiaOther long-term (current) drug therapy 9 Yasmeen Warner. [address] [place] [address] [address], [place], [id number] , [place]. tel:[phone] Referring Provider: Lyle Hyatt, [address] [place], [address]. tel:[phone] OFFICE/OUTPAT IENT VISIT, EST [facility], [address] [place], [place], [id number] , [place] tel:[phone] [facility] Fibromyalgia (chief complaint) Chronic pain syndromeFibrom yalgiaEncounte r for therapeutic drug level monitoringOthe r long-term (current) drug therapyMyalgia , other siteCervicalgi aLow back pain 9 Yasmeen Warner. [facility]5 [facility] [address], [place], [id number] , [place]. [phone] Referring Provider: Malka Arizmendi [facility] [address], [place], [address]. tel:[phone] [facility], [address] [place] [address], [id number] , [place] [phone] [facility] Fibromyalgia (chief complaint) Chronic pain syndromeFibrom yalgiaPain in right hand 9 Arana Timmy. [address] [place] [address] [address], [place], [id number] , [place]. [phone] Family History Family Member Type Diagnosis Age [...] CE DRUG ANALYSIS, URINE, WITH MED REPORT ([id number]), Ordered on: Ordered Future Order: Lab Order COMPLIAN CE DRUG ANALYSIS, URINE, WITH MED REPORT ([id number]), Ordered on: Ordered Future Order: Lab Order [...] discomfort limits showering, dressing, lifting, reaching for subcontracts manager and daily activity.. Patients goal is [...] activity. Continues to attend PT /massage at [facility]. primarily for her neck [...] activity. Continues to attend PT /massage, in [place], primarily for her neck and BL hips. Pain has been fluctuating since [facility] and pain level averages 8/10.Reports that [...] Reports worsened neck and back pain since [facility]. Reports that her pain is exacerbated with increased activity. Currently attends PT in [place], primarily for her neck and BL hips.S/p Botox (?) injection on 12/18/21 at [facility] with increased pain following the injection. Since [facility], patient obtained cervical MRI imaging Continues [...] cannabis. Currently utilizing the red formulation from [employer]. Details feeling high and dizzy, but notes [...] a couple days. Has been working with [facility] and is currently managed on yellow strain [...] other recommended therapies. She would like [facility] to assume management of pain care. Does report recreational cannabis use a couple weeks ago while traveling with friends in [place] where it is legal. Fibromyalgia Onset occurred [...] consult for fibromyalgia, referred by Dr. C[facility]jo[facility]. Her pain began 5 years [...] other recommended therapies. She would like [facility] to assume management of pain care. Functional Status Date Functional Assessmen t No Information Instructions Date Instruction Additional Infor mation No Information Assessments Type Assessment Date No Information Patient Care Teams Name Effective Dates (start - stop) Status Members No Information
--- OUTSIDE RECORDS SUMMARY | 2023-12-21 12:15 | XMS_ITS | Continuity of Care Document ---
Author Organization [facility] enter Address [address] [place] [address] [address] Phone Care Team Providers Care Glass Melt Operator Name Role Phone [facility] Unavailable Unava ilable Procedures Procedure Date INTERLAMINAR CRV OR THRC INTERLAMINAR CRV OR THRC Advance Directives Directive Yes / No Effective Date File Name No Information Encounters Encounter Description Practice Location Reason(s) For Visit Diagnoses Date Provider Providers Copied on Encounter [facility], [address] [place] [address], [id number], tel:[phone] [facility] No Information [facility]. [address] [place] [address], [id number], . tel:[phone] Referring Provider: Ibis Jerry, [address] [place], [address] . tel:[phone] Family History Family Member Type Diagnosis Age [...]
--- OUTSIDE RECORDS SUMMARY | 2023-12-21 12:15 | XMS_ITS | Continuity of Care Document ---
Author Organization [facility] Address [address] [place] [address] Phone Care Team Providers Care Rubber Mold Maker Name Role Phone Galen Zhang MD Unavailable [...] Copied on Encounter [facility], [address], [place], [place], [id number] , tel:[phone] [facility] No Information 9 Leatha Aaron. [facility], [address] [place] [address], [facility] [address], [place], [place], [id number], [place]. tel:[phone] Office/Outpa tient Visit,New, [facility], [address], [place], [place], [id number] , [place] tel:[phone] [facility] Other cervical disc degeneration, cervicothorac ic region [address] Transfel[address]or[address] [facility], [address], [facility] [address], [place], [place], [id number], [place]. tel:[phone] Referring Provider: Alex Cam, [facility] [address], [place], [address]. tel:[phone] Family History Family Member Type Diagnosis Age [...]
--- OUTSIDE RECORDS SUMMARY | 2023-12-21 12:15 | XMS_ITS | Continuity of Care Document ---
Author Organization [facility] Address [address] [place] [address] Care Team Providers Care Office Services Coordinator Name Role Phone Kaden Mckeon CRNA Unavailable Unavailable Procedures Procedure Date Percutaneous Image guided injection, dra nagy, or Advance Directives Directive Yes / No Effective Date File Name No Information Encounters Encounter Description Practice Location Reason(s) For Visit Diagnoses Date Provider Providers Copied on Encounter [facility], [address] [place], [place], [id number], [facility] No Information 3 Mike Alfonso. [address] [place], [place], [id number] , . tel:[phone] Referring Provider: Ibis Jerry, [address] [place], [address] . tel:[phone] Family History Family Member Type Diagnosis Age [...]
--- OUTSIDE RECORDS SUMMARY | 2023-12-21 12:15 | XMS_ITS | Continuity of Care Document ---
Author Organization [facility] Address [address] [place] [address] Care Team Providers Care Nursery Hand Name Role Phone Kaden Mckeon CRNA Unavailable Unavailable Procedures Procedure Date Percutaneous Image guided injection, dra nagy, or Advance Directives Directive Yes / No Effective Date File Name No Information Encounters Encounter Description Practice Location Reason(s) For Visit Diagnoses Date Provider Providers Copied on Encounter [facility], [address] [place], [place], [id number], [facility] No Information 3 Mike Alfonso. [address] [place], [place], [id number] , . tel:[phone] Referring Provider: Ibis Jerry, [address] [place], [address] . tel:[phone] Family History Family Member Type Diagnosis Age [...]
--- OUTSIDE RECORDS SUMMARY | 2023-12-21 12:16 | XMS_ITS | Continuity of Care Document ---
Author Organization [facility] Address [address] [place] [address] Phone Care Team Providers Care Roof Shingler Name Role Phone Galen Zhang MD Unavailable [...] Copied on Encounter [facility], [address], [place], [place], [id number] , tel:[phone] [facility] No Information 9 Leatha Aaron. [facility], [address] [place] [address], [facility] [address], [place], [place], [id number], [place]. tel:[phone] Office/Outpa tient Visit,New, [facility], [address], [place], [place], [id number] , [place] tel:[phone] [facility] Other cervical disc degeneration, cervicothorac ic region 9 Transfeldt Ensor. [facility], [address], [facility] [address], [place], [place], [id number], [place]. tel:[phone] Referring Provider: Alex Cam, [facility] [address], [place], [address]. tel:[phone] Family History Family Member Type Diagnosis Age [...]
--- OUTSIDE RECORDS SUMMARY | 2023-12-21 12:16 | XMS_ITS | Continuity of Care Document ---
Author Organization [facility] talita Address [address] [place] [address] Phone Care Team Providers Care Biochemical Development Engineer Name Role Phone Timmy Severino Unavailable [...] Provider Providers Copied on Encounter [facility], [address] Kate Cant[place], [id number] , [place] tel:[phone] [facility] No Information 3 Yasmeen Warner. [facility], [place], [id number] , [place]. tel:[phone] OFFICE/OUTPAT IENT VISIT, EST [facility], [address] Kate Cantu [place], [id number] , [place] tel:[phone] [facility] [place] Cervicalgia (chief complaint) Other spondylosis with radiculopathy, cervical regionMyalgia, other siteFibromyalg iaHeadacheOthe r long winder tender (current) drug therapy 3 Marian Abbie. [address], [place], [id number] , [place]. [phone] Referring Provider: Lyle Hyatt, [address] [place] [address], [id number]. tel:[phone] [facility], [address] [place] [address], [id number] , [place] tel:[phone] [facility] Other spondylosis with radiculopathy, cervical region 3 Claritza Baumann. [address] [place] [address], [id number] , [place]. [phone] Referring Provider: Lyle Hyatt, [address] [place] [address], [id number]. tel:[phone] [facility], [address] [place] [address], [id number] , [place] tel:[phone] [facility] cervicalgia (chief complaint) Other spondylosis with radiculopathy, cervical region 3 Serge Rdz. [address] [place] [address], [id number] , [place]. [phone] Referring Provider: Lyle Hyatt, [address] [place] [address], [address]. tel:[phone] OFFICE/OUTPAT IENT VISIT, [facility], [address] [place] [address], [id number] , [place] [phone] [facility] Fibromyalgia (chief complaint) Other spondylosis with radiculopathy, cervical regionMyalgia, other siteFibromyalg iaHeadacheOthe r half-way (current) drug therapy 3 Marian Abbie. [address], [place], [id number] , [place]. [phone] Referring Provider: Lyle Hyatt, [address] [place] [address], [id number]. [phone] OFFICE/OUTPAT IENT VISIT, [facility], [address] [place] [address], [id number] , [place] [phone] [facility] Fibromyalgia (chief complaint) Other spondylosis with radiculopathy, cervical regionCervical giaMyalgia, other siteFibromyalg iaOther half-way (current) drug therapyHeadach e 3 Marian Abbie. [address] [place] [address] [address], [place], [place], [id number] , [place]. tel:[phone] Referring Provider: Lyle Hyatt, [address] [place] [address], [id number]. [phone] OFFICE/OUTPAT IENT VISIT, [facility], [address] [place] [address], [id number] , [phone] [facility] Fibromyalgia (chief complaint) CervicalgiaMya lgia, other siteFibromyalg iaOther half-way (current) drug therapyOther spondylosis with radiculopathy, cervical region 0 [address] [place] [address] [address], [place], [place], [id number] , [place]. tel:[phone] Referring Provider: Lyle Hyatt, [address] [place] [address], [address]. [phone] OFFICE/OUTPAT IENT VISIT, [facility], [address] [place] [address], [id number] , [place] [phone] [facility] Fibromyalgia (chief complaint) CervicalgiaMya lgia, other siteFibromyalg iaOther half-way (current) drug therapy [address] Marian Ab[address] [place] [address] [address], [place], [place], [id number] , [place]. [phone] Referring Provider: Lyle Hyatt, [address] [place] [address], [id number]. [phone] OFFICE/OUTPAT IENT VISIT, [facility], [address] [place] [address], [id number] , [place] [phone] [facility] Fibromyalgia (chief complaint) Myalgia, other siteFibromyalg iaOther half-way (current) drug therapyBar[facility] er for therapeutic drug level monitoringCerv icalgia 2 Yasmeen Warner. [facility], [place], [place], [id number] , [place]. tel:[phone] Referring Provider: Malka Arizmendi [facility] [address] [place], [address]. tel:[phone] [facility], [address] [place] [address], [id number] , [place] tel:[phone] [facility] No Information 2 Yasmeen Warner. [address] [place] [address] [address], [place], [place], [id number] , [place]. tel:[phone] [facility], [address] [place] [address], [id number] , [place] tel:[phone] [facility] [place] No Information 1 Yasmeen Warner. [facility]5 [facility] [address], [place], [place], [id number] , [place]. tel: [phone] Referring Provider: Lyle Hyatt, [address] [place] [address], [id number]. tel:[phone] OFFICE/OUTPAT IENT VISIT, [facility], [address] [place] [address], [id number] , [place] tel:[phone] [facility] Fibromyalgia (chief complaint) FibromyalgiaMy algia, other siteOther long winder tender (current) drug therapy 1 Yasmeen Warner. [address] [place] [address] [address], [place], [place], [id number] , [place]. tel:[phone] Referring Provider: Lyle Hyatt, [address] [place] [address], [id number]. [phone] OFFICE VISIT, EST TELEMEDICINE [facility], [address] [place] [address], [id number] , [place] [phone] [facility] Fibromyalgia (chief complaint) Myalgia, other siteOther long winder tender (current) drug therapyFibromy algia [phone] Thompsoncastro uPga. [facility], [address], [place], [address], [place]. tel:[phone] Referring Provider: Lyle Hyatt, [address] [place] [address], [id number]. [phone] [facility], [address] [place] [address], [id number] , [place] [phone] [facility] No Information 9 Yasmeen Warner. [address] [place] [address] [address], [place], [id number] , [place]. tel:[phone] OFFICE/OUTPAT IENT VISIT, [facility], [address] [place] [address], [id number] , [place] tel:[phone] [facility] Fibromyalgia (chief complaint) Other long winder tender (current) drug therapyFibromy algiaChronic pain syndromeMyalgi a, other siteEncounter for therapeutic drug level monitoring 9 Yasmeen Warner. [address] [place] [address] [address], [place], [id number] , [place]. [phone] Referring Provider: Lyle Hyatt, [address] [place] [address], [id number]. [phone] OFFICE/OUTPAT IENT VISIT, [facility], [address] [place] [address], [id number] , [place] [phone] [facility] Fibromyalgia (chief complaint) Chronic pain syndromeFibrom yalgiaOther half-way (current) drug therapy 9 Yasmeen Warner. [address] [place] [address] [address], [place], [id number] , [place]. tel:[phone] Referring Provider: Lyle Hyatt, [address] [place], [address]. tel:[phone] OFFICE/OUTPAT IENT VISIT, EST [facility], [address] [place], [place], [id number] , [place] tel:[phone] [facility] Fibromyalgia (chief complaint) Chronic pain syndromeFibrom yalgiaEncounte r for therapeutic drug level monitoringOthe r half-way (current) drug therapyMyalgia , other siteCervicalgi aLow back pain 9 Yasmeen Warner. [facility]5 [facility] [address], [place], [id number] , [place]. [phone] Referring Provider: Malka Arizmendi [facility] [address], [place], [address]. tel:[phone] [facility], [address] [place] [address], [id number] , [place] [phone] [facility] Fibromyalgia (chief complaint) Chronic pain syndromeFibrom yalgiaPain in right hand 9 Arana Timmy. [address] [place] [address] [address], [place], [id number] , [place]. [phone] Family History Family Member Type Diagnosis Age [...] CE DRUG ANALYSIS, URINE, WITH MED REPORT ([id number]), Ordered on: Ordered Future Order: Lab Order COMPLIAN CE DRUG ANALYSIS, URINE, WITH MED REPORT ([id number]), Ordered on: Ordered Future Order: Lab Order [...] discomfort limits showering, dressing, lifting, reaching for loading manager and daily activity.. Patients goal is [...] diarrhea, fatigue, fever and incontinence (urinary). Comments: rGace is a 36 y/o woman here for follow up consult regarding fibromyalgia. Pain is exacerbated with increased activity. Continues to attend PT /massage at [facility] and Clinic. primarily for [...] activity. Continues to attend PT /massage, in [place], primarily for her neck and BL hips. Pain has been fluctuating since [facility] and pain level averages 8/10.Reports that she [...] Reports worsened neck and back pain since [facility]. Reports that her pain is exacerbated with increased activity. Currently attends PT in [place], primarily for her neck and BL hips.S/p Botox (?) injection on 12/18/21 at [facility] with increased pain following the injection. Since [facility], patient obtained cervical MRI imaging Continues to [...] cannabis. Currently utilizing the red formulation from [employer]. Details feeling high and dizzy, but notes [...] a couple days. Has been working with [facility] and is currently managed on yellow strain [...] and other recommended therapies. She would like [facility] to assume management of pain care. Does report recreational cannabis use a couple weeks ago while traveling with friends in [place] where it is legal. Fibromyalgia Onset occurred [...] and other recommended therapies. She would like [facility] to assume management of pain care. Functional Status Date Functional Assessmen t No Information Instructions Date Instruction Additional Infor mation No Information Assessments Type Assessment Date No Information Patient Care Teams Name Effective Dates (start - stop) Status Members No Information
[2023-12-21 12:25] LABS: Basophils Absolute Auto 0.01 K/uL (0.00-0.30); Basophils Percent Auto 0.2 % (0.0-3.0); Eosinophils Absolute Auto 0.21 K/uL (0.00-0.50); Hemoglobin* 12.5 gm/dL (12.0-16.0); Immature Granulocytes Abs Auto 0.01 K/uL (0.00-0.30); Immature Granulocytes Pct Auto 0.2 %; Lymphocytes Absolute Auto 2.04 K/uL (0.90-2.90); Lymphocytes Percent Auto 38.6 % (20-44); Mean Corpuscular HGB Conc 34 gm/dL (32-36); Mean Corpuscular Hemoglobin 31 pg (26-34); Mean Corpuscular Volume 93 fL (80-100); Monocytes Percent Auto 6.4 % (0.0-11.0); Neutrophils Absolute Auto 2.68 K/uL (1.7-7.0); Neutrophils Percent Auto 50.6 % (42.0-72.0); Platelet Count* 154 K/uL (140-440); RDW Coefficient of Variation % 11.8 % (11.5-15.5); Red Blood Count 3.99 m/uL (4.00-5.20); White Blood Count* 5.29 K/uL (4.50-11.00)
[2023-12-21 12:28] LABS: Slide Review Reflex No
[2023-12-21 12:33] LABS: Chloride* 104 mmol/L (96-114); Sodium* 140 mmol/L (135-149)
[2023-12-21 12:36] LABS: Creatinine* 1.2 mg/dL (0.5-1.5); Est. Creatinine Clearance* 55.33; Estimated Glomerular Filt Rate 59 ml/min
[2023-12-21 12:37] LABS: Anion Gap 8 mEq/L (7-15); Blood Urea Nitrogen* 11 mg/dL (5-24); Calcium* 9.6 mg/dL (8.4-10.6); Carbon Dioxide* 28 mmol/L (20-32); Glucose* 101 mg/dL (60-115)
[2023-12-21 12:40] LABS: C Reactive Protein* 1.3 mg/dL (0.5-1.0)
[2023-12-21 13:16] LABS: Bilirubin Urine 2+ (Negative); Blood Urine 3+ (Negative); Color Urine Red (Yellow); Glucose Urine Negative (Negative); Ketones Urine Trace (Negative); Leukocyte Esterase Urine Trace (Negative); Nitrite Urine Positive (Negative); Protein Urine 3+ (Negative); pH Urine 5.5 (5.0-8.5)
[2023-12-21 13:23] LABS: Appearance Urine Turbid (Clear); Bacteria Urine Moderate; RBC Urine >100 (0-2)
== END 2023-12-21 14:44 | disposition home or self-care (01) ==
PROVIDERS: Emergency Provider Family Medicine; PCP Family Medicine
DX: G89.18 Other acute postprocedural pain (principal); F41.9 Anxiety disorder, unspecified; R31.9 Hematuria, unspecified
CPT/HCPCS: 36415; 71045; 80048; 81001; 85025; 86140; 87086; 93005; 99284; 99285; A9270